=== PATIENT | female | born 1940 | race Caucasian/White ===

== ENCOUNTER 2021-11-05 09:45 | Outpatient (CLI) | payer OTHER, SELFPAY ==
--- NOTE | ~2021-11-05 | DEXA_ITS ---
Bone Density Report Name: CELINE ACKERMAN Age: 81 Sex: Female Ethnicity: White Date of : 1940 Indication: postmenopausal; parental hip fracture; height loss; prior fracture; hysterectomy; Referring Provider: Zeny Deleon Study: Bone densitometry was performed. Exam Date: November 05, 2021 Accession number: [id number] Bone Density: Region BMD T-score Z-score Classification AP Spine (L1-L4) 0.893 -1.4 1.3 Osteopenia Femoral Neck (Left) 0.658 -1.7 0.6 Osteopenia Total Hip (Left) 0.838 -0.9 1.3 Normal Total Hip Bilateral Avg 0.859 -0.7 1.5 Normal Femoral Neck (Right) 0.696 -1.4 1.0 Osteopenia Total Hip (Right) 0.879 -0.5 1.6 Normal World Health Organization criteria for BMD impression classify patients as: Normal (T-score at or above -1.0), Osteopenia (T-score between -1.0 and -2.5), or Osteoporosis (T-score at or below -2.5). 10-year Fracture Risk(1): Major Osteoporotic Fracture 32% Hip Fracture 20% Reported Risk Factors: [place] (), Neck BMD=0.658, BMI=22.0, previous fracture, parental fracture (1) FRAX(R) Version 3.08. Fracture probability calculated for an untreated patient. Fracture probability may be lower if the patient has received treatment. Previous Exams: Region Exam Age BMD T-score BMD Change BMD Change Date g/cm2 vs Baseline vs Previous AP Spine(L1-L4) 11/05/2021 81 0.893 -1.4 -0.063(-6.6%)# -0.063(-6.6%)# 07/09/2008 68 0.955 -0.8 Total Hip(Left) 11/05/2021 81 0.838 -0.9 -0.022(-2.6%)# -0.022(-2.6%)# 07/09/2008 68 0.860 -0.7 Total Hip(Right) 11/05/2021 81 0.879 -0.5 -0.019(-2.1%)# -0.019(-2.1%)# 07/09/2008 68 0.898 -0.4 *Denotes significance at 95% confidence level, LSC for AP Spine = 0.022 g/cm2, LSC for Total Hip = 0.027 g/cm2 Clinical Information Provided by Patient: Has had a low trauma fracture Parent has had a hip fracture Has used the following medications: Vitamin D Has the following medical conditions: Hysterectomy Patient maximum height was 66 Menopause Age: 40 Drinks caffeinated beverages Onset of menses at age 16 Number of children 3 Impression: The patient has low bone mass, based on the Left Femoral Neck T-score. The patient has an estimated ten-year risk of hip fracture of 20% and an estimated ten-year risk of major fracture of 32%, based on the WHO FRAX algorithm. The patient has risk factors, including: parental hip fracture, previous fracture. No significant bone loss
== END 2021-11-05 09:46 | disposition home or self-care (01) ==
LOC: ANHIMG 09:53
PROVIDERS: PCP Internal Medicine; Visit Provider Nurse Practitioner
DX: Z78.0 Asymptomatic menopausal state (principal); M85.88 Other specified disorders of bone density and structure, other site; M85.851 Other specified disorders of bone density and structure, right thigh; M85.852 Other specified disorders of bone density and structure, left thigh
CPT/HCPCS: 77080

== ENCOUNTER 2025-01-19 06:41 | Emergency (ER) | payer OTHER, SELFPAY ==
--- NOTE | ~2025-01-19 | XR_ITS ---
XR chest 2V 01/19/2025 08:12 Indication: Hypertension Procedure: 2 view chest Comparison: 03/07/2006 Findings: Heart size normal. There is lingular infiltrate which may represent atelectasis or developi ng pneumonia. There is pectus excavatum. There is scoliosis. No acute osseous abnormality. Impression: 1: Lingular infiltrate, atelectasis versus developing pneumonia. Reviewed, dictated and finalized at location [facility] Impression: 1: Lingular infiltrate, atelectasis versus developing pneumonia.
--- OUTSIDE RECORDS SUMMARY | 2025-01-19 06:43 | XMS_ITS | Data Portability ---
Author Organization [facility], Main Office Address [address] [place] [address] Care Team Providers Care Appliance Parts Counter Clerk Name Role Phone TEJAS GRAJEDA Primary Care Provider Assessment No assessment recorded. Plan of Treatment Reminders Order Date Submit Date Provider Last Modified By Organization Details Last Modified Time Details Appointments None recorded. Lab None recorded. Referral None recorded. Procedures None recorded. Surgeries None recorded. Imaging None recorded. Medication Orders Ciprodex 0.3 %-0.1 % ear drops,susp ension 2024 025 [facility] #[id number], [address] [place], [address], 16:40:10 Patient TargetsNo targets recorded. Patient Instructions Encounter Date Encounter Id Patient Instructions Last Modified By Organization Details Last Modified Time 01/18/2025 [id number] prescribed Ciprodex to be used twice a day for 7 days to aid in decreasing inflammation to the right external auditory canal. Advised that if her symptoms continue to persist after completion she may be seen for a re-evaluation or to see her terrazzo laborer to discuss softer tips for her hearing aid. [email or web address] Not available 01/18/2025 16:40:59 Reason for Referral None Reported. Problems Name Problem SNOMED Code Status Onset Date Resolution Date Notes Provider Name and Address Organization Details Recorded Time Otitis externa 5055384 Active 025 ANDRY Dorsey [address] [facility], [facility] [address], [place], [address] , [facility] 01/18/2025 16:39:55 Problem Notes None recorded. Procedures Surgical History Date Name Laterality Status Provider Name and Address Organization Details Recorded Time tonsillectomy completed Clarisse santamaria RN [facility] 01/18/2025 16:15:24 Imaging Results None recorded. Procedure Notes None recorded. Medical Equipment None Reported. Allergies Allergen ID Allergen Name Allergen Category Reaction Reaction Severity Criticality Documentation Date Start Date Code Code System Note Provider Name and Address Organization Details Recorded Time 09641 Substance with sulfonami de structure and antibacte rial mechanism of action (substanc e) medicatio n Not available Not available Not available 01/18/2025 75689 8003 SNOMED SHEEBA Glaser [facility] [employer] [facility] 16:16:05 Medications Name Sig Start Date Stop Date Status Note LastModified by Organization Details LastModified Time bimatoprost 0.03 % eye drops USE ONE DROP ON BOTH EYE LASH LINES EVERY DAY AT BEDTIME 01/18 completed Not Available Not Available Not Available amlodipine 2.5 mg tablet TAKE 1 TABLET BY MOUTH EVERY DAY IN THE MORNING active Not Available Not Available No t Available imiquimod 5 % topical cream packet PLEASE SEE ATTACHED FOR DETAILED DIRECTION S 01/18 completed Not Available Not Available Not Available ibuprofen 400 mg tablet TAKE 1 TABLET BY MOUTH EVERY 6 HOURS NEEDED FOR PAIN. 01/18 completed Not Available Not Available Not Available metoprolol succinate ER 25 mg tablet,exte nded release 24 hr TAKE 1/2 TABLET BY MOUTH DAILY active Not Available Not Available No t Available diazepam 5 mg tablet TAKE 1 TABLET BY MOUTH EVERY DAY NEEDED FOR ANXIETY 01/18 completed Not Available Not Available Not Available Ciprodex 0.3 %-0.1 % ear drops,suspe nsion INSTILL 4 DROPS INTO right EAR(S) BY OTIC ROUTE 2 TIMES PER DAY FOR 7 DAYS 2024 active Not Available Not Available Not Avai lable Vitals Date Recorded Body weight Body mass index (BMI) Body height Body temperature Provider Name and Address Organization Details Last Updated DateTime 01/18/2025 75389.79 g 21.7 kg/m2 162.56 cm 97.8 [degF] Clarisse Menezes RN [facility] [employer] [facility] 01/18/2025 16:19:34 Social History Question Answer Notes LastModified by Organizat ion Details LastModified Time Tobacco Smoking Status Never Smoker SHEEBA Glaser [facility] [employer] [facility] 01/18/2025 16:16:50 What Is Your Level Of Alcohol Consumption? None [email or web address] Information not available 01/18/2025 Sex: Unknown Functional Status None recorded. Mental Status None recorded. Family History Relationship Description Onset Age of this Age Resolved Age Notes LastModified by Organization Details LastModified Time Father No current problems or disability [email or web address] Not available 01/18 16:15:33 Mother No current problems or disability [email or web address] Not available 01/18 16:15:33 Notes:NO ENT Medical History Condition Response EAR OR HEARING PROBLEMS Y Gynecological HistoryNo gynecological history recorded. Obstetrics History GPAL:G 0 P 0 0 0 0 Past Encounters Encounter ID Performer Location Encounter Start Date Encounter Closed Date Diagnosis/Indication Diagnosis SNOMED-CT Code Diagnosis ICD10 Code Diagnosis Note [id number] ANDRY Dorsey [facility] [address] [place] [address] 01/18/2025 15:47:54 01/18/2025 16:41:35 Otitis externa 8059032 H60.91 Health Concerns Section Related Observation LastModified by Organization Detai ls LastModified Time None Recorded Concern Status LastModified by Organization Details LastModified Time None Recorded Advance Directives Directive None Recorded Payers Encounter Date Sequence Insurance Name Policy Number Policy Soares Covered Member ID Soares Member ID Guarantor Name 01/18/2025 1 ADELA Yeung [id number] Carlita Yeung Notes Date Note Type Note Provider Name and Address Organization Details Recorded Time 01/18/2025 text/html This patient has a past medical history significant for an MVP, and hearing loss s/p bilateral hearing aids. She presents to the office with a complaint of ear wax that she had noted approximately 1 month ago. She denies use of [id number] ear wax removal kit. She states that 2 years ago she had her right ear irrigated due to a cerumen impaction. She states that ever since this ear irrigation she has had increasing pain and tenderness to the entry point of her ear canal wear her hearing aid sits. She reports increasing pain and discomforts with use of her hearing aid to the affected right ear. ANDRY Dorsey [address] [facility], [facility] [address], [place], [address], [place] [facility] 01/18/2025 16:41:03 OBGyn Episode No OBEpisode recorded.
--- OUTSIDE RECORDS SUMMARY | 2025-01-19 06:43 | XMS_ITS | Encounter Summary ---
Author Organization [facility] Address [facility] [place] [address] Care Team Providers Care Children'S Ministry Director Name Role Phone Damien Casanova MD Primary Care Provider [phone] Encounter Details Date Type Department Care Team (Late st Contact Info) Description 10/02/2017 Abstract [place] [address] , Generic Conversion, Social History Tobacco Use Types Packs/Day Years Used Date Smoking Tobacco: Never Assessed Comments Unknown Sex and Gender Information Value Date Recorded Sex Assigned at Not on file Legal Sex Female 5:21 PM CDT Gender Identity Not on file Sexual Orientation Not on file documented as of this encounter Plan of Treatment Not on file documented as of this encounter Visit Diagnoses Not on filedocumented in this encounter Care Teams Children'S Ministry Director Relationship Specialty Start Date End Date Damien Casanova MD [address] [facility] [address] [address] PCP - General 12/07/15 documented as of this encounter
--- OUTSIDE RECORDS SUMMARY | 2025-01-19 06:43 | XMS_ITS | Referral Summary ---
Author Organization [facility] Address [address] [place] [address] Care Team Providers Care Project Geologist Name Role Phone Unavailable Primary Care Provider Unavailabl e Source Comments [facility],non-owned Affiliates and Associated Physician Practices is amultiple site organization consisting of ambulatory clinics and hospital sitesin [place], [place], [place] and [place]. This disclosure is being madepursuant to the Care Everywhere program and may not contain all information available regarding this patient. Last updated 18.[facility] Social History Tobacco Use Types Packs/Day Years Used Date Smoking Tobacco: Never Assessed Sex and Gender Information Value Date Recorded Sex Assigned at Not on file Gender Identity Not on file Sexual Orientation Not on file Plan of Treatment Upcoming Encounters Date Type Department Care Team (Late st Contact Info) Description 02/12/2025 2:40 PM CDT Office Visit [facility] [address] [place] [address] [place] [id number] [address]
--- OUTSIDE RECORDS SUMMARY | 2025-01-19 06:43 | XMS_ITS | Patient Health Summary ---
Author Organization [facility] Address [address] [facility] [place] [address] Care Team Providers Care Tree Faller Name Role Phone Unavailable Primary Care Provider Unavailabl e Note from [facility],non-owned Affiliates and Associated Physician Practices is amultiple site organization consisting of ambulatory clinics and hospital sitesin [place], [place], [place] and [place]. This disclosure is being madepursuant to the Care Everywhere program and may not contain all information available regarding this patient. Last updated 18.[facility] Social History Tobacco Use Types Packs/Day Years Used Date Smoking Tobacco: Never Assessed Sex and Gender Information Value Date Recorded Sex Assigned at Not on file Gender Identity Not on file Sexual Orientation Not on file
--- OUTSIDE RECORDS SUMMARY | 2025-01-19 06:43 | XMS_ITS | Clinical Summary ---
Author Organization [facility] Address [address] [place] [address] Phone Care Team Providers Care Metalsmith Helper Name Role Phone Damien Casanova MD Primary Care Provider [phone] Allergies Active Allergy Reactions Criticality Noted Date Comments Sulfa (Sulfonamide Antibiotics) Unknown 02/2011 Medications diazepam (VALIUM) 5 mg Oral tablet Take 2.5 mg by mouth every 6 hours as needed. Active aspirin (LUCIE) 81 mg Oral Tab Take 81 mg by mouth daily with breakfast. 09/01/2011 Active calcium carbonate 1,000 mg Oral Tab Take 1,000 mg by mouth daily. 09/01/2011 Active lisinopril (PRINIVIL) 2.5 mg Oral tablet Take 2.5 mg by mouth daily. Active METHYLCELLULOSE (CITRUCEL ORAL) Take by mouth daily. Active POLYETHYLENE GLYCOL 3350 (MIRALAX ORAL) Take by mouth daily. Active Active Problems Problem Noted Date Diagnosed Date Constipation 09/01/2011 Social History Tobacco Use Types Packs/Day Years Used Date Smoking Tobacco: Never Alcohol Use Standard Drinks/Week Comments No 0 (1 standard drink = 0.6 oz pur e alcohol) Comments Unknown Sex and Gender Information Value Date Recorded Sex Assigned at Not on file Legal Sex Female 2:40 AM DAT INSTRUCTOR Gender Identity Not on file Sexual Orientation Not on file Last Filed Vital Signs Vital Sign Reading Time Taken Comments Blood Pressure 110/68 08/23/2013 3:13 PM CDT Pulse 81 08/23/2013 3:13 PM CDT Temperature 37 C (98.6 F) 09/01/2011 7:48 AM CDT Respiratory Rate 16 08/23/2013 3:13 PM CDT Oxygen Saturation 99% 09/01/2011 10:13 AM CDT Inhaled Oxygen Concentration - - Weight 61.2 kg (135 lb) 08/23/2013 3:13 PM CDT Height 165.1 cm (5' 5 ) 08/23/2013 3:13 PM CDT Body Mass Index 22.47 08/23/2013 3:13 PM CDT Plan of Treatment Health Maintenance Due Date Last Done Comments DTAP/TDAP/TD VACCINES (1 - Tdap) 1959 PNEUMOCOCCAL VACCINE 65+ YEARS (1 of 1 - PCV) 05/05/19 90 ZOSTER VACCINE (1 of 2) 1990 OSTEOPOROSIS SCREENING 2005 RSV VACCINE (60+ or ) (1 - 1-dose 75+ series) 2015 INFLUENZA VACCINE (#1) 2024 COLORECTAL SCREENING Discontinued 09/01/2011 Colorectal Cancer Screening Discontinued FIT-DNA Q 3 years Discontinued FIT/FOBT Q 1 year Discontinued Flex Sig/CT Colonography Q 5 years Discontinued Insurance [facility] OPEN ACCESS O Advance Directives For more information, please contact: [phone] * Full Code (Latest Code Status on File) Date Activated Date Inactivated Comments 09/01/2011 7:40 AM 09/02/2011 2:02 AM Care Teams Metalsmith Helper Relationship Specialty Start Date End Date Damien Casanova MD [address] [facility] [address] [place] [address] PCP - General Internal Medicine 08/07/11
--- OUTSIDE RECORDS SUMMARY | 2025-01-19 06:43 | XMS_ITS | Continuity of Care Document ---
Author Organization [place] [facility] Address [address] , [address] [place] [address] Care Team Providers Care Employment Educational Coord Name Role Phone TEJAS GRAJEDA Primary Care Provider Assessment No assessment recorded. Plan of Treatment Reminders Order Date Submit Date Provider Last Modified By Organization Details Last Modified Time Details Appointments None recorded. Lab None recorded. Referral None recorded. Procedures None recorded. Surgeries None recorded. Imaging None recorded. Medication Orders Ciprodex 0.3 %-0.1 % ear drops,susp ension 2024 025 [facility] #[id number], [address] [place], [address], 16:40:10 Patient TargetsNo targets recorded. Patient Instructions Encounter Date Encounter Id Patient Instructions Last Modified By Organization Details Last Modified Time 01/18/2025 [id number] prescribed Ciprodex to be used twice a day for 7 days to aid in decreasing inflammation to the right external auditory canal. Advised that if her symptoms continue to persist after completion she may be seen for a re-evaluation or to see her peoplesoft hcm consultant to discuss softer tips for her hearing aid. [email or web address] Not available 01/18/2025 16:40:59 Reason for Referral None Reported. Problems Name Problem SNOMED Code Status Onset Date Resolution Date Notes Provider Name and Address Organization Details Recorded Time Otitis externa 6310968 Active 025 ANDRY Dorsey [address] [facility], [facility] [address], [place], [address] , [facility] 01/18/2025 16:39:55 Problem Notes None recorded. Procedures Surgical History Date Name Laterality Status Provider Name and Address Organization Details Recorded Time tonsillectomy completed Clarisse santamaria, RN [facility] [employer] [facility] 01/18/2025 16:15:24 Imaging Results None recorded. Procedure Notes None recorded. Medical Equipment None Reported. Allergies Allergen ID Allergen Name Allergen Category Reaction Reaction Severity Criticality Documentation Date Start Date Code Code System Note Provider Name and Address Organization Details Recorded Time 60624 Substance with sulfonami de structure and antibacte rial mechanism of action (substanc e) medicatio n Not available Not available Not available 01/18/2025 20964 8003 SNOMED SHEEBA Glaser [facility] [employer] [facility] 16:16:05 Medications Name Sig Start Date [...] Address Organization Details Last Updated DateTime 01/18/2025 96706.79 g 21.7 kg/m2 162.56 cm 97.8 [degF] Clarisse Menezes RN [facility] [employer] [facility] 01/18/2025 16:19:34 Social History Question Answer Notes LastModified by Organizat ion Details LastModified Time Tobacco Smoking Status Never Smoker SHEEBA Glaser [facility] [employer] [facility] 01/18/2025 16:16:50 What Is Your Level [...] SNOMED-CT Code Diagnosis ICD10 Code Diagnosis Note [id number] ANDRY Dorsey [facility] [address] [place] [address] 01/18/2025 15:47:54 01/18/2025 16:41:35 Otitis externa 5424809 H60.91 Health Concerns Section Related Observation LastModified by Organization Detai ls LastModified Time None Recorded Concern Status LastModified by Organization Details LastModified Time None Recorded Payers Encounter Date Sequence Insurance Name Policy Number Policy Soares Covered Member ID Soares Member ID Guarantor Name 01/18/2025 1 ADELA Yeung [id number] Carlita Yeung Notes Date Note Type Note Provider Name and Address Organization Details Recorded Time 01/18/2025 text/html This patient has a past medical history significant for an MVP, and hearing loss s/p bilateral hearing aids. She presents to the office with a complaint of ear wax that she had noted approximately 1 month ago. She denies use of jbfr-zeo-qvrvpff ear wax removal kit. She states that [...] to the affected right ear. ANDRY Dorsey [address] [place] [address], [facility] [address], [address], [place] [facility] 01/18/2025 16:41:03 OBGyn Episode No OBEpisode recorded.
--- OUTSIDE RECORDS SUMMARY | 2025-01-19 06:43 | XMS_ITS | Referral Summary ---
Author Organization [facility] Address [address] [place] [address] Care Team Providers Care Newspaper Editor Name Role Phone Valentin Ridley MD Primary Care Provider [phone] Encounters Date Type Department Care Team Description 01/10/2025 1:30 PM SILK TRIMMER Office Visit [facility] Orthopaedic Surgery [address] [place] [address] Medical Office Building [address] [place] [phone] Bryon Butler MD Primary osteoarthritis of right knee (Primary Dx); Chronic pain of right knee 01/08/2025 10:15 AM SILK TRIMMER Ancillary Procedure [facility] Card[facility] [address] [place] [address] [place] [phone] Abnormal echocardiogram 01/03/2025 7:20 AM SILK TRIMMER Telemedicine [facility] Orthopaedic Surgery [address] [place] [address] Medical Office Building [address] [place] [phone] Bryon Butler MD Primary osteoarthritis of right knee (Primary Dx); Chronic pain of right knee 01/02/2025 Telephone [facility] [address] [place] [address] [address] [place] [phone] Sharon Herrera MD 12/29/2024 8:15 AM SILK TRIMMER Ancillary Procedure [facility] Cardiology at [address] [place] [address] Primary hypertension; Mitral valve prolapse 12/24/2024 12:07 PM SILK TRIMMER - 12/24/2024 12:48 PM [facility] Emergency [facility] Emergency Department [id number] [id number] Hypertension, unspecified type (Primary Dx); Urinary frequency Discharge Disposition: Discharge to home or self care 12/24/2024 11:00 AM SILK TRIMMER Office Visit [facility] Medical [facility] at [address] [phone] Brynn Marsh PA Hypertensive urgency (Primary Dx) 12/19/2024 8:15 AM SILK TRIMMER Office Visit [facility] Medicine [address] [place] [phone] Mady Fernandez PA Primary osteoarthritis of right knee (Primary Dx); Weakness of right lower extremity 12/12/2024 2:00 PM SILK TRIMMER Office Visit [facility] Cardiology at [address] [place] [address] Sharon Herrera MD Primary hypertension (Primary Dx); Mitral valve prolapse; Chronic pain of right knee from Last 3 Months Allergies Active Allergy Reactions Criticality Noted Date Comments Sulfa (Sulfonamide Antibiotics) Unknown 03/30 Medications methylcellulose, laxative, (CITRUCEL) 500 mg tablet TAKE 3 TAB DAILY AT BREAKFAST Active polyethylene glycol (MIRALAX) 17 gram/dose powder TAKE DIRECTED ON PATIENT INSTRUCTION CARD. Active vit A/C/E ac/ZnOx/cupric oxide (EYE VITAMIN AND MINERALS ORAL) Take by mouth daily Active bimatoprost (LATISSE) 0.03 % ophthalmic solution USE 1 DROP ON BOTH EYE LASH LINES EVERY DAY AT BEDTIME 3 Active metoprolol XL (TOPROL-XL) 25 mg extended release tabletIndication s:Primary hypertension TAKE 1/2 TABLET BY MOUTH EVERY DAY 45 tablet 1 4 Active amLODIPine (NORVASC) 2.5 mg tabletIndication s:Primary hypertension TAKE 1 TABLET BY MOUTH EVERY MORNING 90 tablet 1 4 Active diazePAM (VALIUM) 5 mg tabletIndication s:EMELIA (generalized anxiety disorder) TAKE 1 TABLET BY MOUTH EVERY DAY NEEDED FOR ANXIETY 30 tablet 4 Active Hospital, Clinic, or Other Facility Administered Medication Ordered Dose Route Frequency Start Date End Date Status BUPivacaine HCl (MARCAINE) 0.25 % (2.5 mg/mL) injection 6 mLIndications:Primar y osteoarthritis of right knee,Chronic pain of right knee 6 mL intra-artic One-Time Injection 01/10/2025 5 Ended triamcinolone (KENALOG) 40 mg/mL injection 80 mgIndications:Primar y osteoarthritis of right knee,Chronic pain of right knee 80 mg intra-artic One-Time Injection 01/10/2025 5 Ended Active Problems Problem Noted Date Diagnosed Date Blood present in stool 05/10/2024 Assessment & Plan (05/10/2024 9:20 AM CDT): Patient recommended to continue constipation treatment (citrucel) and to keep an eye on the stool as this had happened one time with no pain, night sweats, nor weight loss. Sent over stool for heme occult testing Chronic pain of right knee 04/17/2024 Post-traumatic osteoarthritis of right knee 03/30 Sensorineural hearing loss ( SNHL) of left ear with restricted hearing of right ear 01/07/2024 Assessment & Plan (01/07/2024 9:00 AM SILK TRIMMER): Avoid ear cleaning techniques Continue hearing aids Follow up in one year for ear check Bilateral impacted cerumen 01/07/2024 Assessment & Plan (01/07/2024 9:00 AM SILK TRIMMER): Avoid ear cleaning techniques Continue hearing aids Follow up in one year for ear check Mitral valve prolapse 10/28/2022 BMI 20.0-20.9, adult 02/14/2018 Carotid bruit 01/07/2018 Body mass index (BMI) of 20 to 24 07/22/2015 Hypertension 04/26/2013 Resolved Problems Problem Noted Date Diagnosed Date Resolved Date Malignant neoplasm screen 09/28/2019 Overview (09/28/2019): Added automatically from request for surgery [id number] Decreased blood pressure, not hypotension 07/28/2016 10/06/2022 Lightheadedness 07/28/2016 10/06/2022 Weakness 07/28/2016 10/06/2022 Tachycardia 07/28/2016 10/06/2022 Closed fracture of bone 03/30/201408/29 Body mass index (BMI) 21.0-21.9, adult 04/26/2013 09/08/2023 Constipation 09/01/2011 10/06/2022 Immunizations Immunization Administration Dates Next Due COVID-19 mRNA (Gazelle) 0.3 m L (30 mcg) vaccine (12 years and up) 09/13/2023 Influenza, Quad, Adjuvantate d, Intramuscular 09/13/2023,08/28/2021 Influenza, Quadrivalent, Hig h Dose, Preservative Free, Intrr 09/07/2022,07/19/2020 Influenza, Quadrivalent, Spl it, Preservative Free, Intramuscular 08/17/2013 Influenza, Trivalent, Adjuva nted, Intramuscular 08/29/2018,08/28/2018 Influenza, Trivalent, High D ose, Split, Preservative Free, Intramuscular 08/07/2024,09/04/2019,09/02/2017,08/30,08/27/2014 Influenza, Trivalent, Preser vative Free, Intramuscular 08/21/2015 Influenza, Unspecified 11/29/2023(Deferr ed: Patient Refused),11/29/2022(Deferred: Patient Refused) Pneumococcal Conjugate PCV 13 12/26/2018 Pneumococcal Polysaccharide PPV23 07/19/2020 RSV Vaccine, Pref, Recombina nt, Subunit, Adjuvanted, PF, IM (Arexvy) 09/13/2023 Tdap 09/08/2023 ZOSTER Recombinant 04/18/2019,12/26/2018 Social History Tobacco Use Types Packs/Day Years Used Date Smoking Tobacco: Never Smokeless Tobacco: Never Tobacco Cessation:Counseling Given: Not Answered AUDIT-C Answer Date Recorded Q1: How often do you have a drink containing alc ohol? Monthly or less 09/07/2024 Q2: How many drinks containi ng alcohol do you have on a typical day when you are drinking? 1 or 2 09/07/2024 Q3: How often do you have si x or more drinks on one occasion? Less than monthly 09/07/2024 PHQ-2 Answer Date Recorded PHQ-2 Total Score (If total score is 3 or more points, staff should administer the PHQ-9) 0 05/10/2024 Personal Safety Answer Date Recorded Have you ever been in or are you currently in a harmful physical or emotional relationship or is someone making you feel afraid or unsafe? Denies 12/24/2024 Comments No Sex and Gender Information Value Date Recorded Sex Assigned at Not on file Legal Sex Female 1:13 PM SILK TRIMMER Gender Identity Not on file Sexual Orientation Not on file Last Filed Vital Signs Vital Sign Reading Time Taken Comments Blood Pressure 144/82 12/24/2024 12:35 PM SILK TRIMMER Pulse 88 12/24/2024 12:35 PM SILK TRIMMER Temperature 36.4 C (97.5 F) 12/24/2024 11:48 AM SILK TRIMMER Respiratory Rate 16 12/24/2024 12:35 PM SILK TRIMMER Oxygen Saturation 98% 12/24/2024 12:35 PM SILK TRIMMER Inhaled Oxygen Concentration - - Weight 55.8 kg (123 lb) 12/24/2024 11:48 AM SILK TRIMMER Height 162.6 cm (5' 4 ) 12/24/2024 9:54 AM SILK TRIMMER Body Mass Index 21.11 12/24/2024 9:54 AM SILK TRIMMER Plan of Treatment Not on file Procedures Procedure Name Priority Date/Time Associated Diagnosis Comments CT ARTHROCENTESIS ASPIR&/INJ MAJOR JT/BURSA W/O US Routine 01/10/2025 1:30 PM SILK TRIMMER Primary osteoarthritis of right knee Chronic pain of right knee NM MPI SPECT (REST AND/OR STRESS) MULTIPLE STUDIES Schedule Routine, Read Routine (OP Routine) 01/08/2025 11:28 AM SILK TRIMMER Abnormal echocardiogram TRANSTHORACIC ECHO (TTE) COMPLETE W DOPPLER/CF WO CONTRAST Routine 12/29/2024 8:37 AM SILK TRIMMER Primary hypertension Mitral valve prolapse URINALYSIS AND REFLEX TO MICROSCOPIC AND CULTURE STAT 12/24/2024 12:11 PM SILK TRIMMER HM DEXA SCAN Routine 11/05/2021 from Last 3 Months or Most Recently Relevant to Health Maintenance Results * CT ARTHROCENTESIS ASPIR&/INJ MAJOR JT/BURSA W/O US (01/10/2025 1:30 PM SILK TRIMMER) Narrative Bryon Butler MD - 01/10/2025 1:30 PM SILK TRIMMER Bryon Butler MD 01/14/2025 11:53 PM Large Joint Injection: R knee Performed by: Bryon Butler MD Authorized by: Bryon Butler MD Large Joint Injection/Aspiration: Consent Given by: Patient Verbal consent obtained: Yes Supporting Documentation: Indications: Pain Procedure Details: Location: Knee Site: R knee Prep: patient was prepped and draped in usual sterile fashion Needle Size: 22 G Approach: Superior lateral Ultrasound guided: No Medications: 80 mg triamcinolone 40 mg/mL; 6 mL BUPivacaine HCl 0.25 % (2.5 mg/mL) Patient tolerance: Patient tolerated the procedure well with no immediate complications Bryon Butler MD IN CLINIC/BEDSIDE ORDERAB LES Final Result * NM MPI SPECT (Rest and/or Stress) Multiple Studies (01/08/2025 11:28 AM SILK TRIMMER) Anatomical Region Laterality Modality Body N/A Nuclear Medicine 01/08/2025 9:22 AM SILK TRIMMER Narrative 01/09/2025 11:07 AM SILK TRIMMER [facility] [address] [facility] [address], [place] [address] [address] [facility] [address], [place] [address] P:[phone] P:[phone] MPI Imaging Report Patient Name: CARLITA ACKERMAN L : 1940 Study Date: 01/08/2025 9:22:12 AM Gender: F Tech: CATRINA LITTLE Location: [facility] Provider: SHRAON HERRERA Height(Cm): 162.6 BSA: Weight(Kg): 55.8 BMI: 21.11 Order Provider: SHARON HERRERA PHYSICIAN: Referring Physician: Dr. Ridley. HCG Physician: Steve Herrera M.D. Interpreting Physician: Alba Bustamante D.O. Stress Supervision: Lazaro Hough M.D., F.A.C.C. PROCEDURES: Pharmacologic SPECT Report: Myocardial perfusion imaging with Tc99M Sestamibi SPECT at rest and stress post regadenoson (Lexiscan) infusion. INDICATIONS: Hypertension, Family Hx CAD, and R93.1 Abnormal findings on diagnostic imaging of heart and coronary circulation. FINDINGS: Procedural Findings: One day rest/stress was used. Tc99m Sestamibi injected IV at rest was 8.8 millicuries 24.1 millicuries of Tc99M Sestamibi injected IV during Lexiscan stress Lexiscan 0.4mg administered IV over 10 seconds. Patient had no symptoms during stress test. Baseline heart rate was 74 BPM Maximum Heart Rate Achieved was: 110 BPM Baseline blood pressure was 122/74 mmHg Post Stress Blood Pressure was 128/78 mmHg Termination: Protocol complete. Resting ECG: Sinus rhythm, poor R-wave progression. Post ECG: Findings do not meet strict criteria for ischemia. Arrhythmia: No arrhythmias seen. Perfusion Findings: Normal perfusion imaging. Technical quality of study is good. Prone imaging was not performed. Left ventricle cavity size at rest is small. Left ventricle cavity size with stress is unchanged. A TID of 0.82 was automatically calculated. LV Function: Global left ventricular function is normal. Left ventricular ejection fraction is 77 %. CONCLUSIONS: Negative EKG portion of stress test. Myocardial perfusion imaging is normal. Global left ventricular function is normal. Left ventricular ejection fraction is 77 %. Electronically Signed By: Dr. Lazaro Hough FACC 01/08/2025 2:08:36 PM SILK TRIMMER Electronically Signed By: Alba Bustamante DO, NATALEE, JAHAIRA, MARK 01/09/2025 11:03:28 AM SILK TRIMMER Procedure Note Alba Bustamante DO - 01/09/2025 [facility] [address], [place] [address] [address] [facility] [address], [place] [address] P:[phone] P:[phone] MPI Imaging Report Patient Name: CARLITA ACKERMAN L : 1940 Study Date: 01/08/2025 9:22:12 AM Gender: F Tech: [facility] Location: [facility] Provider: SHARON HERRERA Height(Cm): 162.6 BSA: Weight(Kg): 55.8 BMI: 21.11 Order Provider: SHARON HERRERA PHYSICIAN: Referring Physician: Dr. Ridley. HCG Physician: Steve Herrera M.D. Interpreting Physician: Alba Bustamante D.O. Stress Supervision: Lazaro Hough M.D., F.A.C.C. PROCEDURES: Pharmacologic SPECT Report: Myocardial perfusion imaging with Tc99M Sestamibi SPECT at rest and stresspost regadenoson (Lexiscan) infusion. INDICATIONS: Hypertension, Family Hx CAD, and R93.1 Abnormal findings on diagnosticimaging of heart and coronary circulation. FINDINGS: Procedural Findings: One day rest/stress was used. Tc99m Sestamibi injected IV at rest was 8.8 millicuries 24.1 millicuries of Tc99M Sestamibi injected IV during Lexiscan stress Lexiscan 0.4mg administered IV over 10 seconds. Patient had no symptoms during stress test. Baseline heart rate was 74 BPM Maximum Heart Rate Achieved was: 110 BPM Baseline blood pressure was 122/74 mmHg Post Stress Blood Pressure was 128/78 mmHg Termination: Protocol complete. Resting ECG: Sinus rhythm, poor R-wave progression. Post ECG: Findings do not meet strict criteria for ischemia. Arrhythmia: No arrhythmias seen. Perfusion Findings: Normal perfusion imaging. Technical quality of study is good. Proneimaging was not performed. Left ventricle cavity size at rest is small. Left ventriclecavity size with stress is unchanged. A TID of 0.82 was automatically calculated. LV Function: Global left ventricular function is normal. Left ventricular ejectionfraction is 77 %. CONCLUSIONS: Negative EKG portion of stress test. Myocardial perfusion imaging is normal. Global left ventricular function is normal. Left ventricular ejectionfraction is 77 %. Electronically Signed By: Dr. Lazaro Hough [facility] 01/08/2025 2:08:36 PM SILK TRIMMER Electronically Signed By: Alba Bustamante DO, FACFrancesca, JAHAIRA, MARK 01/09/2025 11:03:28 AM SILK TRIMMER us Sharon Herrera MD IMG NM PROCEDURES Final R esult * TRANSTHORACIC ECHO (TTE) COMPLETE W DOPPLER/CF WO CONTRAST (12/29/2024 8:37 AM SILK TRIMMER) LV EF 65 % CONS SCIMAGE Anatomical Region Laterality Modality Ultrasound 12/29/2024 8:20 AM SILK TRIMMER Narrative 12/29/2024 4:00 PM SILK TRIMMER [facility] [address], [address], [place] [address] P:[phone] P:[phone] Echocardiographic Report Patient Name: CARLITA ACKERMAN L : 1940 Study Date: 12/29/2024 8:20:28 AM Gender: F Tech: Location: [facility] Ref Provider: SHARON HERRERA Height(Cm): 163 BSA: 1.59 Weight(Kg): 55.8 Heart Rate: 64 BP: 144 / 82 Quality: Good Order Provider: SHARON HERRERA PROCEDURES: Echocardiographic Report: Transthoracic echocardiogram with complete 2D, M-Mode, and color Doppler examination. With Strain Analysis. INDICATIONS: I10 Essential (primary) hypertension and I34.1 Nonrheumatic mitral (valve) prolapse. MEASUREMENTS: 2D/MM Value Range Doppler Value Range EF Mod BP 76 % [ 54 - 74 ] AV Mean PG 4 mmHg EF Teich MM 65 % [ 54 - 74 ] AV Peak José Luis 1.47 m/s [ 1.00 - 1.70 ] Estimated EF 65 % AV Peak PG 9 mmHg LVIDd 2D 3.68 cm [ 3.80 - 5.20 ] AV VTI 28.66 cm LVIDd MM 3.72 cm [ 3.80 - 5.20 ] LVOT Peak José Luis 1.01 m/s [ 0.70 - 1.10 ] LVIDs 2D 2.67 cm [ 2.20 - 3.50 ] LVOT VTI 23.24 cm LVIDs MM 2.44 cm [ 2.20 - 3.50 ] MV E Peak José Luis 0.64 m/s [ 0.60 - 1.30 ] LVPWd 2D 0.77 cm [ 0.60 - 0.90 ] MV A Peak José Luis 0.77 m/s [ 1.00 - 1.20 ] LVPWd MM 0.94 cm [ 0.60 - 0.90 ] MV Decel Time 274 msec [ 104 - 258 ] IVSd 2D 0.89 cm [ 0.60 - 0.90 ] PV Peak José Luis 0.66 m/s [ 0.40 - 0.80 ] IVSd MM 0.96 cm [ 0.60 - 0.90 ] TR Peak José Luis 2.18 m/s [ 1.00 - 2.80 ] LA Dimension MM 2.79 cm [ 2.70 - 3.80 ] TR Peak PG 19 mmHg AoR Diam MM 3.07 cm [ 2.70 - 3.70 ] RVSP 27.00 mmHg [ 10.00 - 36.00 ] LA Volume Index 32 cc/m2 [ 16 - 34 ] E` 0.08 m/s ACS MM 1.83 cm E/E` 9 2D/MM Value Range Doppler Value Range - FINDINGS: Interpretation Site: Exam was interpreted at [facility]. Left Ventricle: Normal left ventricular size. Normal left ventricular wall thickness. Normal global left ventricular systolic function. Impaired diastolic relaxation Grade I. Ejection fraction is measured at 76 %. Ejection Fraction is visually estimated to be 65 %. Global Longitudinal Strain is -17 %. These segments of the LV are hypokinetic: anteroseptum segment. Right Ventricle: Normal right ventricular size. Normal right ventricular systolic function. Left Atrium: There is moderate enlargement of left atrium. Right Atrium: There is mild enlargement of right atrium. Atrial Septum: Normal atrial septum. Mitral Valve: Normal appearance of the mitral valve. Mild mitral valve regurgitation. There is no hemodynamically significant mitral stenosis by Doppler. Aortic Valve: No evidence of hemodynamically significant aortic stenosis by Doppler. Aortic cusps appear mildly sclerotic. Trileaflet aortic valve. Trace aortic valve regurgitation. Tricuspid Valve: Normal appearance of the tricuspid valve. Normal right ventricular systolic pressure. Estimated peak RVSP is 27 mmHg. Mild to moderate tricuspid regurgitation. Pulmonic Valve: Normal appearance of the pulmonic valve. No pulmonic stenosis. Mild pulmonic regurgitation. Pericardium: Trivial pericardial effusion. Aorta: Normal aortic root. IVC: Normal size and normal respiratory collapse consistent with normal right atrial pressure (<5 mmHg). CONCLUSIONS: Normal left ventricular size. Normal left ventricular wall thickness. Normal global left ventricular systolic function. Impaired diastolic relaxation Grade I. Ejection fraction is measured at 76 %. Ejection Fraction is visually estimated to be 65 %. Global Longitudinal Strain is -17 %. These segments of the LV are hypokinetic: anteroseptum segment. There is moderate enlargement of left atrium. There is mild enlargement of right atrium. Normal appearance of the mitral valve. Mild mitral valve regurgitation. Mild to moderate tricuspid regurgitation. Mild pulmonic regurgitation. Normal sinus rhythm. Electronically Signed By: Sharon Herrera MD 12/29/2024 4:00:03 PM SILK TRIMMER Procedure Note Sharon Herrera MD - 12/29/2024 [facility] [address], [address], [place] [address] P:[phone] P:[phone] Echocardiographic Report Patient Name: CARLITA ACKERMAN L : 1940 Study Date: 12/29/2024 8:20:28 AM Gender: F Tech: Location: [facility] Ref Provider: SHARON HERRERA Height(Cm): 163 BSA: 1.59 Weight(Kg): 55.8 Heart Rate: 64 BP: 144 / 82 Quality: Good Order Provider: SHARON HERRERA PROCEDURES: Echocardiographic Report: Transthoracic echocardiogram with complete 2D, M-Mode, and color Dopplerexamination. With Strain Analysis. INDICATIONS: I10 Essential (primary) hypertension and I34.1 Nonrheumatic mitral (valve)prolapse. MEASUREMENTS: 2D/MM Value Range Doppler ValueRange EF Mod BP 76 % [ 54 - 74 ] AV Mean PG 4mmHg EF Teich MM 65 % [ 54 - 74 ] AV Peak José Luis 1.47m/s [ 1.00 - 1.70 ] Estimated EF 65 % AV Peak PG 9mmHg LVIDd 2D 3.68 cm [ 3.80 - 5.20 ] AV VTI 28.66cm LVIDd MM 3.72 cm [ 3.80 - 5.20 ] LVOT Peak José Luis 1.01m/s [ 0.70 - 1.10 ] LVIDs 2D 2.67 cm [ 2.20 - 3.50 ] LVOT VTI 23.24cm LVIDs MM 2.44 cm [ 2.20 - 3.50 ] MV E Peak José Luis 0.64m/s [ 0.60 - 1.30 ] LVPWd 2D 0.77 cm [ 0.60 - 0.90 ] MV A Peak José Luis 0.77m/s [ 1.00 - 1.20 ] LVPWd MM 0.94 cm [ 0.60 - 0.90 ] MV Decel Time 274msec [ 104 - 258 ] IVSd 2D 0.89 cm [ 0.60 - 0.90 ] PV Peak José Luis 0.66m/s [ 0.40 - 0.80 ] IVSd MM 0.96 cm [ 0.60 - 0.90 ] TR Peak José Luis 2.18m/s [ 1.00 - 2.80 ] LA Dimension MM 2.79 cm [ 2.70 - 3.80 ] TR Peak PG 19mmHg AoR Diam MM 3.07 cm [ 2.70 - 3.70 ] RVSP 27.00mmHg [ 10.00 - 36.00 ] LA Volume Index 32 cc/m2 [ 16 - 34 ] E` 0.08m/s ACS MM 1.83 cm E/E` 9 2D/MM Value Range Doppler ValueRange - FINDINGS: Interpretation Site: Exam was interpreted at [facility]. Left Ventricle: Normal left ventricular size. Normal left ventricular wall thickness.Normal global left ventricular systolic function. Impaired diastolic relaxation Grade I.Ejection fraction is measured at 76 %. Ejection Fraction is visually estimated to be 65 %.Global Longitudinal Strain is -17 %. These segments of the LV are hypokinetic:anteroseptum segment. Right Ventricle: Normal right ventricular size. Normal right ventricular systolicfunction. Left Atrium: There is moderate enlargement of left atrium. Right Atrium: There is mild enlargement of right atrium. Atrial Septum: Normal atrial septum. Mitral Valve: Normal appearance of the mitral valve. Mild mitral valve regurgitation.There is no hemodynamically significant mitral stenosis by Doppler. Aortic Valve: No evidence of hemodynamically significant aortic stenosis by Doppler.Aortic cusps appear mildly sclerotic. Trileaflet aortic valve. Trace aortic valveregurgitation. Tricuspid Valve: Normal appearance of the tricuspid valve. Normal right ventricularsystolic pressure. Estimated peak RVSP is 27 mmHg. Mild to moderate tricuspidregurgitation. Pulmonic Valve: Normal appearance of the pulmonic valve. No pulmonic stenosis. Mildpulmonic regurgitation. Pericardium: Trivial pericardial effusion. Aorta: Normal aortic root. IVC: Normal size and normal respiratory collapse consistent with normal rightatrial pressure (<5 mmHg). CONCLUSIONS: Normal left ventricular size. Normal left ventricular wall thickness.Normal global left ventricular systolic function. Impaired diastolic relaxation Grade I.Ejection fraction is measured at 76 %. Ejection Fraction is visually estimated to be 65 %.Global Longitudinal Strain is -17 %. These segments of the LV are hypokinetic:anteroseptum segment. There is moderate enlargement of left atrium. There is mild enlargement of right atrium. Normal appearance of the mitral valve. Mild mitral valve regurgitation. Mild to moderate tricuspid regurgitation. Mild pulmonic regurgitation. Normal sinus rhythm. Electronically Signed By: Sharon Herrera MD 12/29/2024 4:00:03 PM SILK TRIMMER Sharon Herrera MD CV ECHO PROCEDURES Final Result * Urinalysis reflex to microscopic and culture Urine (12/24/2024 12:11 PM SILK TRIMMER) Color, ur Straw Yellow Clarity, ur Clear Clear [facility] Specific gravity, ur 1.004 1.003 - 1.030 [facility] pH, urine 7.0 [facility] Comment: Interpretive Data U rine pH is affected by diet, medications, systemic acid-base disturbances, and renal tubular function. pH may affect urinary stone formation. For example, urine pH below 6.0 may help reduce the tendency for calcium phosphate stones and pH greater than 6.0 may reduce the tendency for uric acid stone formation. Source: [facility] [employer] Current Interpretive Data was last revised on 2017 Protein, ur ql Negative Negative [facility] Glucose, ur ql Negative Negative [facility] Ketones, ur Negative Negative [facility] Bilirubin, ur Negative Negative [facility] Blood, ur Negative Negative [facility] Urobilinogen, ur <2.0 <2.0 mg/dL [facility] Nitrite, ur Negative Negative [facility] Leukocyte esterase, ur Negative Negative [facility] UA reflex comment Reflex conditions for microscopic UA and culture not met. [facility] Urine 12/24/2024 12:1 1 PM SILK TRIMMER 12/24/2024 12:16 PM SILK TRIMMER us Breann Foreman MD LAB MICROBIOLOGY - GENERAL ORDER [place] Final Result [facility] [id number] [facility]. [place] [address] * DEXA SCAN (11/05/2021) us Historical Provider HEALTH MAINTENANCE Final Result from Last 3 Months or Most Recently Relevant to Health Maintenance Insurance [facility] Advance Directives For more information, please contact: [phone] * Full Code (Latest Code Status on File) Date Activated Date Inactivated Comments 12/01/2019 10:52 AM 12/01/2019 5:41 PM Care Teams Newspaper Editor Relationship Specialty Start Date End Date Valentin Ridley MD [address] [place] [address] PCP - General Family Medicine 02/01/24
--- OUTSIDE RECORDS SUMMARY | 2025-01-19 06:43 | XMS_ITS | Clinical Summary ---
Author Organization [facility] Address [address] [place] [address] Care Team Providers Care Wire Tinner Name Role Phone Valentin Ridley MD Primary Care Provider [phone] Allergies Active Allergy Reactions Criticality Noted Date [...] 01/07/2024 Assessment & Plan (01/07/2024 9:00 AM PLANER HAND): Avoid ear cleaning techniques Continue hearing aids Follow up in one year for ear check Bilateral impacted cerumen 01/07/2024 Assessment & Plan (01/07/2024 9:00 AM PLANER HAND): Avoid ear cleaning techniques Continue hearing aids Follow up in one year for ear check Mitral valve prolapse 10/28/2022 BMI 20.0-20.9, adult 02/14/2018 Carotid bruit 01/07/2018 Body mass index (BMI) of 20 to 24 07/22/2015 Hypertension 04/26/2013 Resolved Problems Problem Noted Date Diagnosed Date Resolved Date Malignant neoplasm screen 09/28/2019 Overview (09/28/2019): Added automatically from request for surgery [id number] Decreased blood pressure, not hypotension 07/28/2016 10/06/2022 Lightheadedness 07/28/2016 10/06/2022 Weakness 07/28/2016 10/06/2022 Tachycardia 07/28/2016 10/06/2022 Closed fracture of bone 03/30/201408/29 Body mass index (BMI) 21.0-21.9, adult 04/26/2013 09/08/2023 Constipation 09/01/2011 10/06/2022 Encounters Date Type Department Care Team Description 01/10/2025 1:30 PM PLANER HAND Office Visit [facility] Orthopaedic Surgery [address] [facility] [address] [place] [address] Bryon Butler MD Primary osteoarthritis of right knee (Primary Dx); Chronic pain of right knee 01/08/2025 10:15 AM PLANER HAND Ancillary Procedure [facility] Cardiology [address] [facility] [address] [place] [phone] Abnormal echocardiogram 01/03/2025 7:20 AM PLANER HAND Telemedicine [facility] Orthopaedic Surgery [address] [facility] [address] [place] [address] Bryon Butler MD Primary osteoarthritis of right knee (Primary Dx); Chronic pain of right knee 01/02/2025 Telephone [facility] Cardiology [address] [facility] [address] [place] [phone] Sharon Kwon MD 12/29/2024 8:15 AM PLANER HAND Ancillary Procedure [facility] Cardiology at [address] [place] [phone] Primary hypertension; Mitral valve prolapse 12/24/2024 12:07 PM PLANER HAND - 12/24/2024 12:48 PM PLANER HAND Emergency [facility] Emergency Department [address] [place] [address] Hypertension, unspecified type (Primary Dx); Urinary frequency Discharge Disposition: Discharge to home or self care 12/24/2024 11:00 AM PLANER HAND Office Visit [facility] Convenient Care at [address] [phone] Brynn Marsh PA Hypertensive urgency (Primary Dx) 12/19/2024 8:15 AM PLANER HAND Office Visit [facility] Orthopedic and Sports Medicine [address] [place] [phone] Mady Fernandez PA Primary osteoarthritis of right knee (Primary Dx); Weakness of right lower extremity 12/12/2024 2:00 PM PLANER HAND Office Visit [facility] Cardiology at [address] [place] [phone] Sharon Kwon MD Primary hypertension (Primary Dx); Mitral valve prolapse; Chronic pain of right knee from Last 3 Months Immunizations Immunization Administration Dates Next Due COVID-19 mRNA ([employer]) 0.3 m L (30 mcg) vaccine (12 [...] (Arexvy) 09/13/2023 Tdap 09/08/2023 ZOSTER Recombinant 04/18/2019,12/26/2018 Surgical History Surgery Date Site/Laterality Comments ORIF PROXIMAL ULNA FRACTURE 11/29/2013 - 11/28/2014 Righ t APPENDECTOMY HYSTERECTOMY [address] Wyatt SMALL INTESTINE SURGERY hemorrhoidectomy 1980 OTHER SURGICAL HISTORY bowel obstruction ABDOMINAL SURGERY blocked bowel 1974 Medical History Medical History Date Comments HTN (hypertension) Cataract Glaucoma borderline Anxiety MVP (mitral valve prolapse) Family History Medical History Relation Name Comments Arthritis Father Dr. Boy Alcocer Bladder Cancer Father Dr. Boy Alcocer Heart failure Father Dr. Boy Alcocer Stroke Father Dr. Boy Alcocer TIA. Fami ly history of cerebrovascular accident - (Added by TW Conv)/Family history of stroke - (Added by TW Conv) Breast cancer Mother Perezdariel Delgadotravon Hypertension Mother Perez Alcocer Relation Name Status Comments Father Dr. Boy Alcocer Mother Perez Delgadotravon Social History Tobacco Use Types Packs/Day Years [...] on file Legal Sex Female 1:13 PM PLANER HAND Gender Identity Not on file Sexual Orientation Not on file Obstetrics History Last Filed Vital Signs Vital Sign Reading Time Taken Comments Blood Pressure 144/82 12/24/2024 12:35 PM PLANER HAND Pulse 88 12/24/2024 12:35 PM PLANER HAND Temperature 36.4 C (97.5 F) 12/24/2024 11:48 AM PLANER HAND Respiratory Rate 16 12/24/2024 12:35 PM PLANER HAND Oxygen Saturation 98% 12/24/2024 12:35 PM PLANER HAND Inhaled Oxygen Concentration - - Weight 55.8 kg (123 lb) 12/24/2024 11:48 AM PLANER HAND Height 162.6 cm (5' 4 ) 12/24/2024 9:54 AM PLANER HAND Body Mass Index 21.11 12/24/2024 9:54 AM PLANER HAND Plan of Treatment Health Maintenance Due Date Last Done Comments Hepatitis B Screening 1958 Osteoporosis Screening-Bone Density Scan 11/05/2023 11/05/2021 Well Visit 65+ 09/08/2024 09/08/2023 Covid-19 Vaccine (2023- 5 season) 2025 08/07/2024, 09/13/2023, 09/07/2022, Additional history exists Depression Screening 05/10/2025 05/10/2024, 04/17/2024, 02/29/2024, Additional history exists Fall Risk Assessment 05/10/2025 05/10/2024, 04/17/2024, 02/29/2024, Additional history exists DTaP/Tdap/Td Vaccine (2 - Td or Tdap) 09/08/2033 09/08/2023 Zoster Vaccine Completed 04/18/2019, 12/26/2018 Pneumococcal vaccine 65+ Completed 07/19/2020, 11/30 Influenza Vaccine Completed 08/07/2024, , 09/07/2022, Additional history exists Procedures Procedure Name Priority Date/Time Associated Diagnosis Comments OH ARTHROCENTESIS ASPIR&/INJ MAJOR JT/BURSA W/O US Routine 01/10/2025 1:30 PM PLANER HAND Primary osteoarthritis of right knee Chronic pain of right knee NM MPI SPECT (REST AND/OR STRESS) MULTIPLE STUDIES Schedule Routine, Read Routine (OP Routine) 01/08/2025 11:28 AM PLANER HAND Abnormal echocardiogram TRANSTHORACIC ECHO (TTE) COMPLETE W DOPPLER/CF WO CONTRAST Routine 12/29/2024 8:37 AM PLANER HAND Primary hypertension Mitral valve prolapse URINALYSIS AND REFLEX TO MICROSCOPIC AND CULTURE STAT 12/24/2024 12:11 PM PLANER HAND HM DEXA SCAN Routine 11/05/2021 from Last 3 Months or Most Recently Relevant to Health Maintenance Results * OH ARTHROCENTESIS ASPIR&/INJ MAJOR JT/BURSA W/O US (01/10/2025 1:30 PM PLANER HAND) Narrative Bryon Butler MD - 01/10/2025 1:30 PM PLANER HAND Bryon Butler MD 01/14/2025 11:53 PM Large [...] and/or Stress) Multiple Studies (01/08/2025 11:28 AM PLANER HAND) Anatomical Region Laterality Modality Body N/A Nuclear Medicine 01/08/2025 9:22 AM PLANER HAND Narrative 01/09/2025 11:07 AM PLANER HAND [facility] Medical Group Cardiology [address] [facility] [address] [address] [address] [facility] [address], [place] [address] P:[phone] P:[phone] MPI Imaging Report Patient Name: CARLITA ACKERMAN L : 1940 Study Date: 01/08/2025 9:22:12 AM Gender: F Tech: [facility] Location: [facility] Provider: SHARON KWON Height(Cm): 162.6 BSA: Weight(Kg): 55.8 BMI: 21.11 Order Provider: SHARON KWON PHYSICIAN: Referring Physician: Dr. Ridley. HCG Physician: Steve Kwon M.D. Interpreting Physician: Alba Bustamante D.O. Stress [...] %. Electronically Signed By: Dr. Lazaro Hough [facility] 01/08/2025 2:08:36 PM PLANER HAND Electronically Signed By: Alba Bustamante DO, FACC, MARK CAMPO 01/09/2025 11:03:28 AM PLANER HAND Procedure Note Alba Bustamante DO - 01/09/2025 [facility] Medical [facility] Cardiology [address] [facility] [address], [place] [address] [address] [facility] [address], [place] [address] P:[phone] P:[phone] MPI Imaging Report Patient Name: CARLITA ACKERMAN L : 1940 Study Date: 01/08/2025 9:22:12 AM Gender: F Tech: [facility] Location: [facility] Provider: SHARON KWON Height(Cm): 162.6 BSA: Weight(Kg): 55.8 BMI: 21.11 Order Provider: SHARON KWON PHYSICIAN: Referring Physician: Dr. Ridley. HCG Physician: Steve Kwon M.D. Interpreting Physician: Alba Bustamante D.O. Stress [...] %. Electronically Signed By: [facility] 01/08/2025 2:08:36 PM PLANER HAND Electronically Signed By: Alba Bustamante DO, FACFrancesca, FASE, FASRELL 01/09/2025 11:03:28 AM PLANER HAND us Sharon Kwon MD IMG NM PROCEDURES Final R esult * TRANSTHORACIC ECHO (TTE) COMPLETE W DOPPLER/CF WO CONTRAST (12/29/2024 8:37 AM PLANER HAND) LV EF 65 % CONS SCIMAGE Anatomical Region Laterality Modality Ultrasound 12/29/2024 8:20 AM PLANER HAND Narrative 12/29/2024 4:00 PM PLANER HAND [facility] Medical Group Cardiology [address], [address], [place] [address] P:[phone] P:[phone] Echocardiographic Report Patient Name: CARLITA ACKERMAN L : 1940 Study Date: 12/29/2024 8:20:28 AM Gender: F Tech: Location: [facility] Ref Provider: SHARON KWON Height(Cm): 163 BSA: 1.59 Weight(Kg): 55.8 Heart Rate: 64 BP: 144 / 82 Quality: Good Order Provider: SHARON KWON PROCEDURES: Echocardiographic Report: Transthoracic echocardiogram with complete [...] FINDINGS: Interpretation Site: Exam was interpreted at [facility]. Left Ventricle: Normal left ventricular size. Normal [...] Normal sinus rhythm. Electronically Signed By: Sharon Kwon MD 12/29/2024 4:00:03 PM PLANER HAND Procedure Note Sharon Kwon MD - 12/29/2024 [facility] Medical [facility] Cardiology [address] , [address], [place] [address] P:[phone] P:[phone] Echocardiographic Report Patient Name: CARLITA ACKERMAN L : 1940 Study Date: 12/29/2024 8:20:28 AM Gender: F Tech: Location: [facility] Ref Provider: SHARON KWON Height(Cm): 163 BSA: 1.59 Weight(Kg): 55.8 Heart Rate: 64 BP: 144 / 82 Quality: Good Order Provider: SHARON KWON PROCEDURES: Echocardiographic Report: Transthoracic echocardiogram with complete [...] FINDINGS: Interpretation Site: Exam was interpreted at [facility]. Left Ventricle: Normal left ventricular size. Normal [...] Normal sinus rhythm. Electronically Signed By: Sharon Kwon MD 12/29/2024 4:00:03 PM PLANER HAND Sharon Kwon MD CV ECHO PROCEDURES Final Result * Urinalysis reflex to microscopic and culture Urine (12/24/2024 12:11 PM PLANER HAND) Color, ur Straw Yellow Clarity, ur Clear [...] uric acid stone formation. Source: [facility] Gauzy Current Interpretive Data was last revised on [...] CERNER [facility] Urine 12/24/2024 12:1 1 PM PLANER HAND 12/24/2024 12:16 PM PLANER HAND Breann Foreman MD LAB MICROBIOLOGY - GENERAL ORDER [place] Final Result RADHA ZAMORAWCH [id number] [facility]. Department [place] [address] * HM DEXA SCAN (11/05/2021) Historical Provider HEALTH MAINTENANCE Final Result from Last 3 Months or Most Recently Relevant to Health Maintenance Insurance [facility] Advance Directives For more information, please contact: [phone] * Full Code (Latest Code Status on File) Date Activated Date Inactivated Comments 12/01/2019 10:52 AM 12/01/2019 5:41 PM Care Teams Wire Tinner Relationship Specialty Start Date End Date Valentin Ridley MD [address] [place] [address] PCP - General Family Medicine 02/01/24
--- OUTSIDE RECORDS SUMMARY | 2025-01-19 06:43 | XMS_ITS | Encounter Summary ---
Author Organization [facility] Address [address] [place] [address] Phone Care Team Providers Care Education Department Chair Name Role Phone Marc Lara DO Primary Care Provider [phone] Latasha Lacy MD Primary Care Provider Valentin Ridley MD Primary Care Provider [phone] Encounter Details Date Type Department Care Team (Latest Contact Info) Description 02/20/2022 Orders Only [facility] Elliot Avila MD [address] [place] [address] Social History Tobacco Use Types Packs/Day Years Used Date Smoking Tobacco: Never Comments No Sex and Gender Information Value Date Recorded Sex Assigned at Not on file Legal Sex Female 1:13 PM ROPE TIER Gender Identity Not on file Sexual Orientation Not on file documented as of this encounter Plan of Treatment Not on file documented as of this encounter Procedures Procedure Name Priority Date/Time Associated Diagnosis Comments SCAN - LABS 02/20/2022 documented in this encounter Results * SCAN - LABS (02/20/2022) us Elliot Meyers Same, MD Edited R esult - Final documented in this encounter Visit Diagnoses Not on filedocumented in this encounter Additional Health Concerns Infection Onset Date Last Indicated Resolved Time COVID: Suspected 09/27/2022 09/27/2022 09/27/2022 8:20 AM CDT COVID19 09/27/2022 09/27/2022 10/07/2022 3:05 AM ROPE TIER COVID: Recovered Comment:Added based on recent COVID infection. 10/07/2022 10/26/2022 01/05/2023 3:[address] COVID: Suspected 01/17/2024 01/17/2024 01/17/2024 8:32 AM ROPE TIER COVID: Suspected 01/17/2024 01/17/2024 01/17/2024 2:38 PM ROPE TIER documented as of this encounter Care Teams Education Department Chair Relationship Specialty Start Date End Date Marc Lara DO PCP - General Internal Medicine 02/27/19 10/05/22 Latasha Lacy MD PCP - General Family Practice 10/06/22 01/31/24 Valentin Ridley MD [address] [place] [address] PCP - General Family Medicine 02/01/24 documented as of this encounter
--- OUTSIDE RECORDS SUMMARY | 2025-01-19 06:43 | XMS_ITS | Clinical Summary ---
Author Organization [facility] Address [address] [place] [address] Care Team Providers Care Container Finishing Inspector Name Role Phone Unavailable Primary Care Provider Unavailabl e Source Comments [facility],non-owned Affiliates and Associated Physician Practices is amultiple site organization consisting of ambulatory clinics and hospital sitesin [place], [place], [place]. This disclosure is being madepursuant to the Care Everywhere program and may not contain all information available regarding this patient. Last updated 18.[facility] Social History Tobacco Use Types Packs/Day Years Used Date Smoking Tobacco: Never Assessed Sex and Gender Information Value Date Recorded Sex Assigned at Not on file Gender Identity Not on file Sexual Orientation Not on file Plan of Treatment Upcoming Encounters Date Type Department Care Team (Late st Contact Info) Description 02/12/2025 2:40 PM CDT Office Visit [facility] Orthopedics [address] [place] [phone] [place] [address] [address] Health Maintenance Due Date Last Done Comments BONE DENSITY TESTING 1940 DTAP/TDAP/TD VACCINES (1 - Tdap) 1959 PNEUMOCOCCAL VACCINE 50+ (1 of 1 - PCV) 1990 ZOSTER VACCINE (1 of 2) 1990 Respiratory Syncytial Virus (RSV) Vaccine Pt: or over 60 yrs (1 - 1-dose 75+ series) 2015 COVID-19 VACCINE ( - 2023-2 5 season) 2024 INFLUENZA VACCINE (#1) 2024 DEPRESSION SCREENING 11/29/2024 HEPATITIS B VACCINE Aged Out No longe r eligible based on patient's age to complete this topic HIB VACCINE Aged Out No longer eligi ble based on patient's age to complete this topic HPV VACCINE Aged Out No longer eligi ble based on patient's age to complete this topic MENINGOCOCCAL (Group B) VACCINE Aged Out No longer eligible based on patient's age to complete this topic MENINGOCOCCAL VACCINE Aged Out No sanam zhen eligible based on patient's age to complete this topic
--- OUTSIDE RECORDS SUMMARY | 2025-01-19 06:43 | XMS_ITS | Encounter Summary ---
Author Organization [facility] Address [address] [place] [address] Care Team Providers Care Expander Machine Operator Name Role Phone Damien Casanova MD Primary Care Provider [phone] Encounter Details Date Type Department Care Team (Late st Contact Info) Description 02/04/1999 Outpatient Historical [facility] Salo Rubio MD NO ADDRESS ON FILE Other specified disorder of intestines (Primary Dx) Social History Tobacco Use Types Packs/Day Years Used Date Smoking Tobacco: Never Assessed Comments Unknown Sex and Gender Information Value Date Recorded Sex Assigned at Not on file Legal Sex Female 2:40 AM SUBSTANCE ABUSE COUNSELOR Gender Identity Not on file Sexual Orientation Not on file documented as of this encounter Plan of Treatment Not on file documented as of this encounter Visit Diagnoses Diagnosis Other specified disorder of intestines- Primary documented in this encounter Care Teams Expander Machine Operator Relationship Specialty Start Date End Date Damien Casanova MD [address] [facility] [address] [place] [address] PCP - General Internal Medicine 08/07/11 documented as of this encounter
--- OUTSIDE RECORDS SUMMARY | 2025-01-19 06:43 | XMS_ITS | Encounter Summary ---
Author Organization [facility] Address [address] [place] [address] Care Team Providers Care Audio Production Manager Name Role Phone Damien Casanova MD Primary Care Provider [phone] Encounter Details Date Type Department Care Team (Late st Contact Info) Description 12/06/2003 Outpatient Historical [facility] Salo Rubio MD NO ADDRESS ON FILE INTESTINAL DISORDERS NEC (Primary Dx) Social History Tobacco Use Types Packs/Day Years Used Date Smoking Tobacco: Never Assessed Comments Unknown Sex and Gender Information Value Date Recorded Sex Assigned at Not on file Legal Sex Female 2:40 AM FINANCIAL REPORT SERVICE SALES AGENT Gender Identity Not on file Sexual Orientation Not on file documented as of this encounter Plan of Treatment Not on file documented as of this encounter Visit Diagnoses Diagnosis Other specified disorder of intestines- Primary documented in this encounter Care Teams Audio Production Manager Relationship Specialty Start Date End Date Damien Casanova MD [address] [place] [address] PCP - General Internal Medicine 08/07/11 documented as of this encounter
--- OUTSIDE RECORDS SUMMARY | 2025-01-19 06:44 | XMS_ITS | Clinical Summary ---
Author Organization [facility] Address [address] [place] [address] Care Team Providers Care Toe Former Stitchdowns Name Role Phone Damien Casanova MD Primary Care Provider [phone] Social History Tobacco Use Types Packs/Day Years Used Date Smoking Tobacco: Never Assessed Comments Unknown Sex and Gender Information Value Date Recorded Sex Assigned at Not on file Legal Sex Female 5:21 PM CDT Gender Identity Not on file Sexual Orientation Not on file Plan of Treatment Health Maintenance Due Date Last Done Comments DTaP, Tdap and Td Vaccines ( 1 - Tdap) 1959 Zoster Vaccines (1 of 2) 1990 Dexa Scan (General) 2005 Pneumococcal Vaccine: 65+ Ye ars (1 of 1 - PCV) 2005 RSV Immunization or 60+ Years (1 - 1-dose 75+ series) 2015 COVID-19 Vaccine (2023-2 5 season) 2024 Influenza Adult (#1) 2024 Meningococcal B Vaccine Aged Out No l onger eligible based on patient's age to complete this topic Meningococcal Vaccine Aged Out No sanam zhen eligible based on patient's age to complete this topic RSV Immunizations Under 20 Months Aged Out No longer eligible based on patient's age to complete this topic Care Teams Toe Former Stitchdowns Relationship Specialty Start Date End Date Damien Casanova MD [address] [facility] [address] [place] [address] PCP - General 12/07/15
[2025-01-19 06:50] VITALS: BP 178/84; PULSE 74; RESP 16; TEMP 36.6; O2SAT 100
[2025-01-19 07:15] VITALS: BP 178/84; PULSE 83; RESP 16; TEMP 36.6; O2SAT 100
--- NOTE | 2025-01-19 07:30 | ECG_ITS ---
Test Date: 2025-01-19 07:53:42 Measurements Intervals [place] Rate: 61 P: 67 NC: 187 QRS: 3 QRSD: 97 T: 30 QT: 421 QTc: 426 Interpretive Statements SINUS RHYTHM POSSIBLE LEFT ATRIAL ENLARGEMENT INCOMPLETE RIGHT BUNDLE BRANCH BLOCK DELAYED PRECORDIAL R/S TRANSITION BORDERLINE T WAVE ABNORMALITY- ANTERIOR LEADS BASELINE ARTIFACT- I, II, III, AVR, AVL, AVF, V1 BORDERLINE ECG No previous ECG available for comparison Electronically Signed On 01-19-2025 08:02:41 AMERICAN HISTORY PROFESSOR by Darren Wright D.O.
--- OUTSIDE RECORDS SUMMARY | 2025-01-19 07:33 | XMS_ITS | Clinical Summary ---
Author Organization [facility] Address [address] [place] [address] Phone Care Team Providers Care Insurance Verification Specialist Name Role Phone Damien Casanova MD Primary Care Provider [phone] Allergies Active Allergy Reactions Criticality Noted Date [...] on file Legal Sex Female 2:40 AM MEDICAL TECHNOLOGIST PRN Gender Identity Not on file Sexual Orientation [...] Sig/CT Colonography Q 5 years Discontinued Insurance [facility] OPEN ACCESS [facility] Advance Directives For more information, please contact: [phone] * Full Code (Latest Code Status on File) Date Activated Date Inactivated Comments 09/01/2011 7:40 AM 09/02/2011 2:02 AM Care Teams Insurance Verification Specialist Relationship Specialty Start Date End Date Damien Casanova MD [address] [facility] [address] [place] [address] PCP - General Internal Medicine 08/07/11
--- OUTSIDE RECORDS SUMMARY | 2025-01-19 07:33 | XMS_ITS | Clinical Summary ---
Author Organization [facility] Address [address] [place] [address] Care Team Providers Care Television Maintenance Man Name Role Phone Unavailable Primary Care Provider Unavailabl e Source Comments [facility],non-owned Affiliates and Associated Physician Practices is amultiple site organization consisting of ambulatory clinics and hospital sitesin [place] and [place]. This disclosure is being madepursuant to the Care Everywhere program and may not contain all information available regarding this patient. Last updated 18.[facility] Social History Tobacco Use Types Packs/Day Years Used Date Smoking Tobacco: Never Assessed Sex and Gender Information Value Date Recorded Sex Assigned at Not on file Gender Identity Not on file Sexual Orientation Not on file Plan of Treatment Upcoming Encounters Date Type Department Care Team (Late st Contact Info) Description 02/12/2025 2:40 PM CDT Office Visit [facility] Orthopedics [address] [place] [phone] [place] [address] [address] Health Maintenance Due Date Last [...]
--- OUTSIDE RECORDS SUMMARY | 2025-01-19 07:33 | XMS_ITS | Patient Health Summary ---
Author Organization [facility] Address [address] [place] [address] Care Team Providers Care Organ Grinder Name Role Phone Unavailable Primary Care Provider Unavailabl e Note from [facility],non-owned Affiliates and Associated Physician Practices is amultiple site organization consisting of ambulatory clinics and hospital sitesin [place], [place], [place] and [place]. This disclosure is being madepursuant to the Care Everywhere program and may not contain all information available regarding this patient. Last updated 18.[facility] Social History Tobacco Use Types Packs/Day Years Used Date Smoking Tobacco: Never Assessed Sex and Gender Information Value Date Recorded Sex Assigned at Not on file Gender Identity Not on file Sexual Orientation Not on file
--- OUTSIDE RECORDS SUMMARY | 2025-01-19 07:33 | XMS_ITS | Referral Summary ---
Author Organization [facility] Address [address] [place] [address] Care Team Providers Care Computer Field Technician Name Role Phone Valentin Ridley MD Primary Care Provider [phone] Encounters Date Type Department Care Team Description 01/10/2025 1:30 PM WHEY DEPARTMENT OPERATOR Office Visit [facility] Orthopaedic Surgery [address] [place] [address] Medical Office Building [address] [place] [phone] Bryon Butler MD Primary osteoarthritis of right knee (Primary Dx); Chronic pain of right knee 01/08/2025 10:15 AM WHEY DEPARTMENT OPERATOR Ancillary Procedure [facility] Medical Group Cardiology [address] [place] [address] [place] [phone] Abnormal echocardiogram 01/03/2025 7:20 AM WHEY DEPARTMENT OPERATOR Telemedicine [facility] Orthopaedic Surgery [address] [place] [address] Medical Office Building [address] [place] [phone] Bryon Butler MD Primary osteoarthritis of right knee (Primary Dx); Chronic pain of right knee 01/02/2025 Telephone [facility] Medical Group Cardiology [address] [place] [address] [address] [place] [phone] Sharon Herrera MD 12/29/2024 8:15 AM WHEY DEPARTMENT OPERATOR Ancillary Procedure [facility] Medical Group Cardiology at [address] [place] [address] Primary hypertension; Mitral valve prolapse 12/24/2024 12:07 PM WHEY DEPARTMENT OPERATOR - 12/24/2024 12:48 PM [facility] Emergency [facility] Emergency Department [address] [address] [address] Hypertension, unspecified type (Primary Dx); Urinary frequency Discharge Disposition: Discharge to home or self care 12/24/2024 11:00 AM WHEY DEPARTMENT OPERATOR Office Visit [facility] Medical [facility] Convenient Care at [address] [phone] Brynn Marsh PA Hypertensive urgency (Primary Dx) 12/19/2024 8:15 AM WHEY DEPARTMENT OPERATOR Office Visit [facility] Orthopedic and Sports Medicine [address] [place] [phone] Mady Fernandez PA Primary osteoarthritis of right knee (Primary Dx); Weakness of right lower extremity 12/12/2024 2:00 PM WHEY DEPARTMENT OPERATOR Office Visit [facility] Cardiology at [address] [place] [address] Sharon Herrera MD Primary hypertension [...] 01/07/2024 Assessment & Plan (01/07/2024 9:00 AM WHEY DEPARTMENT OPERATOR): Avoid ear cleaning techniques Continue hearing aids Follow up in one year for ear check Bilateral impacted cerumen 01/07/2024 Assessment & Plan (01/07/2024 9:00 AM WHEY DEPARTMENT OPERATOR): Avoid ear cleaning techniques Continue hearing aids Follow up in one year for ear check Mitral valve prolapse 10/28/2022 BMI 20.0-20.9, adult 02/14/2018 Carotid bruit 01/07/2018 Body mass index (BMI) of 20 to 24 07/22/2015 Hypertension 04/26/2013 Resolved Problems Problem Noted Date Diagnosed Date Resolved Date Malignant neoplasm screen 09/28/2019 Overview (09/28/2019): Added automatically from request for surgery [id number] Decreased blood pressure, not hypotension 07/28/2016 10/06/2022 Lightheadedness 07/28/2016 10/06/2022 Weakness 07/28/2016 10/06/2022 Tachycardia 07/28/2016 10/06/2022 Closed fracture of bone 03/30/201408/29 Body mass index (BMI) 21.0-21.9, adult 04/26/2013 09/08/2023 Constipation 09/01/2011 10/06/2022 Immunizations Immunization Administration Dates Next Due COVID-19 mRNA ([employer]) 0.3 m L (30 mcg) vaccine (12 [...] on file Legal Sex Female 1:13 PM WHEY DEPARTMENT OPERATOR Gender Identity Not on file Sexual Orientation Not on file Last Filed Vital Signs Vital Sign Reading Time Taken Comments Blood Pressure 144/82 12/24/2024 12:35 PM WHEY DEPARTMENT OPERATOR Pulse 88 12/24/2024 12:35 PM WHEY DEPARTMENT OPERATOR Temperature 36.4 C (97.5 F) 12/24/2024 11:48 AM WHEY DEPARTMENT OPERATOR Respiratory Rate 16 12/24/2024 12:35 PM WHEY DEPARTMENT OPERATOR Oxygen Saturation 98% 12/24/2024 12:35 PM WHEY DEPARTMENT OPERATOR Inhaled Oxygen Concentration - - Weight 55.8 kg (123 lb) 12/24/2024 11:48 AM WHEY DEPARTMENT OPERATOR Height 162.6 cm (5' 4 ) 12/24/2024 9:54 AM WHEY DEPARTMENT OPERATOR Body Mass Index 21.11 12/24/2024 9:54 AM WHEY DEPARTMENT OPERATOR Plan of Treatment Not on file Procedures Procedure Name Priority Date/Time Associated Diagnosis Comments CA ARTHROCENTESIS ASPIR&/INJ MAJOR JT/BURSA W/O US Routine 01/10/2025 1:30 PM WHEY DEPARTMENT OPERATOR Primary osteoarthritis of right knee Chronic pain of right knee NM MPI SPECT (REST AND/OR STRESS) MULTIPLE STUDIES Schedule Routine, Read Routine (OP Routine) 01/08/2025 11:28 AM WHEY DEPARTMENT OPERATOR Abnormal echocardiogram TRANSTHORACIC ECHO (TTE) COMPLETE W DOPPLER/CF WO CONTRAST Routine 12/29/2024 8:37 AM WHEY DEPARTMENT OPERATOR Primary hypertension Mitral valve prolapse URINALYSIS AND REFLEX TO MICROSCOPIC AND CULTURE STAT 12/24/2024 12:11 PM WHEY DEPARTMENT OPERATOR HM DEXA SCAN Routine 11/05/2021 from Last 3 Months or Most Recently Relevant to Health Maintenance Results * CA ARTHROCENTESIS ASPIR&/INJ MAJOR JT/BURSA W/O US (01/10/2025 1:30 PM WHEY DEPARTMENT OPERATOR) Narrative Bryon Butler MD - 01/10/2025 1:30 PM WHEY DEPARTMENT OPERATOR Bryon Butler MD 01/14/2025 11:53 PM Large [...] and/or Stress) Multiple Studies (01/08/2025 11:28 AM WHEY DEPARTMENT OPERATOR) Anatomical Region Laterality Modality Body N/A Nuclear Medicine 01/08/2025 9:22 AM WHEY DEPARTMENT OPERATOR Narrative 01/09/2025 11:07 AM WHEY DEPARTMENT OPERATOR [facility] Medical Group Cardiology [address] [facility] [address] [address] [address] [facility] [address], [place] [address] P:[phone] P:[phone] MPI Imaging Report Patient Name: CARLITA ACKERMAN L : 1940 Study Date: 01/08/2025 9:22:12 AM Gender: F Tech: CATRINA LITTLE Location: [facility] Provider: SHARON HERRERA Height(Cm): 162.6 BSA: Weight(Kg): [...] Dr. Lazaro Hough FACC 01/08/2025 2:08:36 PM WHEY DEPARTMENT OPERATOR Electronically Signed By: Alba Bustamante DO, NATALEE, JAHAIRA, MARK 01/09/2025 11:03:28 AM WHEY DEPARTMENT OPERATOR Procedure Note Alba Bustamante DO - 01/09/2025 [facility] Medical Group Cardiology [address], [place] [address] [address] [facility] [address], [place] [address] P:[phone] P:[phone] MPI Imaging Report Patient Name: CARLITA ACKERMAN L : 1940 Study Date: 01/08/2025 9:22:12 AM Gender: F Tech: [facility] Location: [facility] Provider: SHARON HERRERA Height(Cm): 162.6 BSA: Weight(Kg): [...] %. Electronically Signed By: Dr. Lazaro Hough [facility] 01/08/2025 2:08:36 PM WHEY DEPARTMENT OPERATOR Electronically Signed By: Alba Bustamante DO, FACFrancesca, JAHAIRA, MARK 01/09/2025 11:03:28 AM WHEY DEPARTMENT OPERATOR us Sharon Herrera MD IMG NM PROCEDURES Final R esult * TRANSTHORACIC ECHO (TTE) COMPLETE W DOPPLER/CF WO CONTRAST (12/29/2024 8:37 AM WHEY DEPARTMENT OPERATOR) LV EF 65 % CONS SCIMAGE Anatomical Region Laterality Modality Ultrasound 12/29/2024 8:20 AM WHEY DEPARTMENT OPERATOR Narrative 12/29/2024 4:00 PM WHEY DEPARTMENT OPERATOR [facility] Medical Group Cardiology [address], [address], [place] [address] P:[phone] P:[phone] Echocardiographic Report Patient Name: CARLITA ACKERMAN L [...] FINDINGS: Interpretation Site: Exam was interpreted at [facility]. Left Ventricle: Normal left ventricular size. Normal [...] By: Sharon Herrera MD 12/29/2024 4:00:03 PM WHEY DEPARTMENT OPERATOR Procedure Note Sharon Herrera MD - 12/29/2024 [facility] Medical Group Cardiology [address], [address], [place] [address] P:[phone] P:[phone] Echocardiographic Report Patient Name: CARLITA ACKERMAN L [...] FINDINGS: Interpretation Site: Exam was interpreted at [facility]. Left Ventricle: Normal left ventricular size. Normal [...] By: Sharon Herrera MD 12/29/2024 4:00:03 PM WHEY DEPARTMENT OPERATOR Sharon Herrera MD CV ECHO PROCEDURES Final Result * Urinalysis reflex to microscopic and culture Urine (12/24/2024 12:11 PM WHEY DEPARTMENT OPERATOR) Color, ur Straw Yellow Clarity, ur Clear [...] tendency for uric acid stone formation. Source: [facility] Current Interpretive Data was last revised on [...] [facility] Urine 12/24/2024 12:1 1 PM WHEY DEPARTMENT OPERATOR 12/24/2024 12:16 PM WHEY DEPARTMENT OPERATOR us Breann Foreman MD LAB MICROBIOLOGY - GENERAL ORDER RUSH Final Result [facility] [address] [facility]. Department [place] [address] * DEXA SCAN (11/05/2021) us Historical Provider HEALTH MAINTENANCE Final Result from Last 3 Months or Most Recently Relevant to Health Maintenance Insurance [facility]NA [facility] Advance Directives For more information, please contact: [phone] * Full Code (Latest Code Status on File) Date Activated Date Inactivated Comments 12/01/2019 10:52 AM 12/01/2019 5:41 PM Care Teams Computer Field Technician Relationship Specialty Start Date End Date Valentin Ridley MD [address] [place] [address] PCP - General Family Medicine 02/01/24
--- OUTSIDE RECORDS SUMMARY | 2025-01-19 07:33 | XMS_ITS | Clinical Summary ---
Author Organization [facility] Address [address] [place] [address] Care Team Providers Care Animal Nurse Name Role Phone Valentin Ridley MD Primary Care Provider [phone] Allergies Active Allergy Reactions Criticality Noted Date [...] 01/07/2024 Assessment & Plan (01/07/2024 9:00 AM POLICE CAPTAIN SENIOR): Avoid ear cleaning techniques Continue hearing aids Follow up in one year for ear check Bilateral impacted cerumen 01/07/2024 Assessment & Plan (01/07/2024 9:00 AM POLICE CAPTAIN SENIOR): Avoid ear cleaning techniques Continue hearing aids Follow up in one year for ear check Mitral valve prolapse 10/28/2022 BMI 20.0-20.9, adult 02/14/2018 Carotid bruit 01/07/2018 Body mass index (BMI) of 20 to 24 07/22/2015 Hypertension 04/26/2013 Resolved Problems Problem Noted Date Diagnosed Date Resolved Date Malignant neoplasm screen 09/28/2019 Overview (09/28/2019): Added automatically from request for surgery [id number] Decreased blood pressure, not hypotension 07/28/2016 10/06/2022 Lightheadedness 07/28/2016 10/06/2022 Weakness 07/28/2016 10/06/2022 Tachycardia 07/28/2016 10/06/2022 Closed fracture of bone 03/30/201408/29 Body mass index (BMI) 21.0-21.9, adult 04/26/2013 09/08/2023 Constipation 09/01/2011 10/06/2022 Encounters Date Type Department Care Team Description 01/10/2025 1:30 PM POLICE CAPTAIN SENIOR Office Visit [facility] Orthopaedic Surgery [address] [facility] Medical Office Building [address] [place] [address] Bryon Butler MD Primary osteoarthritis of right knee (Primary Dx); Chronic pain of right knee 01/08/2025 10:15 AM POLICE CAPTAIN SENIOR Ancillary Procedure [facility] Cardiology [address] [facility] [address] [place] [phone] Abnormal echocardiogram 01/03/2025 7:20 AM POLICE CAPTAIN SENIOR Telemedicine [facility] Orthopaedic Surgery [address] [facility] Medical Office Building [address] [place] [phone] Bryon Butler MD Primary osteoarthritis of right knee (Primary Dx); Chronic pain of right knee 01/02/2025 Telephone [facility] Cardiology [address] [facility] [address] [place] [phone] Sharon Kwon MD 12/29/2024 8:15 AM POLICE CAPTAIN SENIOR Ancillary Procedure [facility] Cardiology at [address] [place] [phone] Primary hypertension; Mitral valve prolapse 12/24/2024 12:07 PM POLICE CAPTAIN SENIOR - 12/24/2024 12:48 PM POLICE CAPTAIN SENIOR Emergency [facility] Emergency Department [address] [place] [address] Hypertension, unspecified type (Primary Dx); Urinary frequency Discharge Disposition: Discharge to home or self care 12/24/2024 11:00 AM POLICE CAPTAIN SENIOR Office Visit [facility] Convenient Care at [address] [phone] Brynn Marsh PA Hypertensive urgency (Primary Dx) 12/19/2024 8:15 AM POLICE CAPTAIN SENIOR Office Visit [facility] Orthopedic and Sports Medicine [address] [place] [phone] Mady Fernandez PA Primary osteoarthritis of right knee (Primary Dx); Weakness of right lower extremity 12/12/2024 2:00 PM POLICE CAPTAIN SENIOR Office Visit [facility] Medical Group Cardiology at [address] [place] [phone] Sharon Kwon MD Primary hypertension (Primary Dx); Mitral valve prolapse; Chronic pain of right knee from Last 3 Months Immunizations Immunization Administration Dates Next Due COVID-19 mRNA ([employer]) 0.3 m L (30 mcg) vaccine (12 [...] on file Legal Sex Female 1:13 PM POLICE CAPTAIN SENIOR Gender Identity Not on file Sexual Orientation Not on file Obstetrics History Last Filed Vital Signs Vital Sign Reading Time Taken Comments Blood Pressure 144/82 12/24/2024 12:35 PM POLICE CAPTAIN SENIOR Pulse 88 12/24/2024 12:35 PM POLICE CAPTAIN SENIOR Temperature 36.4 C (97.5 F) 12/24/2024 11:48 AM POLICE CAPTAIN SENIOR Respiratory Rate 16 12/24/2024 12:35 PM POLICE CAPTAIN SENIOR Oxygen Saturation 98% 12/24/2024 12:35 PM POLICE CAPTAIN SENIOR Inhaled Oxygen Concentration - - Weight 55.8 kg (123 lb) 12/24/2024 11:48 AM POLICE CAPTAIN SENIOR Height 162.6 cm (5' 4 ) 12/24/2024 9:54 AM POLICE CAPTAIN SENIOR Body Mass Index 21.11 12/24/2024 9:54 AM POLICE CAPTAIN SENIOR Plan of Treatment Health Maintenance Due Date [...] Procedure Name Priority Date/Time Associated Diagnosis Comments MT ARTHROCENTESIS ASPIR&/INJ MAJOR JT/BURSA W/O US Routine 01/10/2025 1:30 PM POLICE CAPTAIN SENIOR Primary osteoarthritis of right knee Chronic pain of right knee NM MPI SPECT (REST AND/OR STRESS) MULTIPLE STUDIES Schedule Routine, Read Routine (OP Routine) 01/08/2025 11:28 AM POLICE CAPTAIN SENIOR Abnormal echocardiogram TRANSTHORACIC ECHO (TTE) COMPLETE W DOPPLER/CF WO CONTRAST Routine 12/29/2024 8:37 AM POLICE CAPTAIN SENIOR Primary hypertension Mitral valve prolapse URINALYSIS AND REFLEX TO MICROSCOPIC AND CULTURE STAT 12/24/2024 12:11 PM POLICE CAPTAIN SENIOR HM DEXA SCAN Routine 11/05/2021 from Last 3 Months or Most Recently Relevant to Health Maintenance Results * MT ARTHROCENTESIS ASPIR&/INJ MAJOR JT/BURSA W/O US (01/10/2025 1:30 PM POLICE CAPTAIN SENIOR) Narrative Bryon Butler MD - 01/10/2025 1:30 PM POLICE CAPTAIN SENIOR Bryon Butler MD 01/14/2025 11:53 PM Large [...] and/or Stress) Multiple Studies (01/08/2025 11:28 AM POLICE CAPTAIN SENIOR) Anatomical Region Laterality Modality Body N/A Nuclear Medicine 01/08/2025 9:22 AM POLICE CAPTAIN SENIOR Narrative 01/09/2025 11:07 AM POLICE CAPTAIN SENIOR [facility] Medical Group Cardiology [address] [facility] [address] [address] [address] [facility] [address] [address] P:[phone] P:[phone] MPI Imaging Report Patient Name: CARLITA ACKERMAN L : 1940 Study Date: 01/08/2025 9:22:12 AM Gender: F Tech: [facility] Location: [facility] Provider: SHARON KWON Height(Cm): 162.6 BSA: Weight(Kg): [...] %. Electronically Signed By: Dr. Lazaro Hough [facility] 01/08/2025 2:08:36 PM POLICE CAPTAIN SENIOR Electronically Signed By: Alba Bustamante DO, FACC, MARK CAMPO 01/09/2025 11:03:28 AM POLICE CAPTAIN SENIOR Procedure Note Alba Bustamante DO - 01/09/2025 [facility] Medical Group Cardiology [address] [facility] [address], [place] [address] [address] [facility] [address], [place] [address] P:[phone] P:[phone] MPI Imaging Report Patient Name: CARLITA ACKERMAN L : 1940 Study Date: 01/08/2025 9:22:12 AM Gender: F Tech: [facility] Location: [facility] Provider: SHARON KWON Height(Cm): 162.6 BSA: Weight(Kg): [...] %. Electronically Signed By: Dr. Lazaro Hough [facility] 01/08/2025 2:08:36 PM POLICE CAPTAIN SENIOR Electronically Signed By: Alba Bustamante DO, FACFrancesca, FASE, FASRELL 01/09/2025 11:03:28 AM POLICE CAPTAIN SENIOR us Sharon Kwon MD IMG NM PROCEDURES Final R esult * TRANSTHORACIC ECHO (TTE) COMPLETE W DOPPLER/CF WO CONTRAST (12/29/2024 8:37 AM POLICE CAPTAIN SENIOR) LV EF 65 % CONS SCIMAGE Anatomical Region Laterality Modality Ultrasound 12/29/2024 8:20 AM POLICE CAPTAIN SENIOR Narrative 12/29/2024 4:00 PM POLICE CAPTAIN SENIOR [facility] Medical Group Cardiology [address], [address], [place] [address] P:[phone] P:[phone] Echocardiographic Report Patient Name: CARLITA ACKERMAN L [...] FINDINGS: Interpretation Site: Exam was interpreted at [facility]. Left Ventricle: Normal left ventricular size. Normal [...] By: Sharon Kwon MD 12/29/2024 4:00:03 PM POLICE CAPTAIN SENIOR Procedure Note Sharon Kwon MD - 12/29/2024 [facility] Medical Group Cardiology [address], [place] [address] P:[phone] P:[phone] Echocardiographic Report Patient Name: CARLITA ACKERMAN L [...] FINDINGS: Interpretation Site: Exam was interpreted at [facility]. Left Ventricle: Normal left ventricular size. Normal [...] By: Sharon Kwon MD 12/29/2024 4:00:03 PM POLICE CAPTAIN SENIOR Sharon Kwon MD CV ECHO PROCEDURES Final Result * Urinalysis reflex to microscopic and culture Urine (12/24/2024 12:11 PM POLICE CAPTAIN SENIOR) Color, ur Straw Yellow Clarity, ur Clear [...] tendency for uric acid stone formation. Source: [facility] Current Interpretive Data was last revised on [...] [facility] Urine 12/24/2024 12:1 1 PM POLICE CAPTAIN SENIOR 12/24/2024 12:16 PM POLICE CAPTAIN SENIOR Breann Foreman MD LAB MICROBIOLOGY - GENERAL ORDER RUSH Final Result [facility] [address] [facility]. Department [place] [address] * HM DEXA SCAN (11/05/2021) Historical Provider HEALTH MAINTENANCE Final Result from Last 3 Months or Most Recently Relevant to Health Maintenance Insurance [facility] Advance Directives For more information, please contact: [phone] * Full Code (Latest Code Status on File) Date Activated Date Inactivated Comments 12/01/2019 10:52 AM 12/01/2019 5:41 PM Care Teams Animal Nurse Relationship Specialty Start Date End Date Valentin Ridley MD [address] [place] [address] PCP - General Family Medicine 02/01/24
--- OUTSIDE RECORDS SUMMARY | 2025-01-19 07:33 | XMS_ITS | Referral Summary ---
Author Organization [facility] Address [address] [place] [address] Care Team Providers Care Tuck Pointer Helper Name Role Phone Unavailable Primary Care Provider Unavailabl e Source Comments [facility],non-owned Affiliates and Associated Physician Practices is amultiple site organization consisting of ambulatory clinics and hospital sitesin [place], [place], [place] and [place]. This disclosure is being madepursuant to the Care Everywhere program and may not contain all information available regarding this patient. Last updated 18.[facility] Social History Tobacco Use Types Packs/Day Years Used Date Smoking Tobacco: Never Assessed Sex and Gender Information Value Date Recorded Sex Assigned at Not on file Gender Identity Not on file Sexual Orientation Not on file Plan of Treatment Upcoming Encounters Date Type Department Care Team (Late st Contact Info) Description 02/12/2025 2:40 PM CDT Office Visit [facility] Orthopedics [address] [place] [phone] [place] [address] [address]
--- OUTSIDE RECORDS SUMMARY | 2025-01-19 07:33 | XMS_ITS | Encounter Summary ---
Author Organization [facility] Address [address] [place] [address] Phone Care Team Providers Care Econometrics Professor Name Role Phone Marc Lara DO Primary Care Provider Latasha Lacy MD Primary Care Provider Valentin Ridley MD Primary Care Provider [phone] Encounter Details Date Type Department Care Team (Latest Contact Info) Description 02/20/2022 Orders Only [facility] Elliot Avila MD [address] [place] [address] Social History Tobacco Use Types Packs/Day Years Used Date Smoking Tobacco: Never Comments No Sex and Gender Information Value Date Recorded Sex Assigned at Not on file Legal Sex Female 1:13 PM WAREHOUSE ORDER PULLER Gender Identity Not on file Sexual Orientation [...] CDT COVID19 09/27/2022 09/27/2022 10/07/2022 3:05 AM WAREHOUSE ORDER PULLER COVID: Recovered Comment:Added based on recent COVID infection. 10/07/2022 10/26/2022 01/05/2023 3:[address] COVID: Suspected 01/17/2024 01/17/2024 01/17/2024 8:32 AM WAREHOUSE ORDER PULLER COVID: Suspected 01/17/2024 01/17/2024 01/17/2024 2:38 PM WAREHOUSE ORDER PULLER documented as of this encounter Care Teams Econometrics Professor Relationship Specialty Start Date End Date Marc Lara DO PCP - General Internal Medicine 02/27/19 10/05/22 Latasha Lacy MD PCP - General Family Practice 10/06/22 01/31/24 Valentin Ridley MD [address] [place] [address] PCP - General Family Medicine 02/01/24 documented as of this encounter
--- OUTSIDE RECORDS SUMMARY | 2025-01-19 07:34 | XMS_ITS | Encounter Summary ---
Author Organization [facility] Address [facility] [place] [address] Care Team Providers Care Tangled Yarn Spool Straightener Name Role Phone Damien Casanova MD Primary Care Provider [phone] Encounter Details Date Type Department Care Team (Late st Contact Info) Description 10/02/2017 [place] [address] , Generic Conversion, Social History Tobacco Use [...] on filedocumented in this encounter Care Teams Tangled Yarn Spool Straightener Relationship Specialty Start Date End Date Damien Casanova MD [address] [facility] [address] [address] PCP - General 12/07/15 documented as of this encounter
--- OUTSIDE RECORDS SUMMARY | 2025-01-19 07:34 | XMS_ITS | Clinical Summary ---
Author Organization [facility] Address [address] [place] [address] Care Team Providers Care County Extension Agent Name Role Phone Damien Casanova MD Primary Care Provider [phone] Social History Tobacco Use Types Packs/Day Years [...] age to complete this topic Care Teams County Extension Agent Relationship Specialty Start Date End Date Damien Casanova MD [address] [facility] [address] [place] [address] PCP - General 12/07/15
--- OUTSIDE RECORDS SUMMARY | 2025-01-19 07:34 | XMS_ITS | Encounter Summary ---
Author Organization [facility] Address [address] [place] [address] Care Team Providers Care County Judge Name Role Phone Damien Casanova MD Primary Care Provider [phone] Encounter Details Date Type Department Care Team (Late st Contact Info) Description 12/06/2003 Outpatient Historical [facility] Salo Rubio MD NO ADDRESS ON FILE INTESTINAL DISORDERS NEC (Primary Dx) Social History Tobacco Use Types Packs/Day Years Used Date Smoking Tobacco: Never Assessed Comments Unknown Sex and Gender Information Value Date Recorded Sex Assigned at Not on file Legal Sex Female 2:40 AM LATIN PROFESSOR Gender Identity Not on file Sexual Orientation Not on file documented as of this encounter Plan of Treatment Not on file documented as of this encounter Visit Diagnoses Diagnosis Other specified disorder of intestines- Primary documented in this encounter Care Teams County Judge Relationship Specialty Start Date End Date Damien Casanova MD [address] [place] [address] PCP - General Internal Medicine 08/07/11 documented as of this encounter
--- OUTSIDE RECORDS SUMMARY | 2025-01-19 07:34 | XMS_ITS | Encounter Summary ---
Author Organization [facility] Address [address] [place] [address] Care Team Providers Care Certified Marine Mechanic Name Role Phone Damien Casanova MD Primary Care Provider [phone] Encounter Details Date Type Department Care Team [...] on file Legal Sex Female 2:40 AM SUPERVISOR AIRCRAFT MAINTENANCE Gender Identity Not on file Sexual Orientation Not on file documented as of this encounter Plan of Treatment Not on file documented as of this encounter Visit Diagnoses Diagnosis Other specified disorder of intestines- Primary documented in this encounter Care Teams Certified Marine Mechanic Relationship Specialty Start Date End Date Damien Casanova MD [address] [facility] [address] [place] [address] PCP - General Internal Medicine 08/07/11 documented as of this encounter
[2025-01-19 07:46] LABS: Basophils Percent Auto 0.6 % (0.2-1.2); Eosinophils Absolute Auto 0.1 K/mm3 (0-0.3); Eosinophils Percent Auto 1.3 % (0-4.4); Hematocrit 43.8 % (37.0-47.0); Hemoglobin 14.2 g/dL (12.0-15.0); Immature Granulocyte Absolute 0.03 K/mm3 (0.00-0.031); Immature Granulocyte Percent A 0.5 % (0-0.5); Lymphocytes Absolute Auto 0.73 K/mm3 (0.9-3.2); Lymphocytes Percent Auto 11.7 % (18.3-44.2); Mean Corpuscular HGB Conc 32.4 g/dl (32-36); Mean Corpuscular Hemoglobin 29.9 pg (26-34); Mean Corpuscular Volume 92.2 fl (80-100); Mean Platelet Volume 8.8 fl (7.4-10.4); Monocytes Absolute Auto 0.7 K/mm3 (0.1-0.6); Monocytes Percent Auto 10.6 % (2.6-8.5); Neutrophils Absolute Auto 4.7 K/mm3 (1.3-6.7); Neutrophils Percent Auto 75.3 % (45.5-73.1); Platelet Count Result 274 k/mm3 (150-375); Red Blood Count 4.75 M/mm3 (4.2-5.4); White Blood Count 6.2 K/mm3 (4.5-10.0)
[2025-01-19 07:55] LABS: Alanine Aminotransferase 28 U/L (6-35); Albumin Level 4.2 g/dL (3.5-5.1); Alkaline Phosphatase 111 U/L (38-126); Anion Gap 6 mmol/L (4-12); Aspartate Amino Transferase 33 U/L (14-36); Bilirubin,Total 0.6 mg/dL (0.2-1.3); Blood Urea Nitrogen 11 mg/dL (7-17); Calcium 9.3 mg/dL (8.4-10.2); Carbon Dioxide 31 mmol/L (22-30); Chloride 100 mmol/L (98-107); Estimated CRCL calculation 46 ml/min; Estimated Glomerular Filt Rate > 60; Glucose 96 mg/dL (65-110); Sodium 137 mmol/L (137-145)
[2025-01-19 08:00] VITALS: BP 149/72; PULSE 61; RESP 16; TEMP 36.4; O2SAT 100
[2025-01-19 08:09] LABS: Troponin I < 0.012 ng/mL (0.000-0.034)
[2025-01-19 09:06] VITALS: BP 153/63; PULSE 56; RESP 16; TEMP 36.6; O2SAT 100
--- NOTE | 2025-01-19 09:31 | ED_ITS ---
HPI - General Adult General Chief complaint: Anxiety Stated complaint: My blood pressure is high Time Seen by Provider: 01/19/25 07:06 History of Present Illness HPI narrative: Patient is an 84-year-old female who presents ER with concerns about her blood pressure. She woke up and felt flushed in her cheeks and felt like her eyes were off which is a typical symptom of hypertension. Her systolic blood pressure was in the 200s. She took her home medication and then decided come here. 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 It appears she has taken 6 times in last 24 hours. She has no chest pain. No difficulty breathing. She does have some history of anxiety. No symptoms at this time. Related Data Home Medications ?Medication ?Instructions ?Recorded ?Confirmed ?Last Taken ?Type omega 1-zsg-yqv-fish oil 100 cap PO 09/01/21 03/09/22 Unknown History mg-160 mg-1,000 mg capsule (Fish Oil) vitamins A,C,R-jauk-eavpdp 2,148 2 tablet PO BID 09/01/21 03/09/22 Unknown History mcg-113 mg-45 mg-17.4 mg tablet (PreserVision AREDS) Allergies Allergy/AdvReac Type Severity Reaction Status Date / Time Sulfa (Sulfonamide AdvReac Unknown Unknown Verified 01/19/25 06:42 Antibiotics) sulfamethoxazole AdvReac Unknown Unknown Verified 01/19/25 06:42 sulfanilamide AdvReac Unknown Unknown Verified 01/19/25 06:42 trimethoprim AdvReac Unknown Unknown Verified 01/19/25 06:42 Review of Systems 2 Review of Systems: All systems reviewed & are unremarkable except as noted in HPI and below Constitutional: Constitutional: Reports no additional constitutional complaints ENT: Reports system reviewed and no additional complaints, except as documented Respiratory: Respiratory: Reports no additional respiratory complaints Gastrointestinal: Gastrointestinal: Reports no additional gastrointestinal complaints Neurologic: Reports system reviewed and no additional complaints, except as documented PMFSH Past Medical History Medical History (Updated 01/19/25 @ 09:52 by John Peoples MD) Hyperlipidemia MVP (mitral valve prolapse) Anxiety disorder, unspecified Essential (primary) hypertension COVID-19 Surgical History Surgical History (Updated 01/19/25 @ 09:33 by John Peoples MD) No pertinent past surgical history Family History Family History Mother Patient's mother is Carcinoma of colon, Onset Age: 98 Father Patient's father is Other Cerebrovascular accident Family history of arthritis Family history of malignant neoplasm Hypertension Social History Social History Smoking status: Never smoker Second hand tobacco smoke exposure: No Alcohol intake: current Substance use: never Substance use type: does not use Exam 2 Narrative: GENERAL: Well-appearing, well-nourished, and in no acute distress. HEAD: Normocephalic, atraumatic. ENT: Mucous membranes moist. CHEST: Clear to auscultation. No respiratory distress. HEART: Regular rate and rhythm. Normal peripheral pulses. EXTREMITIES: Normal range of motion. No edema. SKIN: Warm, dry, no rash. NEURO: Alert and oriented x3. PSYCH: Normal mood and affect. Course Course Emergency Course: Blood pressure is reassuring here. No intervention provided. CMP/CBC/troponin/EKG within normal limits. Chest x-ray with questionable lingular infiltrate. No white blood cell count, no cough, discussed with patient, no abx. F/u with PCP. Vital Signs Vital signs: Vital Signs Temperature 98 F 01/19/25 06:50 Pulse Rate 74 01/19/25 06:50 Respiratory Rate 16 01/19/25 06:50 Blood Pressure 178/84 H 01/19/25 06:50 Pulse Oximetry 100 01/19/25 06:50 Oxygen Delivery Room Air 01/19/25 06:50 Temperature 97.9 F 01/19/25 09:06 Pulse Rate 56 L 01/19/25 09:06 Respiratory Rate 16 01/19/25 09:06 Blood Pressure 153/63 H 01/19/25 09:06 Pulse Oximetry 100 01/19/25 09:06 Oxygen Delivery Room Air 01/19/25 06:50 Medical Decision Making Vital Signs Vital Signs: Vital Signs Temperature 98 F 01/19/25 06:50 Pulse Rate 74 01/19/25 06:50 Respiratory Rate 16 01/19/25 06:50 Blood Pressure 178/84 H 01/19/25 06:50 Pulse Oximetry 100 01/19/25 06:50 Oxygen Delivery Room Air 02/21/25 06:50 Temperature 97.9 F 01/19/25 09:06 Pulse Rate 56 L 01/19/25 09:06 Respiratory Rate 16 01/19/25 09:06 Blood Pressure 153/63 H 01/19/25 09:06 Pulse Oximetry 100 01/19/25 09:06 Oxygen Delivery Room Air 01/19/25 06:50 Lab Data 01/19/25 07:37 01/19/25 07:37 Labs: Lab Results 01/19/25 Range/Units 07:37 WBC 6.2 (4.5-10.0) K/mm3 RBC 4.75 (4.2-5.4) M/mm3 Hgb 14.2 (12.0-15.0) g/dL Hct 43.8 (37.0-47.0) % MCV 92.2 (80-100) fl MCH 29.9 (26-34) pg MCHC 32.4 (32-36) g/dl RDW 14.0 (11.5-14.5) % Plt Count 274 (150-375) k/mm3 MPV 8.8 (7.4-10.4) fl Immature Gran % (Auto) 0.5 (0-0.5) % Neut % (Auto) 75.3 H (45.5-73.1) % Lymph % (Auto) 11.7 L (18.3-44.2) % [place] % (Auto) 10.6 H (2.6-8.5) % Eos % (Auto) 1.3 (0-4.4) % Baso % (Auto) 0.6 (0.2-1.2) % Lymph # (Auto) 0.73 L (0.9-3.2) K/mm3 [place] # (Auto) 0.7 H (0.1-0.6) K/mm3 Eos # (Auto) 0.1 (0-0.3) K/mm3 Baso # (Auto) 0.0 (0.0-0.1) K/mm3 Abs Immat Gran (auto) 0.03 (0.00-0.031) K/mm3 Absolute Neuts (auto) 4.7 (1.3-6.7) K/mm3 Absolute Nucleated RBC 0.000 (0.0-0.012) K/mm3 Nucleated RBC % 0.0 (0.0-0.2) % Sodium 137 (137-145) mmol/L Potassium 4.0 (3.4-5.0) mmol/L Chloride 100 (98-107) mmol/L Carbon Dioxide 31 H (22-30) mmol/L Anion Gap 6 (4-12) mmol/L BUN 11 (7-17) mg/dL Creatinine 0.67 L (0.7-1.0) mg/dL Estim Creat Clear Calc 46 ml/min Estimated GFR > 60 (59 - ) Glucose 96 (65-110) mg/dL Calcium 9.3 (8.4-10.2) mg/dL Total Bilirubin 0.6 (0.2-1.3) mg/dL AST 33 (14-36) U/L ALT 28 (6-35) U/L Alkaline Phosphatase 111 (38-126) U/L Troponin I < 0.012 (0.000-0.034) ng/mL Total Protein 7.0 (6.3-8.2) g/dL Albumin 4.2 (3.5-5.1) g/dL Imaging Data Radiologist's impression: ITS Impressions Chest X-Ray 01/19/25 08:13 Impression: 1: Lingular infiltrate, atelectasis versus developing pneumonia. ECG Data EKG #1: ECG completion date: 01/19/25 ECG completion time: 07:53 EKG Interpretation: normal rate (61), sinus rhythm, normal QRS, RBBB (incomplete) and normal QT Discharge Plan Discharge Clinical Impression: Hypertension Patient Disposition: Home, Self-Care Condition: Stable Instructions: Hypertension (ED) Additional Instructions: Return ER if you have chest pain, you lose consciousness, you cannot breathe, or you have additional concerns. Patient Language: Angolan Prescriptions: No Action PreserVision AREDS 7,160 unit- 113 mg-100 unit tablet 2 tablet PO BID Rx Instructions: administer with AM and PM meals Fish Oil 100-160-1,000 mg capsule PO cholecalciferol (vitamin D3) 50 mcg (2,000 unit) capsule 50 mcg PO DAILY Qty: 30 0RF amlodipine 2.5 mg tablet 2.5 mg PO DAILY Qty: 90 1RF Rx Instructions: In AM diazepam 5 mg tablet 5 mg PO DAILY PRN (Reason: anxiety) Qty: 30 1RF metoprolol succinate 25 mg tablet extended release 24 hr See Rx Instructions .ROUTE .COMPLEX Qty: 45 1RF Dose Instruction: TAKE 1/2 TABLET BY MOUTH EVERY DAY Rx Instructions: TAKE 1/2 TABLET BY MOUTH EVERY DAY Paxlovid 300 mg (150 mg x 2)-100 mg tablets,dose pack See Rx Instructions PO .COMPLEX Qty: 30 0RF Rx Instructions: take TWO 150 mg tablets of nirmatrelvir with ONE 100 mg tablet of ritonavir twice daily for 5 days PO Follow-up/Referrals: Harms,Valentin Wright M.D. [Primary Care Provider] - 1 Week
== END 2025-01-19 10:07 | disposition home or self-care (01) ==
PROVIDERS: Emergency Provider Emergency Medicine; PCP Family Medicine
DX: I10 Essential (primary) hypertension (principal); I34.1 Nonrheumatic mitral (valve) prolapse; E78.5 Hyperlipidemia, unspecified; F41.9 Anxiety disorder, unspecified; Z86.16 Personal history of COVID-19; Z79.899 Other long term (current) drug therapy; I45.10 Unspecified right bundle-branch block; R94.31 Abnormal electrocardiogram [ECG] [EKG]
CPT/HCPCS: 36415; 71046; 80053; 84484; 85025; 93005; 99284

== ENCOUNTER 2025-10-22 05:33 | Emergency (ER) | payer OTHER, SELFPAY ==
--- OUTSIDE RECORDS SUMMARY | 2025-07-16 03:00 | XMS_ITS ---
Author Organization [facility] Address [address] [place], [place] [id number] Care Team Providers Care Story Reader Name Role Phone MICHELLE CRAWFORD Unavailable [phone] Valentin Ridley Unavailable Unavailable Allergies Allergen (clinical drug ingredient) Drug/Non Drug Allergy documented on EMR Reaction Allergy Type Onset Date Status Substance with sulfonamide structure and antibacterial mechanism of action (substance) Sulfa Antibiotics Unknown Drug Allergy Active REASON FOR VISIT Patient presents for at-risk foot care . The patient has painful toenails and calluses that are causing difficulty with ambulation and shoegear. The onset is gradual Medications Medication SIG (Take, Route, Frequency, Duration) Notes Start Date End Date Status Metoprolol Succinate 25 MG Capsule ER 24 Hour Sprinkle 1 capsule Orally Once a day Active Losartan Potassium 50 MG Tablet 1 tablet Orally Once a day A ctive amLODIPine Benzoate 1 MG/ML Suspension 5 mL Orally Once a day A ctive diazePAM 2.5 MG Gel as directed Rectal Active Social History Tobacco Use: Social History Observation Description Date Details (start date - stop date) Never Smoker NA - NA Social History Tobacco Use: Social Info Question Answer Notes Tobacco Control (Standard) Tobacco use: Nonsmoker Encounters Encounter Location Date Provider Diagnosis [facility] [address] [place], [place] [id number] 07/16/2025 MICHELLE CRAWFORD Tinea unguium B35.1 ; Acquired keratosis [keratoderma] palmaris et plantaris L85.1 ; Atherosclerosis of [place] arteries of extremities with intermittent claudication, bilateral legs I70.213 ; Pain in right foot M79.671 ; Pain in left foot M79.672 and Other hammer toe(s) (acquired), right foot M20.41 Assessments Encounter Date Diagnosis (ICD Code) Assessment Notes Treatment Notes Treatment Clinical Notes Section Notes 07/16/2025 Tinea unguium (ICD-10 - B35.1) Nails 1-5 Bilateral were debrided extensively with nail nippers and emery board, reducing length and girth to pink healthy tissue with any subungual debris and necrotic tissue removed 07/16/2025 Acquired keratosis [keratoderma] palmaris et plantaris (ICD-10 - L85.1) A total of 1 corns or calluses, as described in the note above, were cut and pared utilizing a #15 blade 07/16/2025 Atherosclerosis of [place] arteries of extremities with intermittent claudication, bilateral legs (ICD-10 - I70.213) 07/16/2025 Pain in right foot (ICD-10 - M79.671) 07/16/2025 Pain in left foot (ICD-10 - M79.672) 07/16/2025 Other hammer toe(s) (acquired), right foot (ICD-10 - M20.41) Padding: Application of accomodative padding to offload pressure from area. Shoe Recommendation: Advised patient on appropriate shoe gear for protection, healing and good foot health. Plan Of Treatment Treatment Notes Assessment Notes Tinea unguium Nails 1-5 Bilateral were debrided extensively with nail nippers and emery board, reducing length and girth to pink healthy tissue with any subungual debris and necrotic tissue removed Acquired keratosis [keratode rma] palmaris et plantaris A total of 1 corns or calluses, as described in the note above, were cut and pared utilizing a #15 blade Other hammer toe(s) (acquired), right fo ot Padding: Application of accomodative padding to offload pressure from area. Shoe Recommendation: Advised patient on appropriate shoe gear for protection, healing and good foot health. Next Appt Details Follow Up: 10 - 12 weeks, Re ason: At-Risk Foot care, sooner if problems develop. Provider Name:MICHELLE CRAWFORD, 08:10:00 AM, [address], [address], [id number], History and Physical Notes * HPI (History of Present Illness) Category Sub-Category Detail Notes Category Not es HPI General care Patient presents to the office for at risk foot care. Patient states that their nails are thickened, elongated and painful. Patient states that it is aggravated by shoe gear. Onset is gradual. Patient denies being diabetic., Patient denies taking blood thinners., Date last seen by Dr. Ridley was March or April of 2025., Initials mf Examination Category Sub-Category Detail Notes Category Not es Dermatologic Skin findings: Skin is thin, at rophic and lacking pedal hair Nail pathology: Nails 1, 2, 3, 4, an d 5 bilateral are elongated, thick, discolored, and dystrophic with subungual debris. They are painful to palpation Hypertrophic / hyperkeratotic lesion: me dial aspect of the right 2nd toe Neurologic Gross sensation Gross sensation is intact to light touch Vascular Dorsalis pedis pulse: 1/4 bilateral Edema: No edema, bilateral Capillary refill: greater than 3 secon ds Posterior tibial pulse: 0/4 bilateral Musculoskeletal Muscle Strength Muscle strength is 5/5 in regards to dorsiflexion, plantarflexion, inversion, and eversion in bilateral lower extremities Hammertoes Dorsally contracted digits 2 digit of the right foot Constitutional Constitutional The patient is a wake, alert, well developed, well groomed and well nourished Progress Notes * Betsey ACKERMANOB:1940 ([age] yo F)Acc No.[id number]:07/16/2025 Patient: Carlita Caruso Provider: Hua Crawford DPM :1940 A ge:85 Y S ex:Female Date:07/16/2025 Address:[address] [place], [place] [id number] Subjective: * Chief Complaints: * Zabrina pavon presents for at-risk foot care . The patient has painful toenails and calluses that are causing difficulty with ambulation and shoegear. The onset is gradual * HPI: H PI: General care Zabrina pavon presents to the office for at risk foot care. Patient states that their nails are thickened, elongated and painful. Patient states that it is aggravated by shoe gear. Onset is gradual. Patient denies being diabetic., Patient denies taking blood thinners., Date last seen by Dr. Ridley was March or April of 2025., Initials mf. * ROS: G eneral / Constitutional: Patient denies c hills, fever, weight loss. ? M usculoskeletal: Patient denies w eakness, broken foot bone. P atient complains of a rthritis, bunions, hammertoes. P eripheral Vascular: Patient denies p ain / cramping in legs after exertion, ulceration of feet. S kin: Patient complains of f ungal nails, nail changes, calluses and corns. N eurologic: Patient denies b alance difficulty, confusion, difficulty speaking, dizziness. * Medical History: High blood pressure Medical History Verified * Surgical History: Hysterectomy appendectomy Knee Surgery, right 07/2025 Surgical History verified. * Family History: F ather: High Blood Pressure. F amily History Verified.. * Social History: T obacco Use: T obacco Control (Standard) T obacco use: N onsmoker. Social History Verified. * Medications: T akingdiazePAM 2.5 MG Gel as directed Rectal Losartan Potassium 50 MG Tablet 1 tablet Orally Once a day Metoprolol Succinate 25 MG Capsule ER 24 Hour Sprinkle 1 capsule Orally Once a day amLODIPine Benzoate 1 MG/ML Suspension 5 mL Orally Once a day Medication List reviewed and reconciled with the patientTaking diazePAM 2.5 MG Gel as directed Rectal Taking Losartan Potassium 50 MG Tablet 1 tablet Orally Once a day Taking Metoprolol Succinate 25 MG Capsule ER 24 Hour Sprinkle 1 capsule Orally Once a day Taking amLODIPine Benzoate 1 MG/ML Suspension 5 mL Orally Once a day Medication List reviewed and reconciled with the patient * Allergies: S ulfa Antibiotics: AllergyyesAllergies Verified. Objective: * Examination: C onstitutional: Constitutional T he patient is awake, alert, well developed, well groomed and well nourished. D ermatologic: Skin findings: S kin is thin, atrophic and lacking pedal hair. Hypertrophic / hyperkeratotic lesion: m edial aspect of the right 2nd toe. Nail pathology: N ails 1, 2, 3, 4, and 5 bilateral are elongated, thick, discolored, and dystrophic with subungual debris. They are painful to palpation. ? V ascular: Dorsalis pedis pulse: 1 /4 b ilateral. Posterior tibial pulse: 0 /4 b ilateral. Capillary refill: g reater than 3 seconds. Edema: N o edema, bilateral. N eurologic: Gross sensation G ross sensation is intact to light touch.? M usculoskeletal: Muscle Strength M uscle strength is 5/5 in regards to dorsiflexion, plantarflexion, inversion, and eversion in bilateral lower extremities. Hammertoes D orsally contracted digits 2 digit of the right foot. Assessment: * Assessment: 1. T inea unguium - B35.1 (Primary) 2 . A cquired keratosis [keratoderma] palmaris et plantaris - L85.1 3 . A therosclerosis of [place] arteries of extremities with intermittent claudication, bilateral legs - I70.213 4 . P ain in right foot - M79.671 5 . P ain in left foot - M79.672 6 . O ther hammer toe(s) (acquired), right foot - M20.41 Plan: * Treatment: 2. A cquired keratosis [keratoderma] palmaris et plantaris Notes: A total of 1 corns or calluses, as described in the note above, were cut and pared utilizing a #15 blade 3. O ther hammer toe(s) (acquired), right foot Notes: Padding: Application of accomodative padding to offload pressure from area. S hoe Recommendation: Advised patient on appropriate shoe gear for protection, healing and good foot health. * Preventive Medicine: Screenings: F all risk screening F all Risk Assessment: N o falls in the past year. * Follow Up: 1 0 - 12 weeks (Reason: At-Risk Foot care, sooner if problems develop.) Billing Information: * Visit Code: 99790 Office Visit, Est Pt., Level 3. * Procedure Codes: * Electronic signature of MICHELLE CRAWFORD DPM on 10/22/2025 at 06:40 AM AIR BRAKES INSPECTOR Sign off status: Pending * Provider: Hua Crawford DPM Date: 0 07/16/2025 Generated for Anne jones/Christine/Shilpa on: 12/22/2024 06:40 AM AIR BRAKES INSPECTOR
[2025-10-22 05:27] VITALS: BP 170/72; PULSE 67; RESP 13; TEMP 36.8; O2SAT 99
--- NOTE | 2025-10-22 06:13 | ED_ITS ---
HPI - Recheck/Abnormal Lab/Rx General Chief Complaint: Recheck/Abnormal Lab/Rx Stated Complaint: hypertension Time Seen by Provider: 10/22/25 05:37 History of Present Illness HPI narrative: 85-year-old pleasant female with a history of hypertension presenting to the emergency department today with elevated blood pressure readings at home. Patient states she took her blood pressure at home and was in the 200s over 90s. History of hypertension and anxiety. Her doctor told her to take a dose of losartan when she has elevated blood pressure readings at home and she took an extra 1 last night but did not take anything this morning. She initially felt a tightness like headache that resolved. Currently she is asymptomatic. Her blood pressure came down to 162/73 on arrival without any intervention. She denies any symptoms at this time. She states she has also had a UTI that her doctor is treating by changing some antibiotics around and provide a urine sample here today. Denies any chest pain, shortness a breath, back pain, nausea, vomiting, headache, vision changes, lightheadedness, stroke symptoms or other concerns at this time. Patient states she just wants to get evaluated to make sure her blood pressure is not causing issues. Related Data Home Medications ?Medication ?Instructions ?Recorded ?Confirmed ?Last Taken ?Type vitamins A,C,O-lyjm-xgxkqr 2,148 2 tablet PO BID 09/0110/22/25 Unknown History mcg-113 mg-45 mg-17.4 mg tablet (PreserVision AREDS) Allergies Allergy/AdvReac Type Severity Reaction Status Date / Time Sulfa (Sulfonamide AdvReac Unknown Unknown Verified 10/22/25 05:38 Antibiotics) sulfamethoxazole AdvReac Unknown Unknown Verified 10/22/25 05:38 sulfanilamide AdvReac Unknown Unknown Verified 10/22/25 05:38 trimethoprim AdvReac Unknown Unknown Verified 10/22/25 05:38 Review of Systems 2 Review of Systems: As reviewed above in HPI All systems reviewed & are unremarkable except as noted in HPI and below PMFSH Past Medical History Medical History Hyperlipidemia MVP (mitral valve prolapse) Anxiety disorder, unspecified Essential (primary) hypertension COVID-19 Surgical History Surgical History No pertinent past surgical history Family History Family History Mother Patient's mother is Carcinoma of colon, Onset Age: 98 Father Patient's father is Other Cerebrovascular accident Family history of arthritis Family history of malignant neoplasm Hypertension Social History Social History Smoking status: Never smoker Second hand tobacco smoke exposure: No Alcohol intake: current Substance use: never Substance use type: does not use Exam 2 Narrative: GENERAL: Well appearing not any acute distress. [place] color in her hair and pleasant to speak with HEAD: [Normocephalic, atraumatic.] EYES: [PERRLA and EOMI.] ENT: Nares clear, no rhinorrhea or epistaxis. Mucous membranes moist. NECK: Supple. CHEST: [Clear to auscultation. No respiratory distress.] HEART: [Regular rate and rhythm]. No murmur heard. [Normal peripheral pulses.] ABDOMEN: [Soft, nondistended], [nontender], [No rigidity or guarding] EXTREMITIES: Normal range of motion. [No edema.] SKIN: Warm, dry, no rash. NEURO: [No focal deficits]. Alert and oriented [x3.] PSYCH: [Normal mood and affect.] Course Vital Signs Vital signs: Vital Signs Temperature 36.8 C 10/22/25 05:27 Pulse Rate 67 10/22/25 05:27 Respiratory Rate 13 10/22/25 05:27 Blood Pressure 170/72 H 10/22/25 05:27 Pulse Oximetry 99 10/22/25 05:27 Oxygen Delivery Room Air 10/22/25 05:27 Temperature 36.8 C 10/22/25 05:27 Pulse Rate 68 10/22/25 06:21 Respiratory Rate 16 10/22/25 06:21 Blood Pressure 138/97 H 10/22/25 06:21 Pulse Oximetry 99 10/22/25 06:21 Oxygen Delivery Room Air 10/22/25 05:27 MDM - Recheck/Abnormal Lab/Rx MDM Narrative Medical decision making narrative: 85-year-old pleasant female with a history of hypertension presenting to the emergency department today with elevated blood pressure readings at home. Patient states she took her blood pressure at home and was in the 200s over 90s. History of hypertension and anxiety. Her doctor told her to take a dose of losartan when she has elevated blood pressure readings at home and she took an extra 1 last night but did not take anything this morning. She initially felt a tightness like headache that resolved. Currently she is asymptomatic. Her blood pressure came down to 162/73 on arrival without any intervention. She denies any symptoms at this time. She states she has also had a UTI that her doctor is treating by changing some antibiotics around and provide a urine sample here today. Denies any chest pain, shortness a breath, back pain, nausea, vomiting, headache, vision changes, lightheadedness, stroke symptoms or other concerns at this time. Patient states she just wants to get evaluated to make sure her blood pressure is not causing issues. Patient is hemodynamically stable without any tachycardia, fever, hypoxemia. Blood pressure stable 157/103 on recheck. Patient is asymptomatic. Basic labs and urinalysis ordered given she has UTI complaint as well. Low suspicion organ damage or emergency given lack of symptoms. Discussed with her appropriate blood pressure regimen and follow-up with her PCP. Labs are unrevealing. Patient is hemodynamically stable and asymptomatic from hypertension. She has already messaged her doctor on line for antibiotic regimen for her UTI symptoms so she will follow up on this and did not need a new prescription here in the ED. safe for discharge. Medical Records Attestation: I reviewed the patient's medical records. Lab Data Attestation: I reviewed the patient's lab results. 10/22/25 06:14 10/22/25 06:14 Labs: Lab Results 10/22/25 Range/Units 06:14 WBC 7.0 (4.5-10.0) K/mm3 RBC 4.71 (4.2-5.4) M/mm3 Hgb 13.5 (12.0-15.0) g/dL Hct 42.3 (37.0-47.0) % MCV 89.8 (80-100) fl MCH 28.7 (26-34) pg MCHC 31.9 L (32-36) g/dl RDW 14.2 (11.5-14.5) % Plt Count 296 (150-375) k/mm3 MPV 9.1 (7.4-10.4) fl Immature Gran % (Auto) 0.1 (0-0.5) % Neut % (Auto) 67.7 (45.5-73.1) % Lymph % (Auto) 19.2 (18.3-44.2) % [place] % (Auto) 9.9 H (2.6-8.5) % Eos % (Auto) 2.0 (0-4.4) % Baso % (Auto) 1.1 (0.2-1.2) % Lymph # (Auto) 1.34 (0.9-3.2) K/mm3 [place] # (Auto) 0.7 H (0.1-0.6) K/mm3 Eos # (Auto) 0.1 (0-0.3) K/mm3 Baso # (Auto) 0.1 (0.0-0.1) K/mm3 Abs Immat Gran (auto) 0.01 (0.00-0.031) K/mm3 Absolute Neuts (auto) 4.7 (1.3-6.7) K/mm3 Absolute Nucleated RBC 0.000 (0.0-0.012) K/mm3 Nucleated RBC % 0.0 (0.0-0.2) % Sodium 137 (137-145) mmol/L Potassium 4.0 (3.4-5.0) mmol/L Chloride 105 (98-107) mmol/L Carbon Dioxide 26 (22-30) mmol/L Anion Gap 6 (4-12) mmol/L BUN 19 H (7-17) mg/dL Creatinine 0.73 (0.7-1.0) mg/dL Estim Creat Clear Calc 42 ml/min Estimated GFR > 60 (59 - ) Glucose 96 (65-110) mg/dL Calcium 9.6 (8.4-10.2) mg/dL Magnesium 2.5 H (1.6-2.3) mg/dL Total Bilirubin 0.4 (0.2-1.3) mg/dL AST 39 H (14-36) U/L ALT 25 (6-35) U/L Alkaline Phosphatase 151 H (38-126) U/L Total Protein 7.3 (6.3-8.2) g/dL Albumin 4.3 (3.5-5.1) g/dL Urine Color Yellow (Yellow) Urine Appearance Clear (Clear) Urine pH 7.5 (5.0-9.0) Ur Specific [place] 1.006 (1.001-1.035) Urine Protein Negative (Negative) mg/dL Urine Glucose (UA) Negative (Negative) mg/dL Urine Ketones Negative (Negative) mg/dL Ur Blood (Man) Negative (Negative) Urine Nitrate Negative (Negative) Urine Bilirubin Negative (Negative) Urine Urobilinogen 0.2 (<2.0) mg/dL Add Ur Microanalysis Reviewed Leukocyte Esterase Rfl Trace H (Negative) TYSON/UL Urine RBC 6-10 H (0-2) /hpf Urine WBC 0-5 (0-3) /hpf Ur Squamous Epith Cells None seen (Few) /hpf Urine Bacteria None seen /hpf Urine Casts 0-2 Discharge Plan Discharge Clinical Impression: Asymptomatic hypertension Patient Disposition: Home Condition: Stable Instructions: Antibiotic Form Additional Instructions: Laboratory studies are unremarkable today. Blood pressure is reassuring without any signs of emergency. Follow-up with your primary care provider for better blood pressure control regimen and speak with your doctor about changing antibiotics or other options for your urinary symptoms, no bacteria seen in the urine today. Return with any emergent concerns such as sudden-onset crushing chest pain, difficulty breathing, coughing blood, losing consciousness, stroke- like symptoms or any other issues. Patient Language: Kazakh Prescriptions: No Action PreserVision AREDS 7,160 unit- 113 mg-100 unit tablet 2 tablet PO BID Rx Instructions: administer with AM and PM meals cholecalciferol (vitamin D3) 50 mcg (2,000 unit) capsule 50 mcg PO DAILY Qty: 30 0RF amlodipine 2.5 mg tablet 2.5 mg PO DAILY Qty: 90 1RF Rx Instructions: In AM diazepam 5 mg tablet 5 mg PO DAILY PRN (Reason: anxiety) Qty: 30 1RF metoprolol succinate 25 mg tablet extended release 24 hr See Rx Instructions .ROUTE .COMPLEX Qty: 45 1RF Dose Instruction: TAKE 1/2 TABLET BY MOUTH EVERY DAY Rx Instructions: TAKE 1/2 TABLET BY MOUTH EVERY DAY Follow-up/Referrals: Harms,Valentin Wright M.D. [Primary Care Provider] Time of Disposition: 07:01
[2025-10-22 06:21] VITALS: BP 138/97; PULSE 68; RESP 16; O2SAT 99
[2025-10-22 06:23] LABS: Hematocrit 42.3 % (37.0-47.0); Hemoglobin 13.5 g/dL (12.0-15.0); Immature Granulocyte Percent A 0.1 % (0-0.5); Lymphocytes Absolute Auto 1.34 K/mm3 (0.9-3.2); Mean Corpuscular HGB Conc 31.9 g/dl (32-36); Mean Corpuscular Hemoglobin 28.7 pg (26-34); Mean Corpuscular Volume 89.8 fl (80-100); Nucleated Red Blood Cells Absolute Auto 0.000 K/mm3 (0.0-0.012); Nucleated Red Blood Cells Perc 0.0 % (0.0-0.2); Platelet Count Result 296 k/mm3 (150-375); Red Blood Count 4.71 M/mm3 (4.2-5.4); White Blood Count 7.0 K/mm3 (4.5-10.0)
[2025-10-22 06:39] LABS: Add Urine Microscopic? YES; Appearance Urine Clear (Clear); Glucose Urine UA Negative (Negative); Leukocyte Esterase Ur Trace LEU/UL (Negative); Need Manual Microscopic Reviewed; Nitrate Urine Negative (Negative); Non Pathogenic Casts 0-2; Specific Grav Ur 1.006 (1.001-1.035)
--- OUTSIDE RECORDS SUMMARY | 2025-10-22 06:39 | XMS_ITS | Continuity of Care Document ---
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 Plan of Treatment Reminders Order Date Submit Date Provider Last Modified By Organization Details Last Modified Time Details Appointments None record ed. Lab None record ed. Referral None record ed. Procedures None record ed. Surgeries None record ed. Imaging None record ed. Medication Orders None record ed. Patient TargetsNo targets recorded. Patient Instructions Encounter Date Encounter Id Patient Instructions Last Modified By Organization Details Last Modified Time 08/01/2025 [id number] I spent 37 minutes providing care to the patient today. More than 50% of that time was spent in discussing the expected course of the disease, discussing prognosis, coordinating care and counseling of the patient/family. Not available 08/02/2025 17:31:38 Reason for Referral None Reported. Procedures Surgical History Date Name Laterality Status Provider Name and Address Organization Details Recorded Time appendectomy completed Trevor Carrington [facility] 07/28/2025 00:33:36 operative procedure on elbow completed Trevor Carrington [facility] 07/28/2025 00:33:53 Hemorrhoidectomy completed Trevor Carrington [facility] 07/28/2025 00:34:02 hysterectomy completed Trevor Carrington [facility] 07/28/2025 00:34:09 Imaging Results None recorded. Procedure Notes None recorded. Medical Equipment None Reported. Allergies Allergen ID Allergen Name Allergen Category Reaction Reaction Severity Criticality Documentation Date Start Date Code Code System Note Provider Name and Address Organization Details Recorded Time 58739 Substance with sulfonami de structure and antibacte rial mechanism of action (substanc e) medicatio n Not available Not available Not available 07/28/2025 99784 8003 [facility]ED [facility] 5 00:23:22 79143 sulfameth oxazole / trimethop rim medicatio n Not available Not available Not available 07/28/2025 04981 RxNorm [facility] 5 00:34:21 Medications Name Sig Start Date Stop Date Status Note LastModified by Organization Details LastModified Time losartan 50 mg tablet Take 1 tablet every day by oral route. 2024 active Not Available Not Available Not Avai lable Colace 100 mg capsule Take 1 capsule every day by oral route as needed. active Not Available Not Available No t Available meloxicam 15 mg tablet Take 1 tablet every day by oral route as needed. 08/01 completed Not Available Not Available Not Available bimatoprost 0.03 % eye drops Instill 1 drop every day by ophthalmi c route. active Not Available Not Available No t Available potassium chloride ER 10 mEq tablet,exte nded release Take 1 tablet every day by oral route. active Not Available Not Available No t Available tramadol 50 mg tablet Take 1 tablet every 6 hours by oral route as needed, for pain. 2024 active Not Available Not Available Not Avai lable amlodipine 10 mg tablet Take 1 tablet every day by oral route. active Not Available Not Available No t Available bumetanide 0.5 mg tablet Take 1 tablet every day by oral route. active Not Available Not Available No t Available Citrucel 500 mg tablet Take 1 tablet 3 times a day by oral route. active Not Available Not Available No t Available losartan 25 mg tablet Take 1 tablet every day by oral route. 08/03 completed Not Available Not Available Not Available omeprazole 20 mg capsule,del ayed release Take 1 capsule every day by oral route for 42 days. active Stop Date: 09/07 Not Available Not Available Not Available aspirin 81 mg chewable tablet Chew 2 tablets every day by oral route for 42 days. active Stop Date: 09/07 Not Available Not Available Not Available metoprolol succinate ER 25 mg tablet,exte nded release 24 hr Take 0.5 tablets every day by oral route. active Not Available Not Available No t Available polyethylen e glycol 3350 17 gram/dose oral powder Take 17 g every day by oral route. active Not Available Not Available No t Available acetaminoph en 500 mg capsule Take 2 capsules 3 times a day by oral route as needed. active Not Available Not Available No t Available diazepam 5 mg tablet Take 1 tablet every day by oral route as needed. 2024 active Not Available Not Available Not Avai lable oxycodone 5 mg tablet Take 1-2 tabs by mouth every 4 hours as needed. active Not Available Not Available No t Available cholecalcif gabo (vitamin D3) 125 mcg (5,000 unit) tablet Take 1 tablet every day by oral route. active Not Available Not Available No t Available Eye Multivitami n 2,148 mcg-113 mg-45 mg-17.4 mg tablet Take 1 tablet every day by oral route. active Not Available Not Available No t Available Vitals Date Recorded Body height Heart rate Body temperature Respiratory rate Body mass index (BMI) Body weight Oxygen saturation Systolic And Diastolic Provider Name and Address Organization Details Last Updated DateTime 162.56 cm 84 /min 98.2 [degF] 20 /min 20.9 kg/m2 13478.5 5 g 98 % 157/79 mm[Hg] [place] [address] [place], [address] 12:59:45 Social History Question Answer Notes LastModified by [employer] Details LastModified Time Tobacco Smoking [place] [address] [place], [address], [facility] 08/02/2025 04:09:47 What Is Your Code Status? DNR [email or web address] Information not available 07/28/2025 Sex: Unknown Functional Status Question Answer Note LastModified by [employer] Details LastModified Time Do you use any illicit or recreational drugs? No Information not available 08/02/2025 What is your level of alcohol consumption? None Information not available 08/02/2025 Mental Status None recorded. Family History Relationship Description Onset Age of this Age Resolved Age Notes LastModified by Organization Details LastModified Time Mother Hypertensive disorder mvandorn Not available 2024 04:10:01 Father Cerebrovascu lar accident mvandorn Not available 02/2025 04:10:16 Father Heart failure mvandorn Not available 2024 04:10:32 Father Malignant neoplasm of urinary bladder mvandorn Not available 2024 04:10:53 Medical History Condition Response Psychiatric -- Anxiety Disorder Y Hypertension Y Glaucoma Y Gynecological HistoryNo gynecological history recorded. Obstetrics History GPAL:G 0 P 0 0 0 0 Past Encounters Encounter ID Performer Location Encounter Start Date Encounter Closed Date Diagnosis/Indication Diagnosis SNOMED-CT Code Diagnosis ICD10 Code Diagnosis IMO Codes Diagnosis Note [id number] Nancy Marlen, DO [address] [address] 07/30/2025 16:51:15 08/08/2025 09:37:01 Localized, primary osteoarthritis 280356959 M17.11 13254317 s/p right total knee arthroplas tyWBATcurr ent dressing to remain until 08/02, staple removal ontinu e ASA BID for DVT prophylaxi s x 42 days - omeprazole has been added for GERD prevention during this timeorthop edics = Dr. Clemente Dhillon - f/u needs to be scheduled in 3 weeksmonit or incision closely with noted erythema/w armth - the patient feels this has been consistent since the surgery - no concern for worsening at this time. Pictures taken today which she will continue to take daily - also d/w nursing need to closely monitor with call to our service if notable changes or concernsAd ding tramadol prn for pain control. The patient requests that oxycodone is left in place for now in the event that tramadol does not helpTyleno l is ordered prn, meloxicam will be d/c'd Essential hypertension 35573896 I10 91096 continue amlodipine , metoprolol , losartan and bumextrend pressures and adjust meds as clinically indicated Vitamin D deficiency 347 65497 E55.9 46916 continue replacemen t therapy Slow trans it constipation 04011469 K59.01 8838 continue routine miralax and citrucelad ditional meds available per standing orders Bilateral glaucoma 61303 00594 H40.9 34622088 continue eye drops as ordered - outpatient f/u with ophtho Generalize d anxiety disorder 31008544 F41.1 89293 continue daily diazepam - this is a long standing outpatient medication she does not take additional routine medication s related to this - monitor for need Mitral valve prolapse 40 8590871 I34.1 70270 she denies symptoms related to thiscontin ue low dose metoprolol she follows with cards, Dr. Kwon, related to this - last seen in r clinically History of total knee arthroplasty 4599675330 105 Z96.651 [id number] see above..... .... Physical deconditioning 3159947795 9102 R53.81 [id number] related to advanced age, recent knee replacemen t surgery, comorbidit iestherapi es have been initiated, will monitor progress - she is hopeful to return home alone upon d/c from [facility] [id number] Nancy Gee, DO [address] [address] 08/01/2025 09:08:28 08/08/2025 09:33:56 Localized, primary osteoarthritis 789398603 M17.11 29503242 s/p right total knee arthroplas ty.Continu e WBAT.Neptali nue PRN APAP, Tramadol, Oxycodone, and ice for discomfort .Current dressing to remain until 08/02. [place] to be removed on 08/06. Monitor closely for infection. Continue ASA BID for DVT prophylaxi s x 42 days (09/07). Omeprazole has been added for GERD prevention during this time, as well.F/U with Dr. Clemente Dhillon (ortho) in 3 weeks. History of total knee arthroplasty 2158050106 105 Z96.651 [id number] SEE ABOVE... Essential hypertension 58558981 I10 72409 Stable. Continue Amlodipine , Metoprolol , Losartan, KCl, and Bumex.Cont inue to trend blood pressures, monitor lytes and renal function, and adjust meds as clinically indicated. F/U with Dr. Kwon (cards) as directed. Last seen in April 2025. Vitamin D deficiency 347 33460 E55.9 95841 Presumed stable. Continue replacemen t therapy. Slow trans it constipation 96369794 K59.01 8838 Stable. Continue routine Miralax and Citrucel.A dditional meds available per standing orders. Bilateral glaucoma 95127 17865 H40.9 81689367 Presumed stable. Continue eye drops as ordered.Ou tpatient f/u with ophtho as directed. Generalize d anxiety disorder 18489965 F41.1 66723 Continue PRN Diazepam. This is a long standing outpatient medication . She does not take additional routine medication s related to this, although she would likely benefit from it. Continue regimen for now. Recommend further psychiatri c evaluation as OP. Mitral valve prolapse 40 0461236 I34.1 27648 Denies symptoms related to this.Neptali nue medication s as above and supportive care. Physical deconditioning 7440303887 9102 R53.81 121749 Related to advanced age, recent knee replacemen t surgery, and comorbidit ies.Contin ue therapies and monitor progress. She is hopeful to return home alone upon d/c from SNF. Health Concerns Section Related Observation LastModified by Organization Detai ls LastModified Time None Recorded Concern Status LastModified by Organization Details LastModified Time None Recorded Payers Encounter Date Sequence Insurance Name Policy Number Policy Soares Covered Member ID Soares Member ID Guarantor Name 08/01/2025 1 [employer] (MEDICARE REPLACEMENT/ ADVANTAGE - HMO) [id number] Carlita Yeung [id number] Carlita Gamal Notes Date Note Type Note Provider Name and Address Organization Details Recorded Time 08/01/2025 text/html F/U elective [R] total knee replacement sec to end-stage OA and chronic medical conditions.--- e patient is seen today initially up in her W/C. She transitions into bed mostly IND to get her leg elevated while we talk. Carlita reports some notable swelling, bruising and erythema to the right knee since the surgery. She shows me daily pictures she has been taking. She reports some bleeding to the lower incision that prompted changing her sliver mepilex dressing prior to discharge to [facility]. She has dried, bloody drainage noted again to the lower 1/4 dressing today on exam. She is concerned with taking oxycodone and would like to get away from taking narcotics. She has an orthopedic friend who has been a confidant to her through this surgery. She spoke with him earlier today and he recommended trialling tramadol instead. She will return home alone or may consider short term placement in LTC or [facility] if she doesn't feel she can appropriately care for herself when she leaves [facility]. No nursing concerns today.---08/01/25Carlita is doing well today, standby assistance with w/w as she ambulates. She reports her pain to her [R] knee is improving, well-managed at present, and overall she is without concerns although she is anxious on exam. She took her PRN Diazepam and reports it lifted my spirits this morning. VSS. Staff is without concerns today. Per therapy notes = gait training with FWW for 100 ft and 150 ft with SBA to supervision with cues for safe walker management when crossing elevator threshold Kellen Londono, DENISSE [address] [facility], [place], [address], [facility] 08/02/2025 17:32:08 OBGyn Episode No OBEpisode recorded.
--- OUTSIDE RECORDS SUMMARY | 2025-10-22 06:39 | XMS_ITS | Patient Health Record ---
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 Name Role Phone MICHELLE CRAWFORD Unavailable [phone] Valentin Ridley Unavailable Unavailable Allergies Allergen (clinical drug ingredient) Drug/Non Drug Allergy documented on EMR Reaction Allergy Type Onset Date Status Substance with sulfonamide structure and antibacterial mechanism of action (substance) Sulfa Antibiotics Unknown Drug Allergy Active Reason For Referral No Information Medications Medication SIG (Take, Route, Frequency, Duration) Notes Start Date End Date Status Metoprolol Succinate 25 MG Capsule ER 24 Hour Sprinkle 1 capsule Orally Once a day Active Losartan Potassium 50 MG Tablet 1 tablet Orally Once a day A ctive amLODIPine Benzoate 1 MG/ML Suspension 5 mL Orally Once a day A ctive diazePAM 2.5 MG Gel as directed Rectal Active Immunizations Vaccine Route Administration Date Status Comme nts Influenza, high dose seasonal Unknown 02/19/2025 Refuse d Pneumococcal conjugate PCV 13 Unknown 02/19/2025 Refuse d Social History Tobacco Use: Social History Observation Description Date Details (start date - stop date) Never Smoker NA - NA Social History Tobacco Use: Social Info Question Answer Notes Tobacco Control (Standard) Tobacco use: Nonsmoker Vital Signs Height-cm 162.56 cm 05/14/2025 Weight-kg 55.34 kg 05/14/2025 Height 64 in 05/14/2025 Weight 122 lbs 05/14/2025 BMI 20.94 kg/m2 05/14/2025 Encounters Encounter Location Date Provider Diagnosis [facility] [place] [address] [place], [place] [id number] 07/16/2025 MICHELLE SNOOK Tinea unguium B35.1 ; Acquired keratosis [keratoderma] palmaris et plantaris L85.1 ; Atherosclerosis of [place] arteries of extremities with intermittent claudication, bilateral legs I70.213 ; Pain in right foot M79.671 ; Pain in left foot M79.672 and Other hammer toe(s) (acquired), right foot M20.41 [facility] [place] [address] [place] [id number] 02/19/2025 MICHELLE SNOOK Tinea unguium B35.1 ; Hallux valgus (acquired), right foot M20.11 ; Hallux valgus (acquired), left foot M20.12 ; Other hammer toe(s) (acquired), right foot M20.41 ; Pain in right foot M79.671 and Left foot pain M79.672 [facility] [place] [address] [place] [id number] 05/14/2025 MICHELLE SNOOK Tinea unguium B35.1 ; Ganglion cyst of left foot M67.472 ; Ingrowing nail L60.0 ; Atherosclerosis of [place] arteries of extremities with intermittent claudication, bilateral legs I70.213 and Left foot pain M79.672 Assessments Encounter Date Diagnosis (ICD Code) Assessment Notes Treatment Notes Treatment Clinical Notes Section Notes 02/19/2025 Tinea unguium (ICD-10 - B35.1) FUNGAL TOENAILS: Discussed various treatment options for fungal toenails including debridement, topical antifungals, oral antifungals, toenail avulsion, or toenail matrixectomy. NAIL DEBRIDEMENT: Nails 1-5 Bilateral were debrided extensively with nail nippers and emery board, reducing length and girth to pink healthy tissue with any subungual debris and necrotic tissue removed 02/19/2025 Hallux valgus (acquired), right foot (ICD-10 - M20.11) Bunion: Discussed various treatments with the patient regarding hallux abducto valgus deformity. Discussed conservative care consisting of padding, wider shoes, anti-inflammator ies, and orthotics. Discussed surgical treatment options and answered all questions about the intra-operative and post-operative treatment course. 05/14/2025 Tinea unguium (ICD-10 - B35.1) FUNGAL TOENAILS: Discussed various treatment options for fungal toenails including debridement, topical antifungals, oral antifungals, toenail avulsion, or toenail matrixectomy. NAIL DEBRIDEMENT: Nails 1-5 Bilateral were debrided extensively with nail nippers and emery board, reducing length and girth to pink healthy tissue with any subungual debris and necrotic tissue removed 05/14/2025 Ganglion cyst of left foot (ICD-10 - M67.472) 07/16/2025 Tinea unguium (ICD-10 - B35.1) Nails [...] utilizing a #15 blade 07/16/2025 Atherosclerosis of [place] arteries of extremities with intermittent claudication, bilateral legs (ICD-10 - I70.213) 05/14/2025 Ingrowing nail (ICD-10 - L60.0) 02/19/2025 Hallux valgus (acquired), left foot (ICD-10 - M20.12) 02/19/2025 Other hammer toe(s) (acquired), right foot (ICD-10 - M20.41) Hammertoe Deformity: Discussed various treatments for hammer toes with the patient . Discussed conservative care consisting of padding, wider shoes, anti-inflammator ies, and orthotics. Discussed surgical treatment options and answered all questions about the intra-operative and post-operative treatment course. 05/14/2025 Atherosclerosis of [place] arteries of extremities with intermittent claudication, bilateral legs (ICD-10 - I70.213) 07/16/2025 Pain in right foot (ICD-10 - M79.671) 07/16/2025 Pain in left foot (ICD-10 - M79.672) 05/14/2025 Left foot pain (ICD-10 - M79.672) 02/19/2025 Pain in right foot (ICD-10 - M79.671) 02/19/2025 Left foot pain (ICD-10 - M79.672) 07/16/2025 Other hammer toe(s) (acquired), right foot (ICD-10 - M20.41) Padding: Application of accomodative padding to offload pressure from area. Shoe Recommendation: Advised patient on appropriate shoe gear for protection, healing and good foot health. Plan Of Treatment Next Appt Details Provider Name:MICHELLE CRAWFORD, 08:10:00 AM, [address], [facility], [place], [place], [id number], Insurance Providers Payer Name Payer Address Payer Phone Subscriber Number Group Number Insured Name Patient Relationship to Insured Coverage Start Date Coverage End Date [employer] [address] [place] [phone] [id number] Carlita Yeung Self - patient is the insured Medical (General) History Medical History History ICD Code high blood pressure Surgical History Surgery Date(Month/Year) Hysterectomy appendectomy Knee Surgery, right 07/2025
--- OUTSIDE RECORDS SUMMARY | 2025-10-22 06:40 | XMS_ITS | Encounter Summary ---
Author Organization [facility] Healthcare Address [address] [place] [address] Care Team Providers Care Sports Umpire Name Role Phone Valentin Ridley MD Primary Care Provider [phone] Encounter Details Date Type Department Care Team (Late st Contact Info) Description 10/18/2025 Orders Only [facility] [address] [address] Valentin Ridley MD [address] [place] [address] Social History Tobacco Use Types Packs/Day Years Used Date Smoking Tobacco: Never Smokeless Tobacco: Never AUDIT-C Answer Date Recorded Q1: How often [...] points, staff should administer the PHQ-9) 0 10/15/2025 Personal Safety Answer Date Recorded Have you ever been in or are you currently in a harmful physical or emotional relationship or is someone making you feel afraid or unsafe? Denies 12/24/2024 Comments No Sex and Gender Information Value Date Recorded Sex Assigned at Not on file Legal Sex Female 1:13 PM [employer] Gender Identity Not on file Sexual Orientation Not on file documented as of this encounter Ordered Prescriptions Prescription Sig Dispense Quantity Refills Last Filled Start Date End Date ciprofloxacin (CIPRO) 250 mg tablet Take 1 tablet (250 mg total) by mouth 2 (two) times a day for 7 days 14 tablet 10/18/2025 10/25/2025 documented in this encounter Plan of Treatment Not on file documented as of this encounter Visit Diagnoses Not on filedocumented in this encounter Care Teams Sports Umpire Relationship Specialty Start Date End Date Valentin Ridley MD [address] [place] [address] PCP - General Family Medicine 02/01/24 documented as of this encounter
--- OUTSIDE RECORDS SUMMARY | 2025-10-22 06:40 | XMS_ITS | Clinical Summary ---
Author Organization [facility] Address [address] [place] [address] Care Team Providers Care Relief Charge Nurse Name Role Phone Valentin Ridley MD Primary Care Provider [phone] Clemente Dhillon MD Unavailable [phone] Og Kwon MD Unavailable Source Comments [facility],non-owned Affiliates and Associated Physician Practices is amultiple site organization consisting of ambulatory clinics and hospital sitesin [place], [place], [place] and [place]. This disclosure is being madepursuant to the Care Everywhere program and may not contain all information available regarding this patient. Last updated 18.[facility] Allergies Active Allergy Reactions Criticality Noted Date Comments Sulfamethoxazole W-Trimethoprim Other 01/27 other Medications * Be aware that medications may not be up to date on this document. Alwaysverify current medications with the patient. diazePAM (Valium) 5 MG tablet Take 1 (one) tablet by mouth once daily as needed 11/17/20 24 Active metoprolol succinate XL 24hr (Toprol XL) 25 MG tablet Take 0.5 (one-half) tablet by mouth once daily 09/11/20 24 Active potassium chloride ER 10 MEQ tablet TAKE 1 TABLET (10 MEQ TOTAL) BY MOUTH DAILY 04/09/20 25 Active bumetanide (Bumex) 0.5 MG tablet Take 1 (one) tablet by mouth once daily 06/12/20 25 Active amLODIPine (Norvasc) 10 MG tablet Take 1 (one) tablet by mouth every evening Active losartan (Cozaar) 25 MG tablet Take 1 (one) tablet by mouth once daily Active bimatoprost (Lumigan) 0.03 % ophthalmic solution Instill 1 (one) drop into both eyes at bedtime 06/07/20 25 Active Multiple Vitamins-Minera ls (EYE VITAMINS PO) Take 1 tablet by mouth once daily Active methylcellulose (Citrucel) 500 MG tablet Take by mouth 3 times daily Active polyethylene glycol 3350 (Miralax) 17 g packet Take by mouth once daily Active Cholecalciferol (VITAMIN D-3 PO) Take 5,000 Units by mouth once daily Active acetaminophen (Tylenol) 500 MG capsule Take 2 (two) capsules by mouth 3 times daily Take for ten days then as needed. 07/23/20 25 Active omeprazole (PriLOSEC) 20 MG capsule Take 1 (one) capsule by mouth daily before breakfast for 42 days 42 capsule 07/23/20 25 Active oxyCODONE, immediate release, (Roxicodone) 10 MG tabletIndicatio ns:S/P total knee arthroplasty, unspecified laterality Take 0.5 (one-half) tablet to 1 (one) tablet by mouth every 4 hours as needed 42 tablet 07/26/20 25 Active omeprazole (PriLOSEC) 20 MG capsule Take 1 (one) capsule by mouth once daily 21 capsule 08/13/20 25 Active traMADol (Ultram) 50 MG tabletIndicatio ns:Aftercare following joint replacement surgery, unspecified joint Take 1 (one) tablet by mouth every 6 hours as needed for Pain 28 tablet 1 08/13/20 25 Active meloxicam (Mobic) 15 MG tablet TAKE 1 (ONE) TABLET BY MOUTH ONCE DAILY FOR 42 DAYS 42 tablet 10/09/20 25 025 Active meloxicam (Mobic) 15 MG tablet Take 1 (one) tablet by mouth once daily for 42 days 42 tablet 08/23/20 25 025 Discontinued Active Problems Problem Noted Date Diagnosed Date S/P total knee arthroplasty, unspecified lateral ity 07/23/2025 Encounters Date Type Department Care Team Description 10/01/2025 Refill [facility] Orthopedics [address] [place] [address], [address] [phone] Chester Crystal MD Refill Request 09/18/2025 11:30 AM CDT Office Visit [facility] Orthoped[facility] [address] [place] [address], [address] [phone] Clemente Dhillon MD Aftercare following joint replacement surgery, unspecified joint (Primary Dx) 09/16/2025 Refill [facility] [address] [place] [address], [address] [phone] Clemente Dhillon MD Refill Request 08/28/2025 3:45 PM CDT Ancillary Procedure [facility] Orthopedics - Radiology [address] [place] [phone] Clemente Dhillon MD Aftercare following joint replacement surgery, unspecified joint 08/28/2025 3:20 PM CDT Office Visit [facility] Orth[facility] [address] [place] [address], [address] [phone] Clemente Dhillon MD Aftercare following joint replacement surgery, unspecified joint (Primary Dx) 08/27/2025 Telephone [facility] [address] [place] [address], [address] [phone] Clemente Dhillon MD Change In Condition/behavior 08/24/2025 Telephone [facility] [address] [place] [address], [address] [phone] Clemente Dhillon MD Post-Op 08/23/2025 Refill [facility] [address] [place] [address], [address] [phone] Clemente Dhillon MD MEDICATION REFILL 08/23/2025 Telephone [facility] [address] [place] [address], [address] [phone] Clemente Dhillon MD Post Op Call 08/22/2025 Telephone [facility] [address] [place] [address], [address] [phone] Clemente Dhillon MD Patient Requested Call; Post-Op 08/13/2025 10:30 AM CDT Office Visit [facility] Orthoped[facility] [address] [place] [address], [facility] [address] [place] [phone] Og Chua, 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 Aftercare following joint replacement surgery, unspecified joint (Primary Dx) 08/06/2025 Telephone [facility] Orth[facility] [address] [place] [address], [facility] [address] [place] [phone] Clemente Dhillon MD Question 07/23/2025 10:23 AM CDT Anesthesia Event [facility] - Perioperative Surgery [address] [place] [phone] Roger Copeland DO 07/23/2025 9:58 AM CDT - 07/23/2025 12:16 PM CDT Surgery [facility] - Perioperative Surgery [address] [place] [address] Clemente Dhillon MD ARTHROPLASTY RIGHT TOTAL KNEE 07/23/2025 7:41 AM CDT - 07/27/2025 12:30 PM CDT Hospital Encounter [facility] [address] [place] [id number] Clemente Dhillon MD Surgery Orthopedics Discharge Disposition: Assisted Facility 07/23/2025 Travel from Last 3 Months Immunizations Immunization Administration Dates Next Due COVID PFIZER 12+YR 30MCG/0.3mL 07/01/2025,2023,09/13/2023 COVID PFIZER BIVALENT 12Y+ 30mcg/0.3ML Covid Pfizer primary Monoval ent 12+ yr 0.3ml 02/26/2022 Covid Pfizer primary monoval ent 12+ yr 0.3mL Purple cap 08/28/2021,01/17/2021,12/27/2020 Social History Tobacco Use Types Packs/Day Years Used Date Smoking Tobacco: Never Smokeless Tobacco: Never Tobacco Cessation:Counseling Given: Not Answered Alcohol Use Standard Drinks/Week Comments Not Currently 0 (1 standard drink = 0.6 oz pur e alcohol) AUDIT-C Answer Date Recorded Q1: How often do you have a drink containing alc ohol? Monthly or less 07/26/2025 Q2: How many drinks containi ng alcohol do you have on a typical day when you are drinking? 1 or 2 07/26/2025 Q3: How often do you have si x or more drinks on one occasion? Less than monthly 07/26/2025 Overall Financial Resource Strain (CARDIA) Answe r Date Recorded How hard is it for you to pa y for the very basics like food, housing, medical care, and heating? Not hard at all 07/26/2025 PHQ-2 Answer Date Recorded Patient Health Questionnaire-2 Score 2 09/15/2025 [facility] - Occupational Stress Questionnaire Answer Date Recorded Do you feel stress - tense, restless, nervous, or anxious, or unable to sleep at night because your mind is troubled all the time - these days? Only a little 07/26/2025 Hunger Vital Sign Answer Date Recorded Within the past 12 months, y ou worried that your food would run out before you got the money to buy more. Never true 07/26/20 25 Within the past 12 months, t he food you bought just didn't last and you didn't have money to get more. Never true 07/26/2025 PRAPARE - Transportation Answer Date Re corded In the past 12 months, has l ack of transportation kept you from medical appointments or from getting medications? No 06/30 In the past 12 months, has l ack of transportation kept you from meetings, work, or from getting things needed for daily living? No 07/26/2025 Housing Stability Vital Sign Answer Cornell e Recorded In the last 12 months, was t here a time when you were not able to pay the mortgage or rent on time? No 07/26/2025 In the past 12 months, how m any times have you moved where you were living? 1 07/26/2025 At any time in the past [address] [facility], were you homeless or living in a [place] health care facility (including now)? 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[employer] Gender Identity Not on file Sexual Orientation Not on file Last Filed Vital Signs Vital Sign Reading Time Taken Comments Blood Pressure 119/54 07/27/2025 12:14 PM CDT Pulse 98 07/27/2025 12:14 PM CDT Temperature 37.3 C (99.1 F) 07/27/2025 7:42 AM CDT Respiratory Rate 18 07/27/2025 7:42 AM CDT Oxygen Saturation 96% 07/27/2025 12:14 PM CDT Inhaled Oxygen Concentration - - Weight 54.4 kg (120 lb) 07/23/2025 8:51 AM CDT Height 162.6 cm (5' 4) 07/23/2025 8:51 AM CDT Body Mass Index 20.6 07/23/2025 8:51 AM CDT Plan of Treatment Health Maintenance Due Date Last Done Comments BONE DENSITY TESTING 1940 DTAP/TDAP/TD VACCINES (1 - Tdap) 1959 PNEUMOCOCCAL VACCINE 50+ (1 of 1 - PCV) 1990 ZOSTER VACCINE (1 of 2) 1990 Respiratory Syncytial Virus (RSV) Vaccine Pt: or over 60 yrs (1 - 1-dose 75+ series) 2015 COVID-19 VACCINE ( season) 2025 07/01/2025, 08/07/2024, 09/13/2023, Additional history exists DEPRESSION SCREENING Completed 02/12/2025 INFLUENZA VACCINE Completed 07/01/2025, , 09/13/2023, Additional history exists HEPATITIS B VACCINE Aged Out No longe r eligible based on patient's age to complete this topic HIB VACCINE Aged Out No longer eligi ble based on patient's age to complete this topic HPV VACCINE Aged Out No longer eligi ble based on patient's age to complete this topic MENINGOCOCCAL (Group B) VACCINE SHARED DECISION-MAKING Aged Out No longer eligible based on patient's age to complete this topic MENINGOCOCCAL GROUPS A/C/Y/W VACCINE Aged Out No longer eligible based on patient's age to complete this topic Medical Devices Implanted Type Area Structural Engineer Device Identifier Shelf Expiration Date Model / Serial / Lot Cmnt Bone Plc R 40gm Grn Implanted:Qty: 1 on 07/23/2025 by Clemente Dhillon MD at [facility] Right: Knee [employer] 08/28/2027 [id number] / / [id number] Cmpnt Ptlr Std 28mm 3 Pg Kn Ser A Implanted:Qty: 1 on 07/23/2025 by Clemente Dhillon MD at [facility] Right: Knee [employer] 12/08/2026 [id number] / / [id number] Cmpnt Fem Kn Rt Cr Cmnt Prm Vngrd Intlk 65mm Implanted:Qty: 1 on 07/23/2025 by Clemente Dhillon MD at [facility] Right: Knee [employer] 03/28/2035 [id number] / / [id number] Tray Tib 71mm Kn Cocr I Beam Implanted:Qty: 1 on 07/23/2025 by Clemente Dhillon MD at [facility] Right: Knee [employer] [id number] / / [id number] Brng 90y25qo Vngrd Vivacit-E Kn Ant Stab Implanted:Qty: 1 on 07/23/2025 by Clemente Dhillon MD at [facility] Right: Knee [employer] 01/02/2030 [id number] / / [id number] Procedures Procedure Name Priority Date/Time Associated Diagnosis Comments XR KNEE RIGHT 3VW Routine 08/28/2025 3:4 8 PM CDT Aftercare following joint replacement surgery, unspecified joint BASIC METABOLIC PANEL (CALCIUM TOTAL) Routine 07/27/2025 9:01 AM CDT CBC W AUTO DIFFERENTIAL Routine 07/27/2025 9:01 AM CDT CBC W AUTO DIFFERENTIAL AM Draw 07/25/2025 5:00 AM CDT NEURAXIAL BLOCK Routine 07/23/2025 10:47 AM CDT ID TOTAL KNEE REPLACEMENT 07/23/2025 9:58 AM CDT Special Needs BIOMET (MADELIN) NOTIFIED-KS from Last 3 Months Results * XR Knee Right 3Vw (08/28/2025 3:48 PM CDT) Narrative [facility] [address] - 08/28/2025 3:48 PM CDT Please see progress note in Epic for results. us Clemente Dhillon MD DIAGNOSTIC IMAGING ORDERABLES Final Result [facility] [place] [address] * (ABNORMAL) CBC W AUTO DIFFERENTIAL (07/27/2025 9:01 AM CDT) Only the most recent of2 resultswithin the time period is included. WBC 10.3 4.0 - 10.7 x10E9/L 07/27/2025 9:09 AM CDT [facility] RBC Count 3.53(L) 3.90 - 5.20 x10E12/L 07/27/2025 9:09 AM CDT [facility] Hemoglobin 10.6(L) 11.9 - 15.8 g/dL 07/27/2025 9:09 AM CDT [facility] Hematocrit 32.2(L) 34.8 - 46.1 % 07/27/2025 9:09 AM CDT [facility] MCV 91.2 80.0 - 98.0 fL 07/27/2025 9:09 AM CDT [facility] MCH 30.0 26.7 - 33.6 pg 07/27/2025 9:09 AM CDT [facility] MCHC 32.9 31.7 - 36.3 g/dL 07/27/2025 9:09 AM CDT [facility] RDW-CV 14.1 11.3 - 14.8 % 07/27/2025 9:09 AM CDT [facility] Platelet Count 270 150 - 420 x10E9/L 07/27/2025 9:09 AM CDT [facility] MPV 9.3 7.8 - 11.4 fL 07/27/2025 9:09 AM CDT [facility] Neutrophil % 83.1(H) 41.0 - 74.0 % 07/27/2025 9:09 AM CDT [facility] Lymphocyte % 6.3(L) 17.0 - 47.0 % 07/27/2025 9:09 AM CDT [facility] Monocyte % 9.1 3.0 - 11.0 % 07/27/2025 9:09 AM CDT [facility] Eosinophil % 0.7 0.0 - 7.0 % 07/27/2025 9:09 AM CDT [facility] Basophil % 0.4 0.0 - 1.6 % 07/27/2025 9:09 AM CDT [facility] Immature Granulocytes % 0.4 0.0 - 1.0 % 07/27/2025 9:09 AM CDT [facility] Neutrophil Absolute 8.57(H) 1.60 - 7.50 x10E9/L 07/27/2025 9:09 AM CDT [facility] Lymphocyte Absolute 0.65(L) 1.00 - 4.40 x10E9/L 07/27/2025 9:09 AM T [facility] Monocyte Absolute 0.94 0.15 - 1.00 x10E9/L 07/27/2025 9:09 AM T [facility] Eosinophil Absolute 0.07 0.00 - 0.60 x10E9/L 07/27/2025 9:09 AM T [facility] Basophil Absolute 0.04 0.00 - 0.13 x10E9/L 07/27/2025 9:09 AM T [facility] Blood BLOOD SPECIMEN / Unknown Venipuncture / Unknown 07/27/2025 9:01 AM CDT 07/27/2025 9:05 AM CDT us Amber Juarez MD LAB - HEMATOLOGY ORDERAB LES Final Result [facility] [address] [place] [address] * (ABNORMAL) BASIC METABOLIC PANEL (CALCIUM TOTAL) (07/27/2025 9:01 AM CDT) Pathologist [facility] Glucose 150(H) 70 - 99 mg/dL 07/27/2025 9:21 AM CDT [facility] Sodium 133(L) 136 - 145 mmol/L 07/27/2025 9:21 AM CDT [facility] Potassium 4.4 3.5 - 5.1 mmol/L 07/27/2025 9:21 AM CDT [facility] Chloride 100 98 - 107 mmol/L 07/27/2025 9:21 AM CDT [facility] CO2 26 22 - 29 mmol/L 07/27/2025 9:21 AM CDT [facility] Calcium 8.9 8.4 - 10.4 mg/dL 07/27/2025 9:21 AM T [facility] Anion Gap 7 6 - 16 mmol/L 07/27/2025 9:21 AM CDT [facility] BUN 19 7 - 26 mg/dL 07/27/2025 9:21 AM CDT [facility] Creatinine 0.68 0.57 - 1.11 mg/dL 07/27/2025 9:21 AM T [facility] eGFR by CKD-EPI 85(L) >=90 mL/min/1.7 3 m2 07/27/2025 9:21 AM T [facility] Comment:Estimated Glomerular Filtration Rate (eGFR) calculated using the CKD-EPI Creatinine Equation (2020), per the National Kidney Foundation and [place] [employer] Neph[employer] recommendations. Blood BLOOD SPECIMEN / Unknown Venipuncture / Unknown 07/27/2025 9:01 AM CDT 07/27/2025 9:05 AM CDT Amber Juarez MD LAB - CHEMISTRY ORDERABL ES Final Result [facility] [address] [place] [id number] * Neuraxial Block (07/23/2025 10:47 AM CDT) Narrative Alex Gutierrez, CODY-RN CHEMICAL DEPENDENCY - 07/23/2025 10:47 AM CDT Alex Gutierrez APRN-CRNA 07/23/2025 10:48 AM Neuraxial Block Note Pre-Procedure: Procedure Name: Neuraxial Block Patient Location: OR Indications: surgical anesthesia Pre-Anesthetic Checklist: Patient identified, IV Checked, Risks and benefits discussed, Surgical consent verified, Monitors and equipment, Site examined, Pre-op evaluation done, Informed consent obtained, Questions answered/anesthesia questions answered and Allergies reviewed Anticoagulation/ Anti-thrombosis status confirmed? Yes Supplemental O2: room air Monitors: BP and continuous pluse ox Patient Condition: sedated, meaningful contact maintained throughout procedure Patient Sedated? Nursing sedation administration Sedation Type: mild Sedation Agents (manual): versed mL Procedure: Block Type: Spinal Prep: Betadine Sterile Field: mask, sterile gloves, cap/hat and sterile established Approach: midline Skin was localized? Nursing documentation on [facility] Skin localized with: Lidocaine 1% and 1 mL Spinal Block: Needle Type: spinal needle Needle Gauge: 22 Needle Length: 90 mm Placement Site: L3-4 Number of Attempts: 1 CSF: free flow, aspiration before injection Local anesthetics used? Nursing documentation on the [facility] Spinal Local Anesthetic: Bupivacaine: 0.75% in dextrose 2 mL Degree of difficulty: none Procedure Tolerance: tolerated well performed while the patient was sedated Sensory Level: lower level Motor Blockade: Yes Position post procedure: supine Vital Signs: Vital signs monitored and stable throughout. See anesthesia record for details. Start Time: 07/23/2025 10:24 AM End Time: 07/23/2025 10:30 AM Total Time: 6 Staff: Anesthesia Provider: Alex Gutierrez APRN-RN CHEMICAL DEPENDENCY - performed the procedure Roger Copeland DO GENERAL ANESTHESIA ORDERABLES Final Result from Last 3 Months Insurance [employer] Advance Directives Documents on File Type Date Recorded Patient Repacker Expl anation Adv Directive/Living Will/POA 07/16/2025 11:05 PM * Full Code (Latest Code Status on File) Date Activated Date Inactivated Comments 07/23/2025 1:02 PM 07/27/2025 1:45 PM Care Teams Relief Charge Nurse Relationship Specialty Start Date End Date Valentin Ridley MD [address] [place] [address] PCP - General Internal Medicine 02/13/25 [place] [id number] [facility] [address] [place] [address] Surgeon Orthopedic Surgery 04/30/25 Og Kwon MD [address] [place] [address] Cardiovascular Disease 07/10/25
--- OUTSIDE RECORDS SUMMARY | 2025-10-22 06:40 | XMS_ITS | Clinical Summary ---
Author Organization [facility] Address [address] [place] [address] Care Team Providers Care Police Stenographer Name Role Phone Valentin Ridley MD Primary Care Provider [phone] Allergies Active Allergy Reactions Criticality Noted Date Comments Sulfa (Sulfonamide Antibiotics) Unknown 03/30 Medications methylcellulose, laxative, (CITRUCEL) 500 mg tablet Active polyethylene glycol (MIRALAX) 17 gram/dose powder Active vit A/C/E ac/ZnOx/cupric oxide (EYE VITAMIN AND MINERALS ORAL) Take by mouth daily Active bumetanide (BUMEX) 0.5 mg tablet Take 1 tablet (0.5 mg total) by mouth daily 30 tablet 03/13/20 25 026 Active losartan (COZAAR) 25 mg tablet Take 1 tablet (25 mg total) by mouth daily 30 tablet 07/13/20 25 026 Active diazePAM (VALIUM) 5 mg tabletIndication s:EMELIA (generalized anxiety disorder) TAKE 1 TABLET BY MOUTH EVERY DAY NEEDED FOR ANXIETY 30 tablet 07/18/20 25 Active potassium chloride ER 10 mEq CR tablet TAKE 1 TABLET BY MOUTH EVERY DAY 100 tablet 1 10/13/20 25 Active metoprolol XL (TOPROL-XL) 25 mg extended release tabletIndication s:Primary hypertension Take 0.5 tablets (12.5 mg total) by mouth nightly 30 tablet 1 10/15/20 25 Active amLODIPine (NORVASC) 5 mg tablet Take 1 tablet (5 mg total) by mouth daily 90 tablet 4 10/15/20 25 026 Active ciprofloxacin (CIPRO) 250 mg tablet Take 1 tablet (250 mg total) by mouth 2 (two) times a day for 7 days 14 tablet 10/18/20 25 025 Active bimatoprost (LATISSE) 0.03 % ophthalmic solution USE 1 DROP ON BOTH EYE LASH LINES EVERY DAY AT BEDTIME 04/26/20 025 Discontinued(Th erapy completed) amLODIPine (NORVASC) 10 mg tablet Take 1 tablet (10 mg total) by mouth daily Take with evening meal 90 tablet 4 02/07/20 25 025 Discontinued(Al ternate therapy) potassium chloride ER 10 mEq CR tablet TAKE 1 TABLET (10 MEQ TOTAL) BY MOUTH DAILY 90 tablet 1 04/09/20 25 025 Discontinued metoprolol XL (TOPROL-XL) 25 mg extended release tabletIndication s:Primary hypertension TAKE 1/2 TABLET BY MOUTH DAILY 45 tablet 1 06/15/20 25 025 Discontinued(Re order) aspirin 81 mg chewable tablet Chew 2 tablets every day by oral route for 42 days. 07/23/20 025 Discontinued(Th erapy completed) Active Problems Problem Noted Date Diagnosed Date Dyspnea on exertion 08/26/2025 Preop cardiovascular exam 05/22/2025 Bilateral carotid artery stenosis 05/22/2025 Pedal edema 03/06/2025 Assessment & Plan (04/10/2025 8:44 AM CDT): Treating with observations. MOst consistent with amlodipine related edema. Assessment & Plan (03/06/2025 4:15 PM CDT): As above. Hypertension, essential 02/06/2025 Assessment & Plan (03/06/2025 4:15 PM CDT): Reviewed target blood pressure and congratualte on improvement. Discussed side effects of the medication and associated pedal edema. Options include montiring edema and will follow response. Other change would be to reduce/decrease amlodipine and uptitrate losartan to 100mg dialy basis. OPting to stay and montior edema. Assessment & Plan (02/06/2025 8:37 AM CDT): As above. Medicare annual wellness visit, subsequent 02/06 Assessment & Plan (02/06/2025 8:37 AM CDT): Focus of exam is preventative in nature. Reviewed immunizationis, reviewd sun/skin cancer screening. Reveiwed fall prevention. Reviewed preventative measures based on age and comorbidities. Lipid screening 02/04/2025 Assessment & Plan (02/04/2025 2:16 PM CDT): Bowen baca. Lingular pneumonia 02/04/2025 Assessment & Plan (02/04/2025 2:16 PM CDT): Reviewed radiographic clearing interval and will montior respnose. Primary open angle glaucoma (POAG) of both eyes 02/04/2025 Assessment & Plan (04/10/2025 8:44 AM CDT): Continue f/uw with ophthalmology. Assessment & Plan (02/04/2025 2:16 PM CDT): Continues on ophthalmology and no acute changes to vision. Anxiety 02/04/2025 Assessment & Plan (02/06/2025 8:37 AM CDT): WIll cotnineu on prn diazepam and will follow response. NO change at the present time. Assessment & Plan (02/04/2025 2:16 PM CDT): Continue on prn diazepam and will montir rpesonse. Blood present in stool 05/10/2024 Assessment & Plan (05/10/2024 9:20 AM CDT): Patient recommended to continue constipation treatment (citrucel) and to keep an eye on the stool as this had happened one time with no pain, night sweats, nor weight loss. Sent over stool for heme occult testing Chronic pain of right knee 04/17/2024 Post-traumatic osteoarthritis of right knee 03/30 Assessment & Plan (02/06/2025 8:35 AM CDT): Continue f/u with Dr. Butler and will continue to follow response. COntinues on steroid injection and will monitor response. Sensorineural hearing loss ( SNHL) of left ear with restricted hearing of right ear 01/07/2024 Assessment & Plan (01/07/2024 9:00 AM BILINGUAL MANAGER): Avoid ear cleaning techniques Continue hearing aids Follow up in one year for ear check Bilateral impacted cerumen 01/07/2024 Assessment & Plan (01/07/2024 9:00 AM BILINGUAL MANAGER): Avoid ear cleaning techniques Continue hearing aids Follow up in one year for ear check Mitral valve prolapse 10/28/2022 Assessment & Plan (03/06/2025 4:15 PM CDT): No palpitations. No increaed work of breathing. BMI 20.0-20.9, adult 02/14/2018 Assessment & Plan (02/06/2025 8:36 AM CDT): Healthy lifestyel. Carotid bruit 01/07/2018 Body mass index (BMI) of 20 to 24 07/22/2015 Hypertension 04/26/2013 Assessment & Plan (04/10/2025 8:43 AM CDT): See сергейiuclorrieoin sa above. 1. Losartan 50mg am 2. Toprol XL 12.5mg - move to pm 3. Amlodpine 10mg am Continue home montioring. Watch for orthostasis. Assessment & Plan (02/06/2025 8:36 AM CDT): NOt at goal: 1. INtroduce losartan 50mg daily 2. Metoprolol XL 12.5mg 3. Amlodipine 10mg daily Reivewed contribution of anxiety to the regimen and will follow response. Continues on prn diazepam with uptick in anxiety related to BP. Reviewed ER wanring s/s. Assessment & Plan (02/04/2025 2:16 PM CDT): Uptitatrion to 5mg daily from 2.5mg for amloidpien. Continue on metoprolol XL 25mg and montiro home BP and pulse. F/U with cardilogy and will montiro serponse. Resolved Problems Problem Noted Date Diagnosed Date Resolved Date Malignant neoplasm screen 09/28/2019 Overview (09/28/2019): Added automatically from request for surgery [id number] Decreased blood pressure, not hypotension 07/28/2016 10/06/2022 Lightheadedness 07/28/2016 10/06/2022 Weakness 07/28/2016 10/06/2022 Tachycardia 07/28/2016 10/06/2022 Closed fracture of bone 03/30/201408/29 Body mass index (BMI) 21.0-21.9, adult 04/26/2013 09/08/2023 Constipation 09/01/2011 10/06/2022 Encounters Date Type Department Care Team Description 10/18/2025 Orders Only [facility] [address] [phone] Valentin Ridley MD 10/15/2025 3:00 PM BILINGUAL MANAGER Lab [facility] [address] [place] [address] Urinary tract infection without hematuria, site unspecified 10/15/2025 2:15 PM BILINGUAL MANAGER Office Visit [facility] [address] [phone] Valentin Ridley MD Urinary tract infection without hematuria, site unspecified (Primary Dx); Primary hypertension 09/25/2025 Nurse Triage [facility] [address] [phone] Valentin Ridley MD 08/17/2025 Orders Only [facility] [address] [phone] Valentin Ridley MD 08/15/2025 Orders Only [facility] [address] [phone] Valentin Ridley MD 08/14/2025 3:00 PM CDT Lab [facility] [address] [id number] Dyspnea on exertion; Dysuria 08/14/2025 2:15 PM CDT Office Visit [facility] [address] [phone] Valentin Ridley MD Dyspnea on exertion (Primary Dx); Hypertension, essential 08/13/2025 Orders Only [facility] [address] [phone] Valentin Ridley MD Dysuria (Primary Dx) 08/13/2025 Nurse Triage [facility] [address] [phone] Valentin Ridley MD from Last 3 Months Immunizations Immunization Administration Dates Next Due COVID-19 mRNA ([employer]) 0.3 m L (30 mcg) vaccine (12 years and up) 09/13/2023 Influenza, Quad, Adjuvantate d, Intramuscular 09/13/2023,08/28/2021 Influenza, Quadrivalent, Hig h Dose, Preservative Free, Intrr 09/07/2022,07/19/2020 Influenza, Quadrivalent, Spl it, Preservative Free, Intramuscular 08/17/2013 Influenza, Trivalent, Adjuva nted, Intramuscular 08/29/2018,08/28/2018 Influenza, Trivalent, High D ose, Split, Preservative Free, Intramuscular 07/01/2025,08/07/2024,09/04/2019,09/02,08/30/2016,08/27/2014 Influenza, Trivalent, Preser vative Free, Intramuscular 08/21/2015 Influenza, Unspecified 11/29/2023(Deferr ed: Patient Refused),11/29/2022(Deferred: Patient Refused) Pfizer SARS-CoV-2 Monovalent Vaccination (12+ Yrs) PURPLE 11/29/2020 Pneumococcal Conjugate PCV 13 12/26/2018 Pneumococcal Polysaccharide PPV23 07/19/2020 RSV Vaccine, Pref, Recombina nt, Subunit, Adjuvanted, PF, IM (Arexvy) 09/13/2023 Tdap 09/08/2023 ZOSTER LIVE 04/18/2019,12/26/2018 ZOSTER Recombinant 04/18/2019,12/26/2018 Surgical History Surgery Date Site/Laterality Comments ORIF PROXIMAL ULNA FRACTURE 11/29/2013 - 11/28/2014 Righ t APPENDECTOMY HYSTERECTOMY [address] Wyatt SMALL INTESTINE SURGERY hemorrhoidectomy 1979 OTHER SURGICAL HISTORY bowel obstruction ABDOMINAL SURGERY [...] (Added by TW Conv) Breast cancer Mother Perez Alcocer Hypertension Mother Perez Alcocer Relation Name Status [...] on file Legal Sex Female 1:13 PM BILINGUAL MANAGER Gender Identity Not on file Sexual Orientation Not on file Last Filed Vital Signs Vital Sign Reading Time Taken Comments Blood Pressure 122/68 10/15/2025 2:12 PM BILINGUAL MANAGER Pulse 77 10/15/2025 2:12 PM BILINGUAL MANAGER Temperature 36.7 C (98 F) 10/15/2025 2:12 PM BILINGUAL MANAGER Respiratory Rate 16 10/15/2025 2:12 PM BILINGUAL MANAGER Oxygen Saturation 98% 10/15/2025 2:12 PM BILINGUAL MANAGER Inhaled Oxygen Concentration - - Weight 54 kg (119 lb) 10/15/2025 2:12 PM BILINGUAL MANAGER Height 162.6 cm (5' 4) 10/15/2025 2:12 PM BILINGUAL MANAGER Body Mass Index 20.43 10/15/2025 2:12 PM BILINGUAL MANAGER Plan of Treatment Health Maintenance Due Date Last Done Comments Hepatitis B Screening 1958 Osteoporosis Screening-Bone Density Scan 11/05/2023 11/05/2021 Covid-19 Vaccine (2024-12 6 season) 2025 08/07/2024, 09/13/2023, 09/07/2022, Additional history exists Well Visit 65+ 02/06/2026 02/06/2025, 09/08/2023 Depression Screening 10/15/2026 10/15/2025, 08/14/2025, 03/06/2025, Additional history exists Fall Risk Assessment 10/15/2026 10/15/2025, 08/14/2025, 03/06/2025, Additional history exists DTaP/Tdap/Td Vaccine (2 - Td or Tdap) 09/08/2033 09/08/2023 Zoster Vaccine Completed 04/18/2019, 03/30, 12/26/2018, Additional history exists Pneumococcal vaccine 65+ Completed 07/19/2020, 11/30 Influenza Vaccine Completed 07/01/2025, , 09/13/2023, Additional history exists Procedures Procedure Name Priority Date/Time Associated Diagnosis Comments EGFR Routine 10/15/2025 3:00 PM BILINGUAL MANAGER Urinary tract infection without hematuria, site unspecified URINALYSIS, MICROSCOPIC ONLY Routine 10/15/2025 3:00 PM BILINGUAL MANAGER Urinary tract infection without hematuria, site unspecified DIFFERENTIAL AUTO Routine 10/15/2025 3:0 0 PM BILINGUAL MANAGER Urinary tract infection without hematuria, site unspecified CBC WITH AUTO DIFFERENTIAL Routine 10/15/2025 3:00 PM BILINGUAL MANAGER Urinary tract infection without hematuria, site unspecified RENAL FUNCTION PANEL Routine 10/15/2025 3:00 PM BILINGUAL MANAGER Urinary tract infection without hematuria, site unspecified URINE CULTURE Routine 10/15/2025 3:00 PM BILINGUAL MANAGER URINALYSIS AND REFLEX TO MICROSCOPIC AND CULTURE Routine 10/15/2025 3:00 PM BILINGUAL MANAGER Urinary tract infection without hematuria, site unspecified EGFR Routine 08/14/2025 3:04 PM CDT Dyspnea on exertion URINALYSIS, MICROSCOPIC ONLY Routine 08/14/2025 3:04 PM CDT Dysuria DIFFERENTIAL AUTO Routine 08/14/2025 3:0 4 PM CDT Dyspnea on exertion CBC WITH AUTO DIFFERENTIAL Routine 08/14/2025 3:04 PM CDT Dyspnea on exertion COMPREHENSIVE METABOLIC PANEL Routine 08/14/2025 3:04 PM CDT Dyspnea on exertion PRO B-TYPE NATRIURETIC PEPTIDE Routine 08/14/2025 3:04 PM CDT Dyspnea on exertion URINE CULTURE Routine 08/14/2025 3:04 PM CDT URINALYSIS AND REFLEX TO MICROSCOPIC AND CULTURE Routine 08/14/2025 3:04 PM CDT Dysuria HM DEXA SCAN Routine 11/05/2021 from Last 3 Months or Most Recently Relevant to Health Maintenance Results * eGFR (10/15/2025 3:00 PM BILINGUAL MANAGER) eGFR 73 >=60 mL/min/1. 73 m2 Comment: Interpretive Data Reference Interval Normal >/= 90 mL/min/1.73m2 Mildly decreased* 60 - 89 mL/min/1.73m2 Mildly to moderately decreased 45 - 59 mL/min/1.73m2 Moderately to severely decreased 30 - 44 mL/min/1.73m2 Severely decreased 15 - 29 mL/min/1.73m2 Kidney Failure < 15 mL/min/1.73m2 *Relative to young adult level Estimated glomerular filtration rate is determined by the 2020 CKD-EPI equation recommended by the National Kid[employer] Foundation (A Unifying Approach to GFR Estimation: Recommendations of the NKF-ASK Task Force on Reassessing the Inclusion of Race in Diagnosing Kidney Disease, JASN 2020). The CKD-EPI equation should not be used for patients with unstable renal function and has not been validated in children and those over 70. Current interpretive data was last reviewed 2021. Testing performed by: [address] [address] Blood 10/15/2025 3:00 PM BILINGUAL MANAGER 10/15/2025 8:26 PM BILINGUAL MANAGER us Valentin Ridley MD LAB BLOOD ORDERABLES Bhavna l Result RADHA BLOCK ([place]) 1 [facility] Department [place] [address] * (ABNORMAL) Differential, auto (10/15/2025 3:00 PM BILINGUAL MANAGER) Neutrophil abs 5.32 1.50 - 6.50 K/cumm Comment:Testing performed by : [address] [address] Imm gran abs 0.02 0.00 - 0.10 K/cumm RADHA BLOCK ([place]) Comment:Testing performed by : [address] [address] Lymphocyte abs 1.56 0.80 - 3.30 K/cumm RADHA BLOCK ([place]) Comment:Testing performed by : [address] [address] Monocyte abs 0.94(H) 0.20 - 0.80 K/cumm [facility] ([place]) Comment:Testing performed by : [facility], [address] [place] [address]., [address] Eosinophil abs 0.08 0.00 - 0.50 K/cumm [facility] ([place]) Comment:Testing performed by : [facility], [address] [place] [address]., [address] Basophil abs 0.09 0.00 - 0.10 K/cumm [facility] ([place]) Comment:Testing performed by : [address] [address] Neutrophil pct 66.5 % [facility] ([place]) Comment: Interpretive Data Percent cell count reference ranges are not reported, since discordance with absolute values may lead to misinterpretation of CBC data. Current Interpretive Data was last revised on 2018. Testing performed by: [address] [address] Imm gran pct 0.2 % [facility] ([place]) Comment: Interpretive Data Percent cell count reference ranges are not reported, since discordance with absolute values may lead to misinterpretation of CBC data. Current Interpretive Data was last revised on 2018. Testing performed by: [address] [address] Lymphocyte pct 19.5 % [facility] ([place]) Comment: Interpretive Data Percent cell count reference ranges are not reported, since discordance with absolute values may lead to misinterpretation of CBC data. Current Interpretive Data was last revised on 2018. Testing performed by: [address] [address] Monocyte pct 11.7 % [facility] ([place]) Comment: Interpretive Data Percent cell count reference ranges are not reported, since discordance with absolute values may lead to misinterpretation of CBC data. Current Interpretive Data was last revised on 2018. Testing performed by: [address] [address] Eosinophil pct 1.0 % [facility] ([place]) Comment: Interpretive Data Percent cell count reference ranges are not reported, since discordance with absolute values may lead to misinterpretation of CBC data. Current Interpretive Data was last revised on 2018. Testing performed by: [address] [address] Basophil pct 1.1 % RADHA BLOCK ([place]) Comment: Interpretive Data Percent cell count reference ranges are not reported, since discordance with absolute values may lead to misinterpretation of CBC data. Current Interpretive Data was last revised on 2018. Testing performed by: [address] [address] Blood 10/15/2025 3:00 PM BILINGUAL MANAGER 10/15/2025 8:15 PM BILINGUAL MANAGER us Valentin Ridley MD LAB BLOOD ORDERABLES Bhavna oreilly Result RADHA BLOCK ([place]) 1 [facility] Department [place] [address] * (ABNORMAL) Urinalysis reflex to microscopic and culture Urine (10/15/2025 3:00 PM BILINGUAL MANAGER) Color, ur Yellow Yellow Comment:Testing performed by : [address] [address] Clarity, ur Clear Clear RADHA PERALTA ([place]) Comment:Testing performed by : [address] [address] Specific gravity, ur 1.014 1.003 - 1.030 RADHA BLOCK ([place]) Comment:Testing performed by : [address] [address] pH, urine 6.0 RADHA BLOCK ([place]) Comment: Interpretive Data U rine pH is affected by diet, medications, systemic acid-base disturbances, and renal tubular function. pH may affect urinary stone formation. For example, urine pH below 6.0 may help reduce the tendency for calcium phosphate stones and pH greater than 6.0 may reduce the tendency for uric acid stone formation. Source: [employer] Current Interpretive Data was last revised on 2017 Testing performed by: [address] [address] Protein, ur ql Negative Negative ADELINA BLOCK ([place]) Comment:Testing performed by : [address] [place]., [address] Glucose, ur ql Negative Negative [facility] ([place]) Comment:Testing performed by : [facility], [address] [place] [address], [address] Ketones, ur Negative Negative [facility] ([place]) Comment:Testing performed by : [address], [address] Bilirubin, ur Negative Negative [facility] ([place]) Comment:Testing performed by : [address], [address] Blood, ur Negative Negative [facility] ([place]) Comment:Testing performed by : [address], [address] Urobilinogen, ur <2.0 <2.0 mg/dL [facility] ([place]) Comment:Testing performed by : [address], [address] Nitrite, ur Negative Negative [facility]ER A ([place]) Comment:Testing performed by : [address], [address] Leukocyte esterase, ur 1+(A) Negative [facility] ([place]) Comment:Testing performed by : [address], [address] UA reflex comment Reflex to microscopic UA will be performed. RADHA BLOCK ([place]) Comment:Testing performed by : [address], [address] Urine 10/15/2025 3:00 PM BILINGUAL MANAGER 10/15/2025 8:15 PM BILINGUAL MANAGER us Valentin Ridley MD LAB MICROBIOLOGY - GENERA L ORDERABLES Final Result RADHA BLOCK ([place]) 1 [facility] Department [place] [address] * (ABNORMAL) CBC with auto differential (10/15/2025 3:00 PM BILINGUAL MANAGER) WBC 8.01 3.80 - 9.90 K/cumm Comment:Testing performed by : [address], [address] Hgb 13.4 11.9 - 15.5 g/dL [facility] ([place]) Comment:Testing performed by : [address], [address] Hct 42.1 35.6 - 45.5 % [facility] ([place]) Comment:Testing performed by : [address], [address] Plt 350 150 - 400 K/cumm [facility] ([place]) Comment:Testing performed by : [facility], [address] [place] [address], [address] MPV 9.6 9.1 - 12.3 fL [facility] ([place]) Comment:Testing performed by : [address], [address] RBC 4.68 3.90 - 5.20 M/cumm [facility] ([place]) Comment:Testing performed by : [address], [address] MCV 90.0 81.3 - 96.4 fL [facility] ([place]) Comment:Testing performed by : [address], [address] MCH 28.6 27.1 - 33.3 pg [facility] ([place]) Comment:Testing performed by : [address], [address] MCHC 31.8(L) 32.3 - 35.7 g/dL [facility] ([place]) Comment:Testing performed by : [address], [address] RDW CV 14.4 11.1 - 14.9 % [facility] ([place]) Comment:Testing performed by : [address], [address] RDW SD 47.8 35.7 - 48.1 fL [facility] ([place]) Comment:Testing performed by : [address], [address] NRBC abs 0.00 0.00 - 0.01 K/cumm [facility] ([place]) Comment:Testing performed by : [address], [address] Blood 10/15/2025 3:00 PM BILINGUAL MANAGER 10/15/2025 8:15 PM BILINGUAL MANAGER Valentin Ridley MD LAB BLOOD ORDERABLES Bhavna l Result Performing Organization Address [facility]/ZIP Co de Phone Number RADHA BLOCK ([place]) 1 [facility] [place] [address] * (ABNORMAL) Urinalysis, microscopic only (10/15/2025 3:00 PM BILINGUAL MANAGER) WBC, ur 11-20(A) 0 - 5 /HPF Comment:Testing performed by : [facility] [place] [facility], [address] [place] [address], [address] RBC, ur 3-5(A) 0 - 2 /HPF RADHA BLOCK ([place]) Comment:Testing performed by : [facility] [place] [facility], [address] [place] [address], [address] Bacteria, ur 1+(A) RADHA BLOCK ([place]) Comment:Testing performed by : [facility] [place] [facility], [address] [place] [address], [address] Mucous, ur Present(A) RADHA Jaeger ([place]) Comment:Testing performed by : [facility] [place] [facility], [address] [place] [address], [address] Hyaline casts, ur 1-5 0 - 10 /LPF RADHA BLOCK ([place]) Comment:Testing performed by : [address], [address] Culture Reflex Comment Reflex to urine culture will be performed. RADHA BLOCK ([place]) Comment:Testing performed by : [facility] [place] [facility], [address] [place] [address], [address] Urine 10/15/2025 3:00 PM BILINGUAL MANAGER 10/15/2025 8:15 PM BILINGUAL MANAGER Valentin Ridley MD LAB URINE ORDERABLES Bhavna l Result Performing Organization Address City/[facility]/ZIP Co de Phone Number RADHA BLOCK ([place]) 1 [facility] [place] [address] * (ABNORMAL) Urine culture Urine (10/15/2025 3:00 PM BILINGUAL MANAGER) Report Final Report: Greater than or equal to 100,000 colonies/mL of Klebsiella pneumoniae (.) Comment:Testing performed by : [facility], [address] [place]., [address] Organism KLEBSIELLA PNEUMONIAE RADHA BLOCK ([place]) Urine 10/15/2025 3:00 PM BILINGUAL MANAGER 10/15/2025 11:46 PM BILINGUAL MANAGER Narrative RADHA BLOCK ([place]) - 10/17/2025 1:56 PM BILINGUAL MANAGER Urine culture reflexed based upon urinalysis results. Testing performed by [facility] ([phone]) Organism Antibiotic Method Susceptibility Klebsiella pneumoniae Ampicillin INTERPRETATION Resistant Klebsiella pneumoniae Cefazolin INTERPRETATION Susceptible Klebsiella pneumoniae Nitrofurantoin INTERPRETATION Susceptible Klebsiella pneumoniae Gentamicin INTERPRETATION Susceptible Klebsiella pneumoniae Trimethoprim with Sulfamethoxazole INTERPRETATION Susceptible Klebsiella pneumoniae Meropenem INTERPRETATION Susceptible Klebsiella pneumoniae Cefepime INTERPRETATION Susceptible Klebsiella pneumoniae Ciprofloxacin INTERPRETATION Susceptible Klebsiella pneumoniae Ceftazidime INTERPRETATION Susceptible Klebsiella pneumoniae Ceftriaxone INTERPRETATION Susceptible Klebsiella pneumoniae Piperacillin/Tazobactam INTERPRE TATION Susceptible Klebsiella pneumoniae Cephalexin INTERPRETATION Susceptible Klebsiella pneumoniae Cefuroxime-axetil INTERPRETATION Susceptible Klebsiella pneumoniae Cefdinir INTERPRETATION Susceptible us Valentin Ridley MD LAB MICROBIOLOGY - GENERA L ORDERABLES Final Result RADHA BLOCK ([place]) 1 [facility] Department [place] [address] * Renal function panel (10/15/2025 3:00 PM BILINGUAL MANAGER) Sodium 139 135 - 145 mmol/L Comment:Testing performed by : [facility] [place] [facility], [address] [place] [address], [place]., [address] Potassium, pl 4.1 3.3 - 4.9 mmol/L RADHA BLOCK ([place]) Comment:Testing performed by : [facility] [place] [facility], [address] [place] [address]., [address] Chloride 100 97 - 110 mmol/L RADHA BLOCK ([place]) Comment:Testing performed by : [facility] [place] [facility], [address] [place] [address]., [address] CO2 26 22 - 32 mmol/L RADHA BLOCK ([place]) Comment:Testing performed by : [address], [address] Anion gap 13 2 - 15 mmol/L [facility] ([place]) Comment:Testing performed by : [address] [address] BUN 24 6 - 25 mg/dL [facility] ([place]) Comment:Testing performed by : [address], [address] Creatinine 0.79 0.60 - 1.10 mg/dL [facility] ([place]) Comment:Testing performed by : [address], [address] Glucose 116 70 - 199 mg/dL [facility] ([place]) Comment: Interpretive Data Fasting glucose >/= 126 mg/dl is diagnostic for diabetes. Fasting is defined as no caloric intake for at least 8 hours. Fasting glucose between 100 mg/dl to 125 mg/dl is diagnostic of prediabetes. In a patient with classic symptoms of hyperglycemia or hyperglycemic crisis, a random glucose >/= 200 mg/dl is diagnostic for diabetes. In the absence of unequivocal hyperglycemia, results should be confirmed by repeat testing. The classification and Diagnosis of Diabetes Diabetes Care 2021; 46: S19-S40. Current interpretive data was last revised 2022. Testing performed by: [facility], [address] [place] [address], [address] Calcium 9.3 8.5 - 10.3 mg/dL [facility] ([place]) Comment:Testing performed by : [address], [address] Phosphorus, pl 3.8 2.3 - 4.5 mg/dL [facility] ([place]) Comment:Testing performed by : [address], [address] Albumin 4.4 3.5 - 5.0 g/dL [facility] ([place]) Comment:Testing performed by : [address], [address] Blood 10/15/2025 3:00 PM BILINGUAL MANAGER 10/15/2025 8:15 PM BILINGUAL MANAGER Valentin Ridley MD LAB BLOOD ORDERABLES Bhavna l Result Performing Organization Address [facility] Co de Phone Number [facility] ([place]) 1 [facility] [employer] [place] [address] * eGFR (08/14/2025 3:04 PM CDT) eGFR 76 >=60 mL/min/1. 73 m2 Comment: Interpretive Data Reference Interval Normal >/= 90 mL/min/1.73m2 Mildly decreased* 60 - 89 mL/min/1.73m2 Mildly to moderately decreased 45 - 59 mL/min/1.73m2 Moderately to severely decreased 30 - 44 mL/min/1.73m2 Severely decreased 15 - 29 mL/min/1.73m2 Kidney Failure < 15 mL/min/1.73m2 *Relative to young adult level Estimated glomerular filtration rate is determined by the 2020 CKD-EPI equation recommended by the National Kidney Foundation (A Unifying Approach to GFR Estimation: Recommendations of the NKF-ASK Task Force on Reassessing the Inclusion of Race in Diagnosing Kidney Disease, JASN 2020). The CKD-EPI equation should not be used for patients with unstable renal function and has not been validated in children and those over 70. Current interpretive data was last reviewed 2021. Testing performed by: [address] [address] Blood 08/14/2025 3:04 PM CDT 08/14/2025 7:59 PM CDT Valentin Ridley MD LAB BLOOD ORDERABLES Bhavna l Result [facility] ([place]) 1 [facility] [place] [place] [address] * (ABNORMAL) Differential, auto (08/14/2025 3:04 PM CDT) Neutrophil abs 6.67(H) 1.50 - 6.50 K/cumm Comment:Testing performed by : [address] [address] Imm gran abs 0.04 0.00 - 0.10 K/cumm [facility] ([place]) Comment:Testing performed by : [facility], [address] [place] [address]., [address] Lymphocyte abs 1.00 0.80 - 3.30 K/cumm [facility] ([place]) Comment:Testing performed by : [facility], [address] [place] [address]., [address] Monocyte abs 0.84(H) 0.20 - 0.80 K/cumm [facility] ([place]) Comment:Testing performed by : [facility], [address] [place] [address]., [address] Eosinophil abs 0.07 0.00 - 0.50 K/cumm [facility] ([place]) Comment:Testing performed by : [facility], [address] [place] [address]., [address] Basophil abs 0.06 0.00 - 0.10 K/cumm [facility] ([place]) Comment:Testing performed by : [address] [address] Neutrophil pct 76.8 % [facility] ([place]) Comment: Interpretive Data Percent cell count reference ranges are not reported, since discordance with absolute values may lead to misinterpretation of CBC data. Current Interpretive Data was last revised on 2018. Testing performed by: [address] [address] Imm gran pct 0.5 % [facility] ([place]) Comment: Interpretive Data Percent cell count reference ranges are not reported, since discordance with absolute values may lead to misinterpretation of CBC data. Current Interpretive Data was last revised on 2018. Testing performed by: [facility], [address] [place] [address]., [address] Lymphocyte pct 11.5 % [facility] ([place]) Comment: Interpretive Data Percent cell count reference ranges are not reported, since discordance with absolute values may lead to misinterpretation of CBC data. Current Interpretive Data was last revised on 2018. Testing performed by: [address] [address] Monocyte pct 9.7 % [facility] ([place]) Comment: Interpretive Data Percent cell count reference ranges are not reported, since discordance with absolute values may lead to misinterpretation of CBC data. Current Interpretive Data was last revised on 2018. Testing performed by: [facility] [place] [facility], [address] [place] [address]., [address] Eosinophil pct 0.8 % [facility] ([place]) Comment: Interpretive Data Percent cell count reference ranges are not reported, since discordance with absolute values may lead to misinterpretation of CBC data. Current Interpretive Data was last revised on 2018. Testing performed by: [facility], [address] [place] [address]., [address] Basophil pct 0.7 % [facility] ([place]) Comment: Interpretive Data Percent cell count reference ranges are not reported, since discordance with absolute values may lead to misinterpretation of CBC data. Current Interpretive Data was last revised on 2018. Testing performed by: [facility] [place] [facility], [address] [place] [address]., [address] Blood 08/14/2025 3:04 PM CDT 08/14/2025 7:48 PM CDT Valentin Ridley MD LAB BLOOD ORDERABLES Bhavna l Result RADHA BLOCK ([place]) 1 [facility] Department [place] [address] * (ABNORMAL) Pro B-type natriuretic peptide (08/14/2025 3:04 PM CDT) NT-proBNP 696(H) <=450 pg/mL Comment: Interpretive Comments: A. Dyspnea in Acute Care Setting All Ages: < 300 pg/ml, acute heart failure unlikely. < 50 yrs: 300 - 450 pg/ml, further investigation warranted. > 450 pg/ml, acute heart failure likely. 50 - 74 yrs: 300 - 900 pg/ml, further investigation warranted. > 900 pg/ml, acute heart failure likely . > or = 75 yrs: 450 - 1800 pg/ml, further investigation warranted. > 1800 pg/ml, acute heart failure likely. B. Non-acute Setting < 75 yrs < 125 pg/ml, rules out heart failure. > or = 125 pg/ml, further investigation warranted. > or = 75 yrs < 450 pg/ml, rules out heart failure. > or = 450 pg/ml, further investigation warranted. - Knowledge of each individual patient's NT-proBNP range may be more useful than using similar cut-points for every patient. Please note that marked elevations in NT-proBNP levels may be observed in state other than Left Ventricular Congestive Failure, including: acute coronary syndromes, right heart strain/failure (including pulmonary embolism and cor pulmonale), critical illness, renal failure, as well as advanced age. - References: 1. Christin AMANDA et.al. Eur Heart J. 2006:27:330-337. 2. Marixa TAI, Zohaib FINN. J. AM Wu Cardiol: Cardiovasc Imag. 2009;2: 216- 225. Interpretive Data Last Revised Date: 2018. Testing performed by: [address], [address] Blood 08/14/2025 3:04 PM CDT 08/14/2025 7:48 PM CDT Valentin Ridley MD LAB BLOOD ORDERABLES Bhavna afia Result RAD[facility] ([place]) 1 [facility] Department of Laboratories [place] [id number] * (ABNORMAL) Urinalysis reflex to microscopic and culture Urine (08/14/2025 3:04 PM CDT) Color, ur Yellow Yellow Comment:Testing performed by : [address], [address] Clarity, ur Clear Clear RADHA Jaeger ([place]) Comment:Testing performed by : [address] [address] Specific gravity, ur 1.025 1.003 - 1.030 RADHA BLOCK ([place]) Comment:Testing performed by : [address], [address] pH, urine 5.5 RAD[facility] BLOCK ([place]) Comment: Interpretive Data U rine pH is affected by diet, medications, systemic acid-base disturbances, and renal tubular function. pH may affect urinary stone formation. For example, urine pH below 6.0 may help reduce the tendency for calcium phosphate stones and pH greater than 6.0 may reduce the tendency for uric acid stone formation. Source: [facility] Current Interpretive Data was last revised on 2017 Testing performed by: [facility] [place] [facility], [address] [place] [address], [address] Protein, ur ql Trace Negative [facility] ([place]) Comment:Testing performed by : [address], [address] Glucose, ur ql Negative Negative [facility] ([place]) Comment:Testing performed by : [facility], [address] [place] [address], [address] Ketones, ur Negative Negative [facility] ([place]) Comment:Testing performed by : [address], [address] Bilirubin, ur Negative Negative [facility] ([place]) Comment:Testing performed by : [address], [address] Blood, ur Negative Negative [facility] ([place]) Comment:Testing performed by : [address], [address] Urobilinogen, ur <2.0 <2.0 mg/dL [facility] ([place]) Comment:Testing performed by : [address], [address] Nitrite, ur Negative Negative [facility] A [facility] ([place]) Comment:Testing performed by : [address], [address] Leukocyte esterase, ur 4+(A) Negative [facility] ([place]) Comment:Testing performed by : [address], [address] UA reflex comment Reflex to microscopic UA will be performed. [facility] ([place]) Comment:Testing performed by : [address], [address] Urine 08/14/2025 3:04 PM CDT 08/14/2025 7:48 PM CDT us Valentin Ridley MD LAB MICROBIOLOGY - GENERA L ORDERABLES Final Result RADHA BLOCK ([place]) 1 [facility] Department [place] [address] * (ABNORMAL) CBC with auto differential (08/14/2025 3:04 PM CDT) WBC 8.68 3.80 - 9.90 K/cumm Comment:Testing performed by : [address], [address] Hgb 11.4(L) 11.9 - 15.5 g/dL [facility] ([place]) Comment:Testing performed by : [address], [address] Hct 36.6 35.6 - 45.5 % [facility] ([place]) Comment:Testing performed by : [address], [address] Plt 544(H) 150 - 400 K/cumm [facility] ([place]) Comment:Testing performed by : [address], [address] MPV 9.2 9.1 - 12.3 fL [facility] ([place]) Comment:Testing performed by : [address], [address] RBC 3.87(L) 3.90 - 5.20 M/cumm [facility] ([place]) Comment:Testing performed by : [address], [address] MCV 94.6 81.3 - 96.4 fL [facility] ([place]) Comment:Testing performed by : [address], [address] MCH 29.5 27.1 - 33.3 pg [facility] ([place]) Comment:Testing performed by : [address], [address] MCHC 31.1(L) 32.3 - 35.7 g/dL [facility] ([place]) Comment:Testing performed by : [address], [address] RDW CV 15.3(H) 11.1 - 14.9 % [facility] ([place]) Comment:Testing performed by : [address] [place]., [address] RDW SD 52.9(H) 35.7 - 48.1 fL RAD[facility] BLOCK ([place]) Comment:Testing performed by : [facility] [place] [facility], [address] [place] [address], [address] NRBC abs 0.00 0.00 - 0.01 K/cumm RAD[facility] BLOCK ([place]) Comment:Testing performed by : [address], [address] Blood 08/14/2025 3:04 PM CDT 08/14/2025 7:48 PM CDT us Valentin Ridley MD LAB BLOOD ORDERABLES Bhavna oreilly Result RAHDA BLOCK ([place]) 1 [facility] Department [place] [address] * (ABNORMAL) Urinalysis, microscopic only (08/14/2025 3:04 PM CDT) WBC, ur 21-50(A) 0 - 5 /HPF Comment:Testing performed by : [address], [address] RBC, ur 11-20(A) 0 - 2 /HPF RADHA BLOCK ([place]) Comment:Testing performed by : [address], [address] Epithelial cells, squamous, ur 1-5 0 - 5 /HPF RADHA BLOCK ([place]) Comment:Testing performed by : [address], [address] Bacteria, ur 1+(A) RAD[facility] BLOCK ([place]) Comment:Testing performed by : [address], [address] Mucous, ur Present(A) RADHA Jaeger ([place]) Comment:Testing performed by : [address], [address] Calcium oxalate crystals, ur 3+(A) RADHA BLOCK ([place]) Comment:Testing performed by : [address], [address] Hyaline casts, ur 1-5 0 - 10 /LPF [facility] ([place]) Comment:Testing performed by : [facility], [address] [place] [address], [place]., [address] Culture Reflex Comment Reflex to urine culture will be performed. RADHA BLOCK ([place]) Comment:Testing performed by : [facility] [place] [facility], [address] [place] [address]., [address] Urine 08/14/2025 3:04 PM CDT 08/14/2025 7:48 PM CDT us Valentin Ridley MD LAB URINE ORDERABLES Bhavna l Result RADHA BLOCK ([place]) 1 [facility] Department [place] [address] * (ABNORMAL) Urine culture Urine (08/14/2025 3:04 PM CDT) Report Final Report: Greater than or equal to 100,000 colonies/mL of Klebsiella pneumoniae (.) Comment:Testing performed by : [facility], [address] [place]., [address] Organism KLEBSIELLA PNEUMONIAE [facility] ([place]) Urine 08/14/2025 3:04 PM CDT 08/14/2025 10:07 PM CDT Narrative RADHA BLOCK ([place]) - 08/17/2025 6:21 AM CDT Urine culture reflexed based upon urinalysis results. Testing performed by [facility] ([phone]) Organism Antibiotic Method Susceptibility Klebsiella pneumoniae Ampicillin INTERPRETATION Resistant Klebsiella pneumoniae Cefazolin INTERPRETATION Susceptible Klebsiella pneumoniae Nitrofurantoin INTERPRETATION Intermediate Klebsiella pneumoniae Gentamicin INTERPRETATION Susceptible Klebsiella pneumoniae Trimethoprim with Sulfamethoxazole INTERPRETATION Susceptible Klebsiella pneumoniae Meropenem INTERPRETATION Susceptible Klebsiella pneumoniae Cefepime INTERPRETATION Susceptible Klebsiella pneumoniae Ciprofloxacin INTERPRETATION Susceptible Klebsiella pneumoniae Ceftazidime INTERPRETATION Susceptible Klebsiella pneumoniae Ceftriaxone INTERPRETATION Susceptible Klebsiella pneumoniae Piperacillin/Tazobactam INTERPRE TATION Susceptible Klebsiella pneumoniae Cephalexin INTERPRETATION Susceptible Klebsiella pneumoniae Cefuroxime-axetil INTERPRETATION Susceptible Klebsiella pneumoniae Cefdinir INTERPRETATION Susceptible us Valentin Ridley MD LAB MICROBIOLOGY - GENERA L ORDERABLES Final Result RADHA [facility] ([place]) 1 [facility] Department [place] [address] * (ABNORMAL) Comprehensive metabolic panel (08/14/2025 3:04 PM CDT) Sodium 135 135 - 145 mmol/L Comment:Testing performed by : [facility] [place] [facility], [address] [place] [address]., [address] Potassium, pl 4.0 3.3 - 4.9 mmol/L [facility] ([place]) Comment:Testing performed by : [facility] [place] [facility], [address] [place] [address]., [address] Chloride 95(L) 97 - 110 mmol/L [facility] ([place]) Comment:Testing performed by : [facility] [place] [facility], [address] [place] [address]., [address] CO2 25 22 - 32 mmol/L [facility] ([place]) Comment:Testing performed by : [facility] [place] [facility], [address] [place] [address]., [address] Anion gap 15 2 - 15 mmol/L [facility] ([place]) Comment:Testing performed by : [facility] [place] [facility], [address] [place] [address]., [address] BUN 20 6 - 25 mg/dL [facility] ([place]) Comment:Testing performed by : [facility] [place] [facility], [address] [place] [address]., [address] Creatinine 0.77 0.60 - 1.10 mg/dL [facility] ([place]) Comment:Testing performed by : [address] [address] Glucose 109 70 - 199 mg/dL [facility] ([place]) Comment: Interpretive Data Fasting glucose >/= 126 mg/dl is diagnostic for diabetes. Fasting is defined as no caloric intake for at least 8 hours. Fasting glucose between 100 mg/dl to 125 mg/dl is diagnostic of prediabetes. In a patient with classic symptoms of hyperglycemia or hyperglycemic crisis, a random glucose >/= 200 mg/dl is diagnostic for diabetes. In the absence of unequivocal hyperglycemia, results should be confirmed by repeat testing. The classification and Diagnosis of Diabetes Diabetes Care 202; 46: S19-S40. Current interpretive data was last revised 2022. Testing performed by: [facility] [place] [facility], [address] [place] [address]., [address] Calcium 9.7 8.5 - 10.3 mg/dL [facility] ([place]) Comment:Testing performed by : [facility] [place] [facility], [address] [place] [address], [address] Bilirubin, total 0.3 0.1 - 1.2 mg/dL [facility] ([place]) Comment:Testing performed by : [facility] [place] [facility], [address] [place] [address], [address] Protein, pl 6.9 6.5 - 8.5 g/dL [facility] ([place]) Comment:Testing performed by : [facility] [place] [facility], [address] [place] [address], [address] Albumin 4.1 3.5 - 5.0 g/dL [facility] ([place]) Comment:Testing performed by : [facility] [place] [facility], [address] [place] [address], [address] Alk phos 190(H) 40 - 130 Units/L [facility] ([place]) Comment:Testing performed by : [facility] [place] [facility], [address] [place] [address], [address] ALT 40 7 - 45 Units/L [facility] ([place]) Comment:Testing performed by : [facility] [place] [facility], [address] [place] [address], [address] AST 41 10 - 45 Units/L [facility] ([place]) Comment:Testing performed by : [address], [address] Blood 08/14/2025 3:04 PM CDT 08/14/2025 7:48 PM CDT us Valentin Ridley MD LAB BLOOD ORDERABLES Bhavna oreilly Result [facility] ([place]) 1 [facility] Department [place] [address] * DEXA SCAN (11/05/2021) us Historical Provider HEALTH MAINTENANCE Final Result from Last 3 Months or Most Recently Relevant to Health Maintenance Insurance [facility]MO [facility] Advance Directives For more information, please contact: [phone] * Full Code (Latest Code Status on File) Date Activated Date Inactivated Comments 12/01/2019 10:52 AM 12/01/2019 5:41 PM Care Teams Police Stenographer Relationship Specialty Start Date End Date Valentin Ridley MD [address] [place] [address] PCP - General Family Medicine 02/01/24
--- OUTSIDE RECORDS SUMMARY | 2025-10-22 06:40 | XMS_ITS | Continuity of Care Document ---
Author Organization [facility], [facility] Address [address] [place] [address] Care Team Providers Care Chief Cloth Finishing Range Operator Name Role Phone [facility] FAX OTHER TEJAS GRJAEDA Primary Care Provider [phone] Assessment Encounter Date Assessment Date Assessment LastModified by Organization Details LastModified Time 07/30/2025 07/30/2025 labs pending from today, d/c meloxicam, start tramadol prn - will leave oxy for now as well as omeprazole [email or web address] Not available 08/02/2025 04:42:07 Plan of Treatment Reminders Order Date Submit [...] Modified By Organization Details Last Modified Time 07/30/2025 194260 I spent >60 minutes providing care to the patient today. More than 50% of that time was spent in discussing the expected course of the disease, discussing prognosis, coordinating care and counseling of the patient/family. I spent 16 minutes counseling and discussing advance directives and/or end of life care planning and decisions with the patient today. I reviewed the current relevant diagnoses, treatment options, natural history, and prognosis and clarified the patient's goals of care. code status is DNR [email or web address] Not available 08/02/2025 04:52:02 Reason for Referral None Reported. Procedures Surgical History Date Name Laterality Status Provider Name and Address Organization Details Recorded Time appendectomy completed Trevor Rose [facility] 07/28/2025 00:33:36 operative procedure on elbow completed Trevor JOHNSON [facility] 07/28/2025 00:33:53 Hemorrhoidectomy completed Trevor JOHNSON [facility] 07/28/2025 00:34:02 [facility]rectomy [facility] 07/28/2025 00:34:09 Imaging Results None recorded. Procedure Notes None recorded. Medical Equipment None Reported. Allergies Allergen ID Allergen Name Allergen Category Reaction Reaction Severity Criticality Documentation Date Start Date Code Code System Note Provider Name and Address Organization Details Recorded Time 17704 Substance with sulfonami de structure and antibacte rial mechanism of action (substanc e) medicatio n Not available Not available Not available 07/28/2025 52916 8003 SNOMED ALEX Gregg [facility] 00:23:22 88515 sulfameth oxazole / trimethop rim medicatio n Not available Not available Not available 07/28/2025 16106 RxNorm Trevor lucas [facility] 00:34:21 Medications Name Sig Start Date Stop [...] Available No t Available Vitals Date Recorded Heart rate Body temperature Respiratory rate Oxygen saturation Body weight Body mass index (BMI) Body height Systolic And Diastolic Provider Name and Address Organization Details Last Updated DateTime 5 93 /min 98.2 [degF] 20 /min 99 % 17642.4 2 g 19.3 kg/m2 162.56 cm 155/76 mm[Hg] [place] [address] [place], [address], [place] [facility] 5 17:19:23 Date Recorded Body height Heart rate Body temperature Respiratory rate Body mass index (BMI) Body weight Oxygen saturation Systolic And Diastolic Provider Name and Address Organization Details Last Updated DateTime 5 162.56 cm 84 /min 98.2 [degF] 20 /min 20.9 kg/m2 48354.5 5 g 98 % 157/79 mm[Hg] Kellen Londono, DENISSE [address] [address] [facility], [place], [address], [place] [facility] 12:59:45 Social History Question Answer Notes LastModified by Organizat ion Details LastModified Time Tobacco Smoking Status Never Smoker Nancy BaumDO renny [address] [address] [facility], [place], [address], [place] - [facility] 08/02/2025 04:09:47 What Is Your Code Status? DNR [email or web address] Information not available 07/28/2025 Sex: Unknown Functional Status Question Answer Note LastModified by Organizat ion Details LastModified Time Do you use any [...] Condition Response Psychiatric -- Anxiety Disorder Y Glaucoma Y Hypertension Y Gynecological HistoryNo gynecological history recorded. Obstetrics History GPAL:G 0 P 0 0 0 0 Past Encounters Encounter ID Performer Location Encounter Start Date Encounter Closed Date Diagnosis/Indication Diagnosis SNOMED-CT Code Diagnosis ICD10 Code Diagnosis IMO Codes Diagnosis Note [id number] Nancyhawk BaumDO renny [facility] [address] [place] [address] 07/30/2025 16:51:15 08/08/2025 09:37:01 Localized, primary osteoarthritis 663422712 M17.11 58194868 s/p right total knee arthroplas tyWBATcurr ent [...] prn, meloxicam will be d/c'd Essential hypertension 53945309 I10 15959 continue amlodipine , metoprolol , losartan and bumextrend pressures and adjust meds as clinically indicated Vitamin D deficiency 347 08973 E55.9 59329 continue replacemen t therapy Slow trans it constipation 78592421 K59.01 8838 continue routine miralax and citrucelad ditional meds available per standing orders Bilateral glaucoma 28833 68570 H40.9 65766787 continue eye drops as ordered - outpatient f/u with ophtho Generalize d anxiety disorder 50038980 F41.1 60850 continue daily diazepam - this is a long standing outpatient medication she does not take additional routine medication s related to this - monitor for need Mitral valve prolapse 40 1721571 I34.1 40869 she denies symptoms related to thiscontin ue low dose metoprolol she follows with cards, Dr. Kwon, related to this - last seen in [facility] History of total knee arthroplasty 4950655578 105 Z96.651 42408779 see above..... .... Physical deconditioning 9622046057 9102 R53.81 033319 related to advanced age, recent knee replacemen t surgery, comorbidit iestherapi es have been initiated, will monitor progress - she is hopeful to return home alone upon d/c from SN[facility] Health Concerns Section Related Observation LastModified by Organization Detai ls LastModified Time None Recorded Concern Status LastModified by Organization Details LastModified Time None Recorded Payers Encounter Date Sequence Insurance Name Policy Number Policy Soares Covered Member ID Soares Member ID Guarantor Name 07/30/2025 1 [employer] (MEDICARE REPLACEMENT/ ADVANTAGE - HMO) [id number] Carlita Yeung [id number] Carlita Yeung Notes Date Note Type Note Provider Name and Address Organization Details Recorded Time 07/30/2025 text/html 85 Y/O female with a history of HTN, mitral valve prolapse, glaucoma, anxiety and Vitamin D deficiency admitted to [facility] for post acute rehab subsequent to an inpatient stay at [facility] 07/23-07/27/25 for an elective right total knee replacement related to end stage OA that failed conservative treatment measures. The patient tolerated the procedure well - no documented post operative complications. New meds: tylenol, ASA, meloxicam, omeprazole, oxycodone The patient is seen today initially up in [...] sliver mepilex dressing prior to discharge to [facility]. She has dried, bloody drainage noted again [...] consider short term placement in LTC or [facility] if she doesn't feel she can appropriately care for herself when she leaves [facility]. No nursing concerns today. Code status is DNRPCP [place] - Clemente Colbert: Doyle - follows for HTN and MVPshe lives in a home alone in [facility]/lucia chowdhury contacts = daughters Teena [place], [place] [address] [facility], [place], [address], [place] - [facility] 08/02/2025 04:52:30 08/01/2025 text/html F/U elective [R] total knee replacement sec to end-stage OA and chronic medical conditions.--- 5The patient is seen today initially up in [...] sliver mepilex dressing prior to discharge to [place]. She has dried, bloody drainage noted again [...] consider short term placement in LTC or [facility] if she doesn't feel she can appropriately care for herself when she leaves [place]. No nursing concerns today.---08/01/25Carlita is doing well [...] when crossing elevator threshold Kellen Londono, DENISSE [address] [address] [facility], [place], [address], [facility] [place] [facility] 08/02/2025 17:32:08 OBGyn Episode No OBEpisode recorded.
--- OUTSIDE RECORDS SUMMARY | 2025-10-22 06:40 | XMS_ITS | Clinical Summary ---
Author Organization 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 Gender Identity Not on file Sexual Orientation [...] 3:13 PM CDT Height 165.1 cm (5' 5) 08/23/2013 3:13 PM CDT Body Mass Index 22.47 08/23/2013 3:13 PM CDT Plan of Treatment Health Maintenance Due Date Last Done Comments DTAP/TDAP/TD VACCINES (1 - Tdap) 1959 PNEUMOCOCCAL VACCINE 50+ YEARS (1 of 1 - PCV) 05/05/19 90 ZOSTER VACCINE (1 of 2) 1990 OSTEOPOROSIS SCREENING 2005 RSV VACCINE (60+ or ) (1 - 1-dose 75+ series) 2015 INFLUENZA VACCINE (#1) 2025 COLORECTAL SCREENING Discontinued 09/01/2011 Colorectal Cancer Screening Discontinued FIT-DNA Q 3 years Discontinued FIT/FOBT Q 1 year Discontinued Flex Sig/CT Colonography Q 5 years Discontinued Insurance [facility] OPEN ACCESS O Advance Directives For more information, please contact: [phone] * Full Code (Latest Code Status on File) Date Activated Date Inactivated Comments 09/01/2011 7:40 AM 09/02/2011 2:02 AM Care Teams Executive Cyber Leader Relationship Specialty Start Date End Date Damien Casanova MD [address] [facility] [address] [place] [address] PCP - General Internal Medicine 08/07/11
--- OUTSIDE RECORDS SUMMARY | 2025-10-22 06:40 | XMS_ITS | Continuity of Care Document ---
Author Organization [facility] [employer] [facility] [place] Address [address] [place] [address] Care Team Providers Care Fitness Attendant Name Role Phone [facility] FAX OTHER TEJAS GRAJEDA Primary Care Provider Assessment Encounter Date Assessment Date Assessment LastModified by Organization Details LastModified Time 08/03/2025 08/03/2025 Increase Losartan to 50 mg daily. Monitor BPs. Not available 08/03/2025 13:56:38 Plan of Treatment Reminders Order Date Submit [...] Modified By Organization Details Last Modified Time 08/03/2025 [id number] I spent 36 minutes providing care to the patient today. More than 50% of that time was spent in discussing the expected course of the disease, discussing prognosis, coordinating care and counseling of the patient/family. [email or web address] Not available 08/03/2025 13:58:47 Reason for Referral None Reported. Procedures Surgical History Date Name Laterality Status Provider Name and Address Organization Details Recorded Time appendectomy completed Trevor Carrington [facility] 07/28/2025 00:33:36 operative procedure on elbow completed Trevor Carrington [facility] 07/28/2025 00:33:53 Hemorrhoidectomy completed Trevor Carrington [facility] 07/28/2025 00:34:02 hysterectomy completed Trevor Carrington [employer] [facility] 07/28/2025 00:34:09 Imaging Results None recorded. Procedure Notes None recorded. Medical Equipment None Reported. Allergies Allergen ID Allergen Name Allergen Category Reaction Reaction Severity Criticality Documentation Date Start Date Code Code System Note Provider Name and Address Organization Details Recorded Time 22274 Substance with sulfonami de structure and antibacte rial mechanism of action (substanc e) medicatio n Not available Not available Not available 07/28/2025 86601 8003 [facility]ED [facility] 00:23[facility]22 19090 sulfameth oxazole / trimethop rim medicatio n Not available Not available Not available 07/28/2025 30828 RxNorm [facility] 00:34:21 Medications Name Sig Start Date [...] height Heart rate Body temperature Respiratory rate Oxygen saturation Body mass index (BMI) Body weight Systolic And Diastolic Provider Name and Address Organization Details Last Updated DateTime 162.56 cm 91 /min 98.3 [degF] 20 /min 98 % 20.8 kg/m2 34433.6 8 g 153/74 mm[Hg] [place] [address] [place], [address], [facility] 13:20:34 Social History Question Answer Notes LastModified by [employer] Details LastModified Time Tobacco Sm[place] [address] [place], [address], [facility] 08/02/2025 04:09:47 What Is Your Code Status? DNR [email or web address] Information not available 07/28/2025 Sex: Unknown Functional Status Question Answer Note LastModified by [employer] Details LastModified Time Do you use any [...] ICD10 Code Diagnosis IMO Codes Diagnosis Note [id number] Nancy Gee, [address] [address] 07/30/2025 16:51:15 08/08/2025 09:37:01 Localized, primary osteoarthritis 328761652 M17.11 48745436 s/p right total knee arthroplas tyWBATcurr ent dressing to remain until 08/02, staple removal 8continu e ASA BID for DVT prophylaxi s [...] prn, meloxicam will be d/c'd Essential hypertension 84746014 I10 20340 continue amlodipine , metoprolol , losartan and bumextrend pressures and adjust meds as clinically indicated Vitamin D deficiency 347 92474 E55.9 15495 continue replacemen t therapy Slow trans it constipation 58256412 K59.01 8838 continue routine miralax and citrucelad ditional meds available per standing orders Bilateral glaucoma 54768 37389 H40.9 90749634 continue eye drops as ordered - outpatient f/u with ophtho Generalize d anxiety disorder 50447294 F41.1 66865 continue daily diazepam - this is a long standing outpatient medication she does not take additional routine medication s related to this - monitor for need Mitral valve prolapse 40 1462129 I34.1 56158 she denies symptoms related to thiscontin ue low dose metoprolol she follows with [facility]ach[facility], Dr. Kwon, related to this - last seen in r clinically History of total knee arthroplasty 1809632208 105 Z96.651 31348493 see above..... .... Physical deconditioning 5560723588 9102 R53.81 553741 related to advanced age, recent knee replacemen t surgery, comorbidit iestherapi es have been initiated, will monitor progress - she is hopeful to return home alone upon d/c from [facility] [id number] Nancy Gee DO [address] [address] 08/01/2025 09:08:28 08/08/2025 09:33:56 Localized, primary osteoarthritis 380948172 M17.11 73236235 s/p right total knee arthroplas ty.Continu e WBAT.Neptali nue PRN APAP, Tramadol, Oxycodone, and ice for discomfort .Current dressing to remain until 08/02. Javon to be removed on 08/06. Monitor closely for infection. Continue ASA BID for DVT prophylaxi s x 42 days (09/07). Omeprazole has been added for GERD prevention during this time, as well.F/U with Dr. Clemente Dhillon (ortho) in 3 weeks. History of total knee arthroplasty 9472830099 105 Z96.651 13430761 SEE ABOVE... Essential hypertension 51425938 I10 02533 Stable. Continue Amlodipine , Metoprolol , Losartan, KCl, and Bumex.Cont inue to trend blood pressures, monitor lytes and renal function, and adjust meds as clinically indicated. F/U with Dr. Kwon (cards) as directed. Last seen in April 2025. Vitamin D deficiency 347 48989 E55.9 67171 Presumed stable. Continue replacemen t therapy. Slow trans it constipation 10216405 K59.01 8838 Stable. Continue routine Miralax and Citrucel.A dditional meds available per standing orders. Bilateral glaucoma 50963 79832 H40.9 09293333 Presumed stable. Continue eye drops as ordered.Ou tpatient f/u with ophtho as directed. Generalize d anxiety disorder 08420729 F41.1 06254 Continue PRN Diazepam. This is a long standing outpatient medication . She does not take additional routine medication s related to this, although she would likely benefit from it. Continue regimen for now. Recommend further psychiatri c evaluation as OP. Mitral valve prolapse 40 5479088 I34.1 00095 Denies symptoms related to this.Neptali nue medication s as above and supportive care. Physical deconditioning 8373308922 9102 R53.81 343976 Related to advanced age, recent knee replacemen t surgery, and comorbidit ies.Contin ue therapies and monitor progress. She is hopeful to return home alone upon d/c from SNF. [id number] Nancy Gee, DO [address] [address] 08/03/2025 10:10:08 08/08/2025 09:34:27 Localized, primary osteoarthritis 654819564 M17.11 27895803 s/p right total knee arthroplas ty.Continu e WBAT.Neptali nue PRN APAP, Tramadol, Oxycodone, and ice for discomfort .Javon to be removed on 08/06. Monitor incision closely for infection. Continue ASA BID for DVT prophylaxi s x 42 days (09/07). Omeprazole has been added for GERD prevention during this time, as well.F/U with Dr. Clemente Dhillon (ortho) in 3 weeks. History of total knee arthroplasty 0265930346 105 Z96.651 61607926 SEE ABOVE... Essential hypertension 50701309 I10 52253 BPs consistent ly elevated.I ncrease Losartan dosing.Con tinue Amlodipine , Metoprolol , KCl, and Bumex.Cont inue to trend blood pressures, monitor lytes and renal function, and adjust meds as clinically indicated. F/U with Dr. Kwon (cards) as directed. Last seen in April 2025. Mitral valve prolapse 40 7113492 I34.1 67220 Denies symptoms related to this.Neptali nue medication s as above and supportive care. Slow trans it constipation 45717080 K59.01 8838 Stable. Continue routine Miralax, Citrucel, and PRN colace & suppositor ies.Additi onal meds available per standing orders. Generalize d anxiety disorder 81697863 F41.1 09033 Continue PRN Diazepam. This is a long standing outpatient medication . She does not take additional routine medication s related to this, although she would likely benefit from it. Continue regimen for now. Recommend further psychiatri c evaluation as OP. Vitamin D deficiency 347 97169 E55.9 74343 Presumed stable. Continue replacemen t therapy. Bilateral glaucoma 23174 53953 H40.9 33742792 Presumed stable. Continue eye drops as ordered.Ou tpatient f/u with ophtho as directed. Physical deconditioning 2383154474 9102 R53.81 278775 Related to advanced age, recent knee replacemen [...] Member ID Soares Member ID Guarantor Name 08/03/2025 1 [employer] (MEDICARE REPLACEMENT/ ADVANTAGE - HMO) [id number] Carlita Corbett Gamal [id number] Carlita Yeung Notes Date Note Type Note Provider Name and Address Organization Details Recorded Time 08/03/2025 text/html F/U elective [R] total knee replacement [...] sliver mepilex dressing prior to discharge to [facility]. She has dried, bloody drainage noted again [...] appropriately care for herself when she leaves [facility]. No nursing concerns today.---08/01/25Carlita is doing well [...] for safe walker management when crossing elevator threshold---08/03/25 Carlita is resting in her bed, doing well today, tells me she was able to have a successful bowel movement with a suppository given last night (although nursing tells me she had been having daily BMs before this). VSS except BPs high. Staff is without concerns at this time. Per therapy notes = Patient ambulated 200 ft on level surfaces with a FWW, requiring CGA SBA. Pt requires cueing for navigation. Educated pt on walking to bathroom/meals. Kellen Londono, DENISSE [address] [facility], [place], [address], [facility] - [facility] 08/03/2025 13:58:56 OBGyn Episode No OBEpisode recorded.
--- OUTSIDE RECORDS SUMMARY | 2025-10-22 06:40 | XMS_ITS | Data Portability ---
Author Organization olook [facility], Main Office Address [address] [place] [address] Care Team Providers Care Newcomer Hostess Name Role Phone P [facility] FAX OTHER TEJAS GRAJEDA Primary Care Provider Assessment Encounter Date Assessment Date Assessment LastModified by Organization Details LastModified Time 07/30/2025 07/30/2025 labs pending from today, d/c meloxicam, start tramadol prn - will leave oxy for now as well as omeprazole [email or web address] Not available 08/02/2025 04:42:07 08/03/2025 08/03/2025 Increase Losartan to 50 mg daily. Monitor BPs. Not available 08/03/2025 13:56:38 08/07/2025 08/07/2025 Monitor BPs/HRs. Consider increase in Metoprolol dosing if need-be. Labs on 08/08. Not available 08/07/2025 13:35:25 08/09/2025 08/09/2025 Carlita plans to d/c home on 08/[address] [facility]. Not available 08/09/2025 17:11:33 Plan of Treatment Reminders Order Date Submit Date Provider Last Modified By Organization Details Last Modified Time Details Appointments None recorded. Lab None recorded. Referral None recorded. Procedures None recorded. Surgeries None recorded. Imaging None recorded. Medication Orders losartan 50 mg tablet 2024 025 [facility] #[id number], [address] [place], [address], 17:14:09 Patient TargetsNo targets recorded. Patient Instructions Encounter Date Encounter Id Patient Instructions Last Modified By Organization Details Last Modified Time 07/30/2025 [id number] I spent >60 minutes providing care to [...] is DNR [email or web address] Not available 08/02/2025 04:52:02 08/01/2025 [id number] I spent 37 minutes providing care to the patient today. More than 50% of that time was spent in discussing the expected course of the disease, discussing prognosis, coordinating care and counseling of the patient/family. [email or web address] Not available 08/02/2025 17:31:38 08/03/2025 [id number] I spent 36 minutes providing care to the patient today. More than 50% of that time was spent in discussing the expected course of the disease, discussing prognosis, coordinating care and counseling of the patient/family. Not available 08/03/2025 13:58:47 08/07/2025 [id number] I spent 37 minutes providing care to the patient today. More than 50% of that time was spent in discussing the expected course of the disease, discussing prognosis, coordinating care and counseling of the patient/family. Not available 08/07/2025 13:37:37 08/09/2025 [id number] I spent 40 minutes providing care to the patient today. More than 50% of that time was spent in discussing the expected course of the disease, discussing prognosis, coordinating care and counseling of the patient/family. The patient will be discharged home with home health orders of home health RN / PT / OT to evaluate and treat. The patient is homebound because of fall risk and is unable to leave home safely because requires considerable and taxing effort to leave home. The patient requires home health nursing for instruction, observation and assessment; PT for training to restore safe independent functional ambulation in community; and OT for training to improve ability to fulfill ADLs. Please follow-up with your primary care provider within 1 week. Call your primary care provider for instructions or go to the emergency room for new or worsening symptoms. Not available 08/09/2025 17:13:36 Reason for Referral None Reported. Results Created Date Observation Date Name Description Value Unit Range Abnormal Flag Note LastModifiedBy Organization Detail LastModifiedTime Result Notes None recorded. Procedures Surgical History Date Name Laterality Status Provider Name and Address Organization Details Recorded Time appendectomy completed Trevor Carrington [facility] 07/28/2025 00:33:36 operative procedure on elbow completed Trevor Carrington [facility] 07/28/2025 00:33:53 Hemorrhoidectomy completed Trevor Carrington [facility] 07/28/2025 00:34:02 hysterectomy completed [facility] 07/28/2025 00:34:09 Imaging Results None recorded. Procedure Notes None recorded. Medical Equipment None Reported. Allergies Allergen ID Allergen Name Allergen Category Reaction Reaction Severity Criticality Documentation Date Start Date Code Code System Note Provider Name and Address Organization Details Recorded Time 83033 Substance with sulfonami de structure and antibacte rial mechanism of action (substanc e) medicatio n Not available Not available Not available 07/28/2025 96038 8003 [facility] 57369 sulfameth oxazole / trimethop rim medicatio n Not available Not available Not available 07/28/2025 62124 RxNorm Trevor Carrington [facility] 00:34:21 Medications Name Sig Start [...] /min 98.2 [degF] 20 /min 99 % 53891.4 2 g 19.3 kg/m2 162.56 cm 155/76 mm[Hg] [place] [address] [place], [address], [place] [facility] 5 17:19:23 Date Recorded Body height Heart rate Body temperature Respiratory rate Body mass index (BMI) Body weight Oxygen saturation Systolic And Diastolic Provider Name and Address Organization Details Last Updated DateTime 5 162.56 cm 84 /min 98.2 [degF] 20 /min 20.9 kg/m2 83648.5 5 g 98 % 157/79 mm[Hg] [place] [address] [place], [address], [place] [facility] 5 12:59:45 Date Recorded Body height Heart rate Body temperature Respiratory rate Oxygen saturation Body mass index (BMI) Body weight Systolic And Diastolic Provider Name and Address Organization Details Last Updated DateTime 5 162.56 cm 91 /min 98.3 [degF] 20 /min 98 % 20.8 kg/m2 96178.6 8 g 153/74 mm[Hg] [place] [address] [place], [address], [place] - [facility] 5 13:20:34 Date Recorded Body height Heart rate Body temperature Respiratory rate Oxygen saturation Body mass index (BMI) Body weight Systolic And Diastolic Provider Name and Address Organization Details Last Updated DateTime 5 162.56 cm 90 /min 98 [degF] 20 /min 97 % 20.3 kg/m2 59190.3 4 g 149/81 mm[Hg] [place] [address] [place], [address], [place] - [facility] 5 09:45:52 Date Recorded Body height Heart rate Body temperature Respiratory rate Oxygen saturation Body mass index (BMI) Body weight Systolic And Diastolic Provider Name and Address Organization Details Last Updated DateTime 5 162.56 cm 88 /min 98.2 [degF] 18 /min 96 % 20.5 kg/m2 99568.5 7 g 131/72 mm[Hg] [place] [address] [place], [address], [place] - [facility] 5 16:32:21 Social History Question Answer Notes LastModified by Organizat ion Details LastModified Time Tobacco Smoking [place] [address] [place], [address], [place] [facility] 08/02/2025 04:09:47 [...] ICD10 Code Diagnosis IMO Codes Diagnosis Note [id number] Nancy Gee DO [address] [address] 07/30/2025 16:51:15 08/08/2025 09:37:01 Localized, primary osteoarthritis 036458865 M17.11 12183990 s/p right total knee arthroplas tyWBATcurr ent [...] prn, meloxicam will be d/c'd Essential hypertension 19261776 I10 82320 continue amlodipine , metoprolol , losartan and bumextrend pressures and adjust meds as clinically indicated Vitamin D deficiency 347 60562 E55.9 85617 continue replacemen t therapy Slow trans it constipation 01003964 K59.01 8838 continue routine miralax and citrucelad ditional meds available per standing orders Bilateral glaucoma 77381 62265 H40.9 40699062 continue eye drops as ordered - outpatient f/u with ophtho Generalize d anxiety disorder 73832935 F41.1 33943 continue daily diazepam - this is a long standing outpatient medication she does not take additional routine medication s related to this - monitor for need Mitral valve prolapse 40 2210838 I34.1 66344 she denies symptoms related to thiscontin ue low dose metoprolol she follows with cards, Dr. Kwon, related to this - last seen in [facility] r clinically History of total knee arthroplasty 4229885154 105 Z96.651 78554632 see above..... .... Physical deconditioning 6446553989 9102 R53.81 786526 related to advanced age, recent knee replacemen t surgery, comorbidit iestherapi es have been initiated, will monitor progress - she is hopeful to return home alone upon d/c from [facility] [id number] Nancy Gee DO [address] [address] 08/01/2025 09:08:28 08/08/2025 09:33:56 Localized, primary osteoarthritis 314253017 M17.11 61781255 s/p right total knee arthroplas ty.Continu e [...] 3 weeks. History of total knee arthroplasty 9625308677 105 Z96.651 86636172 SEE ABOVE... Essential hypertension 28093028 I10 20062 Stable. Continue Amlodipine , Metoprolol , Losartan, KCl, and Bumex.Cont inue to trend blood pressures, monitor lytes and renal function, and adjust meds as clinically indicated. F/U with Dr. Kwon (cards) as directed. Last seen in April 2025. Vitamin D deficiency 347 19830 E55.9 16784 Presumed stable. Continue replacemen t therapy. Slow trans it constipation 48602950 K59.01 8838 Stable. Continue routine Miralax and Citrucel.A dditional meds available per standing orders. Bilateral glaucoma 63452 78124 H40.9 34806804 Presumed stable. Continue eye drops as ordered.Ou tpatient f/u with ophtho as directed. Generalize d anxiety disorder 66808047 F41.1 02041 Continue PRN Diazepam. This is a long standing outpatient medication . She does not take additional routine medication s related to this, although she would likely benefit from it. Continue regimen for now. Recommend further psychiatri c evaluation as OP. Mitral valve prolapse 40 9764298 I34.1 26561 Denies symptoms related to this.Neptali nue medication s as above and supportive care. Physical deconditioning 0026963646 9102 R53.81 841727 Related to advanced age, recent knee replacemen t surgery, and comorbidit ies.Contin ue therapies and monitor progress. She is hopeful to return home alone upon d/c from [facility]. [id number] Nancy Gee, DO [address] [address] 08/03/2025 10:10:08 08/08/2025 09:34:27 Localized, primary osteoarthritis 352185490 M17.11 01584508 s/p right total knee arthroplas ty.Continu e WBAT.Neptali nue PRN APAP, Tramadol, Oxycodone, and ice for discomfort .Cary to be removed on 08/06. Monitor incision closely for infection. Continue ASA BID for DVT prophylaxi s x 42 days (09/07). Omeprazole has been added for GERD prevention during this time, as well.F/U with Dr. Clemente Dhillon (ortho) in 3 weeks. History of total knee arthroplasty 7867461050 105 Z96.651 01906928 SEE ABOVE... Essential hypertension 08555255 I10 32747 BPs consistent ly elevated.I ncrease Losartan dosing.Con tinue Amlodipine , Metoprolol , KCl, and Bumex.Cont inue to trend blood pressures, monitor lytes and renal function, and adjust meds as clinically indicated. F/U with Dr. Kwon ([facility]) as directed. Last seen in April 2025. Mitral valve prolapse 40 3256813 I34.1 92681 Denies symptoms related to this.Neptali nue medication s as above and supportive care. Slow trans it constipation 86835110 K59.01 8838 Stable. Continue routine Miralax, Citrucel, and PRN colace & suppositor ies.Additi onal meds available per standing orders. Generalize d anxiety disorder 52540585 F41.1 02083 Continue PRN Diazepam. This is a long standing outpatient medication . She does not take additional routine medication s related to this, although she would likely benefit from it. Continue regimen for now. Recommend further psychiatri c evaluation as OP. Vitamin D deficiency 347 24196 E55.9 64655 Presumed stable. Continue replacemen t therapy. Bilateral glaucoma 24737 56804 H40.9 70384326 Presumed stable. Continue eye drops as ordered.Ou tpatient f/u with ophtho as directed. Physical deconditioning 7502398766 9102 R53.81 895629 Related to advanced age, recent knee replacemen t surgery, and comorbidit ies.Contin ue therapies and monitor progress. She is hopeful to return home alone upon d/c from [facility]. [id number] Nancy Gee, [place] [address] [place] [address] 08/07/2025 09:20:01 08/08/2025 09:36:18 Localized, primary osteoarthritis 932426219 M17.11 10859248 s/p right total knee arthroplas ty.Continu e WBAT.Neptali nue PRN APAP, Tramadol, Oxycodone, and ice for discomfort .Cary removed on 08/06. Monitor incision closely for healing/in fection.Co ntinue ASA BID for DVT prophylaxi s x 42 days (09/07). Omeprazole has been added for GERD prevention during this time, as well.F/U with DEVELOPER PROGRAMMER Teresa Skinner on 08/[address] Clemente Dhillon on 09/03. History of total knee arthroplasty 4303397899 105 Z96.651 42459952 SEE ABOVE... Essential hypertension 09572782 I10 50620 BPs were consistent ly elevated, improved with increase in Losartan dosing.Con tinue Amlodipine , Metoprolol , Lisinopril , KCl, and Bumex.Cont inue to trend blood pressures, monitor lytes and renal function, and adjust meds as clinically indicated. F/U with Dr. Kwon (cards) as directed. Last seen in April 2025. Mitral valve prolapse 40 5364369 I34.1 62631 Denies symptoms related to this.Neptali nue medication s as above and supportive care. Slow trans it constipation 42906550 K59.01 8838 Stable. Continue routine Miralax, Citrucel, and PRN colace & suppositor ies.Additi onal meds available per standing orders. Generalize d anxiety disorder 37133866 F41.1 68932 Continue PRN Diazepam. This is a long standing outpatient medication . She does not take additional routine medication s related to this, although she would likely benefit from it. Continue regimen for now. Recommend further psychiatri c evaluation as OP. Vitamin D deficiency 347 53874 E55.9 89834 Presumed stable. Continue replacemen t therapy. Bilateral glaucoma 40687 93285 H40.9 28205637 Presumed stable. Continue eye drops as ordered.Ou tpatient f/u with ophtho as directed. Physical deconditioning 2812747211 9102 R53.81 182479 Related to advanced age, recent knee replacemen t surgery, and comorbidit ies.Contin ue therapies and monitor progress. She is hopeful to return home alone upon d/c from [facility]. [id number] Nancy Gee, [place] [address] [place] [address] 08/09/2025 10:52:52 08/18/2025 21:50:34 Localized, primary osteoarthritis 721685836 M17.11 23293640 s/p right total knee arthroplas ty.Continu e WBAT.Neptali nue PRN APAP, Tramadol, Oxycodone, and ice for discomfort .Javon removed on 08/06. Incision is healed without concerns.C ontinue ASA BID for DVT prophylaxi s x 42 days (09/07). Omeprazole has been added for GERD prevention during this time, as well.F/U with DEVELOPER PROGRAMMER Teresa Skinner on 08/[address] Clemente Dhillon on 09/03. History of total knee arthroplasty 2172060721 105 Z96.651 59622624 SEE ABOVE... Essential hypertension 48837833 I10 94283 BPs were consistent ly elevated, improved with increase in Losartan dosing.Con tinue Amlodipine , Metoprolol , Lisinopril , KCl, and Bumex.Cont inue to trend blood pressures, monitor lytes and renal function, and adjust meds as clinically indicated. F/U with Dr. Kwon (cards) as directed. Last seen in April 2025. Mitral valve prolapse 40 1392540 I34.1 26833 Denies symptoms related to this.Neptali nue medication s as above and supportive care. Slow trans it constipation 90600204 K59.01 8838 Stable. Continue routine Miralax, Citrucel, and PRN colace & suppositor ies.Additi onal meds available per standing orders. Generalize d anxiety disorder 07264515 F41.1 47100 Continue PRN Diazepam. This is a long standing outpatient medication . She does not take additional routine medication s related to this, although she would likely benefit from it. Continue regimen for now. Recommend further psychiatri c evaluation as OP. Vitamin D deficiency 347 72767 E55.9 24075 Presumed stable. Continue replacemen t therapy. Bilateral glaucoma 78279 76512 H40.9 03233535 Presumed stable. Continue eye drops as ordered.Ou tpatient f/u with ophtho as directed. Health Concerns Section Related Observation LastModified by Organization Detai ls LastModified Time None Recorded Concern Status LastModified by Organization Details LastModified Time None Recorded Advance Directives Directive None Recorded Payers Insurance Date Sequence Insurance Name Policy Number Policy Soares Covered Member ID Soares Member ID Guarantor Name 09/13/2025 1 [employer] (MEDICARE REPLACEMENT/ ADVANTAGE - HMO) [id number] Carlita Yeung [id number] Carlita Yeung 09/13/2025 1 [employer] (POS II) [id number] Carlita Yeung [id number] Carlita Yeung Notes Date Note Type Note Provider Name and Address Organization Details Recorded Time 07/30/2025 text/html 85 Y/O female with a history of HTN, mitral valve prolapse, glaucoma, anxiety and Vitamin D deficiency admitted to [place] for post acute rehab subsequent to an inpatient stay at [facility] 07/23-07/27/25 for an elective right total knee [...] sliver mepilex dressing prior to discharge to [place]. She has dried, bloody drainage noted again [...] appropriately care for herself when she leaves [place]. No nursing concerns today. Code status is DNRPCP Tejas [place] - Clemente Colbert: Doyle - follows for HTN and MVPshe lives in a home alone in [facility]/lucia chowdhury contacts = daughters Teena [place], [place] [address] [facility], [place], [address], [facility] - [facility] 08/02/2025 04:52:30 08/01/2025 text/html F/U elective [R] total knee replacement sec to end-stage OA and chronic medical conditions.--- Marguerite patient is seen today initially up in [...] sliver mepilex dressing prior to discharge to [place]. She has dried, bloody drainage noted again to the lower / dressing today on exam. She is concerned with taking oxycodone and would like to get away from taking narcotics. She has an orthopedic friend who has been a confidant to her through this surgery. She spoke with him earlier today and he recommended trialling tramadol instead. She will return home alone or may consider short term placement in LTC or HALFWAY if she doesn't feel she can appropriately care for herself when she leaves [place]. No nursing concerns today.---08/01/25Carlita is doing well [...] when crossing elevator threshold Kellen Londono, [place] [address] [facility], [place], [address], [facility] 08/02/2025 17:32:08 08/03/2025 text/html F/U elective [R] total knee replacement sec to end-stage OA and chronic medical conditions.--- Marguerite patient is seen today initially up in [...] sliver mepilex dressing prior to discharge to [place]. She has dried, bloody drainage noted again [...] appropriately care for herself when she leaves [place]. No nursing concerns today.---08/01/25Carlita is doing well [...] on walking to bathroom/meals. Kellen Londono, [place] [address] [facility], [place], [address], Dine perfect [facility] 08/03/2025 13:58:56 08/07/2025 text/html F/U elective [R] total knee replacement sec to end-stage OA and chronic medical conditions.--- Marguerite patient is seen today initially up in [...] sliver mepilex dressing prior to discharge to [place]. She has dried, bloody drainage noted again [...] consider short term placement in LTC or HALFWAY if she doesn't feel she can appropriately care for herself when she leaves [place]. No nursing concerns today.---08/01/25Carlita is doing well [...] for navigation. Educated pt on walking to bathroom/meals.--- 08/07/25Carlita is earlier seen ambulating through halls with w/w with steady gait. She requests to speak to me, tells me that she will be discharging on Wednesday but also has a doctor's appt that morning, so would like to arrange discharge prior to this -- of note, I am unaware that pt has an appt Wednesday and as far as I am aware, she has not been issued a discharge date so unclear if she is confused or if this is true and simply has not been communicated to me. I relay this conversation to nursing to clarify. She otherwise is doing well today and without concerns, although she does ask me if I would advise applying Bee Wing to her incision. I educate her to not apply anything to her incision without consulting orthopedics first, that application of a non-sterile ointment adds risk of infection to a healing incision, and I recommend against it at this time. She expresses understanding. Cary were removed yesterday without concerns. DD in place today, will be removed tomorrow and left ERLIN. VSS. Staff is without concerns today. Per therapy notes = Pt measuring 115 degrees of flexion and -5 degrees of extension.... Patient ambulated 250 ft x 2 on level surfaces with a FWW, requiring SBA. Patient required cueing for navigation. Kellen Londono, [place] [address] [facility], [place], [address], [facility] 08/07/2025 13:37:54 08/09/2025 text/html 85 Y/O female with a history of HTN, mitral valve prolapse, glaucoma, anxiety and Vitamin D deficiency admitted to [place] for post acute rehab subsequent to an inpatient stay at [facility] 07/23-07/27/25 for an elective right total knee replacement related to end stage OA that failed conservative treatment measures. The patient tolerated the procedure well - no documented post operative complications. New meds: tylenol, ASA, meloxicam, omeprazole, oxycodone Code status is DNRPCP Tejas Walton lives in a home alone in [place] - [facility]/alternate contacts = daughters Meaghan, Teena, Keisha---07/30/25e patient is seen today initially up in [...] sliver mepilex dressing prior to discharge to [place]. She has dried, bloody drainage noted again [...] consider short term placement in LTC or HALFWAY if she doesn't feel she can appropriately care for herself when she leaves [place]. No nursing concerns today.---08/01/25Carlita is doing well [...] for navigation. Educated pt on walking to bathroom/meals.--- 08/07/25Carlita is earlier seen ambulating through halls with w/w with steady gait. She requests to speak to me, tells me that she will be discharging on Wednesday but also has a doctor's appt that morning, so would like to arrange discharge prior to this -- of note, I am unaware that pt has an appt Wednesday and as far as I am aware, she has not been issued a discharge date so unclear if she is confused or if this is true and simply has not been communicated to me. I relay this conversation to nursing to clarify. She otherwise is doing well today and without concerns, although she does ask me if I would advise applying Bee Wing to her incision. I educate her to not apply anything to her incision without consulting orthopedics first, that application of a non-sterile ointment adds risk of infection to a healing incision, and I recommend against it at this time. She expresses understanding. Javon were removed yesterday without concerns. DD in place today, will be removed tomorrow and left HEAVY EQUIPMENT OPERATOR APPRENTICE. VSS. Staff is without concerns today. Per therapy notes = Pt measuring 115 degrees of flexion and -5 degrees of extension.... Patient ambulated 250 ft x 2 on level surfaces with a FWW, requiring SBA. Patient required cueing for navigation.---08/09Carlita is fairing well today, without concerns beyond her continuing progress. She is mildly anxious about her discharge plan and is very fixated on this, asking many questions for reassurance. I direct SW to discuss once again with her and answer all questions I am able to with nursing by my side. She continues to work on her extension & flexion of her knee. She is up ad dontae with w/w throughout division. Reports her pain is well-controlled. VSS. Staff is without concerns at this time. Per therapy notes = Conducted gait training with FWW 200' x 2 SBA cues for direction. Kellen Londono, DENISSE [address] [facility], [place], [address], [place] [facility] 08/09/2025 17:14:10 OBGyn Episode No OBEpisode recorded.
--- OUTSIDE RECORDS SUMMARY | 2025-10-22 06:40 | XMS_ITS | Continuity of Care Document ---
Author Organization [place] [facility], [facility] Address [address] [place] [address] Care Team Providers Care [employer] Manufacturer Name Role Phone [facility] FAX OTHER TEJAS GRAJEDA Primary Care Provider [phone] Assessment Encounter Date Assessment Date Assessment LastModified by Organization Details LastModified Time 08/09/2025 08/09/2025 Carlita plans to d/c home on 08/13 with [facility]. Not available 08/09/2025 17:11:33 Plan of Treatment Reminders Order Date Submit Date Provider Last Modified By Organization Details Last Modified Time Details Appointments None recorded. Lab None recorded. Referral None recorded. Procedures None recorded. Surgeries None recorded. Imaging None recorded. Medication Orders losartan 50 mg tablet 2024 025 [facility]/Pharmacy #[id number], [address] [place], [address], 17:14:09 Patient TargetsNo targets recorded. Patient Instructions Encounter Date Encounter Id Patient Instructions Last Modified By Organization Details Last Modified Time 08/09/2025 [id number] I spent 40 minutes providing care to [...] Details Recorded Time appendectomy completed Trevor Carrington [facility] 07/28/2025 00:33:36 operative procedure on elbow completed Trevor Carrington [facility] 07/28/2025 00:33:53 Hemorrhoidectomy completed Trevor [facility] 07/28/2025 00:34:02 hysterectomy completed Trevor [facility] 07/28/2025 00:34:09 Imaging Results None recorded. Procedure Notes None recorded. Medical Equipment None Reported. Allergies Allergen ID Allergen Name Allergen Category Reaction Reaction Severity Criticality Documentation Date Start Date Code Code System Note Provider Name and Address Organization Details Recorded Time 81178 Substance with sulfonami de structure and antibacte rial mechanism of action (substanc e) medicatio n Not available Not available Not available 07/28/2025 04372 8003 SNOMED Trevor Carrington [facility] 00:23:22 11511 sulfameth oxazole / trimethop rim medicatio n Not available Not available Not available 07/28/2025 31499 RxNorm Trevor Carrington [facility] 00:34:21 Medications Name Sig Start Date Stop [...] [degF] 18 /min 96 % 20.5 kg/m2 04145.5 7 g 131/72 mm[Hg] Kellen Londono, DENISSE [address] [place], [address], [facility] 16:32:21 Social History Question Answer Notes LastModified by Organizat [employer] Details LastModified Time Tobacco Sm[place] [address] [place], [address], [facility] [place] [facility] 08/02/2025 04:09:47 What Is Your [...] ICD10 Code Diagnosis IMO Codes Diagnosis Note [id number] Nancy Gee DO [place] [address] [place] [address] 07/30/2025 16:51:15 08/08/2025 09:37:01 Localized, primary osteoarthritis 999382227 M17.11 12630452 s/p right total knee arthroplas tyWBATcurr ent [...] prn, meloxicam will be d/c'd Essential hypertension 69907867 I10 46633 continue amlodipine , metoprolol , losartan and bumextrend pressures and adjust meds as clinically indicated Vitamin D deficiency 347 28154 E55.9 06034 continue replacemen t therapy Slow trans it constipation 96792091 K59.01 8838 continue routine miralax and citrucelad ditional meds available per standing orders Bilateral glaucoma 34410 20425 H40.9 91291737 continue eye drops as ordered - outpatient f/u with ophtho Generalize d anxiety disorder 69402839 F41.1 32333 continue daily diazepam - this is a long standing outpatient medication she does not take additional routine medication s related to this - monitor for need Mitral valve prolapse 40 2148246 I34.1 57251 she denies symptoms related to thiscontin ue low dose metoprolol she follows with cards, Dr. Kwon, related to this - last seen in [facility] r clinically History of total knee arthroplasty 0092457933 105 Z96.651 37239447 see above..... .... Physical deconditioning 1107596771 9102 R53.81 548782 related to advanced age, recent knee replacemen t surgery, comorbidit iestherapi es have been initiated, will monitor progress - she is hopeful to return home alone upon d/c from [facility] [id number] Nancy Gee, DO [place] [address] [place] [address] 08/01/2025 09:08:28 08/08/2025 09:33:56 Localized, primary osteoarthritis 376342070 M17.11 30244290 s/p right total knee arthroplas ty.Continu e [...] 3 weeks. History of total knee arthroplasty 0767590311 105 Z96.651 [id number] SEE ABOVE... Essential hypertension 87150388 I10 69931 Stable. Continue Amlodipine , Metoprolol , Losartan, KCl, and Bumex.Cont inue to trend blood pressures, monitor lytes and renal function, and adjust meds as clinically indicated. F/U with Dr. Kwon ([facility]) as directed. Last seen in April 2025. Vitamin D deficiency 347 15339 E55.9 50127 Presumed stable. Continue replacemen t therapy. Slow trans it constipation 60254145 K59.01 8838 Stable. Continue routine Miralax and Citrucel.A dditional meds available per standing orders. Bilateral glaucoma 90303 76428 H40.9 88766988 Presumed stable. Continue eye drops as ordered.Ou tpatient f/u with ophtho as directed. Generalize d anxiety disorder 33819966 F41.1 53391 Continue PRN Diazepam. This is a long standing outpatient medication . She does not take additional routine medication s related to this, although she would likely benefit from it. Continue regimen for now. Recommend further psychiatri c evaluation as OP. Mitral valve prolapse 40 6265046 I34.1 35012 Denies symptoms related to this.Neptali nue medication s as above and supportive care. Physical deconditioning 7995743963 9102 R53.81 828126 Related to advanced age, recent knee replacemen t surgery, and comorbidit ies.Contin ue therapies and monitor progress. She is hopeful to return home alone upon d/c from [facility]. [id number] Nancy Gee, DO [address] [address] 08/03/2025 10:10:08 08/08/2025 09:34:27 Localized, primary osteoarthritis 428304274 M17.11 27718771 s/p right total knee arthroplas ty.Continu e WBAT.Neptali nue PRN APAP, Tramadol, Oxycodone, and ice for discomfort .[place] to be removed on 08/06. Monitor incision closely for infection. Continue ASA BID for DVT prophylaxi s x 42 days (09/07). Omeprazole has been added for GERD prevention during this time, as well.F/U with Dr. Clemente Dhillon (ortho) in 3 weeks. History of total knee arthroplasty 6042124384 105 Z96.651 56701343 SEE ABOVE... Essential hypertension 32548311 I10 46153 BPs consistent ly elevated.I ncrease Losartan dosing.Con tinue Amlodipine , Metoprolol , KCl, and Bumex.Cont inue to trend blood pressures, monitor lytes and renal function, and adjust meds as clinically indicated. F/U with Dr. Kwon ([facility]) as directed. Last seen in April 2025. Mitral valve prolapse 40 6906878 I34.1 93831 Denies symptoms related to this.Neptali nue medication s as above and supportive care. Slow trans it constipation 14050969 K59.01 8838 Stable. Continue routine Miralax, Citrucel, and PRN colace & suppositor ies.Additi onal meds available per standing orders. Generalize d anxiety disorder 20856272 F41.1 59071 Continue PRN Diazepam. This is a long standing outpatient medication . She does not take additional routine medication s related to this, although she would likely benefit from it. Continue regimen for now. Recommend further psychiatri c evaluation as OP. Vitamin D deficiency 347 95357 E55.9 75314 Presumed stable. Continue replacemen t therapy. Bilateral glaucoma 67839 53772 H40.9 41652494 Presumed stable. Continue eye drops as ordered.Ou tpatient f/u with ophtho as directed. Physical deconditioning 1013906435 9102 R53.81 346178 Related to advanced age, recent knee replacemen t surgery, and comorbidit ies.Contin ue therapies and monitor progress. She is hopeful to return home alone upon d/c from [facility]. [id number] Nancy Gee DO [place] [address] [place] [address] 08/07/2025 09:20:01 08/08/2025 09:36:18 Localized, primary osteoarthritis 961077929 M17.11 79010507 s/p right total knee arthroplas ty.Continu e WBAT.Neptali nue PRN APAP, Tramadol, Oxycodone, and ice for discomfort .[place] removed on 08/06. Monitor incision closely for healing/in fection.Co ntinue ASA BID for DVT prophylaxi s x 42 days (09/07). Omeprazole has been added for GERD prevention during this time, as well.F/U with [facility] HEL[facility] Teresa Skinner on 08/[address] Clemente Dhillon on 09/03. History of total knee arthroplasty 2038615684 105 Z96.651 77280751 SEE ABOVE... Essential hypertension 58312347 I10 84116 BPs were consistent ly elevated, improved with increase in Losartan dosing.Con tinue Amlodipine , Metoprolol , Lisinopril , KCl, and Bumex.Cont inue to trend blood pressures, monitor lytes and renal function, and adjust meds as clinically indicated. F/U with Dr. Kwon (cards) as directed. Last seen in April 2025. Mitral valve prolapse 40 3626506 I34.1 51400 Denies symptoms related to this.Neptali nue medication s as above and supportive care. Slow trans it constipation 24243133 K59.01 8838 Stable. Continue routine Miralax, Citrucel, and PRN colace & suppositor ies.Additi onal meds available per standing orders. Generalize d anxiety disorder 14344680 F41.1 17882 Continue PRN Diazepam. This is a long standing outpatient medication . She does not take additional routine medication s related to this, although she would likely benefit from it. Continue regimen for now. Recommend further psychiatri c evaluation as OP. Vitamin D deficiency 347 49263 E55.9 16761 Presumed stable. Continue replacemen t therapy. Bilateral glaucoma 61419 44689 H40.9 14900857 Presumed stable. Continue eye drops as ordered.Ou tpatient f/u with ophtho as directed. Physical deconditioning 5409382040 9102 R53.81 555274 Related to advanced age, recent knee replacemen t surgery, and comorbidit ies.Contin ue therapies and monitor progress. She is hopeful to return home alone upon d/c from [facility]. [id number] Nancy Gee, [place] [address] [place] [address] 08/09/2025 10:52:52 08/18/2025 21:50:34 Localized, primary osteoarthritis 380687964 M17.11 02262802 s/p right total knee arthroplas ty.Continu e WBAT.Neptali nue PRN APAP, Tramadol, Oxycodone, and ice for discomfort .[place] removed on 08/06. Incision is healed without concerns.C ontinue ASA BID for DVT prophylaxi s x 42 days (09/07). Omeprazole has been added for GERD prevention during this time, as well.F/U with [facility]OTH[facility] HELPER Teresa Skinner on 08/[address] Clemente Dhillon on 09/03. History of total knee arthroplasty 8094861990 105 Z96.651 48219879 SEE ABOVE... Essential hypertension 90346318 I10 12332 BPs were consistent ly elevated, improved with increase in Losartan dosing.Con tinue Amlodipine , Metoprolol , Lisinopril , KCl, and Bumex.Cont inue to trend blood pressures, monitor lytes and renal function, and adjust meds as clinically indicated. F/U with Dr. Kwon (cards) as directed. Last seen in April 2025. Mitral valve prolapse 40 6952208 I34.1 24600 Denies symptoms related to this.Neptali nue medication s as above and supportive care. Slow trans it constipation 60292358 K59.01 8838 Stable. Continue routine Miralax, Citrucel, and PRN colace & suppositor ies.Additi onal meds available per standing orders. Generalize d anxiety disorder 57451208 F41.1 05273 Continue PRN Diazepam. This is a long standing outpatient medication . She does not take additional routine medication s related to this, although she would likely benefit from it. Continue regimen for now. Recommend further psychiatri c evaluation as OP. Vitamin D deficiency 347 91437 E55.9 87005 Presumed stable. Continue replacemen t therapy. Bilateral glaucoma 05945 99531 H40.9 99930713 Presumed stable. Continue eye drops as ordered.Ou tpatient f/u with ophtho as directed. Health Concerns Section Related Observation LastModified by Organization Detai ls LastModified Time None Recorded Concern Status LastModified by Organization Details LastModified Time None Recorded Payers Encounter Date Sequence Insurance Name Policy Number Policy Soares Covered Member ID Soares Member ID Guarantor Name 08/09/2025 1 [employer] (MEDICARE REPLACEMENT/ ADVANTAGE - HMO) [id number] Carlita Yeung [id number] Carlita Yeung Notes Date Note Type Note Provider Name and Address Organization Details Recorded Time 08/09/2025 text/html 85 Y/O female with a history of HTN, mitral valve prolapse, glaucoma, anxiety and Vitamin D deficiency admitted to [facility] for post acute rehab subsequent to an inpatient stay at [facility] 07/23-07/27/25 for an elective right total knee replacement related to end stage OA that failed conservative treatment measures. The patient tolerated the procedure well - no documented post operative complications. New meds: tylenol, ASA, meloxicam, omeprazole, oxycodone Code status is DNRPCP Tejas Walton lives in a home alone in [place] - [facility]/alternate contacts = daughters Meaghan, Teena, Keisha---07/30/25reina patient is seen today initially up in [...] sliver mepilex dressing prior to discharge to [facility]. She has dried, bloody drainage noted again [...] consider short term placement in LTC or [facility] if she doesn't feel she can appropriately care for herself when she leaves [facility]. No nursing concerns today.---08/01/25Carlita is doing well [...] me if I would advise applying [place] to her incision. I educate her to not apply anything to her incision without consulting orthopedics first, that application of a non-sterile ointment adds risk of infection to a healing incision, and I recommend against it at this time. She expresses understanding. Javon were removed yesterday without concerns. 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 VSS. Staff is without concerns today. Per [...] x 2 [place] [address] [facility], [place], [address], [place] [facility] 08/09/2025 17:14:10 OBGyn Episode No OBEpisode recorded.
--- OUTSIDE RECORDS SUMMARY | 2025-10-22 06:40 | XMS_ITS | Continuity of Care Document ---
Author Organization [facility] [facility], [facility] Address [address] [place] [address] Care Team Providers Care Advertising Strategist Name Role Phone [facility] FAX OTHER TEJAS GRAJEDA Primary Care Provider Assessment Encounter Date Assessment Date Assessment LastModified by Organization Details LastModified Time 08/07/2025 08/07/2025 Monitor BPs/HRs. Consider increase in Metoprolol dosing if need-be. Labs on 08/08. Not available 08/07/2025 13:35:25 Plan of Treatment Reminders Order Date Submit [...] Modified By Organization Details Last Modified Time 08/07/2025 [id number] I spent 37 minutes providing care to the patient today. More than 50% of that time was spent in discussing the expected course of the disease, discussing prognosis, coordinating care and counseling of the patient/family. Not available 08/07/2025 13:37:37 Reason for Referral None Reported. Procedures Surgical History Date Name Laterality Status Provider Name and Address Organization Details Recorded Time appendectomy completed Trevor Carrington [employer] [facility] 07/28/2025 00:33:36 operative procedure on elbow completed Trevor Carrington [employer] 07/28/2025 00:33:53 Hemorrhoidectomy completed Trevor Carrington [employer] 07/28/2025 00:34:02 hysterectomy completed Trevor Carrington [employer] [facility] 07/28/2025 00:34:09 Imaging Results None recorded. Procedure Notes None recorded. Medical Equipment None Reported. Allergies Allergen ID Allergen Name Allergen Category Reaction Reaction Severity Criticality Documentation Date Start Date Code Code System Note Provider Name and Address Organization Details Recorded Time 13361 Substance with sulfonami de structure and antibacte rial mechanism of action (substanc e) medicatio n Not available Not available Not available 07/28/2025 15005 8003 [facility] 30883 sulfameth oxazole / trimethop rim medicatio n Not available Not available Not available 07/28/2025 33152 [facility] Medications Name Sig Start Date [...] Organization Details Last Updated DateTime 162.56 cm 90 /min 98 [degF] 20 /min 97 % 20.3 kg/m2 16690.3 4 g 149/81 mm[Hg] [place] [address] [place], [address], [facility] [employer] 09:45:52 Social History Question Answer Notes LastModified by [email or web address] Details LastModified Time Tobacco Smoking [place] [address] [place], [address], [facility] [employer] [facility] 08/02/2025 04:09:47 What Is Your Code Status? DNR [email or web address] Information not available 07/28/2025 Sex: Unknown Functional Status Question Answer Note LastModified by [email or web address] Details LastModified Time Do you use any [...] ICD10 Code Diagnosis IMO Codes Diagnosis Note [id number] Nancy Gee, [address] [address] 07/30/2025 16:51:15 08/08/2025 09:37:01 Localized, primary osteoarthritis 103656168 M17.11 08480675 s/p right total knee arthroplas tyWBATcurr ent [...] prn, meloxicam will be d/c'd Essential hypertension 76471489 I10 29203 continue amlodipine , metoprolol , losartan and bumextrend pressures and adjust meds as clinically indicated Vitamin D deficiency 347 39865 E55.9 88826 continue replacemen t therapy Slow trans it constipation 35182554 K59.01 8838 continue routine miralax and citrucelad ditional meds available per standing orders Bilateral glaucoma 66949 67204 H40.9 86951297 continue eye drops as ordered - outpatient f/u with ophtho Generalize d anxiety disorder 14691898 F41.1 15943 continue daily diazepam - this is a long standing outpatient medication she does not take additional routine medication s related to this - monitor for need Mitral valve prolapse 40 2159028 I34.1 91624 she denies symptoms related to thiscontin ue low dose metoprolol she follows with cards, Dr. Kwon, related to this - last seen in r clinically History of total knee arthroplasty 1727888868 105 Z96.651 17850206 see above..... .... Physical deconditioning 4000810881 9102 R53.81 324178 related to advanced age, recent knee replacemen t surgery, comorbidit iestherapi es have been initiated, will monitor progress - she is hopeful to return home alone upon d/c from [facility] [id number] Nancy Gee, DO [address] [address] 08/01/2025 09:08:28 08/08/2025 09:33:56 Localized, primary osteoarthritis 536769637 M17.11 41233303 s/p right total knee arthroplas ty.Continu e WBAT.Neptali nue PRN APAP, Tramadol, Oxycodone, and ice for discomfort .Current dressing to remain until 08/02. Union to be removed on 08/06. Monitor closely for infection. Continue ASA BID for DVT prophylaxi s x 42 days (09/07). Omeprazole has been added for GERD prevention during this time, as well.F/U with Dr. Clemente Dhillon (ortho) in 3 weeks. History of total knee arthroplasty 4697328755 105 Z96.651 45852006 SEE ABOVE... Essential hypertension 73373798 I10 94133 Stable. Continue Amlodipine , Metoprolol , Losartan, KCl, and Bumex.Cont inue to trend blood pressures, monitor lytes and renal function, and adjust meds as clinically indicated. F/U with Dr. Kwon (cards) as directed. Last seen in April 2025. Vitamin D deficiency 347 01985 E55.9 78004 Presumed stable. Continue replacemen t therapy. Slow trans it constipation 90161364 K59.01 8838 Stable. Continue routine Miralax and Citrucel.A dditional meds available per standing orders. Bilateral glaucoma 99773 91525 H40.9 64698246 Presumed stable. Continue eye drops as ordered.Ou tpatient f/u with ophtho as directed. Generalize d anxiety disorder 16051994 F41.1 16311 Continue PRN Diazepam. This is a long standing outpatient medication . She does not take additional routine medication s related to this, although she would likely benefit from it. Continue regimen for now. Recommend further psychiatri c evaluation as OP. Mitral valve prolapse 40 6671143 I34.1 42988 Denies symptoms related to this.Neptali nue medication s as above and supportive care. Physical deconditioning 7470116481 9102 R53.81 982034 Related to advanced age, recent knee replacemen t surgery, and comorbidit ies.Contin ue therapies and monitor progress. She is hopeful to return home alone upon d/c from SNF. [id number] Nancy Gee, DO [address] [address] 08/03/2025 10:10:08 08/08/2025 09:34:27 Localized, primary osteoarthritis 799235182 M17.11 62082607 s/p right total knee arthroplas ty.Continu e [...] 3 weeks. History of total knee arthroplasty 5426434713 105 Z96.651 27584592 SEE ABOVE... Essential hypertension 12336790 I10 60097 BPs consistent ly elevated.I ncrease Losartan dosing.Con tinue Amlodipine , Metoprolol , KCl, and Bumex.Cont inue to trend blood pressures, monitor lytes and renal function, and adjust meds as clinically indicated. F/U with Dr. Kwon (cards) as directed. Last seen in April 2025. Mitral valve prolapse 40 6775055 I34.1 54501 Denies symptoms related to this.Neptali nue medication s as above and supportive care. Slow trans it constipation 01495444 K59.01 8838 Stable. Continue routine Miralax, Citrucel, and PRN colace & suppositor ies.Additi onal meds available per standing orders. Generalize d anxiety disorder 69229795 F41.1 79433 Continue PRN Diazepam. This is a long standing outpatient medication . She does not take additional routine medication s related to this, although she would likely benefit from it. Continue regimen for now. Recommend further psychiatri c evaluation as OP. Vitamin D deficiency 347 85152 E55.9 28217 Presumed stable. Continue replacemen t therapy. Bilateral glaucoma 75837 31317 H40.9 23779493 Presumed stable. Continue eye drops as ordered.Ou tpatient f/u with ophtho as directed. Physical deconditioning 2227367981 9102 R53.81 068320 Related to advanced age, recent knee replacemen t surgery, and comorbidit ies.Contin ue therapies and monitor progress. She is hopeful to return home alone upon d/c from [facility]. [id number] Nancy Gee, [address] [address] 08/07/2025 09:20:01 08/08/2025 09:36:18 Localized, primary osteoarthritis 178248314 M17.11 23894676 s/p right total knee arthroplas ty.Continu e WBAT.Neptali nue PRN APAP, Tramadol, Oxycodone, and ice for discomfort .Union removed on 08/06. Monitor incision closely for healing/in fection.Co ntinue ASA BID for DVT prophylaxi s x 42 days (09/07). Omeprazole has been added for GERD prevention during this time, as well.F/U with MAMMOGRAPHY SUPERVISOR Teresa Skinner on 08/[address] Clemente Dhillon on 09/03. History of total knee arthroplasty 2975167856 105 Z96.651 13973760 SEE ABOVE... Essential hypertension 58540473 I10 72022 BPs were consistent ly elevated, improved with increase in Losartan dosing.Con tinue Amlodipine , Metoprolol , Lisinopril , KCl, and Bumex.Cont inue to trend blood pressures, monitor lytes and renal function, and adjust meds as clinically indicated. F/U with Dr. Kwon (cards) as directed. Last seen in April 2025. Mitral valve prolapse 40 9114554 I34.1 61245 Denies symptoms related to this.Neptali nue medication s as above and supportive care. Slow trans it constipation 27340016 K59.01 8838 Stable. Continue routine Miralax, Citrucel, and PRN colace & suppositor ies.Additi onal meds available per standing orders. Generalize d anxiety disorder 24069566 F41.1 19218 Continue PRN Diazepam. This is a long standing outpatient medication . She does not take additional routine medication s related to this, although she would likely benefit from it. Continue regimen for now. Recommend further psychiatri c evaluation as OP. Vitamin D deficiency 347 31659 E55.9 23104 Presumed stable. Continue replacemen t therapy. Bilateral glaucoma 26787 34084 H40.9 97596870 Presumed stable. Continue eye drops as ordered.Ou tpatient f/u with ophtho as directed. Physical deconditioning 0387381172 9102 R53.81 128549 Related to advanced age, recent knee replacemen [...] Member ID Soares Member ID Guarantor Name 08/07/2025 1 [employer] (MEDICARE REPLACEMENT/ ADVANTAGE - HMO) [id number] Carlita Yeung [id number] Carlita Yeung Notes Date Note Type Note Provider Name and Address Organization Details Recorded Time 08/07/2025 text/html F/U elective [R] total knee [...] sliver mepilex dressing prior to discharge to [facility]. She has dried, bloody drainage noted again [...] appropriately care for herself when she leaves [facility]. No nursing concerns today.---08/01/25Carlita is doing well [...] me if I would advise applying Bee Polk to her incision. I educate her to not apply anything to her incision without consulting orthopedics first, that application of a non-sterile ointment adds risk of infection to a healing incision, and I recommend against it at this time. She expresses understanding. Union were removed yesterday without concerns. DD in place today, will be removed tomorrow and left INSTRUMENTATION TECH. VSS. Staff is without concerns today. Per therapy notes = Pt measuring 115 degrees of flexion and -5 degrees of extension.... Patient ambulated 250 ft x 2 on level surfaces with a FWW, requiring SBA. Patient required cueing for navigation. Kellen Londono, DENISSE [address] [facility], [place], [address], [facility] 08/07/2025 13:37:54 OBGyn Episode No OBEpisode recorded.
--- OUTSIDE RECORDS SUMMARY | 2025-10-22 06:40 | XMS_ITS | Encounter Summary ---
Author Organization [facility] Address [address] [place] [address] Phone Care Team Providers Care Production Clerk Name Role Phone Marc Lara DO Primary Care Provider [phone] Latasha Lacy MD Primary Care Provider Valentin Ridley MD Primary Care Provider [phone] Encounter Details Date Type Department Care Team (Latest Contact Info) Description 02/20/2022 Orders Only [facility] Elliot Avila MD [address] [place] [address] Social History Tobacco Use Types Packs/Day Years Used Date Smoking Tobacco: Never Comments No Sex and Gender Information Value Date Recorded Sex Assigned at Not on file Legal Sex Female 1:13 PM SHIPPING SUPPORT Gender Identity Not on file Sexual Orientation [...] CDT COVID19 09/27/2022 09/27/2022 10/07/2022 3:05 AM SHIPPING SUPPORT COVID: Recovered Comment:Added based on recent COVID infection. 10/07/2022 10/26/2022 01/05/2023 3:[address] COVID: Suspected 01/17/2024 01/17/2024 01/17/2024 8:32 AM SHIPPING SUPPORT COVID: Suspected 01/17/2024 01/17/2024 01/17/2024 2:38 PM SHIPPING SUPPORT documented as of this encounter Care Teams Production Clerk Relationship Specialty Start Date End Date Marc Lara DO PCP - General Internal Medicine 02/27/19 10/05/22 Latasha Lacy MD PCP - General Family Practice 10/06/22 01/31/24 Valentin Ridley MD [address] [place] [address] PCP - General Family Medicine 02/01/24 documented as of this encounter
--- OUTSIDE RECORDS SUMMARY | 2025-10-22 06:41 | XMS_ITS | Encounter Summary ---
Author Organization [facility] Address [facility] [place] [address] Care Team Providers Care Pie Cutter Name Role Phone Damien Casanova MD Primary Care Provider [phone] Encounter Details Date Type Department Care Team (Late st Contact Info) Description 10/02/2017 Abstract [place] [address] , Generic Conversion, Social History Tobacco Use [...] on filedocumented in this encounter Care Teams Pie Cutter Relationship Specialty Start Date End Date Damien Casanova MD [address] [facility] [address] [address] PCP - General 12/07/15 documented as of this encounter
--- OUTSIDE RECORDS SUMMARY | 2025-10-22 06:41 | XMS_ITS | Clinical Summary ---
Author Organization [facility] Address [address] [place] [address] Care Team Providers Care Outboard Motor Tester Name Role Phone Damien Casanova MD Primary Care Provider [phone] Social History Tobacco Use Types Packs/Day Years [...] Td Vaccines ( 1 - Tdap) 1959 Pneumococcal Vaccine: 50+ Ye ars (1 of 1 - PCV) 1990 Zoster Vaccines (1 of 2) 1990 RSV Immunization or 60+ Years (1 - 1-dose 75+ series) 2015 COVID-19 Vaccine (2024-2 6 season) 2025 Influenza Adult (#1) 2025 Hepatitis A Vaccines Aged Out No long er eligible based on patient's age to complete this topic Meningococcal B Vaccine Aged Out No l onger eligible based on patient's age to complete this topic Meningococcal Vaccine Aged Out No sanam zhen eligible based on patient's age to complete this topic RSV Immunizations Under 20 Months Aged Out No longer eligible based on patient's age to complete this topic Care Teams Outboard Motor Tester Relationship Specialty Start Date End Date Damien Casanova MD [address] [facility] [address] [place] [address] PCP - General 12/07/15
--- OUTSIDE RECORDS SUMMARY | 2025-10-22 06:41 | XMS_ITS | Encounter Summary ---
Author Organization [facility] Address [address] [place] [address] Care Team Providers Care Optical Lens Manufacturing Tech Name Role Phone Damien Casanova MD Primary Care Provider [phone] Encounter Details Date Type Department Care Team (Late st Contact Info) Description 12/06/2003 Outpatient Historical [facility] Salo Rubio MD NO ADDRESS ON FILE INTESTINAL DISORDERS NEC (Primary Dx) Social History Tobacco Use Types Packs/Day Years Used Date Smoking Tobacco: Never Assessed Comments Unknown Sex and Gender Information Value Date Recorded Sex Assigned at Not on file Legal Sex Female 2:40 AM PARKER Gender Identity Not on file Sexual Orientation Not on file documented as of this encounter Plan of Treatment Not on file documented as of this encounter Visit Diagnoses Diagnosis Other specified disorder of intestines- Primary documented in this encounter Care Teams Optical Lens Manufacturing Tech Relationship Specialty Start Date End Date Damien Casanova MD [address] [place] [address] PCP - General Internal Medicine 08/07/11 documented as of this encounter
--- OUTSIDE RECORDS SUMMARY | 2025-10-22 06:41 | XMS_ITS | Encounter Summary ---
Author Organization [facility] Address [address] [place] [address] Care Team Providers Care Gymnastic Teacher Name Role Phone Valentin Ridley MD Primary Care Provider [phone] Reason for Visit * Reason Onset Date Comments Dizziness 08/13/2025 Hypertension 08/13/2025 Encounter Details Date Type Department Care Team (Late st Contact Info) Description 08/13/2025 Nurse Triage [facility] [address] [place] [address] Valentin Ridley MD [address] [place] [address] Social History Tobacco Use Types Packs/Day Years [...] more points, staff should administer the PHQ-9) 2 08/14/2025 Personal Safety Answer Date Recorded Have you ever been in or are you currently in a harmful physical or emotional relationship or is someone making you feel afraid or unsafe? Denies 12/24/2024 Comments No Sex and Gender Information Value Date Recorded Sex Assigned at Not on file Legal Sex Female 1:13 PM ANIMAL NURSE Gender Identity Not on file Sexual Orientation Not on file documented as of this encounter Functional Status * In the past year, patient experienced: Question Answer Date of Assessment Author One or more falls in the last year 0 2024 2:27 PM CDT Alba Aragon MA * BP Location Answer Date of Assessment Author Left arm 08/14/2025 2:24 PM CDT Ibis Aragon MA * BP Location Answer Date of Assessment Author Left arm 08/14/2025 2:24 PM CDT Ibis Aragon MA documented as of this encounter Miscellaneous Notes * Telephone Encounter - Ruma Dimas CMA - 08/13/2025 1:00 PM CDT Spoke w/Teena (HIPAA Verified) and made aware UA was ordered. Teena stated that patient been taking Losartan 50 mg while in hospital/rehab. Per chart states Losartan 25 mg daily. So they are going to check when get home to see what dose patient is actually taking and going to reach back out. Also patient is going to bring lab results with them tomorrow. Once hear back from Tenea will send update message to provider. * Telephone Encounter - Ruma Dimas CMA - 08/13/2025 10:[address] Ridley please dry dip worker Triage message below and advise, Thank you * Telephone Encounter - Uma Dunn RN - 08/13/2025 8:59 AM CDT Triage Disposition- see today in office. Apt scheduled tomorrow due to availability (surgeon at 1000 at [facility]) Daughter is questioning if she needs labs or UA prior to being seen tomorrow due to her sx. Daughter states that her blood counts had been low and she will bring a copy of her labs. Routing to Valentin Ridley MD Please call Teena to let her know if testing is needed prior to apt. Reason for Conversation Dizziness and Hypertension Background Reports dizziness, fatigue and elevated BP. BP this am was 181 systolic. Teena reports that these sx are not new, but worse than usual. She reports BP all over the place. Concerns regarding SNF not giving her the correct blood pressure dosing of medication. She has apt this am with her Orthopedic surgeon Disposition See Today in Office Apt scheduled for tomorrow. Teena is aware to call back or go to ED if sx worsen. She will also discuss with Orthopedic surgeon. Reason for Disposition Systolic BP >= 180 OR Diastolic >= 110 Protocols Used Blood Pressure - Buxc-Ebfsz-AM * Telephone Encounter - Uma Dunn RN - 08/13/2025 8:56 AM CDT Regarding: Dizziness, lightheaded, extreme weakness, BP high at 181/95 ----- Message from Adolph Alford sent at 08/13/2025 8:55 AM CDT ----- Symptom Based Call Chief Complaint(s): Dizziness, lightheaded, extreme body weakness, BP high at 181/95 Duration: Started months ago but has worsened over the last day at home What type of symptom(s) is the patient experiencing? Red Flag. Is the patient concerned they are experiencing a medical emergency requiring an ambulance? No Additional Comments: Patient had a knee replacement four weeks ago and was staying at a rehab facility until yesterday. Patient was given the wrong dose of losartan for three weeks while at [facility] in [place], [place]. Lab results prior to surgery showed the patient had low hemoglobin and low red blood cells with high glucose. After the patient took her medication this morningher pressure lowered to 167/81 and 143/82. Teena stated the patient's pressure is all over the place daily. Does message need to be routed? Yes-Action Needed documented in this encounter Plan of Treatment Not on file documented as of this encounter Visit Diagnoses Not on filedocumented in this encounter Care Teams Gymnastic Teacher Relationship Specialty Start Date End Date Valentin Ridley MD [address] [place] [address] PCP - General Family Medicine 02/01/24 documented as of this encounter
--- OUTSIDE RECORDS SUMMARY | 2025-10-22 06:41 | XMS_ITS | Encounter Summary ---
Author Organization [facility] Address [address] [place] [address] Care Team Providers Care Electronic Warfare Technician Name Role Phone Damien Casanova MD Primary Care Provider [phone] Encounter Details Date Type Department Care Team [...] on file Legal Sex Female 2:40 AM BLENDER/BRAZE APPLICATOR Gender Identity Not on file Sexual Orientation Not on file documented as of this encounter Plan of Treatment Not on file documented as of this encounter Visit Diagnoses Diagnosis Other specified disorder of intestines- Primary documented in this encounter Care Teams Electronic Warfare Technician Relationship Specialty Start Date End Date Damien Casanova MD [address] [place] [address] PCP - General Internal Medicine 08/07/11 documented as of this encounter
[2025-10-22 06:55] LABS: Alanine Aminotransferase 25 U/L (6-35); Albumin Level 4.3 g/dL (3.5-5.1); Alkaline Phosphatase 151 U/L (38-126); Anion Gap 6 mmol/L (4-12); Aspartate Amino Transferase 39 U/L (14-36); Bilirubin,Total 0.4 mg/dL (0.2-1.3); Blood Urea Nitrogen 19 mg/dL (7-17); Calcium 9.6 mg/dL (8.4-10.2); Carbon Dioxide 26 mmol/L (22-30); Chloride 105 mmol/L (98-107); Estimated CRCL calculation 42 ml/min; Estimated Glomerular Filt Rate > 60; Glucose 96 mg/dL (65-110); Magnesium 2.5 mg/dL (1.6-2.3); Potassium 4.0 mmol/L (3.4-5.0); Sodium 137 mmol/L (137-145); Total Protein 7.3 g/dL (6.3-8.2)
[2025-10-22 07:12] VITALS: BP 134/68; PULSE 72; RESP 17; O2SAT 97
== END 2025-10-22 07:14 | disposition home or self-care (01) ==
PROVIDERS: Emergency Provider Student in an Organized Health Care Education/Training Program; PCP Family Medicine
DX: I10 Essential (primary) hypertension (principal); E78.5 Hyperlipidemia, unspecified; F41.9 Anxiety disorder, unspecified
CPT/HCPCS: 36415; 80053; 81001; 83735; 85025; 99283

== ENCOUNTER 2025-11-05 05:38 | Emergency (ER) | payer OTHER, SELFPAY ==
--- OUTSIDE RECORDS SUMMARY | 2025-11-05 02:35 | XMS_ITS | Clinical Summary ---
Author Organization [facility] Address [address] [place] [address] Care Team Providers Care Insurance Producer Name Role Phone Valentin Ridley MD Primary Care Provider [phone] Allergies Active Allergy Reactions Criticality Noted Date Comments Sulfa (Sulfonamide Antibiotics) Unknown 03/30 Medications methylcellulose , laxative, (CITRUCEL) 500 mg tablet Active polyethylene glycol (MIRALAX) 17 gram/dose powder Active vit A/C/E ac/ZnOx/cupric oxide (EYE VITAMIN AND MINERALS ORAL) Take by mouth daily Active losartan (COZAAR) 25 mg tablet Take 1 tablet (25 mg total) by mouth daily 30 tablet 11 07/13/20 25 2025 Active diazePAM (VALIUM) 5 mg tabletIndicatio ns:EMELIA (generalized anxiety disorder) TAKE 1 TABLET BY MOUTH EVERY DAY NEEDED FOR ANXIETY 30 tablet 07/18/20 25 Active potassium chloride ER 10 mEq CR tablet TAKE 1 TABLET BY MOUTH EVERY DAY 100 tablet 1 10/13/20 25 Active Additional Information Patient not taking.Reported on 10/29/2025 amLODIPine (NORVASC) 5 mg tablet Take 1 tablet (5 mg total) by mouth daily 90 tablet 4 10/15/20 25 2025 Active cholecalciferol 25 mcg (1,000 unit) tablet Take 1 tablet (1,000 Units total) by mouth daily Active lactose-reduced food (ENSURE COMPLETE ORAL) Take by mouth A ctive metoprolol XL (TOPROL-XL) 25 mg extended release tabletIndicatio ns:Primary hypertension Take 1 tablet (25 mg total) by mouth nightly 30 tablet 2 10/29/20 Active bimatoprost (LATISSE) 0.03 % ophthalmic solution USE 1 DROP ON BOTH EYE LASH LINES EVERY DAY AT BEDTIME 04/26/20 23 2024 Discontinued(T herapy completed) amLODIPine (NORVASC) 10 mg tablet Take 1 tablet (10 mg total) by mouth daily Take with evening meal 90 tablet 4 02/07/20 25 2024 Discontinued(A lternate therapy) bumetanide (BUMEX) 0.5 mg tablet Take 1 tablet (0.5 mg total) by mouth daily 30 tablet 11 03/13/202024 Discontinued(T herapy completed) potassium chloride ER 10 mEq CR tablet TAKE 1 TABLET (10 MEQ TOTAL) BY MOUTH DAILY 90 tablet 1 04/09/20 25 2024 Discontinued metoprolol XL (TOPROL-XL) 25 mg extended release tabletIndicatio ns:Primary hypertension TAKE 1/2 TABLET BY MOUTH DAILY 45 tablet 1 06/15/20 25 2024 Discontinued(R eorder) aspirin 81 mg chewable tablet Chew 2 tablets every day by oral route for 42 days. 07/23/202024 Discontinued(T herapy completed) metoprolol XL (TOPROL-XL) 25 mg extended release tabletIndicatio ns:Primary hypertension Take 0.5 tablets (12.5 mg total) by mouth nightly 30 tablet 1 10/15/20 25 2024 Discontinued(R eorder) ciprofloxacin (CIPRO) 250 mg tablet Take 1 tablet (250 mg total) by mouth 2 (two) times a day for 7 days 14 tablet 10/18/20 25 2024 Discontinued(A lternate therapy) cephalexin (KEFLEX) 500 mg capsule Take 1 capsule (500 mg total) by mouth 2 (two) times a day for 7 days 14 capsule 10/22/20 25 2024 Active Problems Problem Noted Date Diagnosed Date [...] Assessment & Plan (02/04/2025 2:16 PM CDT): [facility] epding. Lingular pneumonia 02/04/2025 Assessment & Plan (02/04/2025 [...] 01/07/2024 Assessment & Plan (01/07/2024 9:00 AM SCRAP IRON LOADER): Avoid ear cleaning techniques Continue hearing aids Follow up in one year for ear check Bilateral impacted cerumen 01/07/2024 Assessment & Plan (01/07/2024 9:00 AM SCRAP IRON LOADER): Avoid ear cleaning techniques Continue hearing aids [...] & Plan (04/10/2025 8:43 AM CDT): See estefanía reeves above. 1. Losartan 50mg am 2. Toprol [...] (09/28/2019): Added automatically from request for surgery [id number] Decreased blood pressure, not hypotension 07/28/2016 10/06/2022 Lightheadedness 07/28/2016 10/06/2022 Weakness 07/28/2016 10/06/2022 Tachycardia 07/28/2016 10/06/2022 Closed fracture of bone 03/30/201408/29 Body mass index (BMI) 21.0-21.9, adult 04/26/2013 09/08/2023 Constipation 09/01/2011 10/06/2022 Encounters Date Type Department Care Team Description 10/31/2025 [facility]phone [facility] [address] [address] Yumiko Bowden RN 10/29/2025 10:00 AM [employer] [facility] [address] [place] [address] Valentin Ridley MD Urinary tract infection without hematuria, site unspecified (Primary Dx); Hypertension, essential; Primary open angle glaucoma of both eyes, unspecified glaucoma stage; Sleep disturbance; Primary hypertension 10/23/2025 Orders Only [facility] [address] [address] Valentin Ridley MD 10/22/2025 Orders Only [facility] [address] [address] Valentin Ridley MD 10/18/2025 Orders Only [facility] [address] [address] Valentin Ridley MD 10/15/2025 3:00 PM S[employer]AP IR[employer] LOADER Lab [facility] [address] [place] [address] Urinary tract infection without hematuria, site unspecified 10/15/2025 2:15 PM S[employer] LOADER Office Visit [facility] [address] [address] Valentin Ridley MD Urinary tract infection without hematuria, site unspecified (Primary Dx); Primary hypertension 09/25/2025 Nurse Triage [facility] [address] [address] Valentin Ridley MD 08/17/2025 Orders Only [facility] [address] [address] Valentin Ridley MD 08/15/2025 Orders Only [facility] [address] [address] Valentin Ridley MD 08/14/2025 3:00 PM CDT Lab [facility] [address] [place] [address] Dyspnea on exertion; Dysuria 08/14/2025 2:15 PM CDT Office Visit [facility] [address] [address] Valentin Ridley MD Dyspnea on exertion (Primary Dx); Hypertension, essential 08/13/2025 Orders Only [facility] [address] [address] Valentin Ridley MD Dysuria (Primary Dx) 08/13/2025 Nurse Triage [facility] [address] [address] Valentin Ridley MD from Last 3 Months Immunizations Immunization Administration Dates Next Due COVID-19 mRNA ([employer]) 0.3 m L (30 mcg) vaccine (12 [...] Unspecified 11/29/2023(Deferr ed: Patient Refused),11/29/2022(Deferred: Patient Refused) [employer] SARS-CoV-2 Monovalent Vaccination (12+ Yrs) PURPLE 11/29/2020 Pneumococcal Conjugate PCV 13 12/26/2018 Pneumococcal Polysaccharide PPV23 07/19/2020 RSV Vaccine, Pref, Recombina nt, Subunit, Adjuvanted, PF, IM (Arexvy) 09/13/2023 Tdap 09/08/2023 ZOSTER LIVE 04/18/2019,12/26/2018 ZOSTER Recombinant 04/18/2019,12/26/2018 Surgical History Surgery Date Site/Laterality Comments ORIF PROXIMAL ULNA FRACTURE 11/29/2013 - 11/28/2014 Right APPENDECTOMY 1950 HYSTERECTOMY 1974[address] Wyatt SMALL INTESTINE SURGERY hemorrhoidectomy 1980 OTHER SURGICAL HISTORY bowel obstruction ABDOMINAL SURGERY blocked bowel 1974 CARDIAC VALVE REPLACEMENT no replacement, have mitral valve prolapse Medical History Medical History Date Comments HTN (hypertension) Cataract Glaucoma borderline Anxiety MVP (mitral valve prolapse) Family History Medical History Relation Name Comments Arthritis Father Dr. Boy Alcocer Bladder Cancer Father Dr. Boy Alcocer Cancer Father Dr. Boy Alcocer Heart failure Father Dr. Boy Alcocer Stroke Father Dr. Boy Alcocer TIA. Fami ly history of cerebrovascular accident - (Added by TW Conv)/Family history of stroke - (Added by TW Conv) Breast cancer Mother Perez Lani Cancer Mother Perez Lani Hypertension Mother Perez Alcocer Relation Name Status [...] points, staff should administer the PHQ-9) 0 10/29/2025 Personal Safety Answer Date Recorded Have you ever been in or are you currently in a harmful physical or emotional relationship or is someone making you feel afraid or unsafe? Denies 12/24/2024 Comments No Sex and Gender Information Value Date Recorded Sex Assigned at Not on file Legal Sex Female 1:13 PM SCRAP IR[employer] LOADER Gender Identity Not on file Sexual Orientation Not on file Last Filed Vital Signs Vital Sign Reading Time Taken Comments Blood Pressure 122/68 10/29/2025 10:11 AM S[employer]AP IR[employer] LOADER Pulse 74 10/29/2025 10:11 AM S[employer] LO[employer]ER Temperature 36.6 C (97.9 F) 10/29/2025 10:11 AM S[employer] IR[employer] LO[employer]ER Respiratory Rate 16 10/29/2025 10:11 AM SCRAP IR[employer] LOADER Oxygen Saturation 99% 10/29/2025 10:11 AM SCR[employer] LOADER room air Inhaled Oxygen Concentration - - Weight 54.9 kg (121 lb) 10/29/2025 10:11 AM SCRAP IR[employer] LOADER Height 162.6 cm (5' 4) 10/29/2025 10:11 AM SCRAP IR[employer] LOADER Body Mass Index 20.77 10/29/2025 10:11 AM SCRAP IR[employer] LOADER Plan of Treatment Health Maintenance Due Date Last Done Comments Hepatitis B Screening 1958 Osteoporosis Screening-Bone Density Scan 11/05/2023 11/05/2021 Covid-19 Vaccine (2024-12 6 season) 2025 08/07/2024, 09/13/2023, 09/07/2022, Additional history exists Well Visit 65+ 02/06/2026 02/06/2025, 09/08/2023 Fall Risk Assessment 10/15/2026 10/15/2025, 08/14/2025, 03/06/2025, Additional history exists Depression Screening 10/29/2026 10/29/2025, 10/15/2025, 08/14/2025, Additional history exists DTaP/Tdap/Td Vaccine (2 - Td or Tdap) 09/08/2033 09/08/2023 Zoster Vaccine Completed 04/18/2019, 03/30, 12/26/2018, Additional history exists Pneumococcal vaccine 65+ Completed 07/19/2020, 11/30 Influenza Vaccine Completed 07/01/2025, , 09/13/2023, Additional history exists Procedures Procedure Name Priority Date/Time Associated Diagnosis Comments SCAN - LABS 10/22/2025 EGFR Routine 10/15/2025 3:00 PM S[employer] LO[employer]ER Urinary tract infection without hematuria, site unspecified URINALYSIS, MICROSCOPIC ONLY Routine 10/15/2025 3:00 PM [employer] LO[employer]ER Urinary tract infection without hematuria, site unspecified DIFFERENTIAL AUTO Routine 10/15/2025 3:0 0 PM [employer]ER Urinary tract infection without hematuria, site unspecified CBC WITH AUTO DIFFERENTIAL Routine 10/15/2025 3:00 PM [employer] LO[employer]ER Urinary tract infection without hematuria, site unspecified RENAL FUNCTION PANEL Routine 10/15/2025 3:00 PM [employer] LO[employer]ER Urinary tract infection without hematuria, site unspecified URINE CULTURE Routine 10/15/2025 3:00 PM S[employer] LOADER URINALYSIS AND REFLEX TO MICROSCOPIC AND CULTURE Routine 10/15/2025 3:00 PM S[employer] LO[employer]ER Urinary tract infection without hematuria, site unspecified [...] Recently Relevant to Health Maintenance Results * SCAN - LABS (10/22/2025) us Provider Scanning Final Result * eGFR (10/15/2025 3:00 PM SCRAP IR[employer] LOADER) eGFR 73 >=60 mL/min/1. 73 m2 Comment: [...] was last reviewed 2021. Testing performed by: [address], [address] Blood 10/15/2025 3:00 PM S[employer] LO[employer]ER 10/15/2025 8:26 PM [employer] LO[employer]ER Valentin Ridley MD LAB BLOOD ORDERABLES Bhavna oreilly Result [facility] BLOCK ([place]) 1 [facility] [place] [address] * (ABNORMAL) Differential, auto (10/15/2025 3:00 PM SCRAP IR[employer] LOADER) Neutrophil abs 5.32 1.50 - 6.50 K/cumm Comment:Testing performed by : [address] [address] Imm gran abs 0.02 0.00 - 0.10 K/cumm [facility] ([place]) Comment:Testing performed by : [address], [address] Lymphocyte abs 1.56 0.80 - 3.30 K/cumm [facility] ([place]) Comment:Testing performed by : [address] [address] Monocyte abs 0.94(H) 0.20 - 0.80 K/cumm [facility] ([place]) Comment:Testing performed by : [address], [place]., [address] Eosinophil abs 0.08 0.00 - 0.50 K/cumm [facility] ([place]) Comment:Testing performed by : [address] [address] Basophil abs 0.09 0.00 - 0.10 K/cumm [facility] ([place]) Comment:Testing performed by : [address] [address] Neutrophil pct 66.5 % [facility] ([place]) Comment: Interpretive Data Percent cell count reference ranges are not reported, since discordance with absolute values may lead to misinterpretation of CBC data. Current Interpretive Data was last revised on 2018. Testing performed by: [address] [address] Imm gran pct 0.2 % [facility] ([place]) Comment: Interpretive Data Percent cell count reference ranges are not reported, since discordance with absolute values may lead to misinterpretation of CBC data. Current Interpretive Data was last revised on 2018. Testing performed by: [address] [address] Lymphocyte pct 19.5 % [facility] ([place]) Comment: Interpretive Data Percent cell count reference ranges are not reported, since discordance with absolute values may lead to misinterpretation of CBC data. Current Interpretive Data was last revised on 2018. Testing performed by: [address] [address] Monocyte pct 11.7 % [facility] ([place]) Comment: Interpretive Data Percent cell count reference ranges are not reported, since discordance with absolute values may lead to misinterpretation of CBC data. Current Interpretive Data was last revised on 2018. Testing performed by: [address] [address] Eosinophil pct 1.0 % [facility] ([place]) Comment: Interpretive Data Percent cell count reference ranges are not reported, since discordance with absolute values may lead to misinterpretation of CBC data. Current Interpretive Data was last revised on 2018. Testing performed by: [address] [address] Basophil pct 1.1 % RAD[facility] BLOCK ([place]) Comment: Interpretive Data Percent cell count reference ranges are not reported, since discordance with absolute values may lead to misinterpretation of CBC data. Current Interpretive Data was last revised on 2018. Testing performed by: [facility], [address] [place] [address]., [address] Blood 10/15/2025 3:00 PM S[employer] LO[employer]ER 10/15/2025 8:15 PM [employer] LOADER us Valentin Ridley MD LAB BLOOD ORDERABLES Bhavna afia Result [facility] BLOCK ([place]) 1 [facility] Department [place] [address] * (ABNORMAL) Urinalysis reflex to microscopic and culture Urine (10/15/2025 3:00 PM SCRAP IR[employer] LOADER) Color, ur Yellow Yellow Comment:Testing performed by : [address] [address] Clarity, ur Clear Clear RADHA Jaeger ([place]) Comment:Testing performed by : [address] [address] Specific gravity, ur 1.014 1.003 - 1.030 [facility] BLOCK ([place]) Comment:Testing performed by : [address] [address] pH, urine 6.0 [facility] BLOCK ([place]) Comment: Interpretive Data U rine pH is affected by diet, medications, systemic acid-base disturbances, and renal tubular function. pH may affect urinary stone formation. For example, urine pH below 6.0 may help reduce the tendency for calcium phosphate stones and pH greater than 6.0 may reduce the tendency for uric acid stone formation. Source: [facility] Current Interpretive Data was last revised on 2017 Testing performed by: [address] [address] Protein, ur ql Negative Negative [facility] ([place]) Comment:Testing performed by : [address] [address] Glucose, ur ql Negative Negative [facility] ([place]) Comment:Testing performed by : [facility], [address] [place] [address]., [address] Ketones, ur Negative Negative C[facility]ER A ([place]) Comment:Testing performed by : [address] [address] Bilirubin, ur Negative Negative [facility] ([place]) Comment:Testing performed by : [address], [address] Blood, ur Negative Negative [facility] ([place]) Comment:Testing performed by : [address], [address] Urobilinogen, ur <2.0 <2.0 mg/dL [facility] ([place]) Comment:Testing performed by : [address], [address] Nitrite, ur Negative Negative [facility] A ([place]) Comment:Testing performed by : [address], [address] Leukocyte esterase, ur 1+(A) Negative [facility] ([place]) Comment:Testing performed by : [address], [address] UA reflex comment Reflex to microscopic UA will be performed. [facility] BLOCK ([place]) Comment:Testing performed by : [address], [address] Urine 10/15/2025 3:00 PM S[employer] IR[employer] LO[employer]ER 10/15/2025 8:15 PM S[employer] IR[employer] LOADER us Valentin Ridley MD LAB MICROBIOLOGY - GENERA L ORDERABLES Final Result [facility] BLOCK ([place]) 1 [facility] Department [place] [address] * (ABNORMAL) CBC with auto differential (10/15/2025 3:00 PM SCRAP [employer] LOADER) WBC 8.01 3.80 - 9.90 K/cumm Comment:Testing performed by : [address], [address] Hgb 13.4 11.9 - 15.5 g/dL [facility] ([place]) Comment:Testing performed by : [facility], [address] [place] [address], [address] Hct 42.1 35.6 - 45.5 % [facility] ([place]) Comment:Testing performed by : [address], [address] Plt 350 150 - 400 K/cumm [facility] ([place]) Comment:Testing performed by : [address], [address] MPV 9.6 9.1 - 12.3 fL [facility] ([place]) Comment:Testing performed by : [address], [address] RBC 4.68 3.90 - 5.20 M/cumm [facility] ([place]) Comment:Testing performed by : [address], [address] MCV 90.0 81.3 - 96.4 fL [facility] ([place]) Comment:Testing performed by : [address], [address] MCH 28.6 27.1 - 33.3 pg [facility] ([place]) Comment:Testing performed by : [address], [address] MCHC 31.8(L) 32.3 - 35.7 g/dL [facility] ([place]) Comment:Testing performed by : [address], [address] RDW CV 14.4 11.1 - 14.9 % [facility] ([place]) Comment:Testing performed by : [address], [address] RDW SD 47.8 35.7 - 48.1 fL [facility] ([place]) Comment:Testing performed by : [address], [address] NRBC abs 0.00 0.00 - 0.01 K/cumm [facility] ([place]) Comment:Testing performed by : [address], [address] Blood 10/15/2025 3:00 PM S[employer] IR[employer] LO[employer]ER 10/15/2025 8:15 PM [employer] LO[employer]ER Valentin Ridley MD LAB BLOOD ORDERABLES Bhavna l Result Performing Organization Address City/[facility]/ZIP Co de Phone Number RADHA BLOCK ([place]) 1 [facility] [place] [address] * (ABNORMAL) Urinalysis, microscopic only (10/15/2025 3:00 PM SCRAP IR[employer] LOADER) WBC, ur 11-20(A) 0 - 5 /HPF Comment:Testing performed by : [facility], [address] [place] [address], [address] RBC, ur 3-5(A) 0 - 2 /HPF [facility] BLOCK ([place]) Comment:Testing performed by : [facility], [address] [place] [address], [address] Bacteria, ur 1+(A) [facility] BLOCK ([place]) Comment:Testing performed by : [facility], [address] [place] [address], [address] Mucous, ur Present(A) RAD[facility] Jaeger ([place]) Comment:Testing performed by : [facility], [address] [place] [address], [address] Hyaline casts, ur 1-5 0 - 10 /LPF [facility] ([place]) Comment:Testing performed by : [address], [address] Culture Reflex Comment Reflex to urine culture will be performed. [facility] BLOCK ([place]) Comment:Testing performed by : [facility], [address] [place] [address], [address] Urine 10/15/2025 3:00 PM S[employer] LOADER 10/15/2025 8:15 PM [employer] LO[employer]ER Valentin Ridley MD LAB URINE ORDERABLES Bhavna l Result Performing Organization Address City/[facility]/ZIP Co de Phone Number RAD[facility] BLOCK ([place]) [address] [place] [address] * (ABNORMAL) Urine culture Urine (10/15/2025 3:00 PM SCRAP IR[employer] LOADER) Report Final Report: Greater than or equal to 100,000 colonies/mL of Klebsiella pneumoniae (.) Comment:Testing performed by : [facility], [address] [place]., [address] Organism KLEBSIELLA PNEUMONIAE [facility] ([place]) Urine 10/15/2025 3:00 PM [employer] LO[employer]ER 10/15/2025 11:46 PM [employer] LOADER Narrative [facility] ([place]) - 10/17/2025 1:56 PM S[employer] IR[employer] LOADER Urine culture reflexed based upon urinalysis results. Testing performed by [facility] ([phone]) Organism Antibiotic Method Susceptibility Klebsiella pneumoniae Ampicillin [...] ORDERABLES Final Result RADHA BLOCK ([place]) 1 [facility] Department [place] [address] * Renal function panel (10/15/2025 3:00 PM SCR[employer] LO[employer]ER) Sodium 139 135 - 145 mmol/L Comment:Testing performed by : [facility], [address] [place] [address]., [address] Potassium, pl 4.1 3.3 - 4.9 mmol/L [facility] ([place]) Comment:Testing performed by : [facility], [address] [place] [address]., [address] Chloride 100 97 - 110 mmol/L [facility] ([place]) Comment:Testing performed by : [facility], [address] [place] [address], [address] CO2 26 22 - 32 mmol/L [facility] BLOCK ([place]) Comment:Testing performed by : [facility], [address], [place]., [address] Anion gap 13 2 - 15 mmol/L [facility] ([place]) Comment:Testing performed by : [address] [address] BUN 24 6 - 25 mg/dL [facility] ([place]) Comment:Testing performed by : [address], [address] Creatinine 0.79 0.60 - 1.10 mg/dL [facility] ([place]) Comment:Testing performed by : [address], [address] Glucose 116 70 - 199 mg/dL [facility] ([place]) Comment: Interpretive Data Fasting glucose [...] was last revised 2022. Testing performed by: [facility], [address] [place] [address], [address] Calcium 9.3 8.5 - 10.3 mg/dL [facility] ([place]) Comment:Testing performed by : [address] [address] Phosphorus, pl 3.8 2.3 - 4.5 mg/dL [facility] ([place]) Comment:Testing performed by : [address], [address] Albumin 4.4 3.5 - 5.0 g/dL [facility] ([place]) Comment:Testing performed by : [address], [address] Blood 10/15/2025 3:00 PM S[employer] IR[employer] LOADER 10/15/2025 8:15 PM [employer] LOADER us Valentin Ridley MD LAB BLOOD ORDERABLES Bhavna l Result RADHA BLOCK ([place]) 1 [facility] [place] [address] * eGFR (08/14/2025 3:04 PM CDT) eGFR [...] was last reviewed 2021. Testing performed by: [address] [address] Blood 08/14/2025 3:04 PM CDT 08/14/2025 7:59 PM CDT us Valentin Ridley MD LAB BLOOD ORDERABLES Bhavna oreilly Result [facility] BLOCK ([place]) 1 [facility] Department [place] [address] * (ABNORMAL) Differential, auto (08/14/2025 3:04 PM CDT) Neutrophil abs 6.67(H) 1.50 - 6.50 K/cumm Comment:Testing performed by : [address] [address] Imm gran abs 0.04 0.00 - 0.10 K/cumm PRAKASHJOSEPH UMAIR ([place]) Comment:Testing performed by : [address], [place]., [address] Lymphocyte abs 1.00 0.80 - 3.30 K/cumm [facility] ([place]) Comment:Testing performed by : [facility], [address] [place] [address]., [address] Monocyte abs 0.84(H) 0.20 - 0.80 K/cumm [facility] ([place]) Comment:Testing performed by : [facility], [address] [place] [address]., [address] Eosinophil abs 0.07 0.00 - 0.50 K/cumm [facility] ([place]) Comment:Testing performed by : [facility], [address] [place] [address]., [address] Basophil abs 0.06 0.00 - 0.10 K/cumm [facility] ([place]) Comment:Testing performed by : [address] [address] Neutrophil pct 76.8 % [facility] ([place]) Comment: Interpretive Data Percent cell count reference ranges are not reported, since discordance with absolute values may lead to misinterpretation of CBC data. Current Interpretive Data was last revised on 2018. Testing performed by: [address] [address] Imm gran pct 0.5 % [facility] ([place]) Comment: Interpretive Data Percent cell count reference ranges are not reported, since discordance with absolute values may lead to misinterpretation of CBC data. Current Interpretive Data was last revised on 2018. Testing performed by: [address] [address] Lymphocyte pct 11.5 % [facility] ([place]) Comment: Interpretive Data Percent cell count reference ranges are not reported, since discordance with absolute values may lead to misinterpretation of CBC data. Current Interpretive Data was last revised on 2018. Testing performed by: [address] [address] Monocyte pct 9.7 % [facility] ([place]) Comment: Interpretive Data Percent cell count reference ranges are not reported, since discordance with absolute values may lead to misinterpretation of CBC data. Current Interpretive Data was last revised on 2018. Testing performed by: [facility], [address] [place] [address]., [address] Eosinophil pct 0.8 % ADELINA BLOCK ([place]) Comment: Interpretive Data Percent cell count reference ranges are not reported, since discordance with absolute values may lead to misinterpretation of CBC data. Current Interpretive Data was last revised on 2018. Testing performed by: [facility], [address] [place] [address]., [address] Basophil pct 0.7 % RADHA BLOCK ([place]) Comment: Interpretive Data Percent cell count reference ranges are not reported, since discordance with absolute values may lead to misinterpretation of CBC data. Current Interpretive Data was last revised on 2018. Testing performed by: [facility], [address] [place] [address]., [id number] Blood 08/14/2025 3:04 PM CDT 08/14/2025 7:48 PM CDT Valentin Ridley MD LAB BLOOD ORDERABLES Bhavna oreilly Result RADHA BLOCK ([place]) 1 [facility] Department of Laboratories [place], [place] [id number] * (ABNORMAL) Pro B-type natriuretic peptide (08/14/2025 [...] Last Revised Date: 2018. Testing performed by: [address] [id number] Blood 08/14/2025 3:04 PM CDT 08/14/2025 7:48 PM CDT Valentin Ridley MD LAB BLOOD ORDERABLES Bhavna oreilly Result RADHA BLOCK ([place]) 1 [facility] Department [place] [address] * (ABNORMAL) Urinalysis reflex to microscopic and culture Urine (08/14/2025 3:04 PM CDT) Color, ur Yellow Yellow Comment:Testing performed by : [address] [address] Clarity, ur Clear Clear RADHA Jaeger ([place]) Comment:Testing performed by : [address] [address] Specific gravity, ur 1.025 1.003 - 1.030 RADHA BLOCK ([place]) Comment:Testing performed by : [address] [address] pH, urine 5.5 RADHA BLOCK ([place]) Comment: Interpretive Data U rine pH is affected by diet, medications, systemic acid-base disturbances, and renal tubular function. pH may affect urinary stone formation. For example, urine pH below 6.0 may help reduce the tendency for calcium phosphate stones and pH greater than 6.0 may reduce the tendency for uric acid stone formation. Source: [facility] Current Interpretive Data was last revised on 2017 Testing performed by: [facility], [address] [place] [address]., [address] Protein, ur ql Trace Negative [facility] ([place]) Comment:Testing performed by : [address], [address] Glucose, ur ql Negative Negative [facility] ([place]) Comment:Testing performed by : [address], [address] Ketones, ur Negative Negative [facility] ([place]) Comment:Testing performed by : [address], [address] Bilirubin, ur Negative Negative [facility] ([place]) Comment:Testing performed by : [facility], [address] [place] [address], [address] Blood, ur Negative Negative [facility] ([place]) Comment:Testing performed by : [address], [address] Urobilinogen, ur <2.0 <2.0 mg/dL [facility] ([place]) Comment:Testing performed by : [address], [address] Nitrite, ur Negative Negative [facility] ([place]) Comment:Testing performed by : [address], [address] Leukocyte esterase, ur 4+(A) Negative [facility] ([place]) Comment:Testing performed by : [address], [address] UA reflex comment Reflex to microscopic UA will be performed. [facility] ([place]) Comment:Testing performed by : [address], [address] Urine 08/14/2025 3:04 PM CDT 08/14/2025 7:48 PM CDT us Valentin Ridley MD LAB MICROBIOLOGY - GENERA L ORDERABLES Final Result RADHA BLOCK ([place]) 1 [facility] Department [place] [address] * (ABNORMAL) CBC with auto differential (08/14/2025 3:04 PM CDT) WBC 8.68 3.80 - 9.90 K/cumm Comment:Testing performed by : [address], [address] Hgb 11.4(L) 11.9 - 15.5 g/dL [facility] ([place]) Comment:Testing performed by : [address], [address] Hct 36.6 35.6 - 45.5 % [facility] ([place]) Comment:Testing performed by : [address], [address] Plt 544(H) 150 - 400 K/cumm [facility] ([place]) Comment:Testing performed by : [address], [address] MPV 9.2 9.1 - 12.3 fL [facility] ([place]) Comment:Testing performed by : [address], [address] RBC 3.87(L) 3.90 - 5.20 M/cumm [facility] ([place]) Comment:Testing performed by : [address], [address] MCV 94.6 81.3 - 96.4 fL [facility] ([place]) Comment:Testing performed by : [address], [address] MCH 29.5 27.1 - 33.3 pg [facility] ([place]) Comment:Testing performed by : [address], [address] MCHC 31.1(L) 32.3 - 35.7 g/dL [facility] ([place]) Comment:Testing performed by : [address], [address] RDW CV 15.3(H) 11.1 - 14.9 % [facility] ([place]) Comment:Testing performed by : [address], [address] RDW SD 52.9(H) 35.7 - 48.1 fL RADHA BLOCK ([place]) Comment:Testing performed by : [facility], [address] [place] [address]., [address] NRBC abs 0.00 0.00 - 0.01 K/cumm RAD[facility] BLOCK ([place]) Comment:Testing performed by : [address], [address] Blood 08/14/2025 3:04 PM CDT 08/14/2025 7:48 PM CDT us Valentin Ridley MD LAB BLOOD ORDERABLES Bhavna oreilly Result RADHA BLOCK ([place]) 1 [facility] Department [place] [address] * (ABNORMAL) Urinalysis, microscopic only (08/14/2025 3:04 PM CDT) WBC, ur 21-50(A) 0 - 5 /HPF Comment:Testing performed by : [address], [address] RBC, ur 11-20(A) 0 - 2 /HPF [facility] ([place]) Comment:Testing performed by : [address], [address] Epithelial cells, squamous, ur 1-5 0 - 5 /HPF RADHA BLOCK ([place]) Comment:Testing performed by : [address], [address] Bacteria, ur 1+(A) RADHA BLOCK ([place]) Comment:Testing performed by : [facility], [address] [place] [address], [address] Mucous, ur Present(A) RADHA Jaeger ([place]) Comment:Testing performed by : [address], [address] Calcium oxalate crystals, ur 3+(A) RADHA BLOCK ([place]) Comment:Testing performed by : [address], [address] Hyaline casts, ur 1-5 0 - 10 /LPF [facility] ([place]) Comment:Testing performed by : [facility], [address] [place] [address]., [address] Culture Reflex Comment Reflex to urine culture will be performed. RADHA BLOCK ([place]) Comment:Testing performed by : [facility], [address] [place] [address]., [address] Urine 08/14/2025 3:04 PM CDT 08/14/2025 7:48 PM CDT Valentin Ridley MD LAB URINE ORDERABLES Bhavna l Result Performing Organization Address City/[facility]/ZIP Co de Phone Number RADHA BLOCK ([place]) 1 [facility] Department [place] [address] * (ABNORMAL) Urine culture Urine (08/14/2025 3:04 PM CDT) Report Final Report: Greater than or equal to 100,000 colonies/mL of Klebsiella pneumoniae (.) Comment:Testing performed by : [facility], 1 [facility], [address] Organism KLEBSIELLA PNEUMONIAE RADHA BLOCK ([place]) Urine 08/14/2025 3:04 PM CDT 08/14/2025 10:07 PM CDT Narrative RADHA BLOCK ([place]) - 08/17/2025 6:21 AM CDT Urine culture reflexed based upon urinalysis results. Testing performed by [facility] ([phone]) Organism Antibiotic Method Susceptibility Klebsiella pneumoniae Ampicillin [...] INTERPRETATION Susceptible Klebsiella pneumoniae Cefdinir INTERPRETATION Susceptible Valentin Ridley MD LAB MICROBIOLOGY - GENERA L ORDERABLES Final Result RADHA BLOCK ([place]) 1 [facility] Department [place] [address] * (ABNORMAL) Comprehensive metabolic panel (08/14/2025 3:04 PM CDT) Sodium 135 135 - 145 mmol/L Comment:Testing performed by : [facility], [address] [place] [address]., [address] Potassium, pl 4.0 3.3 - 4.9 mmol/L RADHA BLOCK ([place]) Comment:Testing performed by : [facility], [address] [place] [address]., [address] Chloride 95(L) 97 - 110 mmol/L [facility] ([place]) Comment:Testing performed by : [facility], [address] [place] [address]., [address] CO2 25 22 - 32 mmol/L [facility] ([place]) Comment:Testing performed by : [facility], [address] [place] [address]., [address] Anion gap 15 2 - 15 mmol/L RADHA BLOCK ([place]) Comment:Testing performed by : [facility], [address] [place] [address]., [address] BUN 20 6 - 25 mg/dL [facility] ([place]) Comment:Testing performed by : [facility], [address] [place] [address]., [address] Creatinine 0.77 0.60 - 1.10 mg/dL [facility] ([place]) Comment:Testing performed by : [address] [address] Glucose 109 70 - 199 mg/dL [facility] ([place]) Comment: Interpretive Data Fasting glucose >/= [...] was last revised 2022. Testing performed by: [address] [address] Calcium 9.7 8.5 - 10.3 mg/dL [facility] ([place]) Comment:Testing performed by : [facility], [address] [place] [address], [address] Bilirubin, total 0.3 0.1 - 1.2 mg/dL [facility] ([place]) Comment:Testing performed by : [facility], [address] [place] [address], [address] Protein, pl 6.9 6.5 - 8.5 g/dL [facility] ([place]) Comment:Testing performed by : [facility], [address] [place] [address], [address] Albumin 4.1 3.5 - 5.0 g/dL [facility] ([place]) Comment:Testing performed by : [facility], [address] [place] [address], [address] Alk phos 190(H) 40 - 130 Units/L [facility] ([place]) Comment:Testing performed by : [address], [address] ALT 40 7 - 45 Units/L [facility] ([place]) Comment:Testing performed by : [facility], [address] [place] [address], [address] AST 41 10 - 45 Units/L [facility] ([place]) Comment:Testing performed by : [address], [address] Blood 08/14/2025 3:04 PM CDT 08/14/2025 7:48 PM CDT Valentin Ridley MD LAB BLOOD ORDERABLES Bhavna oreilly Result [facility] ([place]) 1 [facility] [place] [address] * DEXA SCAN (11/05/2021) Historical Provider HEALTH MAINTENANCE Final Result from Last 3 Months or Most Recently Relevant to Health Maintenance Insurance [facility]MO [facility] Advance Directives For more information, please contact: [phone] * Full Code (Latest Code Status on File) Date Activated Date Inactivated Comments 12/01/2019 10:52 AM 12/01/2019 5:41 PM Care Teams Insurance Producer Relationship Specialty Start Date End Date Valentin Ridley MD [address] [place] [address] PCP - General Family Medicine 02/01/24
--- OUTSIDE RECORDS SUMMARY | 2025-11-05 02:35 | XMS_ITS | Encounter Summary ---
Author Organization [employer] Address 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
--- OUTSIDE RECORDS SUMMARY | 2025-11-05 02:35 | XMS_ITS | Clinical Summary ---
Author Organization 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
--- OUTSIDE RECORDS SUMMARY | 2025-11-05 02:35 | XMS_ITS | Encounter Summary ---
Author Organization [facility] [place] Address On license of [facility] [place] [address] Care Team Providers Care Quality Specialist Name Role Phone Damien Casanova MD Primary Care Provider [phone] Encounter Details Date Type Department Care Team (Late st Contact Info) Description 10/02/2017 Abstract [place] [address] , Generic Conversion, Social History Tobacco Use [...] on filedocumented in this encounter Care Teams Quality Specialist Relationship Specialty Start Date End Date Damien Casanova MD [address] [facility] [address] [address] PCP - General 12/07/15 documented as of this encounter
--- OUTSIDE RECORDS SUMMARY | 2025-11-05 02:35 | XMS_ITS | Clinical Summary ---
Author Organization [facility] Address [address] [place] [address] Care Team Providers Care Leasing Professional Name Role Phone Damien Casanova MD Primary Care Provider [phone] Social History Tobacco Use Types Packs/Day Years [...] age to complete this topic Care Teams Leasing Professional Relationship Specialty Start Date End Date Damien Casanova MD [address] [facility] [address] [place] [address] PCP - General 12/07/15
--- OUTSIDE RECORDS SUMMARY | 2025-11-05 02:35 | XMS_ITS | Encounter Summary ---
Author Organization [facility] [place] [facility] Address [address] [place] [address] Phone Care Team Providers Care Floor Coverer Name Role Phone Marc Lara DO Primary Care Provider [phone] Latasha Lacy MD Primary Care Provider Valentin Ridley MD Primary Care Provider [phone] Encounter Details Date Type Department Care Team (Latest Contact Info) Description 02/20/2022 Orders Only [facility] Elliot Avila MD [address] [place] [address] Social History Tobacco Use Types Packs/Day Years Used Date Smoking Tobacco: Never Comments No Sex and Gender Information Value Date Recorded Sex Assigned at Not on file Legal Sex Female 1:13 PM CHLORINATOR OPERATOR Gender Identity Not on file Sexual [...] CDT COVID19 09/27/2022 09/27/2022 10/07/2022 3:05 AM CHLORINATOR OPERATOR COVID: Recovered Comment:Added based on recent COVID infection. 10/07/2022 10/26/2022 01/05/2023 3:[address] COVID: Suspected 01/17/2024 01/17/2024 01/17/2024 8:32 AM CHLORINATOR OPERATOR COVID: Suspected 01/17/2024 01/17/2024 01/17/2024 2:38 PM CHLORINATOR OPERATOR documented as of this encounter Care Teams Floor Coverer Relationship Specialty Start Date End Date Marc Lara DO PCP - General Internal Medicine 02/27/19 10/05/22 Latasha Lacy MD PCP - General Family Practice 10/06/22 01/31/24 Valentin Ridley MD [address] [place] [address] PCP - General Family Medicine 02/01/24 documented as of this encounter
--- OUTSIDE RECORDS SUMMARY | 2025-11-05 02:35 | XMS_ITS | Continuity of Care Document ---
Author Organization [place] [facility], [facility] [place] Address [address] [place] [address] Care Team Providers Care General Accounting Manager Name Role Phone [facility] FAX OTHER TEJAS GRAJEDA Primary Care Provider Assessment Encounter Date Assessment Date Assessment LastModified by Organization Details LastModified Time 08/09/2025 08/09/2025 Carlita plans to d/c home on 08/[address] [facility]. Not available 08/09/2025 17:11:33 Plan of Treatment Reminders Order Date Submit Date Provider Last Modified By Organization Details Last Modified Time Details Appointments None recorded. Lab None recorded. Referral None recorded. Procedures None recorded. Surgeries None recorded. Imaging None recorded. Medication Orders losartan 50 mg tablet 2024 025 [facility] #[id number], [address] [place], [address], 17:14:09 Patient TargetsNo targets recorded. Patient Instructions Encounter Date Encounter Id Patient Instructions Last Modified By Organization Details Last Modified Time 08/09/2025 [id number] I spent 40 minutes providing care to [...] Recorded Time appendectomy completed Trevor Carrington [facility] 07/28/2025 00:33:36 operative procedure on elbow completed Trevor Carrington [facility] 07/28/2025 00:33:53 Hemorrhoidectomy completed Trevor [facility] 07/28/2025 00:34:02 hysterectomy completed Trevor [facility] 07/28/2025 00:34:09 Imaging Results None recorded. Procedure Notes None recorded. Medical Equipment None Reported. Allergies Allergen ID Allergen Name Allergen Category Reaction Reaction Severity Criticality Documentation Date Start Date Code Code System Note Provider Name and Address Organization Details Recorded Time 22488 Substance with sulfonami de structure and antibacte rial mechanism of action (substanc e) medicatio n Not available Not available Not available 07/28/2025 [address] [facility] 00:23:22 74468 sulfameth oxazole / trimethop rim medicatio n Not available Not available Not available 07/28/[address] [facility] 00:34:21 Medications Name Sig Start Date [...] [degF] 18 /min 96 % 20.5 kg/m2 52695.5 7 g 131/72 mm[Hg] Kellen Londono, DENISSE [address] [place], [address], [facility] 16:32:21 Social History Question Answer Notes LastModified by Organizat [employer] Details LastModified Time Tobacco Sm[place] [address] [place], [address], [facility] 08/02/2025 04:09:47 What Is Your [...] ICD10 Code Diagnosis IMO Codes Diagnosis Note [id number] Nancy Gee DO [address] [place] [address] [place] [address] 07/30/2025 16:51:15 08/08/2025 09:37:01 Localized, primary osteoarthritis 212388794 M17.11 45809041 s/p right total knee arthroplas tyWBATcurr ent [...] prn, meloxicam will be d/c'd Essential hypertension 93682546 I10 34211 continue amlodipine , metoprolol , losartan and bumextrend pressures and adjust meds as clinically indicated Vitamin D deficiency 347 64089 E55.9 38701 continue replacemen t therapy Slow trans it constipation 51468402 K59.01 8838 continue routine miralax and citrucelad ditional meds available per standing orders Bilateral glaucoma 69850 47783 H40.9 48830926 continue eye drops as ordered - outpatient f/u with ophtho Generalize d anxiety disorder 23002583 F41.1 50262 continue daily diazepam - this is a long standing outpatient medication she does not take additional routine medication s related to this - monitor for need Mitral valve prolapse 40 0222066 I34.1 89250 she denies symptoms related to thiscontin ue low dose metoprolol she follows with cards, Dr. Kwon, related to this - last seen in [facility] History of total knee arthroplasty 9362213684 105 Z96.651 26495233 see above..... .... Physical deconditioning 4806476980 9102 R53.81 904879 related to advanced age, recent knee replacemen t surgery, comorbidit iestherapi es have been initiated, will monitor progress - she is hopeful to return home alone upon d/c from [facility] [id number] Nancy Gee, DO [address] [place] [place] [address] 08/01/2025 09:08:28 08/08/2025 09:33:56 Localized, primary osteoarthritis 373539457 M17.11 02694842 s/p right total knee arthroplas ty.Continu e [...] 3 weeks. History of total knee arthroplasty 3683151608 105 Z96.651 90418687 SEE ABOVE... Essential hypertension 96659435 I10 93840 Stable. Continue Amlodipine , Metoprolol , Losartan, KCl, and Bumex.Cont inue to trend blood pressures, monitor lytes and renal function, and adjust meds as clinically indicated. F/U with Dr. Kwon ([facility]) as directed. Last seen in April 2025. Vitamin D deficiency 347 49246 E55.9 75677 Presumed stable. Continue replacemen t therapy. Slow trans it constipation 96095284 K59.01 8838 Stable. Continue routine Miralax and Citrucel.A dditional meds available per standing orders. Bilateral glaucoma 03453 19046 H40.9 32119532 Presumed stable. Continue eye drops as ordered.Ou tpatient f/u with ophtho as directed. Generalize d anxiety disorder 79669524 F41.1 49431 Continue PRN Diazepam. This is a long standing outpatient medication . She does not take additional routine medication s related to this, although she would likely benefit from it. Continue regimen for now. Recommend further psychiatri c evaluation as OP. Mitral valve prolapse 40 2878568 I34.1 19735 Denies symptoms related to this.Neptali nue medication s as above and supportive care. Physical deconditioning 1663045582 9102 R53.81 349658 Related to advanced age, recent knee replacemen t surgery, and comorbidit ies.Contin ue therapies and monitor progress. She is hopeful to return home alone upon d/c from [facility]. [id number] Nancy Gee, DO [address] [address] 08/03/2025 10:10:08 08/08/2025 09:34:27 Localized, primary osteoarthritis 878849269 M17.11 83570739 s/p right total knee arthroplas ty.Continu e [...] 3 weeks. History of total knee arthroplasty 2160434012 105 Z96.651 75898891 SEE ABOVE... Essential hypertension 43244295 I10 10975 BPs consistent ly elevated.I ncrease Losartan dosing.Con tinue Amlodipine , Metoprolol , KCl, and Bumex.Cont inue to trend blood pressures, monitor lytes and renal function, and adjust meds as clinically indicated. F/U with Dr. Kwon ([facility]) as directed. Last seen in April 2025. Mitral valve prolapse 40 5428098 I34.1 09448 Denies symptoms related to this.Neptali nue medication s as above and supportive care. Slow trans it constipation 25642931 K59.01 8838 Stable. Continue routine Miralax, Citrucel, and PRN colace & suppositor ies.Additi onal meds available per standing orders. Generalize d anxiety disorder 59245325 F41.1 90535 Continue PRN Diazepam. This is a long standing outpatient medication . She does not take additional routine medication s related to this, although she would likely benefit from it. Continue regimen for now. Recommend further psychiatri c evaluation as OP. Vitamin D deficiency 347 99953 E55.9 50865 Presumed stable. Continue replacemen t therapy. Bilateral glaucoma 28781 07703 H40.9 56340790 Presumed stable. Continue eye drops as ordered.Ou tpatient f/u with ophtho as directed. Physical deconditioning 0083293148 9102 R53.81 325585 Related to advanced age, recent knee replacemen t surgery, and comorbidit ies.Contin ue therapies and monitor progress. She is hopeful to return home alone upon d/c from [facility]. [id number] Nancy Gee DO [address] [address] [place] [address] 08/07/2025 09:20:01 08/08/2025 09:36:18 Localized, primary osteoarthritis 052064633 M17.11 72083376 s/p right total knee arthroplas ty.Continu e WBAT.Neptali nue PRN APAP, Tramadol, Oxycodone, and ice for discomfort .[place] removed on 08/06. Monitor incision closely for healing/in fection.Co ntinue ASA BID for DVT prophylaxi s x 42 days (09/07). Omeprazole has been added for GERD prevention during this time, as well.F/U with RETAIL SUPPORT SPECIALIST Teresa Skinner on 08/[address] Clemente Dhillon on 09/03. History of total knee arthroplasty 9132764185 105 Z96.651 55381703 SEE ABOVE... Essential hypertension 18154220 I10 70823 BPs were consistent ly elevated, improved with increase in Losartan dosing.Con tinue Amlodipine , Metoprolol , Lisinopril , KCl, and Bumex.Cont inue to trend blood pressures, monitor lytes and renal function, and adjust meds as clinically indicated. F/U with Dr. Kwon ([facility]) as directed. Last seen in April 2025. Mitral valve prolapse 40 1397404 I34.1 17823 Denies symptoms related to this.Neptali nue medication s as above and supportive care. Slow trans it constipation 91802114 K59.01 8838 Stable. Continue routine Miralax, Citrucel, and PRN colace & suppositor ies.Additi onal meds available per standing orders. Generalize d anxiety disorder 23356090 F41.1 36983 Continue PRN Diazepam. This is a long standing outpatient medication . She does not take additional routine medication s related to this, although she would likely benefit from it. Continue regimen for now. Recommend further psychiatri c evaluation as OP. Vitamin D deficiency 347 30642 E55.9 73310 Presumed stable. Continue replacemen t therapy. Bilateral glaucoma 58447 25127 H40.9 74203083 Presumed stable. Continue eye drops as ordered.Ou tpatient f/u with ophtho as directed. Physical deconditioning 3310210466 9102 R53.81 862216 Related to advanced age, recent knee replacemen t surgery, and comorbidit ies.Contin ue therapies and monitor progress. She is hopeful to return home alone upon d/c from [facility]. [id number] Nancy Gee, [address] [place] [address] 08/09/2025 10:52:52 08/18/2025 21:50:34 Localized, primary osteoarthritis 192242795 M17.11 96444198 s/p right total knee arthroplas ty.Continu e WBAT.Neptali nue PRN APAP, Tramadol, Oxycodone, and ice for discomfort .[place] removed on 08/06. Incision is healed without concerns.C ontinue ASA BID for DVT prophylaxi s x 42 days (09/07). Omeprazole has been added for GERD prevention during this time, as well.F/U with RETAIL SUPPORT SPECIALIST Teresa Skinner on 08/[address] Clemente Dhillon on 09/03. History of total knee arthroplasty 1686399805 105 Z96.651 03980424 SEE ABOVE... Essential hypertension 52807985 I10 06835 BPs were consistent ly elevated, improved with increase in Losartan dosing.Con tinue Amlodipine , Metoprolol , Lisinopril , KCl, and Bumex.Cont inue to trend blood pressures, monitor lytes and renal function, and adjust meds as clinically indicated. F/U with Dr. Kwon (cards) as directed. Last seen in April 2025. Mitral valve prolapse 40 9567072 I34.1 25491 Denies symptoms related to this.Neptali nue medication s as above and supportive care. Slow trans it constipation 86044587 K59.01 8838 Stable. Continue routine Miralax, Citrucel, and PRN colace & suppositor ies.Additi onal meds available per standing orders. Generalize d anxiety disorder 72632076 F41.1 41592 Continue PRN Diazepam. This is a long standing outpatient medication . She does not take additional routine medication s related to this, although she would likely benefit from it. Continue regimen for now. Recommend further psychiatri c evaluation as OP. Vitamin D deficiency 347 99271 E55.9 45384 Presumed stable. Continue replacemen t therapy. Bilateral glaucoma 78844 23838 H40.9 72489597 Presumed stable. Continue eye drops as ordered.Ou tpatient f/u with ophtho as directed. Health Concerns Section Related Observation LastModified by Organization Detai ls LastModified Time None Recorded Concern Status LastModified by Organization Details LastModified Time None Recorded Payers Encounter Date Sequence Insurance Name Policy Number Policy Soares Covered Member ID Soares Member ID Guarantor Name 08/09/2025 1 [employer] (MEDICARE REPLACEMENT/ ADVANTAGE - HMO) [id number] Carlita Yeung [id number] Carlita Yeung Notes Date Note Type Note Provider Name and Address Organization Details Recorded Time 08/09/2025 text/html 85 Y/O female with a history of HTN, mitral valve prolapse, glaucoma, anxiety and Vitamin D deficiency admitted to [place] for post acute rehab subsequent to an inpatient stay at [facility] 07/23-07/27/25 for an elective right total knee replacement related to end stage OA that failed conservative treatment measures. The patient tolerated the procedure well - no documented post operative complications. New meds: tylenol, ASA, meloxicam, omeprazole, oxycodone Code status is DNRPCP Tejas Walton lives in a home alone in [place] - [facility] at [facility]/alternate contacts = daughters Meaghan, Teena, Keisha---07/30/25reina [...] sliver mepilex dressing prior to discharge to [place]. She has dried, bloody drainage noted again [...] consider short term placement in LTC or [facility] if she doesn't feel she can appropriately care for herself when she leaves [place]. No nursing concerns today.---08/01/25Carlita is doing well [...] me if I would advise applying Bee [place] to her incision. I educate her to not apply anything to her incision without consulting orthopedics first, that application of a non-sterile ointment adds risk of infection to a healing incision, and I recommend against it at this time. She expresses understanding. Javon were removed yesterday without concerns. 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 VSS. Staff is without concerns today. Per [...] [place] [address] [facility] [place], [address], [place] [facility] 08/09/2025 17:14:10 OBGyn Episode No OBEpisode recorded.
--- OUTSIDE RECORDS SUMMARY | 2025-11-05 02:35 | XMS_ITS | Encounter Summary ---
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 Once hear back from Teena will send update message to provider. * Telephone Encounter - Ruma Dimas CMA - 08/13/2025 10:[address] Ridley please manager utilization review Triage message below and advise, Thank you * Telephone Encounter - Uma Dunn RN - 08/13/2025 8:59 AM CDT Triage Disposition- see today in office. Apt scheduled tomorrow due to availability (surgeon at 1000 at [facility]) Daughter is questioning if she needs labs [...] BP. BP this am was 181 systolic. eTena reports that these sx are not new, [...] >= 110 Protocols Used Blood Pressure - Swfw-Rnytc-BJ * Telephone Encounter - Uma Dunn RN [...] of losartan for three weeks while at [facility] in [place], [place]. Lab results prior to surgery showed [...] on filedocumented in this encounter Care Teams Warehouse Delivery Driver Relationship Specialty Start Date End Date Valentin Ridley MD [address] [place] [address] PCP - General Family Medicine 02/01/24 documented as of this encounter
--- OUTSIDE RECORDS SUMMARY | 2025-11-05 02:35 | XMS_ITS | Encounter Summary ---
Author Organization [employer] [facility] [employer] Address 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
--- OUTSIDE RECORDS SUMMARY | 2025-11-05 02:35 | XMS_ITS | Clinical Summary ---
Author Organization [facility] Address [address] [place] [address] Care Team Providers Care Poultry Grader Name Role Phone Valentin Ridley MD Primary Care Provider [phone] Clemente Dhillon MD Unavailable Og Kwon MD Unavailable [phone] Source Comments [facility],non-owned Affiliates and Associated Physician Practices is amultiple site organization consisting of ambulatory clinics and hospital sitesin [place], [place], [place] and [place]. This disclosure is being madepursuant to the Care Everywhere program and may not contain all information available regarding this patient. Last updated 18.[facility] Allergies Active Allergy Reactions [...] Type Department Care Team Description 10/01/2025 Refill [facility] [address] [place] [address], [address] [address] Chester Crystal MD Refill Request 09/18/2025 11:30 AM CDT Office Visit [facility] [address] [place] [address], [address] [address] Clemente Dhillon MD Aftercare following joint replacement surgery, unspecified joint (Primary Dx) 09/16/2025 Refill [facility] [address] [place] [address], [address] [address] Clemente Dhillon MD Refill Request 08/28/2025 3:45 PM CDT Ancillary Procedure [facility] - Radiology [address] [place] [address] Clemente Dhillon MD Aftercare following joint replacement surgery, unspecified joint 08/28/2025 3:20 PM CDT Office Visit [facility] [address] [place] [address], [address] [address] Clemente Dhillon MD Aftercare following joint replacement surgery, unspecified joint (Primary Dx) 08/27/2025 Telephone [facility] [address] [place] [address], [address] [address] Clemente Dhillon MD Change In Condition/behavior 08/24/2025 Telephone [facility] [address] [place] [address], [address] [address] Clemente Dhillon MD Post-Op 08/23/2025 Refill [facility] [address] [place] [address], [address] [address] Clemente Dhillon MD MEDICATION REFILL 08/23/2025 Telephone [facility] [address] [place] [address], [address] [address] Clemente Dhillon MD Post Op Call 08/22/2025 Telephone [facility] [address] [place] [address], [address] [address] Clemente Dhillon MD Patient Requested Call; Post-Op 08/13/2025 10:30 AM CDT Office Visit [facility] [address], [address] [place] [address] Og Chua, ASSEMBLER CARBON BRUSHES-METAL STAMPING MACHINE OPERATOR Aftercare following joint replacement surgery, unspecified joint (Primary Dx) 08/06/2025 Telephone [facility] [address], [address] [place] [address] Clemente Dhillon MD Question from Last 3 Months Immunizations Immunization Administration [...] Recorded Patient Health Questionnaire-2 Score 2 09/15/2025 [facility] [place] [facility] Occup[facility] ional Health - Occupational Stress [...] money to buy more. Never true 07/26/20 Within the past 12 months, t he [...] any time in the past 12 [facility], were you homeless or living in a usp (including now)? 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 Gender Identity Not on file Sexual [...] this topic Medical Devices Implanted Type Area Thermal Cutter Helper Device Identifier Shelf Expiration Date Model / Serial / Lot Cmnt Bone Plc R 40gm Grn Implanted:Qty: 1 on 07/23/2025 by Clemente Dhillon MD at [facility] Right: Knee [employer] 08/28/2027 [id number] / / [id number] Cmpnt Ptlr Std 28mm 3 Pg Kn Ser A Implanted:Qty: 1 on 07/23/2025 by Clemente Dhillon MD at [facility] Right: Knee [employer] 12/08/2026 [id number] / / [id number] Cmpnt Fem Kn Rt Cr Cmnt Prm Vngrd Intlk 65mm Implanted:Qty: 1 on 07/23/2025 by Clemente Dhillon MD at [facility] Right: Knee [employer] 03/28/2035 [id number] / / [id number] Tray Tib 71mm Kn Cocr I Beam Implanted:Qty: 1 on 07/23/2025 by Clemente Dhillon MD at [facility] Right: Knee [employer] [id number] / / [id number] Brng 82t40ox Vngrd Vivacit-E Kn Ant Stab Implanted:Qty: 1 on 07/23/2025 by Clemente Dhillon MD at [facility] Right: Knee [employer] 01/02/2030 [id number] / / [id number] Procedures Procedure Name Priority Date/Time Associated Diagnosis Comments XR KNEE RIGHT 3VW Routine 08/28/2025 3:4 8 PM CDT Aftercare following joint replacement surgery, unspecified joint from Last 3 Months Results * XR Knee Right 3Vw (08/28/2025 3:48 PM CDT) Narrative [facility] [address] - 08/28/2025 3:48 PM CDT Please see progress note in Epic for results. us Clemente Dhillon MD DIAGNOSTIC IMAGING ORDERABLES Final Result Performing Organization Address City/State/[facility] Co de Phone Number [facility] [address] from Last 3 Months Insurance AETNA Advance Directives Documents on File Type Date Recorded Patient Cartography/Mapping Technician Expl anation Adv Directive/Living Will/POA 07/16/2025 11:05 PM * Full Code (Latest Code Status on File) Date Activated Date Inactivated Comments 07/23/2025 1:02 PM 07/27/2025 1:45 PM Care Teams Poultry Grader Relationship Specialty Start Date End Date Valentin Ridley MD [address] [place] [address] PCP - General Internal Medicine 02/13/25 [place] [address] [place], [place] [id number] Surgeon Orthopedic Surgery 04/30/25 Og Kwon MD [address] [place] [address] Cardiovascular Disease 07/10/25
--- OUTSIDE RECORDS SUMMARY | 2025-11-05 02:35 | XMS_ITS | Continuity of Care Document ---
Author Organization [facility] [employer] [facility] Formerly [facility], [facility] Address [address] [place] [address] Care Team Providers Care Manager Logistic Name Role Phone [facility] FAX OTHER TEJAS GRAJEDA Primary Care [...] By Organization Details Last Modified Time 08/07/2025 [id number] I spent 37 minutes providing care to the patient today. More than 50% of that time was spent in discussing the expected course of the disease, discussing prognosis, coordinating care and counseling of the patient/family. Not available 08/07/2025 13:37:37 Reason for Referral None Reported. Procedures Surgical History Date Name Laterality Status Provider Name and Address Organization Details Recorded Time appendectomy completed Trevor Carrington [facility] [place] 07/28/2025 00:33:36 operative procedure on elbow completed Trevor Carrington [employer] 07/28/2025 00:33:53 Hemorrhoidectomy completed Trevor Carrington [employer] 07/28/2025 00:34:02 hysterectomy completed Trevor Carrington [facility] [place] [facility] 07/28/2025 00:34:09 Imaging Results None recorded. Procedure Notes None recorded. Medical Equipment None Reported. Allergies Allergen ID Allergen Name Allergen Category Reaction Reaction Severity Criticality Documentation Date Start Date Code Code System Note Provider Name and Address Organization Details Recorded Time 79461 Substance with sulfonami de structure and antibacte rial mechanism of action (substanc e) medicatio n Not available Not available Not available 07/28/2025 11117 8003 [facility]ED [facility]22 44502 sulfameth oxazole / trimethop rim medicatio n Not available Not available Not available 07/28/2025 13827 RxNorm [facility] 00:34[facility]21 Medications Name Sig Start Date [...] [degF] 20 /min 97 % 20.3 kg/m2 45560.3 4 g 149/81 mm[Hg] [place] [address] [place], [address], [facility] [email or web address] 09:45:52 Social History Question Answer Notes LastModified by [employer] Details LastModified Time Tobacco Smoking [place] [address] [place], [address], [facility] 08/02/2025 04:09:47 What Is Your Code Status? DNR [email or web address] Information not available 07/28/2025 Sex: Unknown Functional Status Question Answer Note LastModified by [employer] Details LastModified Time Do you use any [...] ICD10 Code Diagnosis IMO Codes Diagnosis Note [id number] Nancy Gee, [address] [address] 07/30/2025 16:51:15 08/08/2025 09:37:01 Localized, primary osteoarthritis 281376714 M17.11 [id number] s/p right total knee arthroplas tyWBATcurr ent [...] prn, meloxicam will be d/c'd Essential hypertension 27364011 I10 79076 continue amlodipine , metoprolol , losartan and bumextrend pressures and adjust meds as clinically indicated Vitamin D deficiency 347 99457 E55.9 78490 continue replacemen t therapy Slow trans it constipation 20095043 K59.01 8838 continue routine miralax and citrucelad ditional meds available per standing orders Bilateral glaucoma 80305 35461 H40.9 27310427 continue eye drops as ordered - outpatient f/u with ophtho Generalize d anxiety disorder 93416080 F41.1 86322 continue daily diazepam - this is a long standing outpatient medication she does not take additional routine medication s related to this - monitor for need Mitral valve prolapse 40 4201905 I34.1 78131 she denies symptoms related to thiscontin ue low dose metoprolol she follows with cards, Dr. Kwon, related to this - last seen in r clinically History of total knee arthroplasty 2696001094 105 Z96.651 17248229 see above..... .... Physical deconditioning 6544120495 9102 R53.81 797857 related to advanced age, recent knee replacemen t surgery, comorbidit iestherapi es have been initiated, will monitor progress - she is hopeful to return home alone upon d/c from [facility] [id number] Nancy Gee, DO [address] [address] 08/01/2025 09:08:28 08/08/2025 09:33:56 Localized, primary osteoarthritis 351786567 M17.11 79659012 s/p right total knee arthroplas ty.Continu e WBAT.Neptali nue PRN APAP, Tramadol, Oxycodone, and ice for discomfort .Current dressing to remain until 08/02. [place] to be removed on 08/06. Monitor closely for infection. Continue ASA BID for DVT prophylaxi s x 42 days (09/07). Omeprazole has been added for GERD prevention during this time, as well.F/U with Dr. Clemente Dhillon (ortho) in 3 weeks. History of total knee arthroplasty 0455204155 105 Z96.651 95438305 SEE ABOVE... Essential hypertension 99176517 I10 04293 Stable. Continue Amlodipine , Metoprolol , Losartan, KCl, and Bumex.Cont inue to trend blood pressures, monitor lytes and renal function, and adjust meds as clinically indicated. F/U with Dr. Kwon (cards) as directed. Last seen in April 2025. Vitamin D deficiency 347 62896 E55.9 59762 Presumed stable. Continue replacemen t therapy. Slow trans it constipation 98192057 K59.01 8838 Stable. Continue routine Miralax and Citrucel.A dditional meds available per standing orders. Bilateral glaucoma 88453 44822 H40.9 06857339 Presumed stable. Continue eye drops as ordered.Ou tpatient f/u with ophtho as directed. Generalize d anxiety disorder 40733602 F41.1 98329 Continue PRN Diazepam. This is a long standing outpatient medication . She does not take additional routine medication s related to this, although she would likely benefit from it. Continue regimen for now. Recommend further psychiatri c evaluation as OP. Mitral valve prolapse 40 7645055 I34.1 42927 Denies symptoms related to this.Neptali nue medication s as above and supportive care. Physical deconditioning 5823136289 9102 R53.81 976515 Related to advanced age, recent knee replacemen t surgery, and comorbidit ies.Contin ue therapies and monitor progress. She is hopeful to return home alone upon d/c from [facility]. [id number] Nancy Gee, DO [address] [address] 08/03/2025 10:10:08 08/08/2025 09:34:27 Localized, primary osteoarthritis 674718554 M17.11 87359718 s/p right total knee arthroplas ty.Continu e WBAT.Neptali nue PRN APAP, Tramadol, Oxycodone, and ice for discomfort .[place] to be removed on 08/06. Monitor incision closely for infection. Continue ASA BID for DVT prophylaxi s x 42 days (09/07). Omeprazole has been added for GERD prevention during this time, as well.F/U with Dr. Clemente Dhillon (ortho) in 3 weeks. History of total knee arthroplasty 8762733564 105 Z96.651 30993455 SEE ABOVE... Essential hypertension 40972394 I10 79175 BPs consistent ly elevated.I ncrease Losartan dosing.Con tinue Amlodipine , Metoprolol , KCl, and Bumex.Cont inue to trend blood pressures, monitor lytes and renal function, and adjust meds as clinically indicated. F/U with Dr. Kwon (cards) as directed. Last seen in April 2025. Mitral valve prolapse 40 1671160 I34.1 87976 Denies symptoms related to this.Neptali nue medication s as above and supportive care. Slow trans it constipation 28097866 K59.01 8838 Stable. Continue routine Miralax, Citrucel, and PRN colace & suppositor ies.Additi onal meds available per standing orders. Generalize d anxiety disorder 14611246 F41.1 85087 Continue PRN Diazepam. This is a long standing outpatient medication . She does not take additional routine medication s related to this, although she would likely benefit from it. Continue regimen for now. Recommend further psychiatri c evaluation as OP. Vitamin D deficiency 347 29941 E55.9 86263 Presumed stable. Continue replacemen t therapy. Bilateral glaucoma 87135 07200 H40.9 88641496 Presumed stable. Continue eye drops as ordered.Ou tpatient f/u with ophtho as directed. Physical deconditioning 7004270478 9102 R53.81 366262 Related to advanced age, recent knee replacemen t surgery, and comorbidit ies.Contin ue therapies and monitor progress. She is hopeful to return home alone upon d/c from [facility]. [id number] Nancy Gee, [address] [address] 08/07/2025 09:20:01 08/08/2025 09:36:18 Localized, primary osteoarthritis 018395677 M17.11 92600362 s/p right total knee arthroplas ty.Continu e WBAT.Neptali nue PRN APAP, Tramadol, Oxycodone, and ice for discomfort .Javon removed on 08/06. Monitor incision closely for healing/in fection.Co ntinue ASA BID for DVT prophylaxi s x 42 days (09/07). Omeprazole has been added for GERD prevention during this time, as well.F/U with PERSONAL CONSULTANT Teresa Skinner on 08/[address] Clemente Dhillon on 09/03. History of total knee arthroplasty 3372841323 105 Z96.651 40382544 SEE ABOVE... Essential hypertension 45186370 I10 44014 BPs were consistent ly elevated, improved with increase in Losartan dosing.Con tinue Amlodipine , Metoprolol , Lisinopril , KCl, and Bumex.Cont inue to trend blood pressures, monitor lytes and renal function, and adjust meds as clinically indicated. F/U with Dr. Kwon (cards) as directed. Last seen in April 2025. Mitral valve prolapse 40 2699800 I34.1 66463 Denies symptoms related to this.Neptali nue medication s as above and supportive care. Slow trans it constipation 06600302 K59.01 8838 Stable. Continue routine Miralax, Citrucel, and PRN colace & suppositor ies.Additi onal meds available per standing orders. Generalize d anxiety disorder 73477695 F41.1 48518 Continue PRN Diazepam. This is a long standing outpatient medication . She does not take additional routine medication s related to this, although she would likely benefit from it. Continue regimen for now. Recommend further psychiatri c evaluation as OP. Vitamin D deficiency 347 54756 E55.9 00315 Presumed stable. Continue replacemen t therapy. Bilateral glaucoma 91985 77088 H40.9 63377995 Presumed stable. Continue eye drops as ordered.Ou tpatient f/u with ophtho as directed. Physical deconditioning 8271825992 9102 R53.81 107400 Related to advanced age, recent knee replacemen [...] 1 [employer] (MEDICARE REPLACEMENT/ ADVANTAGE - HMO) [id number] Carlita Yeung [id number] Carlita Yeung Notes Date Note Type [...] sliver mepilex dressing prior to discharge to [facility]. She has dried, bloody drainage noted again [...] appropriately care for herself when she leaves [facility]. No nursing concerns today.---08/01/25Carlita is doing well [...] me if I would advise applying Bee Hoffmeister to her incision. I educate her to not apply anything to her incision without consulting orthopedics first, that application of a non-sterile ointment adds risk of infection to a healing incision, and I recommend against it at this time. She expresses understanding. Javon were removed yesterday without concerns. DD in place today, will be removed tomorrow and left SINGER BACK TENDER. VSS. Staff is without concerns today. Per therapy notes = Pt measuring 115 degrees of flexion and -5 degrees of extension.... Patient ambulated 250 ft x 2 on level surfaces with a FWW, requiring SBA. Patient required cueing for navigation. Kellen Londono, DENISSE [address] [facility], [place], [address], [facility] 08/07/2025 13:37:54 OBGyn Episode No OBEpisode recorded.
--- OUTSIDE RECORDS SUMMARY | 2025-11-05 02:35 | XMS_ITS | Data Portability ---
Author Organization [facility], Main Office Address [address] [place] [address] Care Team Providers Care President Finance Company Name Role Phone P [facility] FAX OTHER TEJAS GRAJEDA Primary [...] plans to d/c home on 08/13 with [facility]. Not available 08/09/2025 17:11:33 Plan of Treatment Reminders Order Date Submit Date Provider Last Modified By Organization Details Last Modified Time Details Appointments None recorded. Lab None recorded. Referral None recorded. Procedures None recorded. Surgeries None recorded. Imaging None recorded. Medication Orders losartan 50 mg tablet 2024 025 [facility] #[id number], [address] [place], [address], 17:14:09 Patient TargetsNo targets recorded. Patient Instructions Encounter Date Encounter Id Patient Instructions Last Modified By Organization Details Last Modified Time 07/30/2025 [id number] I spent >60 minutes providing care to [...] DNR [email or web address] Not available 08/02/2025 04:52:02 08/01/2025 [id number] I spent 37 minutes providing care to the patient today. More than 50% of that time was spent in discussing the expected course of the disease, discussing prognosis, coordinating care and counseling of the patient/family. [email or web address] Not available 08/02/2025 17:31:38 08/03/2025 [id number] I spent 36 minutes providing care to the patient today. More than 50% of that time was spent in discussing the expected course of the disease, discussing prognosis, coordinating care and counseling of the patient/family. Not available 08/03/2025 13:58:47 08/07/2025 [id number] I spent 37 minutes providing care to the patient today. More than 50% of that time was spent in discussing the expected course of the disease, discussing prognosis, coordinating care and counseling of the patient/family. Not available 08/07/2025 13:37:37 08/09/2025 [id number] I spent 40 minutes providing care to [...] Details Recorded Time appendectomy completed Trevor Carrington [facility] 07/28/2025 00:33:36 operative procedure on elbow completed Trevor Carrington [facility] 07/28/2025 00:33:53 Hemorrhoidectomy completed Trevor Carrington [facility] 07/28/2025 00:34:02 hysterectomy completed [facility] 07/28/2025 00:34:09 Imaging Results None recorded. Procedure Notes None recorded. Medical Equipment None Reported. Allergies Allergen ID Allergen Name Allergen Category Reaction Reaction Severity Criticality Documentation Date Start Date Code Code System Note Provider Name and Address Organization Details Recorded Time 59030 Substance with sulfonami de structure and antibacte rial mechanism of action (substanc e) medicatio n Not available Not available Not available 07/28/2025 41677 8003 [facility]22 12347 sulfameth oxazole / trimethop rim medicatio n Not available Not available Not available 07/28/2025 20615 RxNorm Trevor Carrington [facility] 00:34:21 Medications Name Sig Start Date [...] /min 98.2 [degF] 20 /min 99 % 13277.4 2 g 19.3 kg/m2 162.56 cm 155/76 mm[Hg] [place] [address] [place], [address], [place] [facility] 5 17:19:23 Date Recorded Body height Heart rate Body temperature Respiratory rate Body mass index (BMI) Body weight Oxygen saturation Systolic And Diastolic Provider Name and Address Organization Details Last Updated DateTime 5 162.56 cm 84 /min 98.2 [degF] 20 /min 20.9 kg/m2 00550.5 5 g 98 % 157/79 mm[Hg] [place] [address] [place], [address], [place] [facility] 5 12:59:45 Date Recorded Body height Heart rate Body temperature Respiratory rate Oxygen saturation Body mass index (BMI) Body weight Systolic And Diastolic Provider Name and Address Organization Details Last Updated DateTime 5 162.56 cm 91 /min 98.3 [degF] 20 /min 98 % 20.8 kg/m2 47124.6 8 g 153/74 mm[Hg] [place] [address] [place], [address], [place] [facility] 5 13:20:34 Date Recorded Body height Heart rate Body temperature Respiratory rate Oxygen saturation Body mass index (BMI) Body weight Systolic And Diastolic Provider Name and Address Organization Details Last Updated DateTime 5 162.56 cm 90 /min 98 [degF] 20 /min 97 % 20.3 kg/m2 63520.3 4 g 149/81 mm[Hg] [place] [address] [place], [address], [place] [facility] 5 09:45:52 Date Recorded Body height Heart rate Body temperature Respiratory rate Oxygen saturation Body mass index (BMI) Body weight Systolic And Diastolic Provider Name and Address Organization Details Last Updated DateTime 5 162.56 cm 88 /min 98.2 [degF] 18 /min 96 % 20.5 kg/m2 99126.5 7 g 131/72 mm[Hg] [place] [address] [place], [address], [place] [facility] 5 16:32:21 Social History Question Answer Notes LastModified by Organizat ion Details LastModified Time Tobacco Smoking [place] [address] [place], [address], [place] [facility] 08/02/2025 04:09:47 [...] ICD10 Code Diagnosis IMO Codes Diagnosis Note [id number] Nancy Gee DO [address] [address] 07/30/2025 16:51:15 08/08/2025 09:37:01 Localized, primary osteoarthritis 013651278 M17.11 84509104 s/p right total knee arthroplas tyWBATcurr ent [...] prn, meloxicam will be d/c'd Essential hypertension 68544551 I10 79018 continue amlodipine , metoprolol , losartan and bumextrend pressures and adjust meds as clinically indicated Vitamin D deficiency 347 11277 E55.9 09438 continue replacemen t therapy Slow trans it constipation 16196120 K59.01 8838 continue routine miralax and citrucelad ditional meds available per standing orders Bilateral glaucoma 45659 53663 H40.9 98340792 continue eye drops as ordered - outpatient f/u with ophtho Generalize d anxiety disorder 80858306 F41.1 63256 continue daily diazepam - this is a long standing outpatient medication she does not take additional routine medication s related to this - monitor for need Mitral valve prolapse 40 8139884 I34.1 10076 she denies symptoms related to thiscontin ue low dose metoprolol she follows with cards, Dr. Kwon, related to this - last seen in [facility] r clinically History of total knee arthroplasty 2391658614 105 Z96.651 [id number] see above..... .... Physical deconditioning 1622279023 9102 R53.81 952090 related to advanced age, recent knee replacemen t surgery, comorbidit iestherapi es have been initiated, will monitor progress - she is hopeful to return home alone upon d/c from [facility] [id number] Nancy Gee DO [address] [address] 08/01/2025 09:08:28 08/08/2025 09:33:56 Localized, primary osteoarthritis 152438947 M17.11 23157025 s/p right total knee arthroplas ty.Continu e WBAT.Neptali nue PRN APAP, Tramadol, Oxycodone, and ice for discomfort .Current dressing to remain until 08/02. Custer to be removed on 08/06. Monitor closely for infection. Continue ASA BID for DVT prophylaxi s x 42 days (09/07). Omeprazole has been added for GERD prevention during this time, as well.F/U with Dr. Clemente Dhillon (ortho) in 3 weeks. History of total knee arthroplasty 6793916958 105 Z96.651 03518434 SEE ABOVE... Essential hypertension 79792754 I10 31433 Stable. Continue Amlodipine , Metoprolol , Losartan, KCl, and Bumex.Cont inue to trend blood pressures, monitor lytes and renal function, and adjust meds as clinically indicated. F/U with Dr. Kwon (cards) as directed. Last seen in April 2025. Vitamin D deficiency 347 60041 E55.9 64830 Presumed stable. Continue replacemen t therapy. Slow trans it constipation 62924496 K59.01 8838 Stable. Continue routine Miralax and Citrucel.A dditional meds available per standing orders. Bilateral glaucoma 65512 83546 H40.9 40068372 Presumed stable. Continue eye drops as ordered.Ou tpatient f/u with ophtho as directed. Generalize d anxiety disorder 37201823 F41.1 11887 Continue PRN Diazepam. This is a long standing outpatient medication . She does not take additional routine medication s related to this, although she would likely benefit from it. Continue regimen for now. Recommend further psychiatri c evaluation as OP. Mitral valve prolapse 40 1009441 I34.1 37522 Denies symptoms related to this.Neptali nue medication s as above and supportive care. Physical deconditioning 3681861089 9102 R53.81 936772 Related to advanced age, recent knee replacemen t surgery, and comorbidit ies.Contin ue therapies and monitor progress. She is hopeful to return home alone upon d/c from [facility]. [id number] Nancy Gee, DO [address] [address] 08/03/2025 10:10:08 08/08/2025 09:34:27 Localized, primary osteoarthritis 797845934 M17.11 88796669 s/p right total knee arthroplas ty.Continu e [...] 3 weeks. History of total knee arthroplasty 5050264377 105 Z96.651 35212042 SEE ABOVE... Essential hypertension 55105967 I10 88673 BPs consistent ly elevated.I ncrease Losartan dosing.Con tinue Amlodipine , Metoprolol , KCl, and Bumex.Cont inue to trend blood pressures, monitor lytes and renal function, and adjust meds as clinically indicated. F/U with Dr. Kwon ([facility]) as directed. Last seen in April 2025. Mitral valve prolapse 40 7673097 I34.1 99690 Denies symptoms related to this.Neptali nue medication s as above and supportive care. Slow trans it constipation 96154743 K59.01 8838 Stable. Continue routine Miralax, Citrucel, and PRN colace & suppositor ies.Additi onal meds available per standing orders. Generalize d anxiety disorder 79356685 F41.1 46754 Continue PRN Diazepam. This is a long standing outpatient medication . She does not take additional routine medication s related to this, although she would likely benefit from it. Continue regimen for now. Recommend further psychiatri c evaluation as OP. Vitamin D deficiency 347 88606 E55.9 67038 Presumed stable. Continue replacemen t therapy. Bilateral glaucoma 28250 33391 H40.9 72688586 Presumed stable. Continue eye drops as ordered.Ou tpatient f/u with ophtho as directed. Physical deconditioning 5052102400 9102 R53.81 356680 Related to advanced age, recent knee replacemen t surgery, and comorbidit ies.Contin ue therapies and monitor progress. She is hopeful to return home alone upon d/c from [facility]. [id number] Nancy Gee, [place] [address] [place] [address] 08/07/2025 09:20:01 08/08/2025 09:36:18 Localized, primary osteoarthritis 075717485 M17.11 35633829 s/p right total knee arthroplas ty.Continu e WBAT.Neptali nue PRN APAP, Tramadol, Oxycodone, and ice for discomfort .Javon removed on 08/06. Monitor incision closely for healing/in fection.Co ntinue ASA BID for DVT prophylaxi s x 42 days (09/07). Omeprazole has been added for GERD prevention during this time, as well.F/U with NURSES EDUCATOR Teresa Skinner on 08/[address] Clemente Dhillon on 09/03. History of total knee arthroplasty 2974532875 105 Z96.651 38407947 SEE ABOVE... Essential hypertension 80812009 I10 79894 BPs were consistent ly elevated, improved with increase in Losartan dosing.Con tinue Amlodipine , Metoprolol , Lisinopril , KCl, and Bumex.Cont inue to trend blood pressures, monitor lytes and renal function, and adjust meds as clinically indicated. F/U with Dr. Kwon (cards) as directed. Last seen in April 2025. Mitral valve prolapse 40 9437171 I34.1 25391 Denies symptoms related to this.Neptali nue medication s as above and supportive care. Slow trans it constipation 83904540 K59.01 8838 Stable. Continue routine Miralax, Citrucel, and PRN colace & suppositor ies.Additi onal meds available per standing orders. Generalize d anxiety disorder 92478329 F41.1 69890 Continue PRN Diazepam. This is a long standing outpatient medication . She does not take additional routine medication s related to this, although she would likely benefit from it. Continue regimen for now. Recommend further psychiatri c evaluation as OP. Vitamin D deficiency 347 17089 E55.9 31140 Presumed stable. Continue replacemen t therapy. Bilateral glaucoma 16716 20653 H40.9 97883956 Presumed stable. Continue eye drops as ordered.Ou tpatient f/u with ophtho as directed. Physical deconditioning 0563238790 9102 R53.81 760918 Related to advanced age, recent knee replacemen t surgery, and comorbidit ies.Contin ue therapies and monitor progress. She is hopeful to return home alone upon d/c from [facility]. [id number] Nancy Gee, [place] [address] [place] [address] 08/09/2025 10:52:52 08/18/2025 21:50:34 Localized, primary osteoarthritis 315886211 M17.11 89352995 s/p right total knee arthroplas ty.Continu e WBAT.Neptali nue PRN APAP, Tramadol, Oxycodone, and ice for discomfort .Custer removed on 08/06. Incision is healed without concerns.C ontinue ASA BID for DVT prophylaxi s x 42 days (09/07). Omeprazole has been added for GERD prevention during this time, as well.F/U with NURSES EDUCATOR Teresa Skniner on 08/[address] Clemente Dhillon on 09/03. History of total knee arthroplasty 0648936025 105 Z96.651 12292683 SEE ABOVE... Essential hypertension 63649662 I10 73061 BPs were consistent ly elevated, improved with increase in Losartan dosing.Con tinue Amlodipine , Metoprolol , Lisinopril , KCl, and Bumex.Cont inue to trend blood pressures, monitor lytes and renal function, and adjust meds as clinically indicated. F/U with Dr. Kwon (cards) as directed. Last seen in April 2025. Mitral valve prolapse 40 2991579 I34.1 42951 Denies symptoms related to this.Neptali nue medication s as above and supportive care. Slow trans it constipation 67605404 K59.01 8838 Stable. Continue routine Miralax, Citrucel, and PRN colace & suppositor ies.Additi onal meds available per standing orders. Generalize d anxiety disorder 72651425 F41.1 69398 Continue PRN Diazepam. This is a long standing outpatient medication . She does not take additional routine medication s related to this, although she would likely benefit from it. Continue regimen for now. Recommend further psychiatri c evaluation as OP. Vitamin D deficiency 347 72357 E55.9 72048 Presumed stable. Continue replacemen t therapy. Bilateral glaucoma 00750 85688 H40.9 05521819 Presumed stable. Continue eye drops as ordered.Ou [...] 1 [employer] (MEDICARE REPLACEMENT/ ADVANTAGE - HMO) [id number] Carlita Yeung [id number] Carlita Yeung 09/13/2025 1 [employer] (POS II) [id number] Carlita Yeung [id number] Carlita Yeung Notes Date Note Type Note Provider Name and Address Organization Details Recorded Time 07/30/2025 text/html 85 Y/O female with a history of HTN, mitral valve prolapse, glaucoma, anxiety and Vitamin D deficiency admitted to [facility] for post acute rehab subsequent to an inpatient stay at [facility] 07/23-07/27/25 for an elective right total knee [...] sliver mepilex dressing prior to discharge to [facility]. She has dried, bloody drainage noted again [...] appropriately care for herself when she leaves [facility]. No nursing concerns today. Code status is DNRPCP Tejas Lima - Clemente Colbert: Doyle - follows for HTN and MVPshe lives in a home alone in [facility]/lucia chowdhury contacts = daughters Teena [place], [place] [address] [facility], [place], [address], [facility] [place] [facility] 08/02/2025 04:52:30 08/01/2025 text/html F/U [...] sliver mepilex dressing prior to discharge to [facility]. She has dried, bloody drainage noted again [...] consider short term placement in LTC or LONG TERM if she doesn't feel she can appropriately care for herself when she leaves [facility]. No nursing concerns today.---08/01/25Carlita is doing well [...] when crossing elevator threshold Kellen Londono, [place] [address] [facility], [place], [address], [facility] 08/02/2025 17:32:08 08/03/2025 text/html F/U [...] sliver mepilex dressing prior to discharge to [facility]. She has dried, bloody drainage noted again [...] consider short term placement in LTC or LONG TERM if she doesn't feel she can appropriately care for herself when she leaves [facility]. No nursing concerns today.---08/01/25Carlita is doing well [...] on walking to bathroom/meals. Kellen Londono, [place] [address] [facility], [place], [address], [employer] [facility] 08/03/2025 13:58:56 08/07/2025 text/html F/U [...] sliver mepilex dressing prior to discharge to [facility]. She has dried, bloody drainage noted again [...] appropriately care for herself when she leaves [facility]. No nursing concerns today.---08/01/25Carlita is doing well [...] me if I would advise applying Bee [place] to her incision. I educate her to [...] required cueing for navigation. Kellen Londono, [place] [address] [facility], [place], [address], [facility] 08/07/2025 13:37:54 08/09/2025 text/html 85 Y/O female with a history of HTN, mitral valve prolapse, glaucoma, anxiety and Vitamin D deficiency admitted to [facility] for post acute rehab subsequent to an inpatient stay at [facility] 07/23-07/27/25 for an elective right total knee replacement related to end stage OA that failed conservative treatment measures. The patient tolerated the procedure well - no documented post operative complications. New meds: tylenol, ASA, meloxicam, omeprazole, oxycodone Code status is DNRPCP Tejas Walton lives in a home alone in [place] - [facility] at [facility]/alternate contacts = daughters Meaghan, Teena, Keisha---07/30/25e patient [...] sliver mepilex dressing prior to discharge to [facility]. She has dried, bloody drainage noted again [...] consider short term placement in LTC or LONG TERM if she doesn't feel she can appropriately care for herself when she leaves [facility]. No nursing concerns today.---08/01/25Carlita is doing well [...] me if I would advise applying [place] to her incision. I educate her to not apply anything to her incision without consulting orthopedics first, that application of a non-sterile ointment adds risk of infection to a healing incision, and I recommend against it at this time. She expresses understanding. Custer were removed yesterday without concerns. DD in [...] SBA cues for direction. Kellen Londono, [place] [address] [facility], [place], [address], [place] [facility] 08/09/2025 17:14:10 OBGyn Episode No OBEpisode recorded.
[2025-11-05 02:36] VITALS: BP 154/82; PULSE 87; RESP 18; TEMP 36.9; O2SAT 98
[2025-11-05 05:53] VITALS: BP 176/80; PULSE 67; RESP 15; O2SAT 100
[2025-11-05 05:54] VITALS: RESP 15; O2SAT 100
[2025-11-05 07:08] VITALS: BP 131/61; PULSE 71; RESP 16; O2SAT 100
--- NOTE | 2025-11-05 07:33 | PC.NURSE ---
Patient stated that she was seen recently here for the same; Metoprolol was increased at night and she was instructed to take additional BP medications if BP was elevated which she told triage she had done. At this time her BP has been recorded WNL and patient has no other complaints. Patient is alert and oriented with a friend at bedside.
--- NOTE | 2025-11-05 07:47 | ECG_ITS ---
Test Date: 2025-11-05 08:06:22 Measurements Intervals Rosman Rate: 67 P: 78 FL: 192 QRS: 16 QRSD: 99 T: 29 QT: 414 QTc: 437 Interpretive Statements SINUS RHYTHM LEFT ATRIAL ENLARGEMENT INCOMPLETE RIGHT BUNDLE BRANCH BLOCK BORDERLINE R WAVE PROGRESSION, ANTERIOR LEADS BORDERLINE ST-T WAVE ABNORMALITY- INFERIOR LEADS BORDERLINE ECG Compared to ECG 01/19/2025 07:53:42 NO SIGNIFICANT CHANGE Electronically Signed On 11-05-2025 08:22:58 [employer]IM[employer] by Darren Wright D.O.
--- NOTE | 2025-11-05 07:56 | ED.GENADULT ---
HPI - General Adult General Chief complaint: Unspecified Stated complaint: High blood pressure Time Seen by Provider: 11/05/25 07:04 Source: patient, family, EMS, RN notes reviewed and old records reviewed Mode of arrival: EMS Limitations: no limitations History of Present Illness HPI narrative: This is an 85 year old female with history of anxiety and hypertension. She states that he has been having issues with blood pressure spikes for 1 months. She reports that reports feeling red and flushed so she checks her blood pressure. She states her blood pressure was systolic 170s last night around 10 so she called her daughter. She took her metoprolol 25 mg at that time. She states she felt better so she went to sleep. She woke up at 230 am this morning feeling like her blood pressure was elevated again so she called 911. She reports EMS found her blood pressure to be systolic 210s . Her blood pressure decreased to systolic 150s on arrival to ER without any intervention. Patient's blood pressure has ranged from 130s to 170s while being in ER. She denies having chest pain, shortness of breath, weakness. She states 1 month ago she was having spells in which she intermittently felt weak so her blood pressure medications were decreased at that time. Related Data Home Medications ?Medication ?Instructions ?Recorded ?Confirmed ?Last Taken ?Type vitamins A,C,Z-ndim-fngavm 2,148 2 tablet PO BID 09/01/21 10/22/25 Unknown History mcg-113 mg-45 mg-17.4 mg tablet (PreserVision AREDS) Allergies Allergy/AdvReac Type Severity Reaction Status Date / Time Sulfa (Sulfonamide AdvReac Unknown Unknown Verified 11/05/25 02:33 Antibiotics) sulfamethoxazole AdvReac Unknown Unknown Verified 11/05/25 02:33 sulfanilamide AdvReac Unknown Unknown Verified 11/05/25 02:33 trimethoprim AdvReac Unknown Unknown Verified 11/05/25 02:33 PMFSH Past Medical History Medical History Hyperlipidemia MVP (mitral valve prolapse) Anxiety disorder, unspecified Essential (primary) hypertension COVID-19 Surgical History Surgical History No pertinent past surgical history Family History Family History Mother Patient's mother is Carcinoma of colon, Onset Age: 98 Father Patient's father is Other Cerebrovascular accident Family history of arthritis Family history of malignant neoplasm Hypertension Social History Social History Smoking status: Never smoker Second hand tobacco smoke exposure: No Alcohol intake: current Substance use: never Substance use type: does not use Exam Narrative: GENERAL: Well-appearing, well-nourished, and in no acute distress. HEAD: Normocephalic, atraumatic EYES: PERRLA and EOMI, conjunctiva clear without discharge EARS: TM's clear bilaterally without erythema or dullness NOSE: Nares clear, no rhinorrhea or epistaxis THROAT:Mucous membranes moist, Oropharynx normal without erythema, exudate, peritonsillar swelling or fluctuance NECK: Supple, without lymphadenopathy or mass RESPIRATORY: No respiratory distress, Airway patent, Respirations non-labored, Clear to auscultation without rales, rhonchi or wheeze HEART: Regular rate and rhythm. No murmur heard. Normal peripheral pulses. ABDOMEN: Soft, nontender, nondistended, normal active bowel sounds. No masses. No rebound or guarding, No organomegaly. EXTREMITIES: No edema, normal strength with full range of motion. SKIN: Warm, dry, normal color without rash NEURO: Alert and oriented x3. CN 2-12 grossly intact. No focal deficits. PSYCH: Normal mood and affect. Course Vital Signs Vital signs: Vital Signs Temperature 98.5 F 11/05/25 02:36 Pulse Rate 87 11/05/25 02:36 Respiratory Rate 18 11/05/25 02:36 Blood Pressure 154/82 H 11/05/25 02:36 Pulse Oximetry 98 11/05/25 02:36 Temperature 98.5 F 11/05/25 02:36 Pulse Rate 71 11/05/25 08:50 Respiratory Rate 16 11/05/25 08:50 Blood Pressure 150/84 H 11/05/25 08:50 Pulse Oximetry 100 11/05/25 08:50 MDM MDM Narrative Medical decision making narrative: Patient presents with concern for elevated blood pressure. Her blood pressure has ranged from 130s-70. I provided patient with reassurance . She seems to be preoccupied with her blood pressure. She is not having chest pain, shortness of breath or cva symptoms concerning for malignant hypertension. We discussed adjusting hypertension medication as she is taking 3 medications that are low dose. We also talked about adjusting her anxiety medication. Differential Diagnosis Differential Diagnosis: hypertensive urgency, anxiety, Medical Records I have reviewed the following patient records and this information was taken into consideration when formulating the assessment and plan.: previous labs and previous ER visits Discharge Plan Discharge Clinical Impression: Essential (primary) hypertension Patient Disposition: Home Condition: Stable Instructions: Antibiotic Form, Chronic Hypertension (ED) Additional Instructions: I recommend that you speak with your primary care provider about medication adjustments. You may also want to consider taking your anxiety medication at night. Return if you develop signs of stroke, chest pain, shortness of breath, severe headache Patient Language: Martiniquais Prescriptions: No Action PreserVision AREDS 7,160 unit- 113 mg-100 unit tablet 2 tablet PO BID Rx Instructions: administer with AM and PM meals cholecalciferol (vitamin D3) 50 mcg (2,000 unit) capsule 50 mcg PO DAILY Qty: 30 0RF amlodipine 2.5 mg tablet 2.5 mg PO DAILY Qty: 90 1RF Rx Instructions: In AM diazepam 5 mg tablet 5 mg PO DAILY PRN (Reason: anxiety) Qty: 30 1RF metoprolol succinate 25 mg tablet extended release 24 hr See Rx Instructions .ROUTE .COMPLEX Qty: 45 1RF Dose Instruction: TAKE 1/2 TABLET BY MOUTH EVERY DAY Rx Instructions: TAKE 1/2 TABLET BY MOUTH EVERY DAY Follow-up/Referrals: Keyana,Valentin Wright M.D. [Primary Care Provider]
[2025-11-05 08:50] VITALS: BP 150/84; PULSE 71; RESP 16; O2SAT 100
== END 2025-11-05 08:55 | disposition home or self-care (01) ==
PROVIDERS: Emergency Provider General Practice; PCP Family Medicine
DX: I10 Essential (primary) hypertension (principal); I45.10 Unspecified right bundle-branch block; F41.9 Anxiety disorder, unspecified; E78.5 Hyperlipidemia, unspecified
CPT/HCPCS: 93005; 99283

== ENCOUNTER 2025-11-06 02:18 | Observation (INO) | payer OTHER, SELFPAY ==
[2025-11-06] VITALS (31 sets, daily range): BP systolic 107–144; BP diastolic 66–95; PULSE 71–112; RESP 13–22; TEMP 36.3–36.8; O2SAT 94–100; BMI 21.7
--- NOTE | 2025-11-06 | ECHO_ITS ---
Patient Info Name: Carlita Yeung Age: 85 years : 1940 Gender: Female Ht: 63 in Wt: 128 lbs BSA: 1.61 m2 HR: 98 bpm BP: 135 / 81 mmHg Heart Rhythm: Sinus Rhythm Technical Quality: Good Exam Date: 11/06/2025 8:12 AM Patient Status: O Admit Date: 11/06/2025 Exam Type: CA echo doppler color flow Complete two-dimensional, color flow and Doppler transthoracic echocardiogram is performed. Staff Referring Physician: Ishaan Watkins Shot Coat Tender: Sugar Beard Attending Provider: Celi Alexander DO Summary 1. Complete two-dimensional, color flow and Doppler transthoracic echocardiogram is performed. 2. Left ventricular chamber dimension is normal. 3. Left ventricular systolic function is normal, estimated at 65-70. 4. There is no increased left ventricular wall thickness. 5. The left ventricular diastolic function is grade I diastolic dysfunction. 6. Left atrial chamber dimension is mildly enlarged. 7. There is mild mitral valve regurgitation. 8. There is moderate tricuspid valve regurgitation. Left Ventricle Left ventricular chamber dimension is normal. Left ventricular systolic function is normal, estimated at 65-70. There is no increased left ventricular wall thickness. The left ventricular diastolic function is grade I diastolic dysfunction. Right Ventricle Right ventricular chamber dimension is normal. Right ventricular systolic function is normal. Left Atria Left atrial chamber dimension is mildly enlarged. Right Atria Right atrial chamber dimension is normal. Atrial Septum Intact interatrial septum visualized by color flow imaging. Aortic Valve The aortic valve is trileaflet. There is mild aortic valve sclerosis. There is no aortic valve stenosis. There is trace aortic valve regurgitation. Pulmonic Valve The pulmonic valve is normal. There is no pulmonic valve stenosis. There is trace pulmonic regurgitation. Mitral Valve The mitral valve has normal leaflets. There is no mitral valve stenosis. There is mild mitral valve regurgitation. Tricuspid Valve The tricuspid valve leaflets are normal. There is no significant tricuspid valve stenosis. There is moderate tricuspid valve regurgitation. No pulmonary hypertension, estimated pulmonary arterial systolic pressure is 33 mmHg. Pericardium/Pleural The pericardium appears normal. There is trivial pericardial effusion. Inferior Vena Cava Normal inferior vena cava with >50% collapse upon inspiration consistent with normal right atrial pressure, 8 mmHg. Aorta The aortic root size at the sinus of Valsalva is normal. Left Ventricular Outflow Tract Name Value Normal LVOT 2D LVOT Diameter 2.0 cm LVOT Doppler LVOT Peak Velocity 123 cm/s LVOT Peak Gradient 6 mmHg LVOT Mean Gradient 3 mmHg LVOT VTI 25 cm LVOT VTI/AV VTI Ratio 0.8 LVOT Stroke Volume 75 ml LVOT CO 5.6 l/min LVOT CI 3.5 l/min/m2 Pulmonic Valve Name Value Normal RVOT Doppler RVOT Peak Velocity 49 cm/s RVOT Peak Gradient 1 mmHg PV Doppler PV Peak Velocity 83 cm/s PV Peak Gradient 3 mmHg Mitral Valve Name Value Normal MV Diastolic Function MV E Peak Velocity 73 cm/s MV A Peak Velocity 97 cm/s MV E/A 0.8 MV Decel Time (PW) 277 ms MV Annular TDI MV E/e' (Septal) 12.6 MV E/e' (Lateral) 7.5 MV E/e' (Average) 10.0 Tricuspid Valve Name Value Normal TV Regurgitation Doppler TR Peak Velocity 250 cm/s TR Peak Gradient 16 mmHg Estimated PAP/RSVP RA Pressure 8 mmHg <=5 PA Systolic Pressure 33 mmHg <36 RV Systolic Pressure 33 mmHg <36 TV Annular TDI TV Lateral Brittany s' Velocity 11.3 cm/s >=9.5 Aorta Name Value Normal Ascending Aorta Ao Root Diameter (MM) 2.3 cm Ao Root Diam Index (MM) 1.4 cm/m2 Aortic Valve Name Value Normal AV Doppler AV Peak Velocity 180 cm/s AV Peak Gradient 13 mmHg AV Mean Gradient 6 mmHg AV VTI 30 cm AV Area (Cont Eq VTI) 2.5 cm2 >=3.0 AV Area (Cont Eq José Luis) 2.1 cm2 AV DI (José Luis) 0.69 AV Regurgitation 2D LVOT Area 3.0 cm2 Ventricles Name Value Normal LV Dimensions 2D/MM IVS Diastolic Thickness (2D) 0.8 cm 0.6-1.0 LVID Diastole (2D) 3.9 cm 3.8-5.2 LVIW Diastolic Thickness (2D) 0.8 cm 0.6-0.9 LVID Systole (2D) 2.4 cm 2.2-3.5 LVOT Diameter 2.0 cm LV Mass (2D Cubed) 92.79 g 67.00-162.00 LV Mass Index (2D Cubed) 58 g/m2 43-95 Relative Wall Thickness (2D) 0.42 <=0.42 LV Fractional Shortening/Ejection Fraction 2D/MM LV Fractional Shortening (2D) 39 % 27-45 LV EF (2D Teichholz) 70 % LV Diastolic Volume (4C MOD) 42 ml LV EF (4C MOD) 67 % LV Diastolic Volume (2C MOD) 40 ml LV EF (2C MOD) 71 % LV Diastolic Volume (BP MOD) 41 ml 46-106 LV Diastolic Volume Index (BP MOD) 26 ml/m2 29-61 LV Systolic Volume (BP MOD) 13 ml 14-42 LV Systolic Volume Index (BP MOD) 8 ml/m2 8-24 LV EF (BP MOD) 69 % 54-74 LV Diastolic Length (4C) 7.1 cm LV Systolic Length (4C) 5.6 cm LV Stroke Volume (4C MOD) 28 ml Atria Name Value Normal LA Dimensions LA Dimension (MM) 2.8 cm 2.7-3.8 LA Volume (4C A-L) 31 ml LA Volume (BP A-L) 39 ml RA Dimensions RA Systolic [place] [employer] Length (4C) 4.8 cm 2.2-2.8 RA Area (4C) 15.7 cm2 <=18.0 Report Signatures
--- NOTE | ~2025-11-06 | XR_ITS ---
Examination: XR chest 1V portable Clinical History: heart palp Comparison: 01/19/2025 Technique: Portable AP Findings: Heart size normal. Lungs clear. No acute bony abnormality. IMPRESSION: 1. No acute cardiopulmonary findings given portable technique. Reviewed, dictated and finalized at location [facility]. [facility]
--- NOTE | 2025-11-06 02:23 | ECG_ITS ---
Test Date: 2025-11-06 02:27:46 Measurements Intervals [place] Rate: 108 P: 0 GA: 0 QRS: 46 QRSD: 93 T: 19 QT: 336 QTc: 451 Interpretive Statements ATRIAL FIBRILLATION WITH RAPID VENTRICULAR RESPONSE INCOMPLETE RIGHT BUNDLE BRANCH BLOCK BASELINE ARTIFACT- I, II, III, AVR, AVL, AVF, V1-V3 ABNORMAL ECG Compared to ECG 11/05/2025 08:06:22 Sinus rhythm no longer present Electronically Signed On 11-06-2025 06:34:13 [employer] by Darren Wright D.O.
--- NOTE | 2025-11-06 02:36 | ED.GENADULT ---
HPI - General Adult General Chief complaint: Arrhythmia/Palpitations Stated complaint: anxiety Time Seen by Provider: 11/06/25 02:23 History of Present Illness HPI narrative: 85-year-old female history of hypertension present to the emergency department for evaluation for some heart palpitations. Patient states she woke up in the night and felt that she was having rapid heart rate. Patient denies any chest pain but states she was having some chest heaviness. Patient called EMS and by the time EMS arrived patient felt that her heart palpitations had resolved. In route patient had an EKG that did show AFib with RVR. Upon arrival emergency department patient's heart rate was ranging from the 100s to 120s and is AFib with RVR. Patient has no prior history of AFib with RVR. Patient does take metoprolol, amlodipine and losartan. Related Data Home Medications ?Medication ?Instructions ?Recorded ?Confirmed ?Last Taken ?Type vitamins A,C,G-rvib-dqzojm 2,148 2 tablet PO BID 09/01/21 11/06/25 11/05/25 History mcg-113 mg-45 mg-17.4 mg tablet (PreserVision AREDS) amlodipine 5 mg tablet 5 mg PO DAILY 11/06/25 11/06/25 11/05/25 History diazepam 2 mg tablet (Valium) 2 mg PO ONCE ANXIETY 11/06/25 11/06/25 11/05/25 History losartan 25 mg tablet 25 mg PO DAILY 11/06/25 11/06/25 11/05/25 History polyethylene glycol 3350 17 gram 17 g PO DAILY 11/06/25 11/06/25 11/05/25 History oral powder packet (Miralax) Allergies Allergy/AdvReac Type Severity Reaction Status Date / Time Sulfa (Sulfonamide AdvReac Unknown Unknown Verified 11/06/25 05:57 Antibiotics) sulfamethoxazole AdvReac Unknown Unknown Verified 11/06/25 05:57 sulfanilamide AdvReac Unknown Unknown Verified 11/06/25 05:57 trimethoprim AdvReac Unknown Unknown Verified 11/06/25 05:57 Review of Systems Review of Systems: All systems reviewed & are unremarkable except as noted in HPI and below PMFSH Past Medical History Medical History Hyperlipidemia MVP (mitral valve prolapse) Anxiety disorder, unspecified Essential (primary) hypertension COVID-19 Surgical History Surgical History No pertinent past surgical history Family History Family History Mother Patient's mother is Carcinoma of colon, Onset Age: 98 Father Patient's father is Other Cerebrovascular accident Family history of arthritis Family history of malignant neoplasm Hypertension Social History Social History Smoking status: Never smoker Second hand tobacco smoke exposure: No Alcohol intake: never Substance use: never Substance use type: does not use Lack of Transportation: No Lack of Food: Never True Current Housing: I Have Housing Concerned About Future Housing: No Difficulty Paying Gas/Electric Bills: No Difficulty Paying for Meds: No Currently Unemployed: No Education: Associate Degree Difficulty w/ Childcare or Family Care: No Spiritual care concerns: No Exam Narrative: APPEARANCE: Well appearing, no pain, no distress, well-nourished. HEAD: normocephalic, atraumatic. EYES: PERRLA/EOMI, conjunctivae clear. NOSE: Normal no drainage EARS:TMS clear with good light reflex. THROAT: Pharynx clear, no exudate. NECK: Supple. No adenopathy, no masses. RESPIRATORY: Airway patent, respirations nonlabored. Clear to auscultation bilaterally, no rales, rhonchi, wheezing. CARDIOVASCULAR: AFib with RVR ABDOMINAL: Soft, nontender, nondistended, normal bowel sounds MUSCULOSKELETAL: Moves all extremities. Strength/ROM intact, No edema, No calf tenderness. NEURO: Alert. Cranial nerves II through XII intact. Good gait. Good coordination SKIN: Warm, dry. Normal Color Course Vital Signs Vital signs: Vital Signs Temperature 98 F 11/06/25 02:18 Pulse Rate 106 H 11/06/25 02:18 Respiratory Rate 19 11/06/25 02:18 Blood Pressure 144/89 H 11/06/25 02:18 Pulse Oximetry 99 11/06/25 02:18 Oxygen Delivery Room Air 11/06/25 02:18 Temperature 97.8 F 11/06/25 05:51 Pulse Rate 112 H 11/06/25 06:00 Respiratory Rate 16 11/06/25 05:51 Blood Pressure 135/81 11/06/25 05:51 Pulse Oximetry 99 11/06/25 05:51 Oxygen Delivery Room Air 11/06/25 02:18 MDM MDM Narrative Medical decision making narrative: 85-year-old female presents emergency department for evaluation for her palpitations. Patient has no prior history of AFib. Patient was in AFib in RVR time of arrival to the emergency department. Patient does take metoprolol. She was treated with a IV dose of 5 mg of Lopressor and this did help to control her rate but she was still in AFib. Patient also treated with a L of lactated Ringer's. Patient denies any associated chest pain with this. Patient was afebrile no leukocytosis stable hemoglobin of 14.2. INR 1.0. No significant abnormalities on her CMP patient had a Mag that was in normal range. TSH was elevated 5.75 but free T3 and T4 were within normal limits. Case was discussed with hospitalist patient is accepted to the IMU. Since patient was rate controlled at time of admission Cardizem bolus and infusion were held. Patient was updated the results of the workup and plan for admission. All questions concerns were addressed. Differential Diagnosis Differential Diagnosis: AFib with RVR, sinus tachycardia, SVT, pneumonia, COVID, RSV, UTI Lab Data 11/06/25 02:51 11/06/25 02:51 Labs: Lab Results 11/06/25 Range/Units 02:51 WBC 7.8 (4.5-10.0) K/mm3 RBC 5.03 (4.2-5.4) M/mm3 Hgb 14.2 (12.0-15.0) g/dL Hct 43.5 (37.0-47.0) % MCV 86.5 (80-100) fl MCH 28.2 (26-34) pg MCHC 32.6 (32-36) g/dl RDW 14.4 (11.5-14.5) % Plt Count 315 (150-375) k/mm3 MPV 8.8 (7.4-10.4) fl Immature Gran % (Auto) 0.3 (0-0.5) % Neut % (Auto) 72.4 (45.5-73.1) % Lymph % (Auto) 14.6 L (18.3-44.2) % [place] % (Auto) 10.5 H (2.6-8.5) % Eos % (Auto) 1.2 (0-4.4) % Baso % (Auto) 1.0 (0.2-1.2) % Lymph # (Auto) 1.14 (0.9-3.2) K/mm3 [place] # (Auto) 0.8 H (0.1-0.6) K/mm3 Eos # (Auto) 0.1 (0-0.3) K/mm3 Baso # (Auto) 0.1 (0.0-0.1) K/mm3 Abs Immat Gran (auto) 0.02 (0.00-0.031) K/mm3 Absolute Neuts (auto) 5.7 (1.3-6.7) K/mm3 Absolute Nucleated RBC 0.000 (0.0-0.012) K/mm3 Nucleated RBC % 0.0 (0.0-0.2) % PT 13.1 (11.1-14.7) Seconds INR 1.0 APTT 31.8 (22.3-36.8) Seconds Sodium 134 L (137-145) mmol/L Potassium 3.9 (3.4-5.0) mmol/L Chloride 102 (98-107) mmol/L Carbon Dioxide 26 (22-30) mmol/L Anion Gap 6 (4-12) mmol/L BUN 26 H (7-17) mg/dL Creatinine 0.76 (0.7-1.0) mg/dL Estim Creat Clear Calc 39 ml/min Estimated GFR > 60 (59 - ) Glucose 111 H (65-110) mg/dL Calcium 9.8 (8.4-10.2) mg/dL Magnesium 2.2 (1.6-2.3) mg/dL Total Bilirubin 0.5 (0.2-1.3) mg/dL AST 38 H (14-36) U/L ALT 28 (6-35) U/L Alkaline Phosphatase 147 H (38-126) U/L Total Protein 7.6 (6.3-8.2) g/dL Albumin 4.4 (3.5-5.1) g/dL TSH (Reflex) 5.750 H (0.465-4.68) uIU/mL Free T4 1.42 (0.78-2.19) ng/dL Total T3 1.40 (0.82-1.58) NG/ML Imaging Data My impression: Chest x-ray: No acute cardiopulmonary abnormality Discharge Plan Discharge Clinical Impression: Atrial fibrillation Patient Disposition: Still a Patient Condition: Stable
[2025-11-06] MEDS: METOPROLOL TARTRATE INJ 5 MG/5 ML VIAL IV PUSH (02:52)
[2025-11-06] MEDS: LACTATED RINGERS 1,000 ML 999 ML IV CONT (02:56)
[2025-11-06 03:05] LABS: Hematocrit 43.5 % (37.0-47.0); Hemoglobin 14.2 g/dL (12.0-15.0); Immature Granulocyte Percent A 0.3 % (0-0.5); Lymphocytes Absolute Auto 1.14 K/mm3 (0.9-3.2); Mean Corpuscular HGB Conc 32.6 g/dl (32-36); Mean Corpuscular Hemoglobin 28.2 pg (26-34); Mean Corpuscular Volume 86.5 fl (80-100); Nucleated Red Blood Cells Absolute Auto 0.000 K/mm3 (0.0-0.012); Nucleated Red Blood Cells Perc 0.0 % (0.0-0.2); Platelet Count Result 315 k/mm3 (150-375); Red Blood Count 5.03 M/mm3 (4.2-5.4); White Blood Count 7.8 K/mm3 (4.5-10.0)
[2025-11-06 03:21] LABS: Alanine Aminotransferase 28 U/L (6-35); Albumin Level 4.4 g/dL (3.5-5.1); Alkaline Phosphatase 147 U/L (38-126); Anion Gap 6 mmol/L (4-12); Aspartate Amino Transferase 38 U/L (14-36); Bilirubin,Total 0.5 mg/dL (0.2-1.3); Blood Urea Nitrogen 26 mg/dL (7-17); Calcium 9.8 mg/dL (8.4-10.2); Carbon Dioxide 26 mmol/L (22-30); Chloride 102 mmol/L (98-107); Estimated CRCL calculation 39 ml/min; Estimated Glomerular Filt Rate > 60; Glucose 111 mg/dL (65-110); INR 1.0; Magnesium 2.2 mg/dL (1.6-2.3); Potassium 3.9 mmol/L (3.4-5.0); Prothrombin Time 13.1 Seconds (11.1-14.7); Sodium 134 mmol/L (137-145); Total Protein 7.6 g/dL (6.3-8.2)
[2025-11-06 03:22] LABS: Partial Thromboplastin Time 31.8 Seconds (22.3-36.8)
[2025-11-06 03:42] LABS: Thyroid Stimulating Hormone Reflex 5.750 uIU/mL (0.465-4.68)
[2025-11-06 04:23] LABS: Free T4 Free Thyroxine Reflex 1.42 ng/dL (0.78-2.19)
[2025-11-06 05:19] LABS: Total Triiodothyronine (T3) 1.40 NG/ML (0.82-1.58)
--- NOTE | 2025-11-06 05:53 | ADMIMU ---
This patient, Carlita Yeung, was admitted to IMU status, and placed in IMU Room 210-01 at 0537. Patient/family oriented to hospital policies and general routines including ID bracelet, bed and alarms, visiting hours, pain management, procedures, bathroom and other care routines, personal items, smoking policy, room service/diet, and visiting hours. Valuables list has been completed. Information on how to activate the Rapid Response Team has been discussed. Patient/Family are encouraged to report perceived risks to care and to ask questions if they do not understand what they are told or what they should do.
[2025-11-06] MEDS: APIXABAN 5 MG TABLET PO (09:01)
[2025-11-06 11:02] LABS: Add Urine Microscopic? NO; Appearance Urine Clear (Clear); Glucose Urine UA Negative (Negative); Leukocyte Esterase Ur Negative LEU/UL (Negative); Nitrate Urine Negative (Negative); Specific Grav Ur 1.013 (1.001-1.035)
--- NOTE | 2025-11-06 14:06 | PM.CNCAR ---
Assessment and Plan Assessment and plan (1) Atrial fibrillation: Code(s): I48.91 - Unspecified atrial fibrillation Status: Acute Assessment and Plan: This is a new diagnosis. Spontaneously converted back to sinus rhythm. Discussed the diagnosis of atrial fibrillation including pathophysiology, management strategies, risks/complications of atrial fibrillation. Will proceed with rhythm management since she is already converted back to sinus rhythm at this point. She does have a CHADS2 Vasc score of 3 (age, gender, HTN), therefore, anticoagulation is indicated. She has been started on Eliquis 5mg b.i.d., but should decrease to 2.5mg b.i.d because of her age and weight 57kg. ToprolXL 25mg daily Echo ordered and pending. Outpatient follow up with Dr. Kwon in November already scheduled. Outpatient sleep study OK to discharge today from cardiac standpoint if echo unremarkable (2) Essential (primary) hypertension: Code(s): I10 - Essential (primary) hypertension Status: Acute Assessment and Plan: At goal. Continue current regimen without change. History of Present Illness History of Present Illness Consult date/time: 11/06/25 14:06 Reason For Visit: New Onset Afib Narrative: Carlita Yeung is an 85-year-old female with hypertension and reported mitral valve prolapse. She presented to the hospital because of palpitations. Cardiology is consulted for atrial fibrillation with rapid ventricular response. Patient reports waking up early this morning with a sensation of racing heart beat. She called 911 and was brought to the ED where she was found to be in atrial fibrillation with RVR. She spontaneously converted back to sinus rhythm and remains in sinus rhythm now and has no active complaints. She wants to talk a lot about her blood pressure and considers it to be rather labile, though she only reports higher than normal readings, no hypotension. She reports several ED visits in recent weeks for high blood pressure. Review of Systems Review of Systems: All systems reviewed & are unremarkable except as noted in HPI and below PMFSH Past Medical History Medical History Hyperlipidemia MVP (mitral valve prolapse) Anxiety disorder, unspecified Essential (primary) hypertension COVID-19 Surgical History Surgical History No pertinent past surgical history Family History Family History Mother Patient's mother is Carcinoma of colon, Onset Age: 98 Father Patient's father is Other Cerebrovascular accident Family history of arthritis Family history of malignant neoplasm Hypertension Social History Social History Smoking status: Never smoker Second hand tobacco smoke exposure: No Alcohol intake: never Substance use: never Substance use type: does not use Lack of Transportation: No Lack of Food: Never True Current Housing: I Have Housing Concerned About Future Housing: No Difficulty Paying Gas/Electric Bills: No Difficulty Paying for Meds: No Currently Unemployed: No Education: Associate Degree Difficulty w/ Childcare or Family Care: No Spiritual care concerns: No Meds Home Medications and Allergies Home Medications ?Medication ?Instructions ?Recorded ?Confirmed ?Type cholecalciferol (vitamin D3) 50 50 mcg PO DAILY #30 caps 03/18/21 11/06/25 Rx mcg (2,000 unit) capsule vitamins A,C,I-eyhb-thfoym 2,148 2 tablet PO BID 09/01/21 11/06/25 History mcg-113 mg-45 mg-17.4 mg tablet (PreserVision AREDS) diazepam 5 mg tablet 5 mg PO DAILY PRN anxiety #30 tabs 07/17/22 11/06/25 Rx amlodipine 5 mg tablet 5 mg PO DAILY 11/06/25 11/06/25 History diazepam 2 mg tablet (Valium) 2 mg PO ONCE ANXIETY 11/06/25 11/06/25 History losartan 25 mg tablet 25 mg PO DAILY 11/06/25 11/06/25 History polyethylene glycol 3350 17 gram 17 g PO DAILY 11/06/25 11/06/25 History oral powder packet (Miralax) Allergies Allergy/AdvReac Type Severity Reaction Status Date / Time Sulfa (Sulfonamide AdvReac Unknown Unknown Verified 11/06/25 05:57 Antibiotics) sulfamethoxazole AdvReac Unknown Unknown Verified 11/06/25 05:57 sulfanilamide AdvReac Unknown Unknown Verified 11/06/25 05:57 trimethoprim AdvReac Unknown Unknown Verified 11/06/25 05:57 Vital Signs Vital Signs - 24 hr 11/06/25 02:18 11/06/25 02:52 11/06/25 03:18 Temperature 36.6 C Pulse Rate 106 H 104 H 94 Respiratory Rate 19 19 Blood Pressure 144/89 H Pulse Oximetry 99 98 Oxygen Delivery Room Air 11/06/25 03:45 11/06/25 03:46 11/06/25 04:00 Temperature Pulse Rate 82 77 92 Respiratory Rate 15 16 17 Blood Pressure 135/81 130/95 H Pulse Oximetry 98 99 97 Oxygen Delivery 11/06/25 04:01 11/06/25 04:26 11/06/25 04:27 Temperature Pulse Rate 99 91 90 Respiratory Rate 22 H 13 19 Blood Pressure 122/86 Pulse Oximetry 94 98 99 Oxygen Delivery 11/06/25 04:30 11/06/25 04:31 11/06/25 04:45 Temperature Pulse Rate 90 85 82 Respiratory Rate 14 18 15 Blood Pressure 111/66 112/71 Pulse Oximetry 98 96 Oxygen Delivery 11/06/25 04:46 11/06/25 05:00 11/06/25 05:01 Temperature Pulse Rate 84 81 87 Respiratory Rate 15 14 15 Blood Pressure 115/78 Pulse Oximetry 96 97 97 Oxygen Delivery 11/06/25 05:15 11/06/25 05:16 11/06/25 05:51 Temperature 36.6 C Pulse Rate 86 91 98 Respiratory Rate 15 16 16 Blood Pressure 107/69 135/81 Pulse Oximetry 96 96 99 Oxygen Delivery 11/06/25 06:00 11/06/25 08:05 11/06/25 11:24 Temperature 36.8 C 36.4 C L Pulse Rate 112 H 86 71 Respiratory Rate 18 18 Blood Pressure 141/68 H 124/69 Pulse Oximetry 97 99 Oxygen Delivery Exam Const: General: comfortable, no acute distress, alert and awake Orientation/consciousness: patient oriented x3 HENMT: Head: normal to inspection Eyes: General: appearance normal, both eyes and all related structures Pupils: Equal, round and reactive pupils present Neck: Neck: normal visual inspection, supple and no JVD Carotids: normal carotid upstroke Resp: Effort & Inspection: normal respiratory effort Auscultation: clear to auscultation bilaterally Cardio: Rate: regular rate Rhythm: regular rhythm Heart sounds: S1 normal heart sound present, S2 normal heart sound present and no murmurs GI: Auscultation: normal bowel sounds Skin: General skin exam: normal color Neuro: General: patient oriented x3 Cranial nerves: Yes Equal, round and reactive pupils present Extrem: General: normal to inspection Psych: Appearance: grossly normal Mental Status: mental status grossly normal Results Labs and Meds 11/06/25 02:51 11/06/25 02:51 Lab results: Cardiac Enzymes 11/06/25 Range/Units 02:51 AST 38 H (14-36) U/L Coagulation 11/06/25 Range/Units 02:51 PT 13.1 (11.1-14.7) Seconds APTT 31.8 (22.3-36.8) Seconds CBC 11/06/25 Range/Units 02:51 WBC 7.8 (4.5-10.0) K/mm3 RBC 5.03 (4.2-5.4) M/mm3 Hgb 14.2 (12.0-15.0) g/dL Hct 43.5 (37.0-47.0) % Plt Count 315 (150-375) k/mm3 Lymph # (Auto) 1.14 (0.9-3.2) K/mm3 [place] # (Auto) 0.8 H (0.1-0.6) K/mm3 Eos # (Auto) 0.1 (0-0.3) K/mm3 Baso # (Auto) 0.1 (0.0-0.1) K/mm3 Comprehensive Metabolic Panel 11/06/25 Range/Units 02:51 Sodium 134 L (137-145) mmol/L Potassium 3.9 (3.4-5.0) mmol/L Chloride 102 (98-107) mmol/L Carbon Dioxide 26 (22-30) mmol/L BUN 26 H (7-17) mg/dL Creatinine 0.76 (0.7-1.0) mg/dL Glucose 111 H (65-110) mg/dL Calcium 9.8 (8.4-10.2) mg/dL AST 38 H (14-36) U/L ALT 28 (6-35) U/L Alkaline Phosphatase 147 H (38-126) U/L Total Protein 7.6 (6.3-8.2) g/dL Albumin 4.4 (3.5-5.1) g/dL Intake and Output 11/05/25 11/06/25 11/06/25 23:59 07:59 15:59 Intake Total 1000 480 Balance 1000 480 Intake: IV 1000 Lactated Ringers 1,000 ml @ 999 1000 mls/hr IV CONT .Q1H1M STA Rx#: [id number] Oral 480 Patient Weight 11/06/25 23:59 Weight 57.4 kg
[2025-11-06] MEDS: LOSARTAN POTASSIUM 25 MG TABLET PO (14:53)
[2025-11-06] MEDS: diazePAM (*CRX) 5 MG TABLET PO (14:53)
--- NOTE | 2025-11-06 16:51 | PM.IMHP2 ---
H&P: HPI History of Present Illness Date/Time: 11/06/25 16:51 Chief Complaint: Palpitations chest pain Narrative: 85-year-old female past medical history of hypertension presented to the ER on account of or palpitations. Patient reported she was in usual state of health until about 2 this morning she started having palpitations. Denies lightheadedness, vomiting, abd pain, diarrhea, focal weakness. ER eval notable for rate 106, temperature 98?, respiratory 16 saturating 90% on room air, blood pressure 144/80. Lungs mostly unremarkable negative TSH 5.7 free T4 and T3 0.42 Chest x-ray no acute changes.EKG showed Afib Review of Systems Review of Systems: All other systems were reviewed and negative except as noted in the HPI above [facility] Past Medical History Medical History Hyperlipidemia MVP (mitral valve prolapse) Anxiety disorder, unspecified Essential (primary) hypertension COVID-19 Surgical History Surgical History No pertinent past surgical history Family History Family History Mother Patient's mother is Carcinoma of colon, Onset Age: 98 Father Patient's father is Other Cerebrovascular accident Family history of arthritis Family history of malignant neoplasm Hypertension Social History Social History Smoking status: Never smoker Second hand tobacco smoke exposure: No Alcohol intake: never Substance use: never Substance use type: does not use Lack of Transportation: No Lack of Food: Never True Current Housing: I Have Housing Concerned About Future Housing: No Difficulty Paying Gas/Electric Bills: No Difficulty Paying for Meds: No Currently Unemployed: No Education: Associate Degree Difficulty w/ Childcare or Family Care: No Spiritual care concerns: No Meds Home Medications and Allergies Home Medications ?Medication ?Instructions ?Recorded ?Confirmed ?Type cholecalciferol (vitamin D3) 50 50 mcg PO DAILY #30 caps 03/18/21 11/06/25 Rx mcg (2,000 unit) capsule vitamins A,C,E-dfla-qwadja 2,148 2 tablet PO BID 09/01/21 11/06/25 History mcg-113 mg-45 mg-17.4 mg tablet (PreserVision AREDS) diazepam 5 mg tablet 5 mg PO DAILY PRN anxiety #30 tabs 07/17/22 11/06/25 Rx amlodipine 5 mg tablet 5 mg PO DAILY 11/06/25 11/06/25 History diazepam 2 mg tablet (Valium) 2 mg PO ONCE ANXIETY 11/06/25 11/06/25 History losartan 25 mg tablet 25 mg PO DAILY 11/06/25 11/06/25 History polyethylene glycol 3350 17 gram 17 g PO DAILY 11/06/25 11/06/25 History oral powder packet (Miralax) Allergies Allergy/AdvReac Type Severity Reaction Status Date / Time Sulfa (Sulfonamide AdvReac Unknown Unknown Verified 11/06/25 05:57 Antibiotics) sulfamethoxazole AdvReac Unknown Unknown Verified 11/06/25 05:57 sulfanilamide AdvReac Unknown Unknown Verified 11/06/25 05:57 trimethoprim AdvReac Unknown Unknown Verified 11/06/25 05:57 Vital Signs Vital Signs - 24 hr 11/06/25 02:18 11/06/25 02:52 11/06/25 03:18 Temperature 98 F Pulse Rate 106 H 104 H 94 Respiratory Rate 19 19 Blood Pressure 144/89 H Pulse Oximetry 99 98 Oxygen Delivery Room Air 11/06/25 03:45 11/06/25 03:46 11/06/25 04:00 Temperature Pulse Rate 82 77 92 Respiratory Rate 15 16 17 Blood Pressure 135/81 130/95 H Pulse Oximetry 98 99 97 Oxygen Delivery 11/06/25 04:01 11/06/25 04:26 11/06/25 04:27 Temperature Pulse Rate 99 91 90 Respiratory Rate 22 H 13 19 Blood Pressure 122/86 Pulse Oximetry 94 98 99 Oxygen Delivery 11/06/25 04:30 11/06/25 04:31 11/06/25 04:45 Temperature Pulse Rate 90 85 82 Respiratory Rate 14 18 15 Blood Pressure 111/66 112/71 Pulse Oximetry 98 96 Oxygen Delivery 11/06/25 04:46 11/06/25 05:00 11/06/25 05:01 Temperature Pulse Rate 84 81 87 Respiratory Rate 15 14 15 Blood Pressure 115/78 Pulse Oximetry 96 97 97 Oxygen Delivery 11/06/25 05:15 11/06/25 05:16 11/06/25 05:51 Temperature 97.8 F Pulse Rate 86 91 98 Respiratory Rate 15 16 16 Blood Pressure 107/69 135/81 Pulse Oximetry 96 96 99 Oxygen Delivery 11/06/25 06:00 11/06/25 08:00 11/06/25 08:05 Temperature 98.3 F Pulse Rate 112 H 86 Respiratory Rate 18 Blood Pressure 141/68 H Pulse Oximetry 100 97 Oxygen Delivery Room Air 11/06/25 11:24 11/06/25 12:00 11/06/25 15:54 Temperature 97.5 F L 97.6 F Pulse Rate 71 79 Respiratory Rate 18 18 Blood Pressure 124/69 120/70 Pulse Oximetry 99 100 100 Oxygen Delivery Room Air 11/06/25 16:00 Temperature Pulse Rate Respiratory Rate Blood Pressure Pulse Oximetry 100 Oxygen Delivery Room Air Exam Narrative: General: alert and comfortable Eyes: EOMI, PERRLA ENNT External ears normal, Neck is supple, no masses, Respiratory systems: Clear to auscultation Cardiovascular S1, S2, normal rhythm, no murmur, rub, or gallop; no thrill or palpable murmurs on palpation. Gastrointestinal: soft, non-tender, and non-distended abdomen with no masses; BS present Skin: no rash, lesions, ulcerations, subcutaneous nodules or induration Musculoskeletal: no abnormality and no tenderness, normal ROM Neurologic: Alert and oriented x3, non focal Mental Status Exam: normal affect Results Labs Labs: Short CBC 11/06/25 Range/Units 02:51 WBC 7.8 (4.5-10.0) K/mm3 Hgb 14.2 (12.0-15.0) g/dL Hct 43.5 (37.0-47.0) % Plt Count 315 (150-375) k/mm3 [facility] 11/06/25 02:51 Sodium 134 L Potassium 3.9 Chloride 102 Carbon Dioxide 26 BUN 26 H Creatinine 0.76 Glucose 111 H Calcium 9.8 Liver Function 11/06/25 Range/Units 02:51 Total Bilirubin 0.5 (0.2-1.3) mg/dL AST 38 H (14-36) U/L ALT 28 (6-35) U/L Alkaline Phosphatase 147 H (38-126) U/L Albumin 4.4 (3.5-5.1) g/dL Urine 11/06/25 Range/Units 10:47 Urine Color Yellow (Yellow) Urine Appearance Clear (Clear) Urine pH 6.5 (5.0-9.0) Ur Specific [place] 1.013 (1.001-1.035) Urine Protein Negative (Negative) mg/dL Urine Glucose (UA) Negative (Negative) mg/dL Assessment and Plan Assessment and plan (1) Atrial fibrillation: Code(s): I48.91 - Unspecified atrial fibrillation Status: Acute (2) Essential (primary) hypertension: Code(s): I10 - Essential (primary) hypertension Status: Acute Plan new onset Afib patient presented with palpitations EKG reviewed and CXR no acute cardiopulmonary changes ECHO pending Continue Metoprolol and Eliquis Cardiology following cardiology recommends discharge is ECHO is normal and will follow up with dr Kwon for ischemic workup Hypertension Continue home meds DVT prophylaxis on Eliquis DNR SDM: Daughter Teena Granado
[2025-11-06] MEDS: APIXABAN 2.5 MG TABLET PO (20:21)
[2025-11-07] VITALS (8 sets, daily range): BP systolic 135–155; BP diastolic 79–81; PULSE 63–93; RESP 16–18; TEMP 36.7–37.1; O2SAT 97–99
[2025-11-07 04:42] LABS: Hematocrit 39.6 % (37.0-47.0); Hemoglobin 13.0 g/dL (12.0-15.0); Immature Granulocyte Percent A 0.3 % (0-0.5); Lymphocytes Absolute Auto 1.69 K/mm3 (0.9-3.2); Mean Corpuscular HGB Conc 32.8 g/dl (32-36); Mean Corpuscular Hemoglobin 29.0 pg (26-34); Mean Corpuscular Volume 88.4 fl (80-100); Nucleated Red Blood Cells Absolute Auto 0.000 K/mm3 (0.0-0.012); Nucleated Red Blood Cells Perc 0.0 % (0.0-0.2); Platelet Count Result 292 k/mm3 (150-375); Red Blood Count 4.48 M/mm3 (4.2-5.4); White Blood Count 6.8 K/mm3 (4.5-10.0)
[2025-11-07 04:57] LABS: Alanine Aminotransferase 21 U/L (6-35); Albumin Level 3.8 g/dL (3.5-5.1); Alkaline Phosphatase 116 U/L (38-126); Anion Gap 4 mmol/L (4-12); Aspartate Amino Transferase 31 U/L (14-36); Bilirubin,Total 0.6 mg/dL (0.2-1.3); Blood Urea Nitrogen 23 mg/dL (7-17); Calcium 9.2 mg/dL (8.4-10.2); Carbon Dioxide 24 mmol/L (22-30); Chloride 105 mmol/L (98-107); Estimated CRCL calculation 37 ml/min; Estimated Glomerular Filt Rate > 60; Glucose 101 mg/dL (65-110); Magnesium 2.2 mg/dL (1.6-2.3); Potassium 4.1 mmol/L (3.4-5.0); Sodium 133 mmol/L (137-145); Total Protein 6.4 g/dL (6.3-8.2)
--- NOTE | 2025-11-07 08:22 | P.DS_ITS ---
DS: Admitting Diagnosis Discharge Date 11/07/2025 Admitting Diagnosis Palpitations, chest pain DS: Discharge Diagnosis Discharge Diagnosis (1) Atrial fibrillation: Code(s): I48.91 - Unspecified atrial fibrillation Status: Acute DS: Summary Hospital Course Hospital Course: 85-year-old female past medical history of hypertension presented to the ER on account of or palpitations. Otherwise was in her usual state of health. ER eval notable for Afib which is new onset, TSH 5.7 and T4/T3 1.42/1.40. CXR no acute changes. Patient was evaluated by cardiology, and placed on Metoprolol and Eliquis. recommended discharge if ECHO showed normal EF. ECHO showed 65-70%, with grade I diastolic dysfunction. Thus patient was discharge Metoprolol and Eliquis. Cardiology will continue outpatient follow up with Dr Kwon, and f/u appointment has been made on 11/20. Continue other home meds. F/u with PCP in 3-5 days, f/u with cardiology as instructed Time Spent with Patient Time attestation: Total time spent providing and/or coordinating discharge services: DS: Data Data Completed and Pending Labs on day of discharge: Labs from last 24 hours 11/07/25 11/06/25 04:17 10:47 WBC 6.8 RBC 4.48 Hgb 13.0 Hct 39.6 MCV 88.4 MCH 29.0 MCHC 32.8 RDW 14.4 Plt Count 292 MPV 9.2 Immature Gran % (Auto) 0.3 Neut % (Auto) 59.8 Lymph % (Auto) 25.0 Alexander % (Auto) 11.8 H Eos % (Auto) 2.2 Baso % (Auto) 0.9 Lymph # (Auto) 1.69 Alexander # (Auto) 0.8 H Eos # (Auto) 0.2 Baso # (Auto) 0.1 Abs Immat Gran (auto) 0.02 Absolute Neuts (auto) 4.0 Absolute Nucleated RBC 0.000 Nucleated RBC % 0.0 Sodium 133 L Potassium 4.1 Chloride 105 Carbon Dioxide 24 Anion Gap 4 BUN 23 H Creatinine 0.84 Estim Creat Clear Calc 37 Estimated GFR > 60 Glucose 101 Calcium 9.2 Magnesium 2.2 Total Bilirubin 0.6 AST 31 ALT 21 Alkaline Phosphatase 116 Total Protein 6.4 Albumin 3.8 Urine Color Yellow Urine Appearance Clear Urine pH 6.5 Ur Specific [place] 1.013 Urine Protein Negative Urine Glucose (UA) Negative Urine Ketones Negative Ur Blood (Man) Negative Urine Nitrate Negative Urine Bilirubin Negative Urine Urobilinogen 0.2 Leukocyte Esterase Rfl Negative Discharge Plan Discharge Attending physician on discharge: Naima Polo Consulting providers: Naima Polo; Juan Cheung Discharging Clinician: Naima Polo Anticipated Discharge Date/Time: 11/07/25 08:20 Patient Disposition: Home Activity: as tolerated Diet: as tolerated and heart healthy Patient Instructions: Antibiotic Form Patient Language: Ukrainian Stand Alone Forms: General Discharge Information Follow-up/Referrals: Keyana,Valentin Wright M.D. [Primary Care Provider] Referral Note: F/u with PCP in 3-5 days Juan Cheung MD [Physician, Interventional Cardiology] Referral Note: F/u with Cardiology as instructed Discharge Medications: New Eliquis 2.5 mg Tablet 2.5 mg PO Q12HR 30 Days Qty: 60 1RF metoprolol succinate [Toprol XL] 25 mg Tablet Extended Release 24 Hr 25 mg PO QAM 30 Days Qty: 30 1RF Continued PreserVision AREDS 7,160 unit- 113 mg-100 unit tablet 2 tablet PO BID Rx Instructions: administer with AM and PM meals amlodipine 5 mg tablet 5 mg PO DAILY losartan 25 mg tablet 25 mg PO DAILY diazepam [Valium] 2 mg tablet 2 mg PO ONCE polyethylene glycol 3350 [Miralax] 17 gram powder in packet 17 g PO DAILY cholecalciferol (vitamin D3) 50 mcg (2,000 unit) capsule 50 mcg PO DAILY Qty: 30 0RF diazepam 5 mg tablet 5 mg PO DAILY PRN (Reason: anxiety) Qty: 30 1RF Date of admission: 11/06/25 04:35 Primary Care Provider: KeyanaValentin Admitting Provider: Celi Alexander Attending physician on admission: Celi Alexander Condition: Stable
[2025-11-07] MEDS: APIXABAN 2.5 MG TABLET PO (10:05)
[2025-11-07] MEDS: LOSARTAN POTASSIUM 25 MG TABLET PO (10:05)
== END 2025-11-07 11:00 | disposition home or self-care (01) ==
LOC: ANHED 02:53 → ANHIMU 05:09
PROVIDERS: Admitting Provider Internal Medicine; Emergency Provider Emergency Medicine; PCP Family Medicine; Visit Provider Internal Medicine
DX: I48.91 Unspecified atrial fibrillation (principal); I10 Essential (primary) hypertension; E78.5 Hyperlipidemia, unspecified; I34.1 Nonrheumatic mitral (valve) prolapse; F41.9 Anxiety disorder, unspecified; Z80.0 Family history of malignant neoplasm of digestive organs; Z80.8 Family history of malignant neoplasm of other organs or systems; Z84.89 Family history of other specified conditions; Z82.49 Family history of ischemic heart disease and other diseases of the circulatory system; Z82.61 Family history of arthritis; Z82.3 Family history of stroke
CPT/HCPCS: 36415; 71045; 80053; 81003; 83735; 84439; 84443; 84480; 85025; 85610; 85730; 93005; 93306; 96361; 96374; 99285; A9270; G0378; J0616; J7120